=== PATIENT | female | born 1960 | race Caucasian/White ===

== ENCOUNTER 2023-09-25 09:26 | Emergency (ER) | payer OTHER, SELFPAY ==
[2023-09-25 09:31] VITALS: BP 153/81
--- NOTE | 2023-09-25 10:02 | ED.GENMED ---
History of Present Illness
<Nanda Don MD, Resident - Last Filed: 09/25/23 12:47>
General
Chief Complaint: Breathing Problem
Source: patient
Time Seen by Provider: 09/25/23 09:44
History of Present Illness
History of Present Illness:
63-year-old female, tobacco user, presented to the ED with shortness of breath. Patient has a history of COPD, atrial fibrillation on Xeralto, CHF. Patient was on oral prednisone 50 mg and then tapered for the next 5 days which was given by her
family doctor last week as she experienced similar symptoms of shortness of breath. Patient states that after taking prednisone her breathing got better but after the course of 5 days, the symptoms reoccurred. Reports being short of breath at
rest and with exertion. Denies orthopnea, PND. She also complains of upper back pain. Denies edema. For COPD she is using albuterol and Trelegy inhaler. Smoking history of over 50 years. She reports of ongoing cough non productive. Denies
fever, chills.
Past History
<Nanda Don MD, Resident - Last Filed: 09/25/23 12:47>
Past History
ED Past Medical History: Arrthythmia (History of A. fib, long QT syndrome), Asthma, COPD, Hypercholesterolemia, NIDDM (Questionable), [place], Psychiatric (Depression) and Other (History of migraines, insomnia, disconjugate gaze of the eyes the right
greater than the left, PNA.)
ED Past Surgical History: Cardiac (ICD 10/2012) and Other ([place] teeth extraction, and a D&C Procedure)
Social History
Tobacco: Smoker
Alcohol: Former
Drug: None
Personal: (Has a partner)
Living: with family (domestic partner)
Employment: Not employed
Family History
Family History: Other (Noncontributory)
Review of Systems
<Nanda Don MD, Resident - Last Filed: 09/25/23 12:47>
Review of Systems
Respiratory: Reports cough and trouble breathing
Phy Exam
<Nanda Don MD, Resident - Last Filed: 09/25/23 12:47>
General Physical Exam
General Presentation: well appearing and no apparent distress
Cardiovascular Exam
Cardiovascular Exam: regular rate/rhythm, no edema and no murmur
Pulmonary Exam
Pulmonary Exam: decreased breath sounds
Breath Sounds: Wheeze: generalized
Gastrointestinal Exam
Gastrointestinal Exam: normal bowel sounds, non tender, soft and non distended
Scores
<Nanda Don MD, Resident - Last Filed: 09/25/23 12:47>
Heart Failure Risk
Heart Failure Risk Score: Not Applicable
Course
<Nanda Don MD, Resident - Last Filed: 09/25/23 12:47>
Orders/Labs/Results
Orders:
Orders
09/25/23 09:45
CR Chest - 2 Views Urgent
Comment:
Reason For Exam: shortness of breath
09/25/23 10:00
Electrocardiogram (*1) Urgent
Reason for Study: Shortness of Breath
EKG- Treatment ONCE
09/25/23 10:05
COVID-19 Antigen Urgent
Source: Nasal Swab
Respiratory Syncytial Virus Urgent
AUDREY Source: Nasal Swab
Specimen Description:
Date Specimen was Collected: 09/25/23
Time Specimen was Collected: 09:56
09/25/23 10:49
Basic Metabolic Panel Urgent
CBC/With Diff [Complete Blood Count/With Diff] Urgent
NT-proBNP Urgent
09/25/23 11:06
Interrogate Pacemaker- Treatment ONCE
Ipratropium/Albuterol Sulfate [Duoneb] 3 ml INH R NOW STA
07/08/24 11:07
MethylPREDNISolone PF [Solu-Medrol Pf] 125 mg IV NOW STA
09/25/23 11:27
D-Dimer Urgent
Abnormal Lab Results
09/25/23
10:49
MCH 31.9 H pg
(27.0-31.0)
Absolute Lymphs (auto) 3.5 H 10^3/uL
(1.2-3.4)
Carbon Dioxide 34 H mmol/L
(22-30)
09/25/23 10:49
09/25/23 10:49
Vital Signs
Initial and Last Documented VS:
Initial Vital Signs
Temp Pulse Resp BP Pulse Ox
36.8 C 86 25 153/81 95
09/25/23 09:31 09/25/23 09:31 09/25/23 09:31 09/25/23 09:31 09/25/23 09:31
Last Documented Vital Signs
Temp Pulse Resp BP Pulse Ox
36.8 C 86 25 153/81 95
09/25/23 09:31 09/25/23 09:31 09/25/23 09:31 09/25/23 09:31 09/25/23 09:31
<Horacio Blanco MD - Last Filed: 09/25/23 15:39>
Orders/Labs/Results
Orders:
Orders
09/25/23 09:45
CR Chest - 2 Views Urgent
Comment:
Reason For Exam: shortness of breath
09/25/23 10:00
Electrocardiogram (*1) Urgent
Reason for Study: Shortness of Breath
EKG- Treatment ONCE
09/25/23 10:05
COVID-19 Antigen Urgent
Source: Nasal Swab
Respiratory Syncytial Virus Urgent
AUDREY Source: Nasal Swab
Specimen Description:
Date Specimen was Collected: 09/25/23
Time Specimen was Collected: 09:56
09/25/23 10:49
Basic Metabolic Panel Urgent
CBC/With Diff [Complete Blood Count/With Diff] Urgent
NT-proBNP Urgent
09/25/23 11:06
Interrogate Pacemaker- Treatment ONCE
Ipratropium/Albuterol Sulfate [Duoneb] 3 ml INH R NOW STA
09/25/23 11:07
MethylPREDNISolone PF [Solu-Medrol Pf] 125 mg IV NOW STA
09/25/23 11:27
D-Dimer Urgent
Abnormal Lab Results
09/25/23
10:49
MCH 31.9 H pg
(27.0-31.0)
Absolute Lymphs (auto) 3.5 H 10^3/uL
(1.2-3.4)
Carbon Dioxide 34 H mmol/L
(22-30)
09/25/23 10:49
09/25/23 10:49
Vital Signs
Initial and Last Documented VS:
Initial Vital Signs
Temp Pulse Resp BP Pulse Ox
36.8 C 86 25 153/81 95
09/25/23 09:31 09/25/23 09:31 09/25/23 09:31 09/25/23 09:31 09/25/23 09:31
Last Documented Vital Signs
Temp Pulse Resp BP Pulse Ox
36.8 C 86 25 153/81 95
09/25/23 09:31 09/25/23 09:31 09/25/23 09:31 09/25/23 09:31 09/25/23 09:31
<Nanda Don MD, Resident - Last Filed: 09/25/23 12:47>
*Critical Care Note
Total Time (30-74mins, 75-104mins- exclusive of procedures): Not Applicable
<Horacio Blanco MD - Last Filed: 09/25/23 15:39>
*Pulse Oximetry
Patient hypoxic: no
*EKG
Interpreted by ED Provider?: Yes
Heart Rate: 76
Rate: normal
Rhythm: other (Atrial paced rhythm)
Edna: normal axis
Interval: normal interval
QRS Pattern: low voltage
Ischemia: T-wave inversion (Nonspecific T wave abnormality)
Data Reviewed
Source: patient and records
<Nanda Don MD, Resident - Last Filed: 09/25/23 12:47>
Update Note
Update Note:
63-year-old female presented to the ED for shortness of breath. History of COPD. Current smoker for over 50 years
D/D
#1 COPD exacerbation
#2 Community acquired pneumonia
#3 CHF exacerbation
#4 Arrythmia
#5 COVID
-Checking CBC, CMP, proBNP
-EKG to rule out arrhythmia, [place]
-Chest x-ray to rule out pneumonia
-Negative COVID test
-On auscultation, she sounded better than before, slight wheezy over left mid and lower lobe
-Patient is okay to discharge. Vitals are stable
-Sending her home with oral prednisone for 15 days.
-Follow-up outpatient with Dr. Dias
ED Attending Note
<Nanda Don MD, Resident - Last Filed: 09/25/23 12:47>
-
Portions of this chart may have been created with voice recognition software.� Occasional wrong word or��sound alike� substitutions may have occurred due to the inherent limitations of voice recognition software.
<Horacio Blanco MD - Last Filed: 09/25/23 15:39>
ED Attending Note
Patient seen and examined by attending physician: Yes
I performed a history and physical exam of patient and discussed management with resident, I reviewed resident's note and agree with documented findings and plan of care.: Yes
ED Attending Note:
I have seen and evaluated the patient with a [id number] encounter. I have spoken to the resident and involved in the medical history, the physical exam, medical decision making.
Evaluation and management service: agree unless noted differently below.
Results interpretation: agree unless noted differently below.
Focused HPI: 63-year-old female with history as documented notable for COPD, CHF, A-fib on Xarelto and AICD who presents to the emergency room from home for evaluation of shortness of breath. Patient reports that she had a recent exacerbation of
her COPD a few weeks ago. She says that she was on a taper of prednisone last week prescribed by her family doctor. She says that her symptoms improved on steroids and she continued her breathing treatments however over the past few days she has
had increasing shortness of breath once again. Came to the emergency room for assessment. She denies any chest pain. She does report nonproductive cough. No fevers or chills. No swelling in the legs. Denies any palpitations. She says she has
had occasional left scapular pain that is worse with movement she thinks may be from coughing. Denies any other complaints.
Physical exam: Awake and alert no distress. She has AICD in place in the chest wall. She has she has a regular rate and rhythm. She has diffuse bilateral wheezing on lung auscultation. She has normal work of breathing, normal pulse ox on room
air. She has no edema in her lower extremities. She has no JVD.
Medical Decision Makin-year-old female presents for evaluation of shortness of breath similar to prior COPD exacerbations. Finished a steroid taper last week and symptoms have slowly returned. Vitals here are significant for mild tachypnea in
triage. Physical exam as above noted for diffuse wheezing. Will plan to treat with DuoNeb and steroid for suspected acute COPD exacerbation. Will check labs including a CBC and a CMP. Will check a proBNP and a chest x-ray. Will check a D-dimer.
EKG shows paced rhythm. Will interrogate device. Reassess after the above.
Labs reviewed: CBC unremarkable, CMP no clinically significant abnormalities. proBNP was slightly elevated but she has no other signs or symptoms of CHF. Chest x-ray reviewed by me shows no acute disease. D-dimer was negative. Patient symptoms
greatly improved with treatment. Wheezing greatly improved. Respiratory rate normalized. Stable for discharge on steroid taper. She does not require refill of her albuterol she says. I did review her device report�device was interrogated today
and there was 1 notable episode that was read by her device as ventricular tachycardia on 09/21/2023 with an average rate in the 160s; no shock was delivered. Patient was asymptomatic. Reviewed rhythm strip from this event and it appears more
consistent with atrial fibrillation and this would make sense given no symptoms. I did discuss with cardiology who reviewed and agree consistent with A-fib. They will follow-up in the office.
Discharge Plan
Departure
Patient Disposition: Home (Routine Discharge)
Date of Disposition: 09/25/23
Time of Disposition: 12:44
Patient with high blood pressure during this ER visit?: Yes
Discharge Problem:
COPD exacerbation
Instructions: Exacerbation of COPD (DC)
Prescriptions:
New
prednisone 10 mg Tablet
See Rx Instructions .ROUTE .COMPLEX Qty: 45 0RF
Rx Instructions:
Take By Mouth:
50 mg daily x3 days, 40 mg daily x3 days,
30 mg daily x3 days, 20 mg daily x3 days,
10 mg daily x3 days
No Action
clonazepam 1 MG tablet
1 mg PO QID
roflumilast [Daliresp] 500 MCG tablet
500 mcg PO DAILY
escitalopram oxalate 20 MG tablet
20 mg PO DAILY
atorvastatin 10 MG tablet
10 mg PO DAILY
multivitamin with folic acid [Tab-A-Tania] 1 TABLET tablet
1 tab PO DAILY
Xarelto 20 MG tablet
20 mg PO DAILY
acetaminophen [Tylenol] 325 mg Tablet
650 mg PO Q6HPRN PRN (Reason: mild pain)
metoprolol succinate 50 mg Tablet Extended Release 24 Hr
75 mg PO DAILY
folic acid 1 mg Tablet
1 mg PO DAILY
albuterol sulfate 90 mcg/actuation Hfa Aerosol Inhaler
2 puff INHALATION R Q4HPRN PRN (Reason: sob)
aripiprazole 5 mg Tablet
5 mg PO DAILY
Trelezack Ellipta 100-62.5-25 mcg Blister With Device
1 inh INHALATION R DAILY
Referrals:
Vira Quintana DO [Family Provider] -
Kobe Dias MD [Active] - Call in 1-3 days for appt (Hydro Mechanic)
Activity Restrictions/Additional Instructions:
Thank you for visiting the Emergency Department at [facility].
1. Please schedule a follow up appointment as directed. Call first thing tomorrow morning to make an appointment.
2. If indicated, please take your medications as instructed and indicated on discharge paperwork.
3. If any of your symptoms do not improve, or persist, or become more severe within 6-12 hours, please return to the emergency department for further care.
4. Please return to the emergency department if you develop a headache, neck pain/stiffness, fever greater than 100.4F, chest pain, shortness of breath, persistent nausea, vomiting, slurred speech, difficulty walking, numbness/tingling, weakness,
signs of infection or any other symptoms that are worrisome to you.
Please call [phone] if you have any questions.
Interventions
Interventions:
*General Assessment Last Done: 09/25/23 10:51
*Neglect/Abuse Screening Last Done: 09/25/23 10:51
ED- Fall Risk Assessment Last Done: 09/25/23 12:53
*Nursing Disposition Last Done: 09/25/23 12:53
ED- Cardiac Assessment Last Done: 09/25/23 10:57
ED- Pulmonary Assessment Last Done: 09/25/23 10:57
Discharge Date and Time
Discharge Date/Time: 09/25/23 12:54
Print Language: URDU
[2023-09-25 10:41] LABS: COVID-19 Antigen Negative (Negative)
[2023-09-25 10:51] VITALS: BMI 27.3
[2023-09-25 11:01] LABS: % Basophils 0.5 % (0-2); % Immature Granulocytes 0.2 % (0-0.5); % Lymphocytes 42.7 % (20.5-51.1); % Monocytes 5.6 % (1.7-9.3); Absolute Eosinophils 0.1 10^3/uL (0-0.7); Absolute Lymphocytes 3.5 10^3/uL (1.2-3.4); Absolute Monocytes 0.5 10^3/uL (0.1-0.6); Absolute Neutrophils 4.1 10^3/uL (1.4-6.5); Hematocrit 42.1 % (37.0-47.0); Hemoglobin 14.4 g/dL (12.0-16.0); Mean Corp Hgb Conc. 34.2 g/dL (33.0-37.0); Mean Corpuscular Hgb 31.9 pg (27.0-31.0); Mean Corpuscular Volume 93.1 fL (81.0-99.0); Mean Platelet Volume 10.3 fL (7.4-10.4); Nucleated Red Blood Cells % 0 %; Platelet Count 168 10^3/uL (130-400); Red Blood Cell Count 4.52 10^6/uL (4.20-5.40); Red Cell Dist. Width 13.5 % (11.5-14.5); White Blood Cell Count 8.2 10^3/uL (4.8-10.8)
[2023-09-25 11:12] LABS: Blood Urea Nitrogen 12 mg/dl (7-17); Carbon Dioxide 34 mmol/L (22-30); Chloride 102 mmol/L (98-107); Estimated Creatinine Clearance 77 ml/min; Glucose 80 mg/dl (70-99); Sodium 137 mmol/L (135-145); eGFR > 60.00
[2023-09-25 11:16] LABS: NT-proBNP 1240 pg/ml
[2023-09-25] MEDS: DUONEB 3 ML INH (11:25)
[2023-09-25] MEDS: SOLU-MEDROL PF 125 MG IV (11:26)
[2023-09-25 12:06] LABS: D-Dimer 0.43 ug/mlFEU (0.00-0.50)
== END 2023-09-25 12:54 | disposition home or self-care (01) ==
LOC: EMR 09:26
PROVIDERS: Student in an Organized Health Care Education/Training Program; EMERGENCY PHYSICIAN Emergency Medicine; FAMILY PHYSICIAN Family Medicine
DX: J44.1 Chronic obstructive pulmonary disease with (acute) exacerbation (principal); I11.0 Hypertensive heart disease with heart failure; I50.9 Heart failure, unspecified; I48.91 Unspecified atrial fibrillation; F17.210 Nicotine dependence, cigarettes, uncomplicated; Z95.0 Presence of cardiac pacemaker
CPT/HCPCS: 99285; 96374; 93289; 94640; 71046; 80048; 83880; 85025; 85379; 87807; 87811; 93005

== ENCOUNTER 2023-11-02 15:13 | Inpatient (IN) | payer OTHER, SELFPAY ==
[2023-11-02] VITALS (13 sets, daily range): BP systolic 98–124; BP diastolic 55–72; PULSE 75–83; BMI 26.7; BMI 26.5
--- NOTE | 2023-11-02 11:25 | ED.GENMED ---
History of Present Illness
General
Chief Complaint: Breathing Problem
Source: patient
Time Seen by Provider: 11/02/23 10:59
History of Present Illness
History of Present Illness:
63-year-old female presents to the emergency room complaining of shortness of breath. Patient feels like she has increased wheezing and increased shortness of breath over the past 6 weeks or so. Also complains of pain in her upper thoracic region.
This pain is worse with movement. It does not seem worse with deep breaths. Patient has been using her nebulizer added increased frequency. She was seen here in the emergency room in early September for similar symptoms. She was discharged on
steroid taper. Patient felt better but symptoms have worsened. Patient does not use home oxygen. She denies fever. She feels like her cough is more productive.
Past History
Past History
ED Past Medical History: Arrthythmia (History of A. fib, long QT syndrome), Asthma, COPD, Hypercholesterolemia, NIDDM (Questionable), [place], Psychiatric (Depression) and Other (History of migraines, insomnia, disconjugate gaze of the eyes the right
greater than the left, PNA.)
ED Past Surgical History: Cardiac (ICD 10/2012) and Other ([place] teeth extraction, and a D&C Procedure)
Social History
Tobacco: Smoker
Alcohol: Former
Drug: None
Personal: (Has a partner)
Living: with family (domestic partner)
Employment: Not employed
Family History
Family History: Other (Noncontributory)
Phy Exam
Physical Exam
Physical Exam:
General: Awake, Alert, Oriented X3. No acute distress.
Vitals: unremarkable
Head: Atraumatic
Eyes: Pupils equal, EOMI
Throat: Airway intact, no exudates
Neck: Trachea midline
Lungs: Moderate expiratory wheezing bilaterally
Heart: regular rate, no murmurs
Abd: Soft, Nontender, No pulsatile mass
Neuro: Nonfocal
Skin: Warm, dry, no rash
Extremities: pulses equal b/l, no edema
Scores
Heart Failure Risk
Heart Failure Risk Score: Not Applicable
Course
Orders/Labs/Results
Orders:
Orders
11/02/23 11:20
Ipratropium/Albuterol Sulfate [Duoneb] 3 ml INH R NOW STA
11/02/23 11:21
CR Chest - 2 Views Urgent
Comment:
Reason For Exam: shortness of breath
11/02/23 11:22
Prednisone [Deltasone] 60 mg PO NOW STA
11/02/23 12:01
Basic Metabolic Panel Urgent
Complete Blood Count/With Diff Urgent
11/02/23 13:02
Ipratropium/Albuterol Sulfate [Duoneb] 3 ml INH R NOW STA
11/02/23 13:47
Albuterol Sulfate [Ventolin Nebules] 7.5 mg INH R NOW STA
Abnormal Lab Results
11/02/23
12:01
MCH 33.6 H pg
(27.0-31.0)
RDW 14.6 H %
(11.5-14.5)
MPV 10.9 H fL
(7.4-10.4)
Carbon Dioxide 32 H mmol/L
(22-30)
11/02/23 12:01
11/02/23 12:01
Vital Signs
Initial and Last Documented VS:
Initial Vital Signs
Temp Pulse Resp BP Pulse Ox
98.1 F 81 16 124/72 94
11/02/23 10:33 11/02/23 10:33 11/02/23 10:33 11/02/23 10:33 11/02/23 10:33
Last Documented Vital Signs
Temp Pulse Resp BP Pulse Ox
98.1 F 75 13 99/66 88
11/02/23 10:33 11/02/23 12:04 11/02/23 12:04 11/02/23 12:04 11/02/23 13:07
*Radiology
Radiology exam reviewed: radiology read reviewed
*Pulse Oximetry
Patient hypoxic: yes
*Stock Trader Interpretation
Rate: normal
Interpretation: normal
Rhythm: sinus
*Critical Care Note
Total Time (30-74mins, 75-104mins- exclusive of procedures): Not Applicable
Data Reviewed
Review of Other/Old Records Reveals: Discharge Summary
Patient Management
Social determinants of health affecting care: Strong social support
ED Attending Note
-
Portions of this chart may have been created with voice recognition software.� Occasional wrong word or��sound alike� substitutions may have occurred due to the inherent limitations of voice recognition software.
Discharge Plan
Departure
Patient Disposition: Admit
Date of Disposition: 11/02/23
Time of Disposition: 13:48
Admit to: Med/Surg
Presentation/result/management discussed w/ accepting MD/DO: Hospitalist
Condition: Fair
Discharge Problem:
COPD exacerbation, Hypoxia
Prescriptions:
No Action
clonazepam 1 MG tablet
1 mg PO QID
roflumilast [Daliresp] 500 MCG tablet
500 mcg PO DAILY
escitalopram oxalate 20 MG tablet
20 mg PO DAILY
atorvastatin 10 MG tablet
10 mg PO DAILY
multivitamin with folic acid [Tab-A-Tania] 1 TABLET tablet
1 tab PO DAILY
Xarelto 20 MG tablet
20 mg PO DAILY
acetaminophen [Tylenol] 325 mg Tablet
650 mg PO Q6HPRN PRN (Reason: mild pain)
metoprolol succinate 50 mg Tablet Extended Release 24 Hr
75 mg PO DAILY
folic acid 1 mg Tablet
1 mg PO DAILY
albuterol sulfate 90 mcg/actuation Hfa Aerosol Inhaler
2 puff INHALATION R Q4HPRN PRN (Reason: sob)
aripiprazole 5 mg Tablet
5 mg PO DAILY
Trelegy Ellipta 100-62.5-25 mcg Blister With Device
1 inh INHALATION R DAILY
prednisone 10 mg Tablet
See Rx Instructions .ROUTE .COMPLEX Qty: 45 0RF
Rx Instructions:
Take By Mouth:
50 mg daily x3 days, 40 mg daily x3 days,
30 mg daily x3 days, 20 mg daily x3 days,
10 mg daily x3 days
Referrals:
Vira Quintana DO [Family Provider] -
Interventions
Interventions:
*Risk Screen - Suicide Last Done: 11/02/23 12:03
*General Assessment Last Done: 11/02/23 12:03
*Neglect/Abuse Screening Last Done: 11/02/23 12:03
*ED COVID-19 Vaccine History Last Done: 11/02/23 12:03
ED- Cardiac Assessment Last Done: 11/02/23 12:05
ED- Pulmonary Assessment Last Done: 11/02/23 12:05
Discharge Date and Time
Print Language: ICELANDIC
[2023-11-02] MEDS: DELTASONE 60 MG PO (11:50)
[2023-11-02] MEDS: DUONEB 3 ML INH ×3 (11:50→20:23)
[2023-11-02 12:27] LABS: % Basophils 0.7 % (0-2); % Eosinophils 2.4 % (0-6); % Monocytes 7.6 % (1.7-9.3); % Neutrophils 47.3 % (42.2-75.2); Absolute Basophils 0.1 10^3/uL (0-0.2); Absolute Eosinophils 0.2 10^3/uL (0-0.7); Absolute Lymphocytes 2.8 10^3/uL (1.2-3.4); Absolute Monocytes 0.5 10^3/uL (0.1-0.6); Absolute Neutrophils 3.2 10^3/uL (1.4-6.5); Hematocrit 41.8 % (37.0-47.0); Hemoglobin 14.7 g/dL (12.0-16.0); Mean Corp Hgb Conc. 35.2 g/dL (33.0-37.0); Mean Corpuscular Hgb 33.6 pg (27.0-31.0); Mean Corpuscular Volume 95.4 fL (81.0-99.0); Mean Platelet Volume 10.9 fL (7.4-10.4); Nucleated Red Blood Cells % 0 %; Platelet Count 176 10^3/uL (130-400); Red Blood Cell Count 4.38 10^6/uL (4.20-5.40); Red Cell Dist. Width 14.6 % (11.5-14.5); White Blood Cell Count 6.7 10^3/uL (4.8-10.8)
[2023-11-02 12:43] LABS: Blood Urea Nitrogen 10 mg/dl (7-17); Calcium 9.6 mg/dl (8.4-10.2); Carbon Dioxide 32 mmol/L (22-30); Chloride 101 mmol/L (98-107); Estimated Creatinine Clearance 77 ml/min; Glucose 82 mg/dl (70-99); Sodium 136 mmol/L (135-145); eGFR > 60.00
[2023-11-02] MEDS: VENTOLIN NEBULES 7.5 MG INH (14:05)
[2023-11-02] MEDS: VIBRAMYCIN 100 MG PO ×2 (14:06→21:15)
--- NOTE | 2023-11-02 14:14 | W.PN.UPDATE ---
Update Note
Progress Note Update
I saw and examined the patient.
The POKE IN or PA's note was reviewed and I agree with the note.
Comment: 63 y/o F, hx of COPD, GENI, Asthma, Hx of Afib, HLD, Depression presents to ER for SOB manifested with increased wheezing/sob over past several weeks since her prior COPD exacerbation in early September. Associated with worsening cough and
thoracic back pain. Also utilizing nebs more frequently. No fevers/chills or other complaints.
in ER, given PO steroids, PO doxy, nebs and admitted.
Exam
General: Comfortable and Conversant; No Fever or Chills
HEENT: Normocephalic, Anicteric, PERRLA, [place] Conjunctivae, No Ptosis, Oxygen (3 L nasal cannula) and Other (Chronic disconjugate gaze to the right)
Respiratory: Wheezes (Diffuse expiratory throughout both lung cabrera); No Rales or Rhonchi
Cardiac: S1/S2 and Irregular Rhythm (A-fib to paced on monitor 81 bpm); No Murmur, Rub, Gallop or Peripheral Edema
Breast: Deferred by me
GI: Soft, Non Tender, Non Distended, Normal Bowel Sounds and No Hepatosplenomegaly
Rectal: Deferred by Provider
Genito-urinary: Deferred by me
Musculoskeletal: No Clubbing, No Cyanosis and No Edema
Skin: Warm and Dry; No Rash
Neuro: AO x 3, No Motor Deficits, Nonfocal/grossly intact, Cranial Nerves Intact and No Sensory Deficits; No Slurred Speech, Facial Droop, Tremors or Sedated
Psych: Calm
Assessment:
Acute hypoxemic respiratory insufficiency
- no prior O2 needs at home; currently on 3L NC
- wean O2 as able
Acute COPD Exacerbation
Hx of COPD and underlying hx of Asthma
- noted recent ER visit in September for COPD exacerbation - treated with steroid taper.
- prn and standing nebs
- IV Decadron 4mg q8h
- continue doxycycline
- continue Trelegy or equivalent
- continue Daliresp
- consult Pulmonary
Obstructive sleep apnea-on CPAP therapy.
Long QT syndrome with ICD placement 10/2012
History of Afib
History of cardiac arrest (VF in setting of prolonged QT/bradycardia 2012)
- continue Metoprolol, decrease to 50mg
- continue Xarelto
Depression
Bipolar disorder
Insomnia
- continue Lexapro, Clonazepam, Abilify
Hypercholesterolemia
- continue statin
Bipolar disorder
Tobacco use disorder, actively smoking
- encourage cessation
- Nicotine patch ordered
Hx of Alcohol abuse
DVT ppx: Xarelto
Code: Full
--- NOTE | 2023-11-02 14:30 | HPS.HSE ---
Addendum entered and electronically signed by Price Hess MD 11/02/23 15:13:
see my update note for addendum
Original Note:
Family Physician
-
Family Physician: Vira Quintana
Chief Complaint
-
Persistent wheezing, shortness of breath, cough, new lightheadedness with standing
History of Present Illness
63-year-old female complaining of shortness of breath with wheezing over the past 6 weeks and pain in her upper thoracic region worse with movement but not deep breaths. She reports she has been using her nebulizer more frequently but with no
relief. She does not use any home oxygen. She finished a steroid taper approximately October 09. She does report a productive cough yellow in color there is been persistent over the past 6 weeks. She denies fever, chills, sore throat, chest pain,
palpitations, abdominal pain, nausea, vomiting, diarrhea, urinary symptoms, sick contacts. She does also states she followed up with her public health microbiologist approximately 3 weeks ago had metoprolol increased from 50 mg to 75 mg daily for A-fib heart rate
control. In the ER she is noted to have fluctuating blood pressures 107/64 as low as 74/65. She does state occasionally she gets dizzy with standing up and bending over since this adjustment.
The patient was treated in the ER 09/25/2023 for COPD exacerbation placed on steroid taper starting at 50 mg x 3 days to decrease by 10 mg daily. He has past medical history of COPD, active smoker 50 years 1.5 pack a day until 2022 current 1/2
pack/day, sleep apnea/CPAP, A-fib on Xarelto, long QT syndrome, ICD/pacemaker 11/06/2012, pacemaker battery change March 2019 chronic CHF, DM 2, CAD/CT, depression, migraines, insomnia, disconjugate gaze of the eyes right greater than left,
pneumonia, former alcohol use stopped November 2016, anxiety, depression
Medical History
Past Medical History
Past Medical History: Reports Other
Additional Past Medical History:
COPD
active smoker 50 years 1.5 pack a day until 2022 current 1/2 pack/da
sleep apnea/CPA
, A-fib on Xarelto
long QT syndrome
ICD/pacemaker 11/06/2012
pacemaker battery change March 2019
chronic CHF
CAD/CT
depression/anxiety
migraines
insomnia
disconjugate gaze of the eyes right greater than left
pneumonia,
former alcohol use stopped November 2016
Past Surgical History: Reports Other
Additional Past Surgical History:
Defibrillator/pacemaker 10/20/2012
Pacemaker battery change March 2019
A-fib cardioversion September 2012
Hysteroscopy
D&C
Endometrial ablation 07/08/2011
Tonsillectomy
[place] teeth extraction
Vein ablation
Social History
Tobacco: Smoker (1/2 pack/day x 1 year prior 50-year 1.5 pack/day)
Alcohol: None
Drug: None
Personal: Single
Living: Alone
Employment: Retired
Family History
Family History: Other (Mother interstitial cystitis father dementia also history CT Sister living history of depression and narcolepsy)
Allergies / Home Medications
Allergies reflects when Allergies were last updated in [employer].
Home Medications with original date entered in [employer]
Allergy/Medication List:
Allergies
Allergy/AdvReac Type Severity Reaction Status Date / Time
azithromycin [From Zithromax] Allergy Unknown Verified 09/25/23 09:33
erythromycin lactobionate Allergy Unknown Verified 09/25/23 09:33
[From Erythrocin]
hydrocodone [From Vicodin] Allergy Itching Verified 09/25/23 09:33
levofloxacin [From Levaquin] Allergy Torsade Verified 09/25/23 09:33
quetiapine fumarate Allergy 'jumping Verified 09/25/23 09:33
[From Seroquel] legs and
pins and
needles'
numbness
arms and
legs
[id number] Antimigraine Allergy Unknown Verified 09/25/23 09:33
Agents
z-pack Allergy prolonged Uncoded 09/25/23 09:33
QT syndrome
Home Medications
clonazepam 1 mg tablet 1 mg PO QID Mental Health/Anxiety 07/23/16
roflumilast 500 mcg tablet (Daliresp) 500 mcg PO DAILY COPD 05/09/17
escitalopram oxalate 20 mg tablet 20 mg PO DAILY depression/anxiety 04/15/18
atorvastatin 10 mg tablet 10 mg PO DAILY High cholesterol 08/27/19
multivitamin with folic acid 400 mcg tablet (Tab-A-Tania) 1 tab PO DAILY Supplement 08/27/19
rivaroxaban 20 mg tablet (Xarelto) 20 mg PO DAILY Blood clot prevention/tx 09/25/19
albuterol sulfate 90 mcg/actuation aerosol inhaler 2 puff inhalation R Q4HPRN PRN sob 09/25/23
aripiprazole 5 mg tablet 5 mg PO DAILY depression 09/25/23
fluticasone fur. 100 mcg-umeclid 62.5 mcg-vilant 25 mcg inhalat.powder (Trelegy Ellipta) 1 inh inhalation R DAILY COPD/asthma 09/25/23
folic acid 1 mg tablet 1 mg PO DAILY Supplement 09/25/23
metoprolol succinate 50 mg tablet,extended release 24 hr 75 mg PO DAILY Blood Pressure 09/25/23
ibuprofen 200 mg tablet 400 mg PO Q6HPRN PRN mild pain 11/02/23
Review of Systems
-
History Source: Patient
A 12 point ROS was completed and negative except as noted: Yes
Constitutional: Denies Fever, Weight Loss, Fatigue or Chills
EENT: Denies Sore Throat or Runny Nose
Respiratory: Reports Cough (Yellow in color) and Trouble Breathing (With wheezing)
Cardiac: Denies Chest Pain, Diaphoresis or Palpitations
Abdomen/GI: Denies Abdominal Pain, Nausea, Vomiting, Diarrhea, Constipated, Bloody Stools or Black Stools
: Denies Dysuria, Frequency, Flank Pain, Incontinence, Difficulty Voiding or Urgency
Musculoskeletal: Denies Joint Pain or Edema
Skin: Denies Itching or Rash
Neurological: Reports Dizzy (With standing); Denies Headache or Weakness
Endocrine: Reports No Symptoms
Hematologic/Lymphatic: Reports No Symptoms
Psych: Reports Calm
Physical Exam
Vital Signs
Vital Signs
Temp Pulse Resp BP Pulse Ox
98.1 F 75 13 99/66 88
11/02/23 10:33 11/02/23 12:04 11/02/23 12:04 11/02/23 12:04 11/02/23 13:07
Physical Exam
General: Comfortable and Conversant; No Fever or Chills
HEENT: NormoCephalic, Anicteric, PERRLA, [place] Conjunctivae, No Ptosis, Oxygen (3 L nasal cannula) and Other (Chronic disconjugate gaze to the right)
Respiratory: Wheezes (Diffuse expiratory throughout both lung cabrera); No Rales or Rhonchi
Cardiac: S1/S2 and Irregular Rhythm (A-fib to paced on monitor 81 bpm); No Murmur, Rub, Gallop or Peripheral Edema
Breast: Deferred by me
GI: Soft, Non Tender, Non Distended, Normal Bowel Sounds and No Hepatosplenomegaly
Rectal: Deferred by Provider
Genito-urinary: Deferred by me
Musculoskeletal: No Clubbing, No Cyanosis and No Edema
Skin: Warm and Dry; No Rash
Neuro: AO x 3, No Motor Deficits, Nonfocal/grossly intact, Cranial Nerves Intact and No Sensory Deficits; No Slurred Speech, Facial Droop, Tremors or Sedated
Psych: Calm
Laboratory Results
-
11/02/23 12:01
11/02/23 12:01
Data Reviewed
-
Diagnostic Radiology: Report Reviewed by me
Lab Data: Labs Reviewed by me
Impression/Plan
-
Impression/plan:
Admit to telemetry
#Acute hypoxic resp insuff 2/2 to Acute on chronic COPD exacerbation
-COPD exacerbation on 09/25/2023 finished steroid taper 10/10/2023
88% RA, 90%
DuoNebs scheduled and as needed
-IV Decadron 4 every 8 hours
-Doxycycline 100 mg p.o. every 12 hours
-Continue Trelegy Ellipta or equivalent
-Continue Daliresp 500 mcg p.o. daily
-Consult Pulm
-Check sputum culture
-Follow CBC, CMP
-PT/OT/case management consult
-will eventually need PT walking pulse ox for possible home O2 need
CXR no acute cardiopulmonary process
#Active smoker
50-year average 1.5 pack/day until 2022 now 1/2 pack/day
-Smoking cessation advised
-Nicotine patch 14 Mg
-
#Hypotension/HTN�benign
BP 99/66
Change metoprolol to succinate back to 50 mg daily from 75 mg due to hypotension with hold parameter
#A-fib paroxysmal
-Continue Xarelto
Change metoprolol to succinate back to 50 mg daily from 75 mg due to hypotension with hold parameters
Her Toprol was increased to 75 approximate 3 weeks ago by cardiology for rate control
#Defibrillator/pacemaker 10/20/2012
Pacemaker battery change March 2019
# hx long QT syndrome
#Chronic CHF-unclear type
I/O, daily weights
#CAD/CT
-Continue beta-kayla, statin
#GENI
-Continue CPAP
#Depression hx /anxiety Hx
-Continue clonazepam 1 mg p.o. 4 times daily, escitalopram 20 mg daily, Aripiprazole 5 mg daily
#Migraines hx -no current migraine
insomnia
-No current meds
Other PMH:
disconjugate gaze of the eyes right greater than left
pneumonia
former alcohol use stopped November 2016
DVT prophylaxis
Continue [employer] Xarelto
Full code
[2023-11-02 15:02] LABS: COVID-19 Antigen Negative (Negative)
--- NOTE | 2023-11-02 15:34 | CON.PUL ---
Consultation
Consultation Request
Date/Time Consultation Requested: 11/01
Date/Time Consultation Performed: 11/01
Reason for Consultation: COPD
Medical History
-
History of Present Illness:
History obtained from the chart, ED records, inpatient and outpatient records, patient. Patient is a 63-year-old female with a history of COPD recently discharged 09/25/2023 for COPD exacerbation. She states she was not feeling well upon her last
discharge. She is not on home oxygen. Unfortunate she continues to smoke a pack of cigarettes a day. She has had persistent shortness of breath over the past 6 weeks. Upon reviewing outpatient records she was called by our office for follow-up
but she never returned her call. Her last steroid dose was approximately 2 to 3 weeks ago. She admits to a productive cough, no blood. Denies any falls, fevers, chills, sweats, dysphagia, choking, sick contacts. Upon arrival to [facility], afebrile, pulse 81, breathing at 16, blood pressure 124/72, 88% on room air. Per ED records, chest exam with moderate wheezing bilaterally. Chest x-ray unremarkable. Patient mated for COPD exacerbation. We are asked to comment on
pulmonary process
.
PMH:, Asthma, depression. History of long QT syndrome with ICD placement 2012, cardiac arrest. History of bipolar disorder. Fractured hip with rods [facility] at [facility] 2022. Hypertension, hyperlipidemia, history of atrial fibrillation, sleep
apnea, COPD
Past Medical History
Past Medical History: None (See above)
Past Surgical History: None (See above)
Social History
Tobacco: Smoker (Continues to smoke half a pack a day, likely 65+ pack-year history of smoking, ongoing)
Alcohol: Occasional
Drug: None
Personal:
Living: Alone
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
Environmental Exposures: Cat, no mold, no wood-burning
Family History
Family History: Other (Mother from pulmonary disease. Father from heart attack. Son with epilepsy/lupus. 2 sisters healthy. March 2022)
Allergies / Home Medications
Allergies
Allergy/AdvReac Type Severity Reaction Status Date / Time
azithromycin [From Zithromax] Allergy Unknown Verified 09/25/23 09:33
erythromycin lactobionate Allergy Unknown Verified 09/25/23 09:33
[From Erythrocin]
hydrocodone [From Vicodin] Allergy Itching Verified 09/25/23 09:33
levofloxacin [From Levaquin] Allergy Torsade Verified 09/25/23 09:33
quetiapine fumarate Allergy 'jumping Verified 09/25/23 09:33
[From Seroquel] legs and
pins and
needles'
numbness
arms and
legs
[id number] Antimigraine Allergy Unknown Verified 09/25/23 09:33
Agents
z-pack Allergy prolonged Uncoded 09/25/23 09:33
QT syndrome
Home Medications
�Medication �Instructions �Recorded �Confirmed �Last Taken �Type
clonazepam 1 mg tablet 1 mg PO QID Mental Health/Anxiety 07/23/16 11/02/23 11/01/23 History
roflumilast 500 mcg tablet 500 mcg PO DAILY COPD 05/09/17 11/02/23 11/01/23 History
(Daliresp)
escitalopram oxalate 20 mg tablet 20 mg PO DAILY depression/anxiety 04/15/18 11/02/23 11/01/23 History
atorvastatin 10 mg tablet 10 mg PO DAILY High cholesterol 08/27/19 11/02/23 11/01/23 History
multivitamin with folic acid 400 1 tab PO DAILY Supplement 08/27/19 11/02/23 11/01/23 History
mcg tablet (Tab-A-Tania)
rivaroxaban 20 mg tablet (Xarelto) 20 mg PO DAILY Blood clot 09/25/19 11/02/23 11/01/23 History
prevention/tx
albuterol sulfate 90 mcg/actuation 2 puff inhalation R Q4HPRN PRN sob 09/25/23 11/02/23 09/25/23 History
aerosol inhaler
aripiprazole 5 mg tablet 5 mg PO DAILY depression 09/25/23 11/02/23 11/01/23 History
fluticasone fur. 100 mcg-umeclid 1 inh inhalation R DAILY 09/25/23 11/02/23 11/01/23 History
62.5 mcg-vilant 25 mcg COPD/asthma
inhalat.powder (Trelegy Ellipta)
folic acid 1 mg tablet 1 mg PO DAILY Supplement 09/25/23 11/02/23 11/01/23 History
metoprolol succinate 50 mg 75 mg PO DAILY Blood Pressure 09/25/23 11/02/23 11/01/23 History
tablet,extended release 24 hr
ibuprofen 200 mg tablet 400 mg PO Q6HPRN PRN mild pain 11/02/23 11/02/23 11/01/23 History
Review of Systems
Vitals / Labs / Diagnostic Testing
Vital Signs
Temp Pulse Resp BP Pulse Ox
98.1 F 75 19 107/64 90
11/02/23 10:33 11/02/23 14:39 11/02/23 14:39 11/02/23 14:39 11/02/23 14:39
Lab Data
11/02/23 12:01
11/02/23 12:01
Diagnostic Testing:
Physical Exam
-
HEENT: Normocephalic, Anicteric, Other (Narrow posterior oropharynx) and Other (Lazy eye)
Cardiovascular: S1/S2, Regular Rhythm, Murmur (n), Rub (n) and Peripheral Edema (n)
Respiratory: Wheeze (Scattered expiratory), Rales (n), Rhonchi (n) and Non-Labored Respirations
GI: Soft, Non Distended and Non Tender
Neurology: Awake, Alert and No Motor Deficits (Able to sit up without assistance)
Skin: Good Color and Other (Multiple tattoos)
General: Comfortable
Assessment
-
63-year-old female with history of COPD with recurrent exacerbations, ongoing smoking, atrial fibrillation, long QT syndrome with history of V-fib arrest, ICD in place, presents with increased shortness of breath x 6 weeks. She was recently
discharged with COPD exacerbation 09/24, last steroid 10/09. She was contacted by the pulmonary office for follow-up but did not return calls. She is now admitted for COPD exacerbation
Acute hypoxic respiratory insufficiency
88% room air
Acute COPD exacerbation
History of COPD
FEV1 1.08/41%, DLCO 36%
History of recurrent COPD exacerbations
GENI, total index 35, desaturation bipin 80%
Control with CPAP pressure of 9 in the past
Long QT syndrome with ICD placement 2012
Cardiac arrest/VF in the setting of prolonged QT/bradycardia
History of atrial fibrillation
On anticoagulation
Hypertension/hyperlipidemia
Bipolar disorder
Alcohol use history, currently denies
Ongoing tobacco use
Right lower lobe nodule per CT imaging per my review
Plan/recommendations
At this time, patient appears to be nontoxic. Wheezing on exam noted
Patient has had multiple COPD exacerbations, 4 times in 2018 and twice in 2022
Unfortunate she continues to smoke but is cut down from 2 packs to half a pack
Describes about 65+ pack-year history of smoking
Moving forward
Patient currently on Jacquelin Miller as outpatient. Wonder if she may benefit from azithromycin but but this may be difficult given history of long QT syndrome. She does have an ICD in place
No doubt her ongoing smoking contributes to her symptom complex
Continue with steroids, doxycycline
DuoNebs 4 times daily, budesonide twice a day
Hold Trelegy for now
Upon reviewing prior images, CT chest 10/04/2022 with right lower lobe nodule per my review she will require follow-up CT imaging. Unclear
Why she is not getting low-dose lung cancer screening
Reviewed importance of follow-up with pulmonary
Prior PFTs suggest severe COPD with severe gas exchange defect
Mild hypoxia noted. Last echocardiogram 2019 with normal biventricular function, right heart pressures could not be determined
Ongoing tobacco cessation discussion
Nicotine patch
Reviewed with patient at length. Will follow
[2023-11-02] MEDS: DUONEB INH (16:52)
[2023-11-02] MEDS: NICODERM TRANSDERMAL 14 MG TRANSDERM (17:36)
[2023-11-02] MEDS: KLONOPIN 1 MG PO ×2 (17:38→21:15)
[2023-11-02] MEDS: DECADRON 4 MG IV (19:54)
[2023-11-02] MEDS: PULMICORT 0.5 MG INH (20:23)
[2023-11-03] VITALS (8 sets, daily range): BP systolic 94–121; BP diastolic 43–77; PULSE 77–80; O2SAT 93; BMI 26.4
[2023-11-03] MEDS: DECADRON 4 MG IV ×3 (04:30→21:14)
[2023-11-03] MEDS: TYLENOL 650 MG PO (04:39)
[2023-11-03 05:53] LABS: % Basophils 0.2 % (0-2); % Immature Granulocytes 0.2 % (0-0.5); % Lymphocytes 12.7 % (20.5-51.1); % Monocytes 3.6 % (1.7-9.3); % Neutrophils 83.3 % (42.2-75.2); Absolute Lymphocytes 0.6 10^3/uL (1.2-3.4); Absolute Monocytes 0.2 10^3/uL (0.1-0.6); Absolute Neutrophils 3.8 10^3/uL (1.4-6.5); Hematocrit 43.2 % (37.0-47.0); Hemoglobin 15.1 g/dL (12.0-16.0); Mean Corpuscular Hgb 33.2 pg (27.0-31.0); Mean Corpuscular Volume 94.9 fL (81.0-99.0); Nucleated Red Blood Cells % 0 %; Platelet Count 165 10^3/uL (130-400); Red Blood Cell Count 4.55 10^6/uL (4.20-5.40); Red Cell Dist. Width 14.3 % (11.5-14.5); White Blood Cell Count 4.5 10^3/uL (4.8-10.8)
[2023-11-03 06:27] LABS: ALT (SGPT) < 10 U/L (0-35); AST (SGOT) 17 U/L (14-36); Albumin 4.1 g/dl (3.5-5.0); Alkaline Phosphatase 58 U/L (38-126); Blood Urea Nitrogen 15 mg/dl (7-17); Calcium 9.9 mg/dl (8.4-10.2); Carbon Dioxide 27 mmol/L (22-30); Chloride 102 mmol/L (98-107); Estimated Creatinine Clearance 90 ml/min; Glucose 123 mg/dl (70-99); Potassium 4.6 mmol/L (3.5-5.1); Sodium 136 mmol/L (135-145); Total Bilirubin 0.7 mg/dl (0.2-1.3); Total Protein 6.3 g/dl (6.3-8.2); eGFR > 60.00
[2023-11-03] MEDS: DUONEB 3 ML INH ×4 (07:15→18:10)
[2023-11-03] MEDS: PULMICORT 0.5 MG INH ×2 (07:15→18:10)
[2023-11-03] MEDS: KLONOPIN 1 MG PO ×4 (07:42→21:14)
[2023-11-03] MEDS: XARELTO 20 MG PO (07:42)
[2023-11-03] MEDS: LIPITOR 10 MG PO (07:42)
[2023-11-03] MEDS: VIBRAMYCIN 100 MG PO ×2 (07:42→21:14)
[2023-11-03] MEDS: ABILIFY 5 MG PO (07:42)
[2023-11-03] MEDS: DALIRESP 500 MCG PO (07:42)
[2023-11-03] MEDS: LEXAPRO 20 MG PO (07:42)
[2023-11-03] MEDS: FOLVITE 1 MG PO (07:42)
[2023-11-03] MEDS: NICODERM TRANSDERMAL 14 MG TRANSDERM (07:42)
[2023-11-03] MEDS: THERAGRAN 1 TABLET PO (07:43)
[2023-11-03] MEDS: TOPROL XL 50 MG PO (07:43)
--- NOTE | 2023-11-03 09:06 | W.PN.PUL3 ---
Today's Communication / Plan
-
Consider transition to oral steroid in the next 24-48 hours
Continue doxycycline
Continue nebulized therapy
check ambulatory saturation prior to discharge
Recommend plenty follow-up as outpatient
Assessment
-
63-year-old female with history of COPD with recurrent exacerbations, ongoing smoking, atrial fibrillation, long QT syndrome with history of V-fib arrest, ICD in place, presents with increased shortness of breath x 6 weeks. She was recently
discharged with COPD exacerbation 09/24, last steroid 10/09. She was contacted by the pulmonary office for follow-up but did not return calls. She is now admitted for COPD exacerbation
Acute hypoxic respiratory insufficiency
88% room air
Acute COPD exacerbation
History of COPD
FEV1 1.08/41%, DLCO 36%
History of recurrent COPD exacerbations
GENI, total index 35, desaturation bipin 80%
Control with CPAP pressure of 9 in the past
Long QT syndrome with ICD placement 2012
Cardiac arrest/VF in the setting of prolonged QT/bradycardia
History of atrial fibrillation
On anticoagulation
Hypertension/hyperlipidemia
Bipolar disorder
Alcohol use history, currently denies
Ongoing tobacco use
Right lower lobe nodule per CT imaging per my review
Plan/recommendations
At this time, patient appears to be nontoxic. Wheezing on exam noted, improved
Patient has had multiple COPD exacerbations, 4 times in 2018 and twice in 2022
Unfortunate she continues to smoke but is cut down from 2 packs to half a pack
Describes about 65+ pack-year history of smoking
Moving forward
Patient currently on Trelegy, Daliresp as outpatient. Wonder if she may benefit from azithromycin but but this may be difficult given history of long QT syndrome. She does have an ICD in place
No doubt her ongoing smoking contributes to her symptom complex
Continue with steroids, doxycycline
DuoNebs 4 times daily, budesonide twice a day
Hold Trelegy for now. Can resume at time of discharge
Upon reviewing prior images, CT chest 10/04/2022 with right lower lobe nodule per my review she will require follow-up CT imaging. Unclear
Why she is not getting low-dose lung cancer screening
Reviewed importance of follow-up with pulmonary
Prior PFTs suggest severe COPD with severe gas exchange defect
Mild hypoxia noted. Last echocardiogram 2019 with normal biventricular function, right heart pressures could not be determined
Increase activity, ambulate
Ongoing tobacco cessation discussion
Nicotine patch
Reviewed with patient at length.
Possible transition to oral steroids with slow taper over 2-3 weeks recommended.
Possible discharge in the next 24-48 hours
Subjective Data
-
Date of Service:
Date of Service: November 03, 2023
Subjective:
Overall, patient appears to be improved. Less short of breath. Mild cough, nonproductive. Denies chest pain, nausea, abdominal pain. ambulating to the bathroom without difficulty
Objective Data
Data Reviewed
Vital Signs / I&O / Oxygen:
Vital Signs
Temp Pulse Resp BP Pulse Ox
98.1 F 73 16 118/68 94
11/03/23 03:41 11/03/23 07:43 11/03/23 07:19 11/03/23 07:43 11/03/23 07:19
Intake and Output
11/02/23 11/03/23 11/04/23
06:59 06:59 06:59
Intake Total 240 / 240
Balance 240 / 240
SaO2 94
Nasal Cannula flow liters per 2
minute
Physical Exam
General: Comfortable
HEENT: Normocephalic and Anicteric
Cardiovascular: S1-S2, Regular Rhythm, Murmur (n), Rub (n) and Peripheral Edema (n)
Respiratory: Wheeze (n), Crackles (n), Rhonchi (n) and Other ( bronchial)
GI: Soft, Non Distended and Non Tender
Neurology: Awake and Alert
Skin: Good Color and Other ( tattoos)
Labs/Micro/Reports
Lab Data
11/03/23 05:41
11/03/23 05:40
--- NOTE | 2023-11-03 10:59 | W.PN.HOSP.TC ---
Today's Communication/Plan
-
continue steroids
repeat home O2 testing if patient first agrees to home O2 possibility
continue doxy
Assessment / Plan
Assessment / Plan
Assessment:
Acute hypoxemic respiratory insufficiency
- no prior O2 needs at home; currently on RA at rest
- with PT; sats decreased to 88%
- can consider repeat home O2 testing tomorrow although patient verbalizes she will refuse home O2 if recommended
Acute COPD Exacerbation
Hx of COPD and underlying hx of Asthma
- noted recent ER visit in September for COPD exacerbation - treated with steroid taper.
- prn and standing nebs
- continue IV Decadron 4mg q8h
- continue doxycycline, day 2/5; Azithromycin considered but hx of long QTC noted.
- continue Trelegy or equivalent
- continue Daliresp
- Pulmonary following
Obstructive sleep apnea-on CPAP therapy.
Long QT syndrome with ICD placement 10/2012
History of Afib
History of cardiac arrest (VF in setting of prolonged QT/bradycardia 2012)
- continue Metoprolol, decrease to 50mg
- continue Xarelto
Depression
Bipolar disorder
Insomnia
- continue Lexapro, Clonazepam, Abilify
Hypercholesterolemia
- continue statin
Bipolar disorder
Tobacco use disorder, actively smoking
- encourage cessation
- Nicotine patch ordered
Hx of Alcohol abuse
DVT ppx: Xarelto
Code: Full
Anticipated Discharge: 24 - 48 hours
Subjective/Interval History
-
Date of Service: November 03, 2023
reports SOB and wheezing improving
no fever/chills
Objective Data
-
Labs:
Laboratory Results
11/03/23 11/03/23
05:40 05:41
WBC 4.5 L
Hgb 15.1
Hct 43.2
Plt Count 165
Sodium 136
Potassium 4.6
Chloride 102
Carbon Dioxide 27
BUN 15
Creatinine 0.6
Glucose 123 H
Calcium 9.9
Total Bilirubin 0.7
AST 17
ALT < 10
Alkaline Phosphatase 58
Vital Signs:
Vital Signs
Temp Pulse Resp BP Pulse Ox
98.1 F 73 16 118/68 94
11/03/23 03:41 11/03/23 07:43 11/03/23 07:19 11/03/23 07:43 11/03/23 07:19
I&O
11/02/23 11/03/23 11/04/23
06:59 06:59 06:59
Intake Total 240 / 240
Balance 240 / 240
Physical Exam
-
General: No Apparent Distress
HEENT: Normocephalic and Atraumatic
Respiratory: Wheezes (faint); Negative Rhonchi, Crackles or Accessory Resp Muscle Use
Cardiac: Regular Rhythm and S1/S2
GI: Soft
Musculoskeletal: No Edema
Neuro: AO x 3
Hematologic / Lymphatic: No Lymphadenopathy
Psych: Calm
Data Reviewed
-
Total Time Spent with Patient (in minutes): 45
Labs: Labs Reviewed by me
--- NOTE | 2023-11-03 14:56 | CM ---
Met with pt at bedside
Reports she lives alone in an apartment - 1 step to enter, FF set-up
Pt reports she is independent with adl's, shopping, food prep
DME - rolling walker - not in use
SNF - [facility] in past
HH - [facility] in past
Has ride at discharge
PCP - Vira Ring
Pharm - [facility]
CM will follow for d/c needs
Plan - anticipate home no needs
[2023-11-04 03:07] VITALS: BP 112/62
[2023-11-04] MEDS: DECADRON 4 MG IV ×2 (04:10→12:22)
[2023-11-04 06:00] VITALS: BMI 26.3
[2023-11-04 07:00] VITALS: BP 117/65
[2023-11-04] MEDS: THERAGRAN 1 TABLET PO (07:32)
[2023-11-04 07:33] LABS: % Basophils 0.1 % (0-2); % Immature Granulocytes 0.3 % (0-0.5); % Lymphocytes 9.8 % (20.5-51.1); % Monocytes 2.7 % (1.7-9.3); % Neutrophils 87.1 % (42.2-75.2); Absolute Lymphocytes 0.7 10^3/uL (1.2-3.4); Absolute Monocytes 0.2 10^3/uL (0.1-0.6); Absolute Neutrophils 6.2 10^3/uL (1.4-6.5); Hematocrit 43.6 % (37.0-47.0); Hemoglobin 15.7 g/dL (12.0-16.0); Mean Corpuscular Hgb 33.3 pg (27.0-31.0); Mean Corpuscular Volume 92.6 fL (81.0-99.0); Mean Platelet Volume 11.1 fL (7.4-10.4); Nucleated Red Blood Cells % 0 %; Platelet Count 163 10^3/uL (130-400); Red Blood Cell Count 4.71 10^6/uL (4.20-5.40); Red Cell Dist. Width 14.2 % (11.5-14.5); White Blood Cell Count 7.1 10^3/uL (4.8-10.8)
[2023-11-04] MEDS: VIBRAMYCIN 100 MG PO (07:33)
[2023-11-04] MEDS: LIPITOR 10 MG PO (07:33)
[2023-11-04] MEDS: XARELTO 20 MG PO (07:33)
[2023-11-04] MEDS: KLONOPIN 1 MG PO ×2 (07:33→12:22)
[2023-11-04] MEDS: FOLVITE 1 MG PO (07:33)
[2023-11-04] MEDS: DALIRESP 500 MCG PO (07:33)
[2023-11-04] MEDS: LEXAPRO 20 MG PO (07:33)
[2023-11-04] MEDS: ABILIFY 5 MG PO (07:33)
[2023-11-04] MEDS: NICODERM TRANSDERMAL 14 MG TRANSDERM (07:34)
[2023-11-04] MEDS: TOPROL XL 50 MG PO (07:34)
[2023-11-04 07:58] LABS: ALT (SGPT) < 10 U/L (0-35); AST (SGOT) 17 U/L (14-36); Albumin 4.3 g/dl (3.5-5.0); Alkaline Phosphatase 62 U/L (38-126); Blood Urea Nitrogen 21 mg/dl (7-17); Calcium 10.1 mg/dl (8.4-10.2); Carbon Dioxide 28 mmol/L (22-30); Chloride 101 mmol/L (98-107); Estimated Creatinine Clearance 77 ml/min; Glucose 106 mg/dl (70-99); Potassium 4.5 mmol/L (3.5-5.1); Sodium 136 mmol/L (135-145); Total Bilirubin 0.6 mg/dl (0.2-1.3); Total Protein 6.5 g/dl (6.3-8.2); eGFR > 60.00
[2023-11-04] MEDS: PULMICORT 0.5 MG INH (08:21)
[2023-11-04] MEDS: DUONEB 3 ML INH ×2 (08:21→11:20)
[2023-11-04 11:00] VITALS: BP 123/67
--- NOTE | 2023-11-04 11:51 | W.PN.PUL3 ---
Today's Communication / Plan
-
Transition IV steroids to PO taper
We discussed need for outpatient FU and smoking cessation
Will arrange OP FU
Discharge planning per team
Assessment
-
63-year-old female with history of COPD with recurrent exacerbations, ongoing smoking, atrial fibrillation, long QT syndrome with history of V-fib arrest, ICD in place, presents with increased shortness of breath x 6 weeks. She was recently
discharged with COPD exacerbation 09/24, last steroid 10/09. She was contacted by the pulmonary office for follow-up but did not return calls. She is now admitted for COPD exacerbation
Acute hypoxic respiratory insufficiency
88% room air
Acute COPD exacerbation
History of COPD
FEV1 1.08/41%, DLCO 36%
History of recurrent COPD exacerbations
Follows with Kimberlee Ziegler, last seen 12/12/22
GENI, total index 35, desaturation bipin 80%
Control with CPAP pressure of 9 in the past
Long QT syndrome with ICD placement 2012
Cardiac arrest/VF in the setting of prolonged QT/bradycardia
History of atrial fibrillation
On anticoagulation
Hypertension/hyperlipidemia
Bipolar disorder
Alcohol use history, currently denies
Ongoing tobacco use
Right lower lobe nodule per CT imaging per my review
Plan/recommendations
At this time, patient appears to be nontoxic. Wheezing on exam noted, improved
Currently on RA
Patient has had multiple COPD exacerbations, 4 times in 2019 and twice in 2022
Unfortunate she continues to smoke but is cut down from 2 packs to half a pack
Describes about 65+ pack-year history of smoking
Moving forward
Patient currently on Trelegy, Daliresp as outpatient. Wonder if she may benefit from azithromycin but but this may be difficult given history of long QT syndrome. She does have an ICD in place
No doubt her ongoing smoking contributes to her symptom complex
Continue with steroids, doxycycline
DuoNebs 4 times daily, budesonide twice a day
Hold Trelegy for now. Can resume at time of discharge
Upon reviewing prior images, CT chest 10/04/2022 with right lower lobe nodule per my review she will require follow-up CT imaging. Unclear
Why she is not getting low-dose lung cancer screening
Reviewed importance of follow-up with pulmonary
Prior PFTs suggest severe COPD with severe gas exchange defect
Mild hypoxia noted. Last echocardiogram 2019 with normal biventricular function, right heart pressures could not be determined
Increase activity, ambulate
Ongoing tobacco cessation discussion
Nicotine patch
Reviewed with patient at length.
Possible transition to oral steroids with slow taper over 2-3 weeks recommended.
We discussed outpatient FU
Discharge planning per team
Subjective Data
-
Date of Service:
Date of Service: November 04, 2023
Chief Complaint: Pulmonary Follow Up
Subjective:
Doing well, no complaints
Wants to go home
Objective Data
Data Reviewed
Vital Signs / I&O / Oxygen:
Vital Signs
Temp Pulse Resp BP Pulse Ox
97.9 F 78 16 117/65 94
11/04/23 07:00 11/04/23 11:27 11/04/23 11:27 11/04/23 07:34 11/04/23 11:27
Intake and Output
11/03/23 11/04/23 11/05/23
06:59 06:59 06:59
Intake Total 240 / 240 750 / 750
Balance 240 / 240 750 / 750
SaO2 94
Nasal Cannula flow liters per 2
minute
Physical Exam
General: Comfortable, Good Appetite and Other (NAD)
HEENT: Normocephalic, Anicteric and Other (ocular palsy noted)
Cardiovascular: S1-S2, Regular Rhythm, Murmur (n), Rub (n) and Peripheral Edema (n)
Respiratory: Wheeze (slight wheeze on L), Crackles (n), Rhonchi (n), Non-Labored Respirations and Other ( bronchial)
GI: Soft, Non Distended and Non Tender
Neurology: Awake, Alert, Oriented, AO x 3 and No Motor Deficits
Skin: Good Color and Other ( tattoos)
Labs/Micro/Reports
Lab Data
11/04/23 05:54
11/04/23 05:54
Microbiology
11/03/23 10:00 Sputum Respiratory Culture - Final
11/03/23 10:00 Sputum Gram Stain - Final
--- NOTE | 2023-11-04 13:15 | W.PN.HOSP.TC ---
Today's Communication/Plan
-
dc home
Assessment / Plan
Assessment / Plan
Assessment:
Acute hypoxemic respiratory insufficiency
- no prior O2 needs at home; currently on RA at rest
- with PT; sats decreased to 88%; repeat O2 testing with same result today
- patient refusing home O2 setup; risks explained
Acute COPD Exacerbation
Hx of COPD and underlying hx of Asthma
- noted recent ER visit in September for COPD exacerbation - treated with steroid taper.
- prn and standing nebs
- dc on steroid taper for 14 days
- continue doxycycline, day 3/; Azithromycin considered but hx of long QTC noted.
- continue Trelegy or equivalent
- continue Daliresp
- Pulmonary following
Obstructive sleep apnea-on CPAP therapy.
Long QT syndrome with ICD placement 10/2012
History of Afib
History of cardiac arrest (VF in setting of prolonged QT/bradycardia 2012)
- continue Metoprolol, decrease to 50mg
- continue Xarelto
Depression
Bipolar disorder
Insomnia
- continue Lexapro, Clonazepam, Abilify
Hypercholesterolemia
- continue statin
Bipolar disorder
Tobacco use disorder, actively smoking
- encourage cessation
- Nicotine patch ordered
Hx of Alcohol abuse
DVT ppx: Xarelto
Code: Full
More than 30 minutes spent in discharge including
Final examination of the patient
Summarizing hospital stay
Instructions for continuing care to all relevant caregivers
Preparation of discharge records, prescriptions, and referral forms
Total time spent (in minutes): 42
Anticipated Discharge: Today
Subjective/Interval History
-
Date of Service: November 04, 2023
no new complaints presently
Objective Data
-
Labs:
Laboratory Results
11/04/23
05:54
WBC 7.1
Hgb 15.7
Hct 43.6
Plt Count 163
Sodium 136
Potassium 4.5
Chloride 101
Carbon Dioxide 28
BUN 21 H
Creatinine 0.7
Glucose 106 H
Calcium 10.1
Total Bilirubin 0.6
AST 17
ALT < 10
Alkaline Phosphatase 62
Vital Signs:
Vital Signs
Temp Pulse Resp BP Pulse Ox
98.4 F 78 16 123/67 90
11/04/23 11:00 11/04/23 11:27 11/04/23 11:27 11/04/23 11:00 11/04/23 11:49
I&O
11/03/23 11/04/23 11/05/23
06:59 06:59 06:59
Intake Total 240 / 240 750 / 750
Balance 240 / 240 750 / 750
Physical Exam
-
General: No Apparent Distress
HEENT: Normocephalic and Atraumatic
Respiratory: Negative Wheezes
Cardiac: Regular Rhythm
GI: Soft and Nontender
Genito-urinary: No Costovertebral Tender
Neuro: AO x 3
Psych: Calm
Data Reviewed
-
Total Time Spent with Patient (in minutes): 42
Labs: Labs Reviewed by me
--- NOTE | 2023-11-04 13:22 | W.DS.TRANS ---
DC Summary - Rib Sawyer
-
Discharge Instructions:
Discharge Diagnosis/Procedures acute COPD exacerbation
Diet Regular
Activity As tolerated
Instructions:
Stand-Alone Forms:
Changes to Home Medications: Yes
Discharge Medications:
DC Medications w/original date entered in [facility]
clonazepam 1 mg tablet 1 mg PO QID Mental Health/Anxiety 07/23/16
roflumilast 500 mcg tablet (Daliresp) 500 mcg PO DAILY COPD 05/09/17
escitalopram oxalate 20 mg tablet 20 mg PO DAILY depression/anxiety 04/15/18
atorvastatin 10 mg tablet 10 mg PO DAILY High cholesterol 08/27/19
multivitamin with folic acid 400 mcg tablet (Tab-A-Tania) 1 tab PO DAILY Supplement 08/27/19
rivaroxaban 20 mg tablet (Xarelto) 20 mg PO DAILY Blood clot prevention/tx 09/25/19
albuterol sulfate 90 mcg/actuation aerosol inhaler 2 puff inhalation R Q4HPRN PRN sob 09/25/23
aripiprazole 5 mg tablet 5 mg PO DAILY depression 09/25/23
fluticasone fur. 100 mcg-umeclid 62.5 mcg-vilant 25 mcg inhalat.powder (Trelegy Ellipta) 1 inh inhalation R DAILY COPD/asthma 09/25/23
folic acid 1 mg tablet 1 mg PO DAILY Supplement 09/25/23
ibuprofen 200 mg tablet 400 mg PO Q6HPRN PRN mild pain 11/02/23
doxycycline hyclate 100 mg capsule 100 mg PO Q12 #6 caps 11/04/23
ipratropium 0.5 mg-albuterol 3 mg (2.5 mg base)/3 mL nebulization soln 3 ml inhalation R Q4HPRN PRN wheezing sob #90 mL 11/04/23
metoprolol succinate 50 mg tablet,extended release 24 hr 50 mg PO DAILY #30 tabs 11/04/23
prednisone 10 mg tablet 10 mg PO DIRECTED #40 tabs 11/04/23
Home Medication Changes
metoprolol back to 50mg
Pending Results: No
Total time spent discharging patient (in min): 42
--- NOTE | 2023-11-04 16:08 | CM ---
Pt for discharge today
Discharged without seeing CM
Had ride home
Plan - home no needs
== END 2023-11-04 13:48 | disposition home or self-care (01) | DRG 192 ==
LOC: 3 WEST ACU 15:13
PROVIDERS: Clinical Nurse Specialist Family Health; ADMITTING PHYSICIAN Internal Medicine; CONSULT PHYSICIAN Internal Medicine Critical Care Medicine; EMERGENCY PHYSICIAN Emergency Medicine; FAMILY PHYSICIAN Family Medicine
DX: J44.1 Chronic obstructive pulmonary disease with (acute) exacerbation (principal); E11.9 Type 2 diabetes mellitus without complications; E78.00 Pure hypercholesterolemia, unspecified; G43.909 Migraine, unspecified, not intractable, without status migrainosus; G47.00 Insomnia, unspecified; I48.0 Paroxysmal atrial fibrillation; F41.9 Anxiety disorder, unspecified; F31.9 Bipolar disorder, unspecified; R09.02 Hypoxemia; F17.210 Nicotine dependence, cigarettes, uncomplicated; G47.30 Sleep apnea, unspecified; I45.81 Long QT syndrome; I11.0 Hypertensive heart disease with heart failure; G47.33 Obstructive sleep apnea (adult) (pediatric); M54.6 Pain in thoracic spine; R06.89 Other abnormalities of breathing; F10.11 Alcohol abuse, in remission; I50.9 Heart failure, unspecified; I25.10 Atherosclerotic heart disease of native coronary artery without angina pectoris; I25.2 Old myocardial infarction; Z79.01 Long term (current) use of anticoagulants; Z11.52 Encounter for screening for COVID-19; Z95.810 Presence of automatic (implantable) cardiac defibrillator; Z88.1 Allergy status to other antibiotic agents; Z88.5 Allergy status to narcotic agent; Z88.8 Allergy status to other drugs, medicaments and biological substances; Z86.74 Personal history of sudden cardiac arrest; Z87.81 Personal history of (healed) traumatic fracture; Z82.49 Family history of ischemic heart disease and other diseases of the circulatory system; Z81.8 Family history of other mental and behavioral disorders; Z87.01 Personal history of pneumonia (recurrent)
CPT/HCPCS: 71046; 80048; 80053; 85025; 87205; 87811; 94640; 94644; 97162; 97166; 99285; 99406

== ENCOUNTER → 2023-12-12 10:20 | Outpatient (REF) | payer OTHER, SELFPAY ==
[2023-12-12 11:55] LABS: % Basophils 0.5 % (0-2); % Immature Granulocytes 0.4 % (0-0.5); % Lymphocytes 37.1 % (20.5-51.1); % Monocytes 7.7 % (1.7-9.3); % Neutrophils 53.3 % (42.2-75.2); Absolute Eosinophils 0.1 10^3/uL (0-0.7); Absolute Monocytes 0.6 10^3/uL (0.1-0.6); Absolute Neutrophils 4.3 10^3/uL (1.4-6.5); Hematocrit 44.5 % (37.0-47.0); Hemoglobin 14.9 g/dL (12.0-16.0); Mean Corp Hgb Conc. 33.5 g/dL (33.0-37.0); Mean Corpuscular Volume 95.7 fL (81.0-99.0); Mean Platelet Volume 10.6 fL (7.4-10.4); Nucleated Red Blood Cells % 0 %; Platelet Count 181 10^3/uL (130-400); Red Blood Cell Count 4.65 10^6/uL (4.20-5.40); Red Cell Dist. Width 13.2 % (11.5-14.5)
[2023-12-12 12:24] LABS: ALT (SGPT) 15 U/L (0-35); AST (SGOT) 17 U/L (14-36); Albumin 4.1 g/dl (3.5-5.0); Alkaline Phosphatase 69 U/L (38-126); Blood Urea Nitrogen 14 mg/dl (7-17); Calcium 9.5 mg/dl (8.4-10.2); Carbon Dioxide 30 mmol/L (22-30); Chloride 100 mmol/L (98-107); Glucose 96 mg/dl (70-99); HDL Cholesterol 79 mg/dl; LDL Cholesterol, Calculated 56 mg/dl; Potassium 4.3 mmol/L (3.5-5.1); Sodium 141 mmol/L (135-145); Total Bilirubin 0.6 mg/dl (0.2-1.3); Total Cholesterol 154 mg/dl (50-199); Total Protein 6.2 g/dl (6.3-8.2); Triglyceride 98 mg/dl (10-149); Very Low Density Lipoprotein 19 mg/dl (0-30); eGFR > 60.00
[2023-12-12 12:32] LABS: Vitamin D, 25-OH*** 21.8 ng/mL (30-80)
[2023-12-12 12:46] LABS: TSH Reflex To Free T4 1.48 uIU/ml (0.47-4.68)
== END ==
LOC: REG 10:20
PROVIDERS: ATTENDING PHYSICIAN Nurse Practitioner Primary Care
DX: I48.0 Paroxysmal atrial fibrillation (principal); I10 Essential (primary) hypertension; E78.2 Mixed hyperlipidemia; E55.9 Vitamin D deficiency, unspecified
CPT/HCPCS: 36415; 80053; 80061; 82306; 84443; 85025

== ENCOUNTER 2023-12-20 14:28 | Inpatient (IN) | payer OTHER, SELFPAY ==
[2023-12-19] VITALS (8 sets, daily range): BP systolic 99–135; BP diastolic 58–73; BMI 27.1
[2023-12-19 16:56] LABS: % Basophils 0.4 % (0-2); % Eosinophils 0.2 % (0-6); % Immature Granulocytes 0.2 % (0-0.5); % Monocytes 3.6 % (1.7-9.3); % Neutrophils 77.6 % (42.2-75.2); Absolute Lymphocytes 1.5 10^3/uL (1.2-3.4); Absolute Monocytes 0.3 10^3/uL (0.1-0.6); Absolute Neutrophils 6.6 10^3/uL (1.4-6.5); Hematocrit 43.8 % (37.0-47.0); Hemoglobin 15.4 g/dL (12.0-16.0); Mean Corp Hgb Conc. 35.2 g/dL (33.0-37.0); Mean Corpuscular Hgb 32.2 pg (27.0-31.0); Mean Corpuscular Volume 91.4 fL (81.0-99.0); Mean Platelet Volume 10.5 fL (7.4-10.4); Nucleated Red Blood Cells % 0 %; Platelet Count 197 10^3/uL (130-400); Red Blood Cell Count 4.79 10^6/uL (4.20-5.40); Red Cell Dist. Width 13.2 % (11.5-14.5); White Blood Cell Count 8.5 10^3/uL (4.8-10.8)
[2023-12-19 17:08] LABS: INR 1.87; PT 21.4 Sec (11.4-14.6)
[2023-12-19 17:09] LABS: ALT (SGPT) 12 U/L (0-35); AST (SGOT) 16 U/L (14-36); Albumin 4.2 g/dl (3.5-5.0); Alkaline Phosphatase 55 U/L (38-126); Blood Urea Nitrogen 18 mg/dl (7-17); Calcium 9.8 mg/dl (8.4-10.2); Carbon Dioxide 33 mmol/L (22-30); Chloride 101 mmol/L (98-107); Glucose 121 mg/dl (70-99); Potassium 4.3 mmol/L (3.5-5.1); Sodium 142 mmol/L (135-145); Total Bilirubin 0.5 mg/dl (0.2-1.3); Total Protein 6.2 g/dl (6.3-8.2); eGFR > 60.00
[2023-12-19 17:20] LABS: Troponin I < 0.012 ng/ml
--- NOTE | 2023-12-19 17:37 | ED.GENMED ---
History of Present Illness
General
Chief Complaint: Breathing Problem
Source: patient
Exam Limitations: none
Time Seen by Provider: 12/19/23 16:54
Nursing documentation reviewed up to this point in time: agreed with
History of Present Illness
History of Present Illness:
Patient to ED with complaint of worsening SOB. Hx of SOB. +smoker 1/2ppd. States she has been here a few times this past summer with the same symptoms but has not improved. Reports worsening productive cough. Denies fever/chills. Poor
endurance. States feeding her cat is a chore. Spends most of day in bed. She does not have home O2. SHe states this has been recommeded to her but she does not want it. Pulse ox 90% RA at rest.
Past History
Past History
ED Past Medical History: Arrthythmia (History of A. fib, long QT syndrome), Asthma, COPD, Hypercholesterolemia, NIDDM (Questionable), ND, Psychiatric (Depression) and Other (History of migraines, insomnia, disconjugate gaze of the eyes the right
greater than the left, PNA.)
ED Past Surgical History: Cardiac (ICD 10/2012) and Other ([place] teeth extraction, and a D&C Procedure)
Social History
Tobacco: Smoker
Alcohol: Former
Drug: None
Personal: (Has a partner)
Living: with family (domestic partner)
Employment: Not employed
Family History
Family History: Other (Noncontributory)
Review of Systems
Review of Systems
Allergies reviewed?: Yes
All Other Systems: ROS reviewed and negative except as documented in HPI and ROS
Constitutional: Reports fatigue
EENT: Reports no symptoms
Respiratory: Reports cough and trouble breathing
Cardiac: Reports no symptoms
ABD/GI: Reports no symptoms
: Reports no symptoms
Musculoskeletal: Reports no symptoms
Skin: Reports no symptoms
Neurological: Reports weakness
Psychiatric: Reports no symptoms
Phy Exam
General Physical Exam
General Presentation: moderate distress
General age: appears stated age
General Skin: warm and dry
General Habitus: normal
General Mental: alert
Cardiovascular Exam
Cardiovascular Exam: regular rate/rhythm and no edema
Pulmonary Exam
Pulmonary Exam: decreased breath sounds
Oxygen Status: oxygen 3 liters via NC
Cough: non productive cough
Breath Sounds: Wheeze: generalized
Gastrointestinal Exam
Gastrointestinal Exam: normal bowel sounds, non tender and soft
Musculoskeletal Exam
Musculoskeletal Exam: full ROM and neuro vasc intact
Skin Exam
Skin Exam: normal color, warm/dry and no rash
Psychiatric Exam
Psychiatric Exam: normal mood/affect
Scores
Heart Failure Risk
Heart Failure Risk Score: Not Applicable
Course
Orders/Labs/Results
Orders:
Orders
12/19/23 Dinner
Regular
At Your Request: Full Participation
12/19/23 16:11
EKG [Electrocardiogram (*1)] Urgent
Reason for Study: Shortness of Breath
EKG- Treatment ONCE
CR Chest - 2 Views Urgent
Comment:
Reason For Exam: SOB
12/19/23 16:38
Complete Blood Count/With Diff Urgent
Comprehensive Metabolic Panel Urgent
Prothrombin Time Urgent
Troponin I Urgent
12/19/23 17:36
Dexamethasone Sod Phosphate [Decadron] 10 mg IV NOW STA
Ipratropium/Albuterol Sulfate [Duoneb] 3 ml INH R NOW STA
12/19/23 18:40
Admit/Transfer Patient As Directed
Co-Sign Provider:
Level of Care: Observation services
Assign to:: Medical/Surgical
Physician / Group: hospitalist
Diagnosis: COPD exacerbation
PRN Pain Medication Management As Directed
May give lesser potent ordered pain med per pt: Yes
preference::
Protocol:: Medication orders for pain may be administered in a
manner that supports deferring to patient preference
when the pt is:
- Requesting an ordered lesser potent pain medication.
Least to most potent pain medications are defined
as: acetaminophen < NSAID < tramadol < opioids
(morphine, oxycodone, hydromorphone).
- Requesting a lesser dose of the same medication IF
ORDERED.
- Requesting a less intrusive route of administration
if both routes are prescribed by the provider (PO <
IV).
12/19/23 18:41
Code Status As Directed
Resuscitation Status: Full Code
12/19/23 20:32
Budesonide/Formoterol 160/4.5 [Symbicort 160/4.5 Mcg Inhaler] 2 puff INH R BID
Guaifenesin Solution [Robitussin] 200 mg PO Q4HPRN PRN
Guaifenesin [Mucinex] 600 mg PO Q12
Ipratropium/Albuterol Sulfate [Duoneb] 3 ml INH R Q4HPRN PRN
Ipratropium/Albuterol Sulfate [Duoneb] 3 ml INH R QID
12/19/23 20:32
VTE Contraindication Routine
VTE Mechanical Device Contraindication: Medical Contraindication
Pharmocologic Contraindication: Medical Contraindication
Activity As Directed
Activity Level: With Assistance
Intake/ Output As Directed
Frequency: Per unit guidelines
Vital Signs As Directed
Frequency: Per unit guidelines
Copd Education [RESP] Routine
O2 Therapy [RESP] Routine
Nasal Cannula Liter Flow: 2 LPM
Titrate/Wean O2 to maintain O2 sat greater than (%): 91
Special Instructions: adjust, if necessary, to avoid hyperoxia in CO2 retainers.
Use High Flow O2 if necessary
12/19/23 21:01
Case Management Consult ONCE
Case Management Consult: Advanced Directive
12/19/23 22:00
Flush (0.9% Sodium Chloride) [Flush (Nss)] See Dose Instructions IV PER PROTOCOL
12/20/23 05:39
Clonazepam [Klonopin] 1 mg PO QIDPRN PRN
12/20/23 08:00
ARIPiprazole [Abilify] 5 mg PO DAILY
Atorvastatin [Lipitor] 10 mg PO DAILY
Escitalopram Oxalate [Lexapro] 20 mg PO DAILY
FOLic ACID [Folvite] 1 mg PO DAILY
Metoprolol Xl [Toprol Xl] 75 mg PO DAILY
Nicotine [Nicoderm Transdermal] 21 mg TRANSDERM DAILY
Prednisone [Deltasone] 40 mg PO DAILY
Rivaroxaban [Xarelto] 20 mg PO DAILY
Roflumilast [Daliresp] 500 mcg PO DAILY
12/20/23 09:39
Hepatitis C Antibody IN AM
Abnormal Lab Results
12/19/23
16:38
MCH 32.2 H pg
(27.0-31.0)
MPV 10.5 H fL
(7.4-10.4)
Absolute Neuts (auto) 6.6 H 10^3/uL
(1.4-6.5)
Neutrophils % 77.6 H %
(42.2-75.2)
Lymphocytes % 18.0 L %
(20.5-51.1)
PT 21.4 H Sec
(11.4-14.6)
Carbon Dioxide 33 H mmol/L
(22-30)
BUN 18 H mg/dl
(7-17)
Glucose 121 H mg/dl
(70-99)
Total Protein 6.2 L g/dl
(6.3-8.2)
12/19/23 16:38
12/19/23 16:38
Vital Signs
Initial and Last Documented VS:
Initial Vital Signs
Temp Pulse Resp BP Pulse Ox
97.5 F 86 22 120/68 92
12/19/23 16:14 12/19/23 16:14 12/19/23 16:14 12/19/23 16:14 12/19/23 16:14
Last Documented Vital Signs
Temp Pulse Resp BP Pulse Ox
98.1 F 76 18 107/57 92
12/20/23 15:29 12/20/23 15:47 12/20/23 15:47 12/20/23 15:29 12/20/23 15:47
*Radiology
Radiology exam reviewed: radiology read reviewed
*Pulse Oximetry
Patient hypoxic: yes
*Critical Care Note
Total Time (30-74mins, 75-104mins- exclusive of procedures): Not Applicable
Update Note
Update Note:
Patient to ED with complaint of worsening SOB and cough. Hx of COPD, admits to still smoking. Has declined home O2 in the past, states she cant have the tubing around her cat. Pulse ox 92% on 3L NC at rest. Labs, CXR reviewed. No evidence of
pneumonia. Given duoneb and decadron in dept with improvement in lung sounds, loosening of cough. Will admit to hospitalist for exacerbation of COPD
ED Attending Note
-
Portions of this chart may have been created with voice recognition software.� Occasional wrong word or��sound alike� substitutions may have occurred due to the inherent limitations of voice recognition software.
Discharge Plan
Departure
Patient Disposition: Admit
Date of Disposition: 12/19/23
Time of Disposition: 18:17
Presentation/result/management discussed w/ accepting MD/DO: Hospitalist
Patient with high blood pressure during this ER visit?: No
Condition: Fair
Covid-19: Not Applicable
Discharge Problem:
COPD exacerbation
Interventions
Interventions:
*General Assessment Last Done: 12/19/23 16:14
*Neglect/Abuse Screening Last Done: 12/19/23 16:14
ED- Fall Risk Assessment Last Done: 12/19/23 20:23
*Nursing Disposition Last Done: 12/19/23 20:23
ED- Cardiac Assessment Last Done: 12/19/23 17:32
ED- Pulmonary Assessment Last Done: 12/19/23 18:05
Discharge Date and Time
Discharge Date/Time: 12/19/23 20:25
[2023-12-19] MEDS: DUONEB 3 ML INH (17:59)
[2023-12-19] MEDS: DECADRON 10 MG IV (18:00)
--- NOTE | 2023-12-19 18:57 | HPS.HSE ---
Family Physician
-
Family Physician: Vira Quintana
Chief Complaint
-
Progressive cough and shortness of breath
History of Present Illness
This is a 63-year-old female was past medical history of paroxysmal atrial fibrillation on anticoagulation, long QT status post defibrillator placement, anxiety depression and COPD not currently on home O2 who is 1/2 pack/day smoker presents to the
emergency department with progressive dyspnea on exertion cough and shortness of breath.
Patient denies any acute onset of symptoms. It appears to have an indolent and progressive course over the last few weeks. Since discharge she states she has been having continued productive cough which is productive of clear sputum. She denied
having any fevers or chills. She denies having any hemoptysis. She denies chest pain, lower extremity swelling orthopnea or PND. She denies recent antibiotic use. She is on a tapering course of steroids and is essentially dependent on about 10
mg of p.o. prednisone daily at this time. Over the last few days she has been having more dyspnea on exertion. She has been evaluated for home O2 but has not had one yet. She continues to smoke about half a pack per day. She came in because she
was just having more trouble breathing.
In the ED oxygen saturation was on room air and 93% on 1/2 L. She was afebrile blood pressure 108/71 and pulse 80 regular. Telemetry shows paced rhythm. CBC was unremarkable. Chemistries were unremarkable. Troponin was negative. Chest x-ray
shows no acute infiltrates.
Medical History
Past Medical History
Past Medical History: Reports COPD
Additional Past Medical History:
Long QT,
Anxiet depressiony
Past Surgical History: Reports None
Social History
Tobacco: Smoker
Alcohol: Former
Drug: None
Personal: Single
Living: Alone
Employment: Not Employed
Family History
Family History: Not pertinent
Allergies / Home Medications
Allergies reflects when Allergies were last updated in [facility].
Home Medications with original date entered in [employer] [facility]
Allergy/Medication List:
Allergies
Allergy/AdvReac Type Severity Reaction Status Date / Time
azithromycin [From Zithromax] Allergy PROLONGED Verified 12/19/23 16:18
QT SYNDROME
erythromycin lactobionate Allergy Unknown Verified 12/19/23 16:18
[From Erythrocin]
hydrocodone [From Vicodin] Allergy Itching Verified 12/19/23 16:18
levofloxacin [From Levaquin] Allergy Torsade Verified 12/19/23 16:18
quetiapine fumarate Allergy 'jumping Verified 12/19/23 16:18
[From Seroquel] legs and
pins and
needles'
numbness
arms and
legs
[id number] Antimigraine Allergy Unknown Verified 12/19/23 16:18
Agents
Home Medications
clonazepam 1 mg tablet 1 mg PO QID Mental Health/Anxiety 07/23/16
roflumilast 500 mcg tablet (Daliresp) 500 mcg PO DAILY COPD 05/09/17
escitalopram oxalate 20 mg tablet 20 mg PO DAILY depression/anxiety 04/15/18
atorvastatin 10 mg tablet 10 mg PO DAILY High cholesterol 08/27/19
rivaroxaban 20 mg tablet (Xarelto) 20 mg PO DAILY Blood clot prevention/tx 09/25/19
albuterol sulfate 90 mcg/actuation aerosol inhaler 2 puff inhalation R Q4HPRN PRN sob 09/25/23
aripiprazole 5 mg tablet 5 mg PO DAILY depression 09/25/23
fluticasone fur. 100 mcg-umeclid 62.5 mcg-vilant 25 mcg inhalat.powder (Trelegy Ellipta) 1 inh inhalation R DAILY COPD/asthma 09/25/23
folic acid 1 mg tablet 1 mg PO DAILY Supplement 09/25/23
ibuprofen 200 mg tablet 400 mg PO Q6HPRN PRN mild pain 11/02/23
doxycycline hyclate 100 mg capsule 100 mg PO Q12 #6 caps 11/04/23
ipratropium 0.5 mg-albuterol 3 mg (2.5 mg base)/3 mL nebulization soln 3 ml inhalation R Q4HPRN PRN wheezing sob #90 mL 11/04/23
metoprolol succinate 50 mg tablet,extended release 24 hr 75 mg PO DAILY 12/19/23
prednisone 10 mg tablet 10 mg PO DAILY 12/19/23
Review of Systems
-
Constitutional: Reports Fatigue
EENT: Reports No Symptoms
Respiratory: Reports Cough and Trouble Breathing
Cardiac: Reports No Symptoms
Abdomen/GI: Reports No Symptoms
: Reports No Symptoms
Musculoskeletal: Reports No Symptoms
Skin: Reports No Symptoms
Neurological: Reports No Symptoms
Endocrine: Reports No Symptoms
Hematologic/Lymphatic: Reports No Symptoms
Psych: Reports No Symptoms
Physical Exam
Vital Signs
Vital Signs
Temp Pulse Resp BP Pulse Ox
97.5 F 80 22 108/71 95
12/19/23 16:14 12/19/23 18:00 12/19/23 18:04 12/19/23 18:00 12/19/23 18:05
Physical Exam
General: Well Developed, Well Nourished, No Apparent Distress and Comfortable
HEENT: NormoCephalic, Anicteric, Moist mucous membranes and Atraumatic
Respiratory: Wheezes
Cardiac: S1/S2 and Regular Rhythm
Breast: Deferred by me
GI: Soft, Non Tender, Non Distended and Normal Bowel Sounds
Rectal: Deferred by Provider
Genito-urinary: Deferred by me
Musculoskeletal: No Clubbing, No Cyanosis and No Edema
Skin: Warm
Neuro: AO x 3
Hematologic/Lymphatic: No Lymphadenopathy
Psych: Calm
Laboratory Results
-
12/19/23 16:38
12/19/23 16:38
Laboratory Results
PT 21.4 Sec (11.4-14.6) H 12/19/23 16:38
INR 1.87 12/19/23 16:38
Total Bilirubin 0.5 mg/dl (0.2-1.3) 12/19/23 16:38
AST 16 U/L (14-36) 12/19/23 16:38
ALT 12 U/L (0-35) 12/19/23 16:38
Alkaline Phosphatase 55 U/L (38-126) 12/19/23 16:38
Troponin I < 0.012 ng/ml 12/19/23 16:38
Data Reviewed
-
Diagnostic Radiology: Image Personally Visualized and interpreted
Medical Tests (Nuc Med, Echo, EKG etc): Image Personally Visualized and interpreted
Lab Data: Labs Reviewed by me
Old Records: Reviewed
Impression/Plan
-
IMPRESSION:
PLAN:
1. COPD - Patient is tobacco dependent with COPD coming in with worsening symptoms on 10mg of PO prednisone. No signs of acute infection, volume overload or acute viral process. She reports compliance with medications but continues to smoke. No
infiltrates, no change in quality of mucus production. Satting low 90s on 2 L w/o increased wob. Despite nebs in ED patient still wheezing. Reports h/o childhood bronchitis but denies any prior dgx of asthma.
- admit to med/surg
- prednisone 40 mg daily
- DUONEBS RTC and q 4 hours PRN
- oxgen by MS to keep sat > 90%
- discussed smoking cessation which patient agreed to, started nicotine patch
- holding off abx for now,
2. pAFIB - a paced ryhthm on tele.
- continue metoprolol bid
- continue Xarelto
3. Nicotine dependence
-nicotine patch
4. Anxiety/Depression
- continue abilify and escitaloparam
- prn clonazepam
DVT PPX - on Xarelto
Code Status - Full Code
--- NOTE | 2023-12-19 20:30 | PTCARENOTE ---
Pt transferred from ED. Pt AAOX3, able to make needs known, VSS. Pt oreinted to unit, call field within reach. Will continue with current plan.
[2023-12-19] MEDS: DUONEB INH (20:49)
[2023-12-19] MEDS: SYMBICORT 160/4.5 MCG INHALER INH (20:49)
[2023-12-19] MEDS: MUCINEX 600 MG PO (21:46)
[2023-12-20 06:00] VITALS: BMI 26.6
[2023-12-20] MEDS: KLONOPIN 1 MG PO ×3 (06:00→23:21)
--- NOTE | 2023-12-20 07:17 | W.PN.HOSP.TC ---
Today's Communication/Plan
-
cont steroids
bronchodilators
wean O2 as tolerated
nicotine supplementation
Assessment / Plan
Assessment / Plan
Physical Exam
General: Well Developed, Well Nourished, No Apparent Distress and Comfortable
HEENT: NormoCephalic, Anicteric, Moist mucous membranes and Atraumatic
Respiratory: Diffuse Expiratory Wheeze, on nasal cannula oxygen supplementation, non-labored respirations
Cardiac: S1/S2 and Regular Rhythm
GI: Soft, Non Tender, Non Distended and Normal Bowel Sounds
Musculoskeletal: No Clubbing, No Cyanosis and No Edema
Skin: Warm
Neuro: AO x 3
Psych: Calm
1. COPD - Patient is tobacco dependent with COPD coming in with worsening symptoms on 10mg of PO prednisone. No signs of acute infection, volume overload or acute viral process. She reports compliance with medications but continues to smoke. No
infiltrates, no change in quality of mucus production. Satting low 90s on 2 L w/o increased wob. Despite nebs in ED patient still wheezing. Reports h/o childhood bronchitis but denies any prior dgx of asthma.
- prednisone 40 mg daily
- DUONEBS RTC and q 4 hours PRN
- oxgen by NC to keep sat > 90%, wean as tolerated
2. pAFIB - a paced ryhthm on tele.
- continue metoprolol bid
- continue Xarelto
3. Nicotine dependence
-nicotine patch
4. Anxiety/Depression
- continue abilify and escitaloparam
- prn clonazepam
DVT PPX - on Xarelto
Code Status - Full Code
I spent a total of 50 minutes with the patient or on the floor. More than 50% of this time involved counseling and coordination of care.
Anticipated Discharge: 24 - 48 hours
Subjective/Interval History
-
Date of Service: December 20, 2023
No acute distress resting comfortably in bed. Remains oxygen dependent 2L. Symptomatic wheezing.
Objective Data
-
Vital Signs:
Vital Signs
Temp Pulse Resp BP Pulse Ox
97.4 F 77 18 117/58 92
12/19/23 23:50 12/19/23 23:50 12/19/23 23:50 12/19/23 23:50 12/19/23 23:50
[2023-12-20 07:35] VITALS: BP 119/75
[2023-12-20] MEDS: ABILIFY 5 MG PO (07:53)
[2023-12-20] MEDS: TOPROL XL 75 MG PO (07:54)
[2023-12-20] MEDS: LEXAPRO 20 MG PO (07:54)
[2023-12-20] MEDS: DELTASONE 40 MG PO (07:54)
[2023-12-20] MEDS: FOLVITE 1 MG PO (07:54)
[2023-12-20] MEDS: DALIRESP 500 MCG PO (07:54)
[2023-12-20] MEDS: LIPITOR 10 MG PO (07:54)
[2023-12-20] MEDS: NICODERM TRANSDERMAL 21 MG TRANSDERM (07:54)
[2023-12-20] MEDS: MUCINEX 600 MG PO ×2 (07:54→19:56)
[2023-12-20] MEDS: XARELTO 20 MG PO (07:55)
[2023-12-20] MEDS: SYMBICORT 160/4.5 MCG INHALER 2 PUFF INH ×2 (08:00→20:31)
[2023-12-20] MEDS: DUONEB 3 ML INH ×4 (08:00→20:31)
--- NOTE | 2023-12-20 15:02 | CM ---
enterprise project manager reviewed patient's chart and met with patient and patient was admitted under OBS, DAVALOS letter provided to patient signed and placed on chart. Patient lives alone in a one story home, with no steps to enter, patient is independent with
adl's and ambulation, no dme, patient drives, patient is currently requiring oxygen and patient did not require oxygen prior to admission.
PCP: Vira Quintana
Pharmacy: [facility] on [address]
Plan; Home when stable.
[2023-12-20 15:29] VITALS: BP 107/57
[2023-12-20 23:00] VITALS: BP 102/53
[2023-12-21 05:13] VITALS: BMI 26.7
--- NOTE | 2023-12-21 07:29 | W.PN.HOSP.TC ---
Today's Communication/Plan
-
cont steroids bronchodilators
wean O2 as tolerated
Assessment / Plan
Assessment / Plan
Physical Exam
General: Well Developed, Well Nourished, No Apparent Distress and Comfortable
HEENT: NormoCephalic, Anicteric, Moist mucous membranes and Atraumatic
Respiratory: Wheezing improved, on nasal cannula oxygen supplementation, non-labored respirations
Cardiac: S1/S2 and Regular Rhythm
GI: Soft, Non Tender, Non Distended and Normal Bowel Sounds
Musculoskeletal: No Clubbing, No Cyanosis and No Edema
Skin: Warm
Neuro: AO x 3
Psych: Calm
1. COPD - Patient is tobacco dependent with COPD coming in with worsening symptoms on 10mg of PO prednisone. No signs of acute infection, volume overload or acute viral process. She reports compliance with medications but continues to smoke. No
infiltrates, no change in quality of mucus production. Satting low 90s on 2 L w/o increased wob. Despite nebs in ED patient still wheezing. Reports h/o childhood bronchitis but denies any prior dgx of asthma.
- prednisone 40 mg daily
- DUONEBS RTC and q 4 hours PRN
- oxgen by NC to keep sat > 90%, wean as tolerated
2. pAFIB - a paced ryhthm on tele.
- continue metoprolol bid
- continue Xarelto
3. Nicotine dependence
-nicotine patch
4. Anxiety/Depression
- continue abilify and escitaloparam
- prn clonazepam
DVT PPX - on Xarelto
Code Status - Full Code
I spent a total of 40 minutes with the patient or on the floor. More than 50% of this time involved counseling and coordination of care.
Anticipated Discharge: 24 - 48 hours
Subjective/Interval History
-
Date of Service: December 21, 2023
Breathing improved. remains oxygen dependent
Objective Data
-
Labs:
Laboratory Results
12/21/23
06:00
WBC Pending
Hgb Pending
Hct Pending
Plt Count Pending
Sodium Pending
Potassium Pending
Chloride Pending
Carbon Dioxide Pending
BUN Pending
Creatinine Pending
Glucose Pending
Calcium Pending
Vital Signs:
Vital Signs
Temp Pulse Resp BP Pulse Ox
98.3 F 75 18 102/53 96
12/20/23 23:00 12/20/23 23:00 12/20/23 23:00 12/20/23 23:00 12/20/23 23:00
I&O
12/20/23 12/21/23 12/22/23
06:59 06:59 06:59
Intake Total 1120 / 1120
Balance 1120 / 1120
[2023-12-21 07:45] VITALS: BP 111/73
[2023-12-21] MEDS: DUONEB 3 ML INH ×4 (08:12→20:55)
[2023-12-21] MEDS: SYMBICORT 160/4.5 MCG INHALER 2 PUFF INH ×2 (08:12→20:55)
[2023-12-21] MEDS: FOLVITE 1 MG PO (08:23)
[2023-12-21] MEDS: ABILIFY 5 MG PO (08:23)
[2023-12-21] MEDS: DELTASONE 40 MG PO (08:23)
[2023-12-21] MEDS: DALIRESP 500 MCG PO (08:23)
[2023-12-21] MEDS: LEXAPRO 20 MG PO (08:23)
[2023-12-21] MEDS: XARELTO 20 MG PO (08:24)
[2023-12-21] MEDS: MUCINEX 600 MG PO ×2 (08:24→19:54)
[2023-12-21] MEDS: TOPROL XL 75 MG PO (08:24)
[2023-12-21] MEDS: NICODERM TRANSDERMAL 21 MG TRANSDERM (08:24)
[2023-12-21] MEDS: LIPITOR 10 MG PO (08:24)
[2023-12-21 09:03] LABS: Hematocrit 44.5 % (37.0-47.0); Hemoglobin 15.7 g/dL (12.0-16.0); Mean Corp Hgb Conc. 35.3 g/dL (33.0-37.0); Mean Corpuscular Hgb 33.2 pg (27.0-31.0); Mean Corpuscular Volume 94.1 fL (81.0-99.0); Mean Platelet Volume 10.9 fL (7.4-10.4); Platelet Count 162 10^3/uL (130-400); Red Blood Cell Count 4.73 10^6/uL (4.20-5.40); Red Cell Dist. Width 12.8 % (11.5-14.5); White Blood Cell Count 9.5 10^3/uL (4.8-10.8)
[2023-12-21 10:12] LABS: Blood Urea Nitrogen 20 mg/dl (7-17); Calcium 9.4 mg/dl (8.4-10.2); Carbon Dioxide 29 mmol/L (22-30); Chloride 100 mmol/L (98-107); Estimated Creatinine Clearance 67 ml/min; Glucose 142 mg/dl (70-99); Magnesium 1.6 mg/dl (1.6-2.3); Phosphorus 3.6 mg/dl (2.5-4.5); Potassium 3.5 mmol/L (3.5-5.1); Sodium 141 mmol/L (135-145); eGFR > 60.00
[2023-12-21] MEDS: KLONOPIN 1 MG PO ×2 (10:50→17:35)
[2023-12-21 15:46] VITALS: BP 106/61
[2023-12-21 21:19] LABS: Hepatitis C Antibody Negative (Negative)
[2023-12-21 23:11] VITALS: BP 99/58
[2023-12-22] MEDS: KLONOPIN 1 MG PO (03:19)
[2023-12-22 05:40] VITALS: BMI 26.9
[2023-12-22 07:29] LABS: Hematocrit 45.3 % (37.0-47.0); Hemoglobin 15.8 g/dL (12.0-16.0); Mean Corp Hgb Conc. 34.9 g/dL (33.0-37.0); Mean Corpuscular Hgb 33.3 pg (27.0-31.0); Mean Corpuscular Volume 95.4 fL (81.0-99.0); Mean Platelet Volume 10.8 fL (7.4-10.4); Platelet Count 158 10^3/uL (130-400); Red Blood Cell Count 4.75 10^6/uL (4.20-5.40); Red Cell Dist. Width 12.8 % (11.5-14.5); White Blood Cell Count 8.5 10^3/uL (4.8-10.8)
[2023-12-22 07:30] VITALS: BP 125/77
--- NOTE | 2023-12-22 07:32 | W.PN.HOSP.TC ---
Addendum entered and electronically signed by Anuj Ramirez MD 12/22/23 15:22:
COPD exacerbation weaned off oxygen supplementation stable respiratory status on room air, shortness of breath resolved.
Original Note:
Today's Communication/Plan
-
discharge
Assessment / Plan
Assessment / Plan
Physical Exam
General: Well Developed, Well Nourished, No Apparent Distress and Comfortable
HEENT: NormoCephalic, Anicteric, Moist mucous membranes and Atraumatic, Right eye strabismus present since childhood per patient
Respiratory: Clear to Auscultation
Cardiac: S1/S2 and Regular Rhythm
GI: Soft, Non Tender, Non Distended and Normal Bowel Sounds
Musculoskeletal: No Clubbing, No Cyanosis and No Edema
Skin: Warm
Neuro: AO x 3
Psych: Calm
1. COPD - Patient is tobacco dependent with COPD coming in with worsening symptoms on 10mg of PO prednisone. No signs of acute infection, volume overload or acute viral process. She reports compliance with medications but continues to smoke. No
infiltrates, no change in quality of mucus production. Satting low 90s on 2 L w/o increased wob. Despite nebs in ED patient still wheezing. Reports h/o childhood bronchitis but denies any prior dgx of asthma.
- DUONEBS RTC and q 4 hours PRN
- Weaned off oxygen supplementation, stable respiratory status on room air, medically stable, will discharge with prednisone taper 40 mg day 1 post discharge, then 30 mg day 2, then reduce by 10 mg after every third day till complete
2. pAFIB - a paced ryhthm on tele.
- continue metoprolol bid
- continue Xarelto
3. Nicotine dependence
-nicotine patch
4. Anxiety/Depression
- continue abilify and escitaloparam
- prn clonazepam
DVT PPX - on Xarelto
Code Status - Full Code
Medically stable for discharge home with outpatient follow up recommendations.
I spent a total of 40 minutes with the patient or on the floor. More than 50% of this time involved counseling and coordination of care.
Anticipated Discharge: Today
Subjective/Interval History
-
Date of Service: December 22, 2023
Seen and examined at bedside in no acute distress sitting up comfortably in chair. Weaned off oxygen supplementation. Stable respiratory status on room air. No wheezing noted on auscultation. Reports ambulation without issues. Denies shortness
of breath. Overall reports feeling well, eager to go home.
Objective Data
-
Labs:
Laboratory Results
12/22/23
06:
WBC 8.5
Hgb 15.8
Hct 45.3
Plt Count 158
Sodium Pending
Potassium Pending
Chloride Pending
Carbon Dioxide Pending
BUN Pending
Creatinine Pending
Glucose Pending
Calcium Pending
Vital Signs:
Vital Signs
Temp Pulse Resp BP Pulse Ox
97.6 F 77 18 99/58 94
12/21/23 23:11 12/21/23 23:11 12/21/23 23:11 12/21/23 23:11 12/21/23 23:11
I&O
12/21/23 12/22/23 12/23/23
06:59 06:59 06:59
Intake Total 1120 / 1120 120 / 120
Balance 1120 / 1120 120 / 120
[2023-12-22 07:53] LABS: Blood Urea Nitrogen 23 mg/dl (7-17); Calcium 9.5 mg/dl (8.4-10.2); Carbon Dioxide 33 mmol/L (22-30); Chloride 100 mmol/L (98-107); Estimated Creatinine Clearance 67 ml/min; Glucose 76 mg/dl (70-99); Magnesium 1.9 mg/dl (1.6-2.3); Phosphorus 3.8 mg/dl (2.5-4.5); Potassium 4.1 mmol/L (3.5-5.1); Sodium 140 mmol/L (135-145); eGFR > 60.00
--- NOTE | 2023-12-22 08:12 | PN.CDI ---
CDI
- -
CDI:
Physician Documentation Request
Admit Date: 12/20/23 14:28
Dear Doctor James,
Please review the following and provide your response in the progress notes.
Clinical Indicators:
- 12/20 PN indicates COPD exacerbation
- 'Satting low 90s on 2 L w/o increased wob'
- 12/18 ER Physician 'She does not have home O2. SHe states this has been recommeded to her but she does not want it. Pulse ox 90% RA at rest'
- Documented VS 2-3L O2, pulse ox >89%
Please clarify which of the following accurately represents the patient's respiratory status:
Chronic hypoxic respiratory failure
COPD exacerbation
Hypoxia
Other
Additional information for Respiratory Failure:
Recognized criteria for Respiratory Failure (Source: [facility] Hospitalist Jan 2013)
ABGs: (1 or more) Symptoms Please indicate type if known
1. p)2 <60 or RA SPO2 <91% on RA 1. Tachypnea, SOB, dyspnea Hypoxic
2. pCO2 50 and pH <7.35 2. Use of accessory muscles Hypercapnic
3. pO2 decrease of pCO2 increase by 3. Pallor or cyanosis Hypoxic and Hypercapnic
10 mmHg from baseline if known 4. Anxiety or restlessness Unable to determine
5. Unable to speak in full sentences
Supplemental O2 of > 40% (5LPM) Intubation is not required
Use of terms such as suspected, likely, concern for, or probable (associated with a specific diagnosis that is being evaluated, monitored, or treated as if it exists) are acceptable and can be coded in the inpatient setting, when documented at the
time of discharge.
Thank you,
Leon Wiggins RN
CDI Specialist
Please use your independent medical judgment in providing your response.
[2023-12-22] MEDS: DUONEB 3 ML INH ×2 (08:21→11:19)
[2023-12-22] MEDS: SYMBICORT 160/4.5 MCG INHALER 2 PUFF INH (08:21)
[2023-12-22] MEDS: DALIRESP 500 MCG PO (08:46)
[2023-12-22] MEDS: FOLVITE 1 MG PO (08:46)
[2023-12-22] MEDS: DELTASONE 40 MG PO (08:46)
[2023-12-22] MEDS: LEXAPRO 20 MG PO (08:46)
[2023-12-22] MEDS: ABILIFY 5 MG PO (08:46)
[2023-12-22] MEDS: LIPITOR 10 MG PO (08:47)
[2023-12-22] MEDS: MUCINEX 600 MG PO (08:47)
[2023-12-22] MEDS: NICODERM TRANSDERMAL 21 MG TRANSDERM (08:49)
[2023-12-22] MEDS: TOPROL XL 75 MG PO (08:49)
[2023-12-22] MEDS: XARELTO 20 MG PO (08:51)
--- NOTE | 2023-12-22 12:15 | CM ---
Addendum entered by Samanta Stewart 12/22/23 14:15:
Patient switched to inpatient IMM provided to patient.
Original Note:
Home when stable, no needs.
Plan; Home no needs when stable.
--- NOTE | 2023-12-22 14:02 | W.DCSUMMARY ---
Discharge Summary
Discharge Data
Date of Admission: 12/20/23
Date of Discharge: 12/22/23
-
Pending Results: No
Discharge Plan
-
Patient Disposition: Home (Routine Discharge)
Discharge Diagnosis/Procedures: COPD exacerbation
Condition: Good
Diet: Regular
Activity: As tolerated
Driving Restrictions: As prior to admission
Bathing Restrictions: None
Activity Restrictions/Additional Instructions:
Please follow up with primary care provider in 1 week of discharge and pulmonology in 1-2 weeks of discharge.
Prednisone taper has been prescribed for COPD exacerbation:
Day 1 following discharge take 40 mg.
Day 2 reduce to 30 mg daily x3 days, then 20 mg daily x3 days, then 10 mg daily x 3 days, then stop
Nicotine patches have been prescribed to assist in smoking cessation. (these are available over the counter)
Home Clonazepam has been changed to as needed for anxiety.
Doxycycline has been discontinued. Not necessary at this time
Please take medications as prescribed/recommended and follow up with primary care provider and/or other healthcare provider involved in your care for further adjustment to your medication regimen as necessary.
Smoking cessation is highly advised. Continued usage is likely to lead to recurrence/worsening of symptoms and overall increase in your risk of morbidity/mortality.
Referrals:
Vira Quintana DO [Family Provider] - in one week
Kobe Dias MD [Active] - in one to two weeks
Prescriptions:
New
nicotine 21 mg/24 hr Patch 24 Hour
21 mg transdermal DAILY 7 Days Qty: 7 0RF
prednisone 10 mg Tablet
See Rx Instructions .ROUTE .COMPLEX Qty: 22 0RF
Rx Instructions:
Take By Mouth:
40 mg daily x1 day, 30 mg daily x3 days,
20 mg daily x3 days, 10 mg daily x3 days.
Continued
roflumilast [Daliresp] 500 MCG tablet
500 mcg PO DAILY
escitalopram oxalate 20 MG tablet
20 mg PO DAILY
atorvastatin 10 MG tablet
10 mg PO DAILY
Xarelto 20 MG tablet
20 mg PO DAILY
folic acid 1 mg Tablet
1 mg PO DAILY
albuterol sulfate 90 mcg/actuation Hfa Aerosol Inhaler
2 puff INHALATION R Q4HPRN PRN (Reason: sob)
aripiprazole 5 mg Tablet
5 mg PO DAILY
Trelegy Ellipta 100-62.5-25 mcg Blister With Device
1 inh INHALATION R DAILY
ibuprofen 200 mg Tablet
400 mg PO Q6HPRN PRN (Reason: mild pain)
ipratropium-albuterol 0.5 mg-3 mg(2.5 mg base)/3 mL Solution For Nebulization
3 ml inhalation R Q4HPRN PRN (Reason: wheezing sob) Qty: 90 0RF
metoprolol succinate 50 mg tablet extended release 24 hr
75 mg PO DAILY
Changed
clonazepam 1 MG tablet
1 mg PO QIDPRN PRN (Reason: anxiety) Qty: 0 0RF
Patient Comments:
12/19/2023: last filled 12/01/23, 120 tabs for 30 days from [facility][id number]
Held
prednisone 10 mg tablet
10 mg PO DAILY
Hold Instructions: Resume when prednisone taper reduces to 10 mg.
Discontinued
doxycycline hyclate 100 mg Capsule
100 mg PO Q12 Qty: 6 0RF
Discharge Orders:
Discharge Patient (As Directed); Ordered 12/22/23
Ordered By: Anuj Ramirez
Discharge Date and Time
Print Language: TAMAZIGHT
[2023-12-22] MEDS: AFLURIA (36 mos+) 2024-2025 FORMULA 0.5 ML IM (14:10)
== END 2023-12-22 14:23 | disposition home or self-care (01) | DRG 192 ==
LOC: 4 WEST ACU 14:28
PROVIDERS: Emergency Medicine; ADMITTING PHYSICIAN Internal Medicine; ATTENDING PHYSICIAN Internal Medicine; EMERGENCY PHYSICIAN Emergency Medicine; FAMILY PHYSICIAN Family Medicine
PROC: 3E02340 Introduction of Influenza Vaccine into Muscle, Percutaneous Approach (ICD-10-PCS; 2023-12-22)
DX: J44.1 Chronic obstructive pulmonary disease with (acute) exacerbation (principal); F17.210 Nicotine dependence, cigarettes, uncomplicated; E11.9 Type 2 diabetes mellitus without complications; E78.00 Pure hypercholesterolemia, unspecified; I48.0 Paroxysmal atrial fibrillation; G43.909 Migraine, unspecified, not intractable, without status migrainosus; G47.00 Insomnia, unspecified; F41.9 Anxiety disorder, unspecified; F32.A Depression, unspecified; I25.2 Old myocardial infarction; Z87.01 Personal history of pneumonia (recurrent); Z88.1 Allergy status to other antibiotic agents; Z88.5 Allergy status to narcotic agent; Z88.8 Allergy status to other drugs, medicaments and biological substances; Z79.51 Long term (current) use of inhaled steroids; Z79.52 Long term (current) use of systemic steroids; Z23 Encounter for immunization
CPT/HCPCS: 71046; 80048; 80053; 83735; 84100; 84484; 85025; 85027; 85610; 86803; 90686; 93005; 94640; 96374; 99285; G0008

== ENCOUNTER → 2023-12-30 08:42 | Outpatient (REF) | payer OTHER, SELFPAY | LOC: WDC 08:42 | PROVIDERS: ATTENDING PHYSICIAN Nurse Practitioner Primary Care | DX: Z12.31 Encounter for screening mammogram for malignant neoplasm of breast (principal) | CPT/HCPCS: 77063; 77067 ==

== ENCOUNTER 2024-01-26 08:16 | Day surgery (SDC) | payer OTHER, SELFPAY ==
[2024-01-10 13:13] VITALS: BMI 28.1
[2024-01-10 13:48] LABS: % Basophils 0.3 % (0-2); % Eosinophils 1.2 % (0-6); % Immature Granulocytes 0.4 % (0-0.5); % Lymphocytes 35.2 % (20.5-51.1); % Monocytes 4.8 % (1.7-9.3); % Neutrophils 58.1 % (42.2-75.2); Absolute Eosinophils 0.1 10^3/uL (0-0.7); Absolute Lymphocytes 3.7 10^3/uL (1.2-3.4); Absolute Monocytes 0.5 10^3/uL (0.1-0.6); Absolute Neutrophils 6.1 10^3/uL (1.4-6.5); Hematocrit 45.3 % (37.0-47.0); Mean Corp Hgb Conc. 35.3 g/dL (33.0-37.0); Mean Corpuscular Hgb 33.1 pg (27.0-31.0); Mean Corpuscular Volume 93.8 fL (81.0-99.0); Mean Platelet Volume 10.2 fL (7.4-10.4); Nucleated Red Blood Cells % 0 %; Platelet Count 164 10^3/uL (130-400); Red Blood Cell Count 4.83 10^6/uL (4.20-5.40); White Blood Cell Count 10.4 10^3/uL (4.8-10.8)
[2024-01-10 13:53] LABS: ALT (SGPT) 16 U/L (0-35); AST (SGOT) 19 U/L (14-36); Albumin 4.2 g/dl (3.5-5.0); Alkaline Phosphatase 62 U/L (38-126); Blood Urea Nitrogen 15 mg/dl (7-17); Calcium 9.6 mg/dl (8.4-10.2); Carbon Dioxide 29 mmol/L (22-30); Chloride 102 mmol/L (98-107); Estimated Creatinine Clearance 74 ml/min; Glucose 111 mg/dl (70-99); Magnesium 1.7 mg/dl (1.6-2.3); Potassium 3.8 mmol/L (3.5-5.1); Sodium 140 mmol/L (135-145); Total Bilirubin 0.7 mg/dl (0.2-1.3); Total Protein 6.5 g/dl (6.3-8.2); eGFR > 60.00
[2024-01-10 13:59] LABS: INR 1.08; PT 14.1 Sec (11.4-14.6)
[2024-01-26] VITALS (15 sets, daily range): BP systolic 92–152; BP diastolic 55–138; BMI 28.1
--- NOTE | 2024-01-26 10:48 | ITS.CL.ABL ---
Shingle Weaver - Ablation
Ablation
Procedure Report:
Primary Insurance Operations Rep: Shai Robles MD
Procedure Date: 01/26/2024
Patient History:
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
inappropriate device shock in the setting of AF RVR roughly 1 year ago. No further tachycardia therapies.
See H&P for complete details.
Indication:
Symptomatic paroxysmal atrial fibrillation
Arrhythmia Specific History:
Prior Medical Therapies for Rate and Rhythm Control:
X Beta-kayla
[ ] Calcium channel-kayla
[ ] Amiodarone
[ ] Dronederone
[ ] Sotalol
[ ] Flecainide
[ ] Dofetilide
[ ] Options limited by bradycardia
[ ] Options limited by comorbid renal disease
Prior Procedural Therapies for AF/AFL:
[ ] Cardioversion
[ ] Pulmonary Vein Isolation
[ ] Posterior Wall Isolation
[ ] Additional lines (Specify)
[ ] Surgical Sands-MAZE or PVI (Specify)
Procedure Performed:
X AF ablation procedure (23882) -- includes LA/CS pacing, trans-septal, 3D mapping, + ICE
[ ] +IV drug (55861)
[ ] +Other Arrhythmia (58411)
[ ] +Other AF Line/ablation (12450)
Risks and expected recovery has been explained in detail. Alternative options have been explored, and in a shared-decision making fashion we have decided that this was the most appropriate procedure.
Method
NPO status confirmed. Grounding pad applied. Defibrillator pads applied. Continuous surface ECG, pulse oximetry, and blood pressure were monitored. Procedure was performed under general anesthesia, with anesthesia services. Tachytherapies from
device were turned off.
Both groins were clipped, prepped with Chloraprep, and draped in sterile fashion. Time out was called. Local anesthesia administered with bupivacaine. The right and left femoral veins were accessed for catheter placement, using ultrasound guidance,
micro-puncture needle/wire, and modified seldinger technique. 3 sheaths were placed. The following catheters were used:
[ ] Tacticath SE (D/F Curve) ablation catheter
X Viewflex 9Fr ICE catheter
X Inquiry decapolar 6Fr diagnostic catheter
[ ] CRD Hex 6Fr
[ ] Arctic Front Advance Cryoballoon ([ ]28mm[ ]23mm)
[ ] Achieve Advance mapping catheter ([ ]15mm[ ]20mm)
X FlexCath Contour 10 Fr with PulseSelect PFA Catheter
X Advisor HD Grid Mapping Catheter, SE
[ ] Acuson AcuNav 8 Fr ICE catheter
[ ]Other: [ ]
Intracardiac ultrasound (ICE) was carefully advanced into the right atrium to guide sheath placement over a J-wire, catheter placement, guide trans-septal puncture, identify potential complications, identify anatomic structures and ensure proper
contact between ablation catheter and tissue.
Heparin was given prior to trans-septal puncture. Heparin was given to achieve and maintain a target ACT of 300-400 seconds throughout the procedure.
Trans-septal access was performed under ICE guidance. The trans-septal puncture was performed with a SafeSept wire through a Brockenbrough needle assembly through the steerable sheath. The wire was visualized as it entered the LSPV and system
advanced under ICE guidance and fluoroscopy into the LA. The Brockenbrough needle assembly, SafeSept wire and sheath dilator were removed under negative pressure. LA pressure was measured and recorded.
ICE and 3D mapping was performed to identify relevant cardiac structures. A careful 3D map was created to assess for regions of low-voltage and abnormal electrogram signals using HD grid mapping catheter and PulseSelect catheter. Additional mapping
was performed as outlined below.
Prior to ablation, glycopyrrolate was provided. PulseSelect catheter was advanced over J-wire to the ostium of each vein. Pulmonary vein isolation was performed with ostial and antral lesions in a circumferential manner. Contact was visualized via
EAM, ICE, fluoroscopy, and EGM signals. Following completion of ablation lesions, a post-ablation voltage/activation map was performed in atrial pacing. Entrance and exit block were confirmed for each vein.
Catheter and sheath were removed from the left atrium and post-ablation intracardiac echo evaluation was consistent with pre-ablation with no changes and no pericardial effusion and there is no left atrial thrombus or left ventricle thrombus seen.
Electrophysiology study was performed. Hemostasis was obtained with Vascade for each sheath and with manual pressure. Protamine was used for reversal. Tachycardia therapies turn on, device returned to pre-procedure settings.
Estimated Blood Loss
5 mL
Complications
None
Fluoroscopy: 4.0 minutes; 10.94 mGy; DAP 1.40
Baseline Intervals:
Rhythm: APVS
AL: 122 ms
QRS: 106 ms
QT: 409 ms
QTc: 458 ms
Post-Procedure Intervals:
AL: 125 ms
QRS: 102 ms
QT: 398 ms
QTc: 445 ms
AVWB: 320 ms
AERP: 600/260 ms
Recommendations
- Bedrest with straight-leg precautions as ordered
- Admit with anticipate discharge home tomorrow after overnight observation
- Resume home medications as indicated
- Ok to resume anticoagulation tonight if patient and groin sites stable
- PPI daily for 30 days
- Plan for follow-up in office as scheduled
Benjie Rea DO
Clinical Cardiac Financial Reporting Consultant
cc: Shai Robles MD; Vira Quintana DO
[2024-01-26 11:57] LABS: ACT-LR - POC 351 Seconds (116-155)
[2024-01-26 12:12] LABS: ACT-LR - POC 335 Seconds (116-155)
[2024-01-26 12:58] LABS: ACT-LR - POC > 397 Seconds (116-155)
[2024-01-26 12:58] LABS: ACT-LR - POC > 397 Seconds (116-155)
[2024-01-26 13:12] LABS: ACT-LR - POC 157 Seconds (116-155)
--- NOTE | 2024-01-26 16:49 | CM ---
CM following for DC planning needs.
Pt. resides alone in a private, 1 story home w/o any steps to enter.
Functionally, patient is indep. at baseline w/ ADLs, mobility.
Anticipated DC plan is for home without needs.
Will remain avail. for any needs that may arise.
[2024-01-26] MEDS: XARELTO 20 MG PO (17:20)
[2024-01-26] MEDS: SYMBICORT 80/4.5 MCG INHALER 2 PUFF INH (20:18)
--- NOTE | 2024-01-26 23:00 | PTCARENOTE ---
Received pt at change of shift. A paced on tele with HR 70s. Pt sleepy but arousable to speech and AAOx3. R groin site c/d/i with no complications noted. Pt w/ complaints of a headache, Tylenol administered per order, see MAR. Ambulating with
stand-by assist w/o difficulty. Can make needs known. Call field within reach.
[2024-01-27] VITALS (7 sets, daily range): BP systolic 90–122; BP diastolic 51–79; BMI 27.9
[2024-01-27] MEDS: TYLENOL 650 MG PO (00:27)
[2024-01-27] MEDS: DUONEB 3 ML INH ×3 (00:53→17:42)
[2024-01-27 05:35] LABS: Hematocrit 39.5 % (37.0-47.0); Hemoglobin 13.8 g/dL (12.0-16.0); Mean Corp Hgb Conc. 34.9 g/dL (33.0-37.0); Mean Corpuscular Hgb 32.4 pg (27.0-31.0); Mean Corpuscular Volume 92.7 fL (81.0-99.0); Mean Platelet Volume 10.3 fL (7.4-10.4); Platelet Count 146 10^3/uL (130-400); Red Blood Cell Count 4.26 10^6/uL (4.20-5.40); Red Cell Dist. Width 13.3 % (11.5-14.5); White Blood Cell Count 8.7 10^3/uL (4.8-10.8)
[2024-01-27 05:55] LABS: Blood Urea Nitrogen 13 mg/dl (7-17); Calcium 8.9 mg/dl (8.4-10.2); Carbon Dioxide 30 mmol/L (22-30); Chloride 103 mmol/L (98-107); Estimated Creatinine Clearance 84 ml/min; Glucose 117 mg/dl (70-99); Magnesium 1.7 mg/dl (1.6-2.3); Potassium 4.2 mmol/L (3.5-5.1); Sodium 139 mmol/L (135-145); eGFR > 60.00
[2024-01-27] MEDS: SPIRIVA RESPIMAT 2.5 MCG 2 PUFF INH (08:01)
[2024-01-27] MEDS: SYMBICORT 80/4.5 MCG INHALER 2 PUFF INH ×2 (08:01→17:42)
[2024-01-27] MEDS: LIPITOR 10 MG PO (08:02)
[2024-01-27] MEDS: DELTASONE 10 MG PO (08:02)
[2024-01-27] MEDS: LEXAPRO 20 MG PO (08:02)
[2024-01-27] MEDS: TOPROL XL 75 MG PO (08:03)
--- NOTE | 2024-01-27 08:31 | PTCARENOTE ---
Assumed care. Patient sitting up in bed eating breakfast, denies pain. A-paced HR 77.Right groin site dressing dry and soft. Wheezes bilaterally,inhalers given, oxygen was at 3 liters NC Pox 94%, removed oxygen and room air POX 84%, replaced oxygen
at 3 liters NC now 93-94%. Call field in reach
[2024-01-27] MEDS: ABILIFY 5 MG PO (08:59)
[2024-01-27] MEDS: DALIRESP 500 MCG PO (08:59)
--- NOTE | 2024-01-27 09:41 | W.PN.CARDCBS ---
Addendum entered and electronically signed by Benjie Rea DO 01/27/24 09:59:
I saw and examined the patient.
The Lamination Inspector's note was reviewed and I agree with the note.
Comment:
Patient seen and examined. No acute events overnight. Patient reporting mild chest tightness and wheezing (similar to prior episodes associated with lung disease). No reported SOB, no chest pain/pressure. Denies pnd, orthopnea, edema, or weakness.
Telemetry APVS; ECG APVS.
GENERAL: no acute distress
EYE: sclera anicteric
NECK: Supple, no JVD, no carotid bruit appreciated
ENT: normal nose, moist mucosal membranes
CARDIAC: Regular rate and rhythm, +S1/S2, no murmur, rubs, or gallops; L CIED site well healed
CHEST/PULMONARY: Insp/Exp wheezing, no crackles, rales, or rhonchi
ABDOMEN: Soft, without focal tenderness or distention
NEUROLOGICAL: Alert and oriented x3
SKIN: Warm and dry, no rash; R groin soft/nt no swelling, bandage in place
PSYCH: Normal and appropriate interaction.
Patient is s/p PFA PVI for AF; remains APVS (normal rhythm)
Noted wheezing and O2 desaturation. Inhalers ordered and neb treatment now; will follow
Tentative DC home today with improving respiratory status
Continue OAC
Original Note:
Today's Communication / Plan
-
Albuterol neb now
Will attempt d/c to home later today
Impression / Plan
-
PCP: Dr. Vira Quintana
Cardiology: Dr. Robles
Impression:
s/p PVI 01/26/24
paroxysmal Afib
Chronic Xarelto OAC
Asthma
hx VF arrest in setting of prolonged QT and bradycardia 2012
s/p Medtronic ICD
Prolonged QT in setting of chronic Trazodone, Effexor therapy, one time dose Levaquin, and hypomagnesemia (possibly depakote, Zoloft, propofol and amio)
hx of etoh abuse (denies current use)
Tobacco abuse
Family hx of unexplained early in setting of multisubstance abuse (one sister with nocturnal cardiac arrest age 53, one MVA at 32)Hx Hypomagnesemia
History of thrombocytopenia
Plan:
-Patient had PVI 01/26/24 and remains in SR on 01/27/24
-Outpatient dose of Xarelto 20 mg daily continued.
-Outpatient dose of Toprol XL 75 mg daily continued
-Patient with h/o long QT and has an ICD in place. QTc 456 in setting of paced rhythm on 01/27/24.
-Patient with a h/o asthma and has wheezing 01/27/24. Albuterol neb given early 01/27/24. Pulse ox dropped to 84% on RA so oxygen placed. Regular inhaled therapies ordered. Will give another nebulizer now
Progress Note - Publications Inspector
Subjective
Date of Service: January 27, 2024
Wheezing
Objective
Labs:
01/27/24 05:11
01/27/24 05:11
Labs
Hgb 13.8 g/dL (12.0-16.0) 01/27/24 05:11
Hct 39.5 % (37.0-47.0) 01/27/24 05:11
Plt Count 146 10^3/uL (130-400) 01/27/24 05:11
PT 14.1 Sec (11.4-14.6) 01/10/24 13:22
INR 1.08 01/10/24 13:22
Sodium 139 mmol/L (135-145) 01/27/24 05:11
Potassium 4.2 mmol/L (3.5-5.1) 01/27/24 05:11
BUN 13 mg/dl (7-17) 01/27/24 05:11
Creatinine 0.7 mg/dL (0.6-1.0) 01/27/24 05:11
Glucose 117 mg/dl (70-99) H 01/27/24 05:11
Vital Signs and I&O:
Vital Signs
Temp Pulse Resp BP Pulse Ox
97.4 F 76 18 105/58 94
01/27/24 07:44 01/27/24 08:06 01/27/24 08:06 01/27/24 07:46 01/27/24 08:49
Vital Signs
Temp Pulse Resp BP Pulse Ox
97.4 F 76 18 105/58 94
01/27/24 07:44 01/27/24 08:06 01/27/24 08:06 01/27/24 07:46 01/27/24 08:49
Intake & Output
01/25/24 01/26/24 01/27/24 01/28/24
06:59 06:59 06:59 06:59
Intake Total 1700 / 1700
Balance 1700 / 1700
Physical Exam
Physical Exam
GEN: AAOx3
HEENT: EOMI
LUNGS: B/L exp wheeze
CV: SR on tele
ABD: ND
EXT: No edema
NEURO: Gross non-focal
SKIN: No rash
--- NOTE | 2024-01-27 11:01 | PTCARENOTE ---
Room air POX 84%, walked into hallway and a few feet dropped to 79%. Returned to room placed on 3 liters NC, POX 93%. Notified Toshia Pate, CXR ordered
[2024-01-27 11:57] LABS: NT-proBNP 353 pg/ml
--- NOTE | 2024-01-27 12:06 | W.PN.UPDATE ---
Update Note
Progress Note Update
Back in to check on patient. Patient reports that she did not have symptomatic improvement after Albuterol/Ipratropium neb at 0958 this morning. Patient denies feeling SOB. Patient with h/o COPD, but is not chronically on oxygen. No increase in
cough or mucous production. Afebrile. Outpatient inhalers have also been continued. Patient follows with Dr. Dias. Patient was admitted for a COPD exacerbation 12/20/23 until 12/22/23. During that admission the patient was noted to have a pulse ox
in the low 90s on 2 L but was eventually weaned to room air and was not d/c'd to home on supplemental oxygen. Await results of CXR and will recheck pulse ox. Patient can be d/c'd to home once stable on RA.
f/u note 1237: CXR reviewed by me and there is fluid in the fissure with a blunted costophrenic angle. Will try Lasix 40 mg IV x1 now.
[2024-01-27] MEDS: LASIX 40 MG IV (13:22)
[2024-01-27] MEDS: XARELTO 20 MG PO (17:39)
--- NOTE | 2024-01-27 17:49 | PTCARENOTE ---
Weaned to 1 liter NC, POX 02% denies SOB,occasional cough, course breath sounds. Lights dimed, patient sleeping, call field in reach
--- NOTE | 2024-01-28 00:05 | PTCARENOTE ---
Received patient at change of shift. A paced on the monitor, HR in the 70s. R groin dressing CDI, no evidence of hematoma. 94% on 1L O2. No complaints from pt at this time. Call field within reach.
[2024-01-28 01:46] VITALS: BP 100/68
[2024-01-28 05:52] VITALS: BMI 27.4
[2024-01-28 07:27] VITALS: BP 79/56
[2024-01-28] MEDS: LIPITOR 10 MG PO (07:31)
[2024-01-28] MEDS: LEXAPRO 20 MG PO (07:31)
[2024-01-28] MEDS: DELTASONE 10 MG PO (07:31)
[2024-01-28] MEDS: ABILIFY 5 MG PO (07:31)
[2024-01-28] MEDS: DALIRESP 500 MCG PO (07:32)
[2024-01-28] MEDS: TOPROL XL 75 MG PO (07:32)
[2024-01-28] MEDS: SYMBICORT 80/4.5 MCG INHALER 2 PUFF INH (07:39)
[2024-01-28] MEDS: SPIRIVA RESPIMAT 2.5 MCG 2 PUFF INH (07:39)
--- NOTE | 2024-01-28 09:57 | W.PN.CARDCBS ---
Today's Communication / Plan
-
Okay for discharge.
Diuresed well overnight
Ambulatory pulse ox unobtainable because of gel on nails. Resting pulse ox 90 to 95%.
Follow-up arranged.
Impression / Plan
-
PCP: Dr. Vira Quintana
Cardiology: Dr. Robles
Impression:
s/p PVI 01/26/24
paroxysmal Afib
Chronic Xarelto OAC
Asthma
hx VF arrest in setting of prolonged QT and bradycardia 2012
s/p [employer] ICD
Prolonged QT in setting of chronic Trazodone, Effexor therapy, one time dose Levaquin, and hypomagnesemia (possibly depakote, Zoloft, propofol and amio)
hx of etoh abuse (denies current use)
Tobacco abuse
Family hx of unexplained early in setting of multisubstance abuse (one sister with nocturnal cardiac arrest age 53, one MVA at 32)Hx Hypomagnesemia
History of thrombocytopenia
Plan:
-Minimal shortness of breath yesterday and chest x-ray with increased volume. Received IV Lasix x 1 and diuresed more than 3 pounds and feels baseline today. Unfortunately ambulatory pulse ox has been difficult to obtain because of gel/dip on
nails. Resting pulse ox 90 at 95%. She is pink and feeling well. Stable for discharge. She will call if any issues develop.
-Patient had PVI 01/26/24 and remains in SR on 01/27/24
-Outpatient dose of Xarelto 20 mg daily continued.
-Outpatient dose of Toprol XL 75 mg daily continued
-Patient with h/o long QT and has an ICD in place. QTc 456 in setting of paced rhythm on 01/27/24.
-Patient with a h/o asthma and has wheezing 01/27/24. Albuterol neb given early 01/27/24. No wheezing noted currently.
Greater than 30 minutes total discharge time.
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
Subjective
Date of Service: January 28, 2024
She is feeling good today no shortness of breath ambulating without difficult today.
Total Time Spent with Patient (in minutes): 31 minutes
Objective
Labs:
01/27/24 05:11
01/27/24 05:11
Labs
Hgb 13.8 g/dL (12.0-16.0) 01/27/24 05:11
Hct 39.5 % (37.0-47.0) 01/27/24 05:11
Plt Count 146 10^3/uL (130-400) 01/27/24 05:11
PT 14.1 Sec (11.4-14.6) 01/10/24 13:22
INR 1.08 01/10/24 13:22
Sodium 139 mmol/L (135-145) 01/27/24 05:11
Potassium 4.2 mmol/L (3.5-5.1) 01/27/24 05:11
BUN 13 mg/dl (7-17) 01/27/24 05:11
Creatinine 0.7 mg/dL (0.6-1.0) 01/27/24 05:11
Glucose 117 mg/dl (70-99) H 01/27/24 05:11
Vital Signs and I&O:
Vital Signs
Temp Pulse Resp BP Pulse Ox
98.7 F 79 20 101/54 90
01/28/24 07:24 01/28/24 07:32 01/28/24 07:24 01/28/24 07:32 01/28/24 07:44
Vital Signs
Temp Pulse Resp BP Pulse Ox
98.7 F 79 20 101/54 90
01/28/24 07:24 01/28/24 07:32 01/28/24 07:24 01/28/24 07:32 01/28/24 07:44
Intake & Output
01/26/24 01/27/24 01/28/2401/28/24
06:59 06:59 06:59 06:59
Intake Total 1700 / 1700
Output Total 2400 / 2400
Balance 1700 / 1700 -2400 / -2400
Physical Exam
Physical Exam
General: Well developed, well nourished in NAD.
Heart: Non displaced PMI, RRR, no murmurs, No S3, S4, no rubs.
Lungs: Clear to auscultation bilaterally, no wheeze, rhonchi, rubs bilaterally,
Extremities: No clubbing, cyanosis or edema bilaterally.
Neuro: Grossly nonfocal, awake, alert and oriented x3.
[2024-01-28 11:01] VITALS: BP 102/71
--- NOTE | 2024-01-30 07:28 | W.DS.TRANS ---
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
-
Discharge Instructions:
Discharge Diagnosis/Procedures Afib post ablation
Diet Low Cholesterol
Driving Restrictions No driving for 24 hours
Bathing Restrictions OK to Shower
Instructions:
Stand-Alone Forms: DC Instructions- Cath/EP Lab
Changes to Home Medications: No
Discharge Medications:
DC Medications w/original date entered in [employer]
roflumilast 500 mcg tablet (Daliresp) 500 mcg PO DAILY COPD 05/09/17
escitalopram oxalate 20 mg tablet 20 mg PO DAILY depression/anxiety 04/15/18
atorvastatin 10 mg tablet 10 mg PO DAILY High cholesterol 08/27/19
rivaroxaban 20 mg tablet (Xarelto) 20 mg PO DAILY Blood clot prevention/tx 09/25/19
albuterol sulfate 90 mcg/actuation aerosol inhaler 2 puff inhalation R Q4HPRN PRN sob 09/25/23
aripiprazole 5 mg tablet 5 mg PO DAILY depression 09/25/23
fluticasone fur. 100 mcg-umeclid 62.5 mcg-vilant 25 mcg inhalat.powder (Trelegy Ellipta) 1 inh inhalation R DAILY COPD/asthma 09/25/23
folic acid 1 mg tablet 1 mg PO DAILY Supplement 09/25/23
ibuprofen 200 mg tablet 400 mg PO Q6HPRN PRN mild pain 11/02/23
ipratropium 0.5 mg-albuterol 3 mg (2.5 mg base)/3 mL nebulization soln 3 ml inhalation R Q4HPRN PRN wheezing sob #90 mL 11/04/23
metoprolol succinate 50 mg tablet,extended release 24 hr 75 mg PO DAILY 12/19/23
prednisone 10 mg tablet 10 mg PO DAILY 12/19/23
clonazepam 1 mg tablet 1 mg PO QIDPRN PRN anxiety #0 tabs 12/22/23
nicotine 21 mg/24 hr daily transdermal patch 21 mg transdermal DAILY 7 days #7 ea 12/22/23
Home Medication Changes
Pending Results: No
== END 2024-01-28 11:18 | disposition home or self-care (01) ==
LOC: CATH 08:16
PROVIDERS: Nurse Practitioner Adult Health; ATTENDING PHYSICIAN Internal Medicine Cardiovascular Disease; FAMILY PHYSICIAN Family Medicine; OTHER PHYSICIAN Internal Medicine Cardiovascular Disease
DX: I48.0 Paroxysmal atrial fibrillation (principal); J44.89 Other specified chronic obstructive pulmonary disease; Z86.74 Personal history of sudden cardiac arrest; I47.21 Torsades de pointes; F31.9 Bipolar disorder, unspecified; E78.5 Hyperlipidemia, unspecified; I87.2 Venous insufficiency (chronic) (peripheral); Z79.899 Other long term (current) drug therapy; Z79.01 Long term (current) use of anticoagulants; J96.11 Chronic respiratory failure with hypoxia; Z72.0 Tobacco use; F41.9 Anxiety disorder, unspecified; G47.00 Insomnia, unspecified; G47.33 Obstructive sleep apnea (adult) (pediatric); M19.90 Unspecified osteoarthritis, unspecified site; R91.8 Other nonspecific abnormal finding of lung field; Z79.52 Long term (current) use of systemic steroids; Z88.1 Allergy status to other antibiotic agents; Z88.5 Allergy status to narcotic agent; Z88.9 Allergy status to unspecified drugs, medicaments and biological substances; F10.21 Alcohol dependence, in remission; E83.42 Hypomagnesemia; I49.1 Atrial premature depolarization; J90 Pleural effusion, not elsewhere classified; Z95.810 Presence of automatic (implantable) cardiac defibrillator
CPT/HCPCS: C1732; C1759; C1733; C1766; C1894; C1769; 36415; 71046; 75572; 80048; 80053; 83735; 83880; 85025; 85027; 85347; 85610; 86850; 86900; 86901; 93005; 93656; 94640; C1760; Q9967

== ENCOUNTER 2024-05-26 15:04 | Inpatient (IN) | payer OTHER, SELFPAY ==
[2024-05-26] VITALS (7 sets, daily range): BP systolic 101–139; BP diastolic 48–73; BMI 27.6; BMI 25.3
[2024-05-26 12:18] LABS: % Basophils 0.6 % (0-2); % Eosinophils 1.6 % (0-6); % Immature Granulocytes 0.3 % (0-0.5); % Lymphocytes 40.2 % (20.5-51.1); % Monocytes 5.7 % (1.7-9.3); % Neutrophils 51.6 % (42.2-75.2); Absolute Eosinophils 0.1 10^3/uL (0-0.7); Absolute Lymphocytes 2.8 10^3/uL (1.2-3.4); Absolute Monocytes 0.4 10^3/uL (0.1-0.6); Absolute Neutrophils 3.6 10^3/uL (1.4-6.5); Hematocrit 49.8 % (37.0-47.0); Hemoglobin 17.2 g/dL (12.0-16.0); Mean Corp Hgb Conc. 34.5 g/dL (33.0-37.0); Mean Corpuscular Hgb 32.3 pg (27.0-31.0); Mean Corpuscular Volume 93.6 fL (81.0-99.0); Mean Platelet Volume 10.4 fL (7.4-10.4); Nucleated Red Blood Cells % 0 %; Platelet Count 175 10^3/uL (130-400); Red Blood Cell Count 5.32 10^6/uL (4.20-5.40); Red Cell Dist. Width 14.2 % (11.5-14.5)
[2024-05-26 12:29] LABS: ALT (SGPT) 15 U/L (0-35); AST (SGOT) 17 U/L (14-36); Albumin 4.5 g/dl (3.5-5.0); Alkaline Phosphatase 64 U/L (38-126); Blood Urea Nitrogen 12 mg/dl (7-17); Calcium 9.4 mg/dl (8.4-10.2); Carbon Dioxide 31 mmol/L (22-30); Chloride 97 mmol/L (98-107); Estimated Creatinine Clearance 85 ml/min; Glucose 70 mg/dl (70-99); Potassium 4.1 mmol/L (3.5-5.1); Sodium 137 mmol/L (135-145); Total Bilirubin 0.9 mg/dl (0.2-1.3); Total Protein 6.6 g/dl (6.3-8.2); eGFR > 60.00
[2024-05-26 12:34] LABS: COVID-19 Antigen Negative (Negative)
[2024-05-26 12:38] LABS: NT-proBNP 222 pg/ml
[2024-05-26] MEDS: DUONEB 3 ML INH ×2 (13:28→20:47)
[2024-05-26] MEDS: DECADRON 10 MG IV (13:28)
--- NOTE | 2024-05-26 14:18 | ED.GENMED ---
History of Present Illness
General
Chief Complaint: Breathing Problem
Time Seen by Provider: 05/26/24 12:25
History of Present Illness
History of Present Illness:
64-year-old female with history of COPD, A-fib, CHF, long QT and prior VT arrest status post PPM/AICD presents to the emergency department for evaluation of shortness of breath ongoing for the past several weeks. Reports dry cough as well. Has
been using nebulizer treatments as prescribed without improvement. No chest pain or leg swelling. Denies fevers or chills. Cough is generally dry nonproductive
Past History
Past History
ED Past Medical History: Arrthythmia (History of A. fib, long QT syndrome), Asthma, COPD, Hypercholesterolemia, NIDDM (Questionable), NM, Psychiatric (Depression) and Other (History of migraines, insomnia, disconjugate gaze of the eyes the right
greater than the left, PNA.)
ED Past Surgical History: Cardiac (ICD 10/2012) and Other ([place] teeth extraction, and a D&C Procedure)
Social History
Tobacco: Smoker
Alcohol: Former
Drug: None
Personal: (Has a partner)
Living: with family (domestic partner)
Employment: Not employed
Family History
Family History: Other (Noncontributory)
Review of Systems
Review of Systems
Allergies reviewed?: Yes
All Other Systems: ROS reviewed and negative except as documented in HPI and ROS
Phy Exam
Physical Exam
Physical Exam:
GEN: Well appearing, NAD, WDWN
Eyes: PERRLA, EOMs intact, no scleral icterus
HENT: NCAT, oral mucosa moist
Lungs: Tachypneic, no accessory muscle use, harsh expiratory wheezes heard throughout all lung cabrera
Cardiac: RRR, no M/R/G, no peripheral edema. Radial pulses 2+ bilat
Abdomen: S, NT, ND, NABS, no masses or hepatosplenomegaly
Neuro: AO x 3
MSK: No gross deformity or ecchymosis. No edema. No digital clubbing
Skin: No rashes, petechiae. Normal color, no pallor or jaundice.
Psych: Calm, cooperative, proper hygiene
Scores
Heart Failure Risk
Heart Failure Risk Score: Not Applicable
Course
Orders/Labs/Results
Orders:
Orders
05/26/24 11:58
Electrocardiogram (*1) Urgent
Reason for Study: Chest Pain
05/26/24 11:59
EKG- Treatment ONCE
05/26/24 12:08
COVID-19 Antigen Urgent
Source: Nasal Swab
Complete Blood Count/With Diff Urgent
Comprehensive Metabolic Panel Urgent
NT-proBNP Urgent
Influenza A+B Rapid Molecular Urgent
AUDREY Source: Nasal Swab
Specimen Description:
05/26/24 12:38
Dexamethasone Sod Phosphate [Decadron] 10 mg IV NOW STA
Ipratropium/Albuterol Sulfate [Duoneb] 3 ml INH R NOW ONE
05/26/24 12:39
CR Chest - 2 Views Urgent
Comment:
Reason For Exam: SOB
Abnormal Lab Results
05/26/24
12:08
Hgb 17.2 H g/dL
(12.0-16.0)
Hct 49.8 H %
(37.0-47.0)
MCH 32.3 H pg
(27.0-31.0)
Chloride 97 L mmol/L
(98-107)
Carbon Dioxide 31 H mmol/L
(22-30)
05/26/24 12:08
05/26/24 12:08
Vital Signs
Initial and Last Documented VS:
Initial Vital Signs
Temp Pulse Resp BP Pulse Ox
98.9 F 93 16 125/72 85
05/26/24 12:00 05/26/24 12:00 05/26/24 12:00 05/26/24 12:00 05/26/24 12:00
Last Documented Vital Signs
Temp Pulse Resp BP Pulse Ox
98.9 F 81 15 108/63 95
05/26/24 12:00 05/26/24 13:15 05/26/24 13:15 05/26/24 13:00 05/26/24 13:15
MDM/Problems Addressed
MDM/Problems Addressed:
Patient with continued dyspnea and hypoxia despite neb treatment and steroids. Will admit for acute COPD exacerbationb
*Critical Care Note
Total Time (30-74mins, 75-104mins- exclusive of procedures): Not Applicable
ED Attending Note
-
Portions of this chart may have been created with voice recognition software.� Occasional wrong word or��sound alike� substitutions may have occurred due to the inherent limitations of voice recognition software.
Discharge Plan
Departure
Patient Disposition: Admit
Date of Disposition: 05/26/24
Time of Disposition: 14:22
Admit to: Med/Surg
Presentation/result/management discussed w/ accepting MD/DO: Hospitalist
Discharge Problem:
COPD with acute exacerbation
Prescriptions:
No Action
roflumilast [Daliresp] 500 MCG tablet
500 mcg PO DAILY
escitalopram oxalate 20 MG tablet
20 mg PO DAILY
atorvastatin 10 MG tablet
10 mg PO DAILY
Xarelto 20 MG tablet
20 mg PO DAILY
folic acid 1 mg Tablet
1 mg PO DAILY
albuterol sulfate 90 mcg/actuation Hfa Aerosol Inhaler
2 puff INHALATION R Q4HPRN PRN (Reason: sob)
aripiprazole 5 mg Tablet
5 mg PO DAILY
Trelegy Ellipta 100-62.5-25 mcg Blister With Device
1 inh INHALATION R DAILY
ibuprofen 200 mg Tablet
400 mg PO Q6HPRN PRN (Reason: mild pain)
ipratropium-albuterol 0.5 mg-3 mg(2.5 mg base)/3 mL Solution For Nebulization
3 ml inhalation R Q4HPRN PRN (Reason: wheezing sob) Qty: 90 0RF
prednisone 10 mg tablet
10 mg PO DAILY
metoprolol succinate 50 mg tablet extended release 24 hr
75 mg PO DAILY
nicotine 21 mg/24 hr Patch 24 Hour
21 mg transdermal DAILY 7 Days Qty: 7 0RF
clonazepam 1 MG tablet
1 mg PO QIDPRN PRN (Reason: anxiety) Qty: 0 0RF
Patient Comments:
12/19/2023: last filled 12/01/23, 120 tabs for 30 days from [id number]
Referrals:
Vira Quintana DO [Family Provider] -
Interventions
Interventions:
*Risk Screen - Suicide Last Done: 05/26/24 12:00
*General Assessment Last Done: 05/26/24 12:00
*Neglect/Abuse Screening Last Done: 05/26/24 12:00
Discharge Date and Time
Print Language: PAKISTANI
--- NOTE | 2024-05-26 14:53 | HPS.HSE ---
Family Physician
-
Family Physician: Vira Quintana
Chief Complaint
-
shortness of breath
History of Present Illness
64-year-old female past medical history of asthma/COPD paroxysmal atrial fibrillation on Xarelto, V-fib arrest secondary to prolonged QTc/bradycardia in 2013 status post ICD, asthma, alcohol use disorder previously, tobacco use, presenting for
shortness of breath ongoing for the past several weeks. Also with dry sometimes productive cough. Patient has been using nebulizer treatments without improvement. No chest pain. No leg swelling. No fevers or chills. No weight gain. She had
diarrhea for the past 2 days and 1 episode today which is improved. No abdominal pain or vomiting.
She smokes 6 cigarettes a day. Denies alcohol use currently.
Medical History
Past Medical History
Past Medical History: Reports Other (asthma/COPD paroxysmal atrial fibrillation on Xarelto, V-fib arrest secondary to prolonged QTc/bradycardia in 2013 status post ICD, asthma, alcohol use disorder previously, tobacco use)
Past Surgical History: Reports Other (Cardiac (ICD 10/2012) and Other ([place] teeth extraction, and a D&C Procedure))
Social History
Tobacco: Smoker
Alcohol: None
Drug: None
Family History
Family History: Not pertinent
Allergies / Home Medications
Allergies reflects when Allergies were last updated in [employer]
Home Medications with original date entered in [employer]
Allergy/Medication List:
Allergies
Allergy/AdvReac Type Severity Reaction Status Date / Time
azithromycin [From Zithromax] Allergy Severe PROLONGED Verified 05/26/24 12:04
QT SYNDROME
erythromycin lactobionate Allergy Severe Unknown Verified 05/26/24 12:04
[From Erythrocin]
hydrocodone [From Vicodin] Allergy Severe Itching Verified 05/26/24 12:04
quetiapine [From Seroquel] Allergy Severe Unknown Verified 05/26/24 12:04
trazodone Allergy Severe Unknown Verified 05/26/24 12:04
[id number] Antimigraine Allergy Severe Unknown Verified 05/26/24 12:04
Agents
quetiapine fumarate Allergy Intermediate 'jumping Verified 05/26/24 12:04
[From Seroquel] legs and
pins and
needles'
numbness
arms and
legs
levofloxacin [From Levaquin] Allergy Torsade Verified 05/26/24 12:04
Home Medications
roflumilast 500 mcg tablet (Daliresp) 500 mcg PO DAILY COPD 05/09/17
escitalopram oxalate 20 mg tablet 20 mg PO DAILY depression/anxiety 04/15/18
atorvastatin 10 mg tablet 10 mg PO DAILY High cholesterol 08/27/19
rivaroxaban 20 mg tablet (Xarelto) 20 mg PO DAILY Blood clot prevention/tx 09/25/19
albuterol sulfate 90 mcg/actuation aerosol inhaler 2 puff inhalation R Q4HPRN PRN sob 09/25/23
aripiprazole 5 mg tablet 5 mg PO DAILY depression 09/25/23
fluticasone fur. 100 mcg-umeclid 62.5 mcg-vilant 25 mcg inhalat.powder (Trelegy Ellipta) 1 inh inhalation R DAILY COPD/asthma 09/25/23
folic acid 1 mg tablet 1 mg PO DAILY Supplement 09/25/23
ibuprofen 200 mg tablet 400 mg PO Q6HPRN PRN mild pain 11/02/23
ipratropium 0.5 mg-albuterol 3 mg (2.5 mg base)/3 mL nebulization soln 3 ml inhalation R Q4HPRN PRN wheezing sob #90 mL 11/04/23
metoprolol succinate 50 mg tablet,extended release 24 hr 75 mg PO DAILY 12/19/23
prednisone 10 mg tablet 10 mg PO DAILY 12/19/23
clonazepam 1 mg tablet 1 mg PO QIDPRN PRN anxiety #0 tabs 12/22/23
nicotine 21 mg/24 hr daily transdermal patch 21 mg transdermal DAILY 7 days #7 ea 12/22/23
Review of Systems
-
History Source: Patient
A 12 point ROS was completed and negative except as noted: Yes
Constitutional: Reports No Symptoms
EENT: Reports No Symptoms
Respiratory: Reports No Symptoms
Cardiac: Reports No Symptoms
Abdomen/GI: Reports No Symptoms
: Reports No Symptoms
Musculoskeletal: Reports No Symptoms
Skin: Reports No Symptoms
Neurological: Reports No Symptoms
Endocrine: Reports No Symptoms
Hematologic/Lymphatic: Reports No Symptoms
Psych: Reports No Symptoms
Physical Exam
Vital Signs
Vital Signs
Temp Pulse Resp BP Pulse Ox
98.9 F 81 15 108/63 95
05/26/24 12:00 05/26/24 13:15 05/26/24 13:15 05/26/24 13:00 05/26/24 13:15
Physical Exam
General: Well Developed, Well Nourished and No Apparent Distress
HEENT: NormoCephalic, Moist mucous membranes and Atraumatic
Respiratory: Wheezes
Cardiac: S1/S2 and Regular Rhythm; No Murmur or Rub
GI: Soft, Non Tender, Non Distended and Normal Bowel Sounds; No Organomegaly
Rectal: Deferred by Provider
Musculoskeletal: No Clubbing, No Cyanosis and No Edema
Skin: No Rash
Neuro: Nonfocal/grossly intact
Laboratory Results
-
05/26/24 12:08
05/26/24 12:08
Laboratory Results
Total Bilirubin 0.9 mg/dl (0.2-1.3) 05/26/24 12:08
AST 17 U/L (14-36) 05/26/24 12:08
ALT 15 U/L (0-35) 05/26/24 12:08
Alkaline Phosphatase 64 U/L (38-126) 05/26/24 12:08
Data Reviewed
-
Lab Data: Labs Reviewed by me
Old Records: Reviewed
Impression/Plan
-
IMPRESSION:
PLAN:
# Asthma/COPD exacerbation
-Bilateral expiratory wheezing on examination
-Cardiac BNP of 200
-Chest x-ray shows no acute cardiopulmonary process
-DuoNebs every 6 hours
-Dexamethasone 4 mg every 12
-Continue Daliresp
# Diarrhea likely secondary to gastroenteritis
-Has improved
-Regular diet
Paroxysmal atrial fibrillation status post PVI
-Continue Xarelto
-Continue metoprolol
V-fib arrest secondary to prolonged QTc/bradycardia in 2013 status post ICD
Prior alcohol use disorder
Tobacco use
Anxiety/depression
-Continue aripiprazole, Lexapro, clonazepam
Hyperlipidemia
-Continue statin
Full code
DVT prophylaxis�Xarelto
Cardiac diet
[2024-05-26] MEDS: DUONEB INH (17:37)
[2024-05-26] MEDS: DECADRON 4 MG IV (23:18)
[2024-05-27 03:30] VITALS: BP 113/65
[2024-05-27 06:26] LABS: % Lymphocytes 17.9 % (20.5-51.1); % Monocytes 2.6 % (1.7-9.3); % Neutrophils 79.5 % (42.2-75.2); Absolute Lymphocytes 0.7 10^3/uL (1.2-3.4); Absolute Monocytes 0.1 10^3/uL (0.1-0.6); Absolute Neutrophils 3.1 10^3/uL (1.4-6.5); Hematocrit 47.2 % (37.0-47.0); Hemoglobin 16.5 g/dL (12.0-16.0); Mean Corpuscular Hgb 32.1 pg (27.0-31.0); Mean Corpuscular Volume 91.8 fL (81.0-99.0); Mean Platelet Volume 10.7 fL (7.4-10.4); Nucleated Red Blood Cells % 0 %; Platelet Count 164 10^3/uL (130-400); Red Blood Cell Count 5.14 10^6/uL (4.20-5.40); Red Cell Dist. Width 13.4 % (11.5-14.5); White Blood Cell Count 3.9 10^3/uL (4.8-10.8)
[2024-05-27 06:53] LABS: Blood Urea Nitrogen 16 mg/dl (7-17); Calcium 9.6 mg/dl (8.4-10.2); Carbon Dioxide 31 mmol/L (22-30); Chloride 98 mmol/L (98-107); Estimated Creatinine Clearance 96 ml/min; Glucose 152 mg/dl (70-99); Potassium 4.5 mmol/L (3.5-5.1); Sodium 135 mmol/L (135-145); eGFR > 60.00
[2024-05-27 07:00] VITALS: BP 119/67
[2024-05-27] MEDS: SYMBICORT 80/4.5 MCG INHALER 2 PUFF INH ×2 (07:28→20:35)
[2024-05-27] MEDS: DUONEB INH (07:28)
[2024-05-27] MEDS: SPIRIVA RESPIMAT 2.5 MCG 2 PUFF INH (07:28)
[2024-05-27] MEDS: LIPITOR 10 MG PO (07:29)
[2024-05-27] MEDS: FOLVITE 1 MG PO (07:29)
[2024-05-27] MEDS: LEXAPRO 20 MG PO (07:29)
[2024-05-27] MEDS: ABILIFY 5 MG PO (07:29)
[2024-05-27] MEDS: XARELTO 20 MG PO (07:29)
[2024-05-27] MEDS: TOPROL XL 50 MG PO (07:29)
[2024-05-27] MEDS: DALIRESP 500 MCG PO (07:29)
[2024-05-27] MEDS: KLONOPIN 1 MG PO ×2 (08:14→16:06)
--- NOTE | 2024-05-27 09:43 | W.PN.HOSP.TC ---
Today's Communication/Plan
-
see bold
Assessment / Plan
Assessment / Plan
HPI: 64-year-old female past medical history of asthma/COPD paroxysmal atrial fibrillation on Xarelto, V-fib arrest secondary to prolonged QTc/bradycardia in 2013 status post ICD, asthma, alcohol use disorder previously, tobacco use, presenting for
shortness of breath ongoing for the past several weeks. Also with dry sometimes productive cough. Patient has been using nebulizer treatments without improvement. No chest pain. No leg swelling. No fevers or chills. No weight gain. She had
diarrhea for the past 2 days and 1 episode today which is improved. No abdominal pain or vomiting.
She smokes 6 cigarettes a day. Denies alcohol use currently.
# Asthma/COPD exacerbation
#Acute hypoxic respiratory insufficiency
-Bilateral expiratory wheezing on examination
-Cardiac BNP of 200
-Chest x-ray shows no acute cardiopulmonary process
-Continue IV dexamethasone, bronchodilators, add doxycycline for anti-inflammatory effects
-Current requiring 2 L, wean as tolerated. She does not wear oxygen at home
#Cigarette nicotine dependency
Smoking cessation counseling has been provided
Nicotine patch
#Diarrhea ruled out
Patient reports 1 loose stool a week
Paroxysmal atrial fibrillation status post PVI
-Continue Xarelto
-Continue metoprolol
V-fib arrest secondary to prolonged QTc/bradycardia in 2013 status post ICD
Prior alcohol use disorder
Anxiety/depression
-Continue aripiprazole, Lexapro, clonazepam
Hyperlipidemia
-Continue statin
DVT prophylaxis�Xarelto
Full Code
Total time spent to see the patient on the floor, examine the patient, review data and lab results, discuss treatment plan with patient, nursing staff around 45 minutes.
Physical Exam
General: No acute distress
HEENT: Normocephalic, Atraumatic, EOMI, MMM
Right eye exotropia
Respiratory: Clear to Auscultation bilaterally
Cardiac: Normal S1/S2, Regular Rate and Rhythm
GI: Soft, Nontender, Nondistended, Normal Bowel Sounds
Extremities: No Clubbing, Cyanosis, or Edema
Neuro: Nonfocal/Grossly Intact
Psych: Calm, Cooperative
Anticipated Discharge: 24 - 48 hours
Subjective/Interval History
-
Date of Service: May 27, 2024
Patient reports her breathing is worse today. Continues to have a productive cough. No fever, no vomiting.
Objective Data
-
Labs:
Laboratory Results
05/27/24
05:19
WBC 3.9 L
Hgb 16.5 H
Hct 47.2 H
Plt Count 164
Sodium 135
Potassium 4.5
Chloride 98
Carbon Dioxide 31 H
BUN 16
Creatinine 0.6
Glucose 152 H
Calcium 9.6
Vital Signs:
Vital Signs
Temp Pulse Resp BP Pulse Ox
97.5 F 71 16 119/67 920
05/27/24 07:00 05/27/24 07:32 05/27/24 07:32 05/27/24 07:00 05/27/24 07:32
I&O
05/26/24 05/27/24 05/28/24
06:59 06:59 06:59
Intake Total 240 / 240
Balance 240 / 240
[2024-05-27] MEDS: VIBRAMYCIN 100 MG PO ×2 (10:42→21:07)
[2024-05-27] MEDS: DECADRON 4 MG IV ×2 (10:42→21:08)
[2024-05-27 11:00] VITALS: BP 112/65
[2024-05-27] MEDS: NICODERM TRANSDERMAL 14 MG TRANSDERM (11:25)
[2024-05-27] MEDS: VENTOLIN NEBULES 2.5 MG INH ×3 (11:30→20:35)
[2024-05-27 15:00] VITALS: BP 122/68
--- NOTE | 2024-05-27 16:00 | CM ---
Alert awake oriented patient who lives alone in an apartment with 1 steps to enter. She is independent in driving and in all activities of daily living.Offered VN she is insure of need..Advanced directive pkg given .
No adaptive devices Pt has new oxygen on .
Never had VN/SNF
Pharmacy [address], [place]
PCP Dr Ron Quintana
PLAN Home unsure of needs
[2024-05-27 19:00] VITALS: BP 102/55
[2024-05-27 23:00] VITALS: BP 101/57
[2024-05-28 03:00] VITALS: BP 108/60
[2024-05-28] MEDS: SYMBICORT 80/4.5 MCG INHALER 2 PUFF INH ×2 (07:22→19:47)
[2024-05-28] MEDS: VENTOLIN NEBULES 2.5 MG INH ×4 (07:22→19:47)
[2024-05-28] MEDS: SPIRIVA RESPIMAT 2.5 MCG 2 PUFF INH (07:22)
[2024-05-28 07:34] VITALS: BP 126/67
[2024-05-28] MEDS: XARELTO 20 MG PO (07:44)
[2024-05-28] MEDS: ABILIFY 5 MG PO (07:44)
[2024-05-28] MEDS: VIBRAMYCIN 100 MG PO ×2 (07:44→20:45)
[2024-05-28] MEDS: LIPITOR 10 MG PO (07:44)
[2024-05-28] MEDS: DALIRESP 500 MCG PO (07:44)
[2024-05-28] MEDS: LEXAPRO 20 MG PO (07:45)
[2024-05-28] MEDS: FOLVITE 1 MG PO (07:45)
[2024-05-28] MEDS: NICODERM TRANSDERMAL 14 MG TRANSDERM (07:45)
[2024-05-28] MEDS: TOPROL XL 50 MG PO (07:45)
--- NOTE | 2024-05-28 09:04 | W.PN.HOSP.TC ---
Today's Communication/Plan
-
see bold
Assessment / Plan
Assessment / Plan
HPI: 64-year-old female past medical history of asthma/COPD paroxysmal atrial fibrillation on Xarelto, V-fib arrest secondary to prolonged QTc/bradycardia in 2013 status post ICD, asthma, alcohol use disorder previously, tobacco use, presenting for
shortness of breath ongoing for the past several weeks. Also with dry sometimes productive cough. Patient has been using nebulizer treatments without improvement. No chest pain. No leg swelling. No fevers or chills. No weight gain. She had
diarrhea for the past 2 days and 1 episode today which is improved. No abdominal pain or vomiting.
She smokes 6 cigarettes a day. Denies alcohol use currently.
# Asthma/COPD exacerbation
#Acute hypoxic respiratory insufficiency
-Bilateral expiratory wheezing on examination
-Cardiac BNP of 200
-Chest x-ray shows no acute cardiopulmonary process
-Wean IV dexamethasone, continue bronchodilators, added doxycycline for anti-inflammatory effects
-Currently on RA, down from 2 L, wean as tolerated. She does not wear oxygen at home
#Cigarette nicotine dependency
Smoking cessation counseling has been provided
Nicotine patch
#Diarrhea ruled out
Patient reports 1 loose stool a week
Paroxysmal atrial fibrillation status post PVI
-Continue Xarelto
-Continue metoprolol
V-fib arrest secondary to prolonged QTc/bradycardia in 2013 status post ICD
Prior alcohol use disorder
Anxiety/depression
-Continue aripiprazole, Lexapro, clonazepam
Hyperlipidemia
-Continue statin
DVT prophylaxis�Xarelto
Full Code
Total time spent to see the patient on the floor, examine the patient, review data and lab results, discuss treatment plan with patient, nursing staff around 40 minutes.
Physical Exam
General: No acute distress
HEENT: Normocephalic, Atraumatic, EOMI, MMM
Right eye exotropia
Respiratory: Coarse breath sounds with faint expiratory wheezing
Cardiac: Normal S1/S2, Regular Rate and Rhythm
GI: Soft, Nontender, Nondistended, Normal Bowel Sounds
Extremities: No Clubbing, Cyanosis, or Edema
Neuro: Nonfocal/Grossly Intact
Psych: Calm, Cooperative
Anticipated Discharge: 24 - 48 hours
Subjective/Interval History
-
Date of Service: May 28, 2024
Patient reports her breathing is 50% improved. Continues to cough. No fever, no vomiting.
Objective Data
-
Vital Signs:
Vital Signs
Temp Pulse Resp BP Pulse Ox
97.9 F 75 16 126/67 98
05/28/24 07:34 05/28/24 07:45 05/28/24 07:34 05/28/24 07:45 05/28/24 07:34
I&O
05/27/24 05/28/24 05/29/24
06:59 06:59 06:59
Intake Total 240 / 240 1480 / 1480
Balance 240 / 240 1480 / 1480
[2024-05-28] MEDS: DECADRON 4 MG IV (09:19)
--- NOTE | 2024-05-28 10:04 | CM ---
Patient seen at bedside.
discussed VN - patient agreeable
spoke with hospitalist regarding VN
prefer [facility] - notified Jamila liaison at [facility]
PLAN: Home, with VN when medically stable
--- NOTE | 2024-05-28 10:56 | VNURNOTE ---
Rec'ed info for [facility] referral. Chart reviewed. Met with patient at bedside. Explained [facility] services. Assessed homebound status. Patient stated she is planning on going back to 'the [employer]' next week. She drives herself there 2x/week and
stated it is a social club/'work order club.' Patient stated she is independent in using neb machine and home meds. Would not meet homebound criteria. No referral placed. [facility] notified.
[2024-05-28 11:44] VITALS: BP 118/63
[2024-05-28 15:00] VITALS: BP 128/63
[2024-05-28 18:42] VITALS: BP 108/55
[2024-05-28] MEDS: KLONOPIN 1 MG PO (21:45)
[2024-05-28 23:00] VITALS: BP 105/56
[2024-05-29 04:00] VITALS: BP 124/65
[2024-05-29 07:05] VITALS: BP 125/81
[2024-05-29] MEDS: SPIRIVA RESPIMAT 2.5 MCG 2 PUFF INH (07:24)
[2024-05-29] MEDS: SYMBICORT 80/4.5 MCG INHALER 2 PUFF INH (07:24)
[2024-05-29] MEDS: VENTOLIN NEBULES 2.5 MG INH ×2 (07:24→11:30)
[2024-05-29] MEDS: ABILIFY 5 MG PO (08:30)
[2024-05-29] MEDS: LEXAPRO 20 MG PO (08:30)
[2024-05-29] MEDS: XARELTO 20 MG PO (08:30)
[2024-05-29] MEDS: FOLVITE 1 MG PO (08:30)
[2024-05-29] MEDS: TOPROL XL 50 MG PO (08:30)
[2024-05-29] MEDS: LIPITOR 10 MG PO (08:30)
[2024-05-29] MEDS: VIBRAMYCIN 100 MG PO (08:30)
[2024-05-29] MEDS: DALIRESP 500 MCG PO (08:31)
[2024-05-29] MEDS: DECADRON 4 MG IV (08:52)
[2024-05-29] MEDS: NICODERM TRANSDERMAL 14 MG TRANSDERM (08:52)
--- NOTE | 2024-05-29 09:33 | W.PN.HOSP.TC ---
Today's Communication/Plan
-
Discharge today
Assessment / Plan
Assessment / Plan
HPI: 64-year-old female past medical history of asthma/COPD paroxysmal atrial fibrillation on Xarelto, V-fib arrest secondary to prolonged QTc/bradycardia in 2013 status post ICD, asthma, alcohol use disorder previously, tobacco use, presenting for
shortness of breath ongoing for the past several weeks. Also with dry sometimes productive cough. Patient has been using nebulizer treatments without improvement. No chest pain. No leg swelling. No fevers or chills. No weight gain. She had
diarrhea for the past 2 days and 1 episode today which is improved. No abdominal pain or vomiting.
She smokes 6 cigarettes a day. Denies alcohol use currently.
# Asthma/COPD exacerbation
#Acute hypoxic respiratory insufficiency
-Bilateral expiratory wheezing on examination
-Cardiac BNP of 200
-Chest x-ray shows no acute cardiopulmonary process
-Resolved on IV dexamethasone
-Medically stable for discharge on prednisone taper, then she can continue her previous home prednisone dose of 10 mg daily that she takes for her COPD
-Will discharge on doxycycline to complete a 5-day course
-Currently on RA, down from 2 L. She does not wear oxygen at home
-Oxygen evaluation performed, she does not need oxygen upon discharge
-Follow-up with PCP in 1 week
#Cigarette nicotine dependency
Smoking cessation counseling has been provided
Nicotine patch
#Diarrhea ruled out
Patient reports 1 loose stool a week
Paroxysmal atrial fibrillation status post PVI
-Continue Xarelto
-Continue metoprolol
V-fib arrest secondary to prolonged QTc/bradycardia in 2013 status post ICD
Prior alcohol use disorder
Anxiety/depression
-Continue aripiprazole, Lexapro, clonazepam
Hyperlipidemia
-Continue statin
DVT prophylaxis�Xarelto
Full Code
Physical Exam
General: No acute distress
HEENT: Normocephalic, Atraumatic, EOMI, MMM
Right eye exotropia
Respiratory: Coarse breath sounds with faint expiratory wheezing
Cardiac: Normal S1/S2, Regular Rate and Rhythm
GI: Soft, Nontender, Nondistended, Normal Bowel Sounds
Extremities: No Clubbing, Cyanosis, or Edema
Neuro: Nonfocal/Grossly Intact
Psych: Calm, Cooperative
Anticipated Discharge: Today
Subjective/Interval History
-
Date of Service: May 29, 2024
Patient reports her breathing is 75-80% improved from admission. Continues to cough. No fever, no vomiting. She feels well for discharge today.
Objective Data
-
Vital Signs:
Vital Signs
Temp Pulse Resp BP Pulse Ox
97.9 F 81 20 125/81 92
05/29/24 07:05 05/29/24 07:25 05/29/24 07:25 05/29/24 07:05 05/29/24 07:25
I&O
05/28/24 05/29/24 05/30/24
06:59 06:59 06:59
Intake Total 1480 / 1480 900 / 900 480 / 480
Balance 1480 / 1480 900 / 900 480 / 480
[2024-05-29 11:05] VITALS: BP 113/63
--- NOTE | 2024-05-29 13:05 | PTCARENOTE ---
Rn flow faciltator. Patient cleared for dc. Patient taken to [facility] to wait for [facility].
--- NOTE | 2024-05-29 13:47 | CM ---
Md entered order for discharge.
Pt declined VN because she said she is not home bound.
She said she will find a ride home.
IMM reviewed Pt agrees with dc.
PLAN Home no needs
== END 2024-05-29 13:05 | disposition home or self-care (01) | DRG 192 ==
LOC: 3 WEST ACU 15:04
PROVIDERS: ADMITTING PHYSICIAN Hospitalist; ATTENDING PHYSICIAN Family Medicine; EMERGENCY PHYSICIAN Emergency Medicine; FAMILY PHYSICIAN Family Medicine
DX: J44.1 Chronic obstructive pulmonary disease with (acute) exacerbation (principal); I48.0 Paroxysmal atrial fibrillation; F17.210 Nicotine dependence, cigarettes, uncomplicated; F32.A Depression, unspecified; F41.9 Anxiety disorder, unspecified; E78.00 Pure hypercholesterolemia, unspecified; E11.9 Type 2 diabetes mellitus without complications; Z95.810 Presence of automatic (implantable) cardiac defibrillator; Z79.01 Long term (current) use of anticoagulants; Z79.84 Long term (current) use of oral hypoglycemic drugs
CPT/HCPCS: 71046; 80048; 80053; 83880; 85025; 87502; 87811; 93005; 94640; 96374; 99285

== ENCOUNTER 2024-06-02 11:53 | Inpatient (IN) | payer OTHER, SELFPAY ==
[2024-06-02] VITALS (21 sets, daily range): BP systolic 89–123; BP diastolic 53–75; BMI 26.8; BMI 26.1
[2024-06-02 07:22] LABS: % Basophils 0.2 % (0-2); % Eosinophils 0.2 % (0-6); % Immature Granulocytes 0.4 % (0-0.5); % Lymphocytes 9.4 % (20.5-51.1); % Monocytes 10.1 % (1.7-9.3); % Neutrophils 79.7 % (42.2-75.2); Absolute Immature Granulocytes 0.1 10^3/uL (0-0.05); Absolute Lymphocytes 1.1 10^3/uL (1.2-3.4); Absolute Monocytes 1.2 10^3/uL (0.1-0.6); Absolute Neutrophils 9.2 10^3/uL (1.4-6.5); Hematocrit 50.8 % (37.0-47.0); Mean Corp Hgb Conc. 33.5 g/dL (33.0-37.0); Mean Corpuscular Hgb 32.1 pg (27.0-31.0); Mean Corpuscular Volume 95.8 fL (81.0-99.0); Mean Platelet Volume 10.9 fL (7.4-10.4); Nucleated Red Blood Cells % 0 %; Platelet Count 157 10^3/uL (130-400); White Blood Cell Count 11.5 10^3/uL (4.8-10.8)
[2024-06-02 07:44] LABS: ALT (SGPT) 59 U/L (0-35); AST (SGOT) 43 U/L (14-36); Albumin 3.8 g/dl (3.5-5.0); Alkaline Phosphatase 59 U/L (38-126); Blood Urea Nitrogen 26 mg/dl (7-17); Calcium 9.4 mg/dl (8.4-10.2); Carbon Dioxide 35 mmol/L (22-30); Chloride 96 mmol/L (98-107); Estimated Creatinine Clearance 76 ml/min; Glucose 113 mg/dl (70-99); Potassium 4.3 mmol/L (3.5-5.1); Sodium 138 mmol/L (135-145); Total Bilirubin 1.2 mg/dl (0.2-1.3); Total Protein 6.2 g/dl (6.3-8.2); eGFR > 60.00
[2024-06-02 07:46] LABS: NT-proBNP 3530 pg/ml
[2024-06-02] MEDS: DECADRON 10 MG IV (07:53)
[2024-06-02] MEDS: DUONEB 3 ML INH ×6 (07:54→20:08)
--- NOTE | 2024-06-02 07:55 | EDRN ---
the pt asked for a nicotene patch, this RN notified Dr. Guevara
[2024-06-02] MEDS: NICODERM TRANSDERMAL 21 MG TRANSDERM (08:00)
[2024-06-02] MEDS: NICODERM TRANSDERMAL TRANSDERM (08:02)
[2024-06-02 08:10] LABS: Troponin I 0.313 ng/ml
--- NOTE | 2024-06-02 08:38 | ED.GENMED ---
History of Present Illness
General
Chief Complaint: Breathing Problem
Source: patient
Exam Limitations: none
Time Seen by Provider: 06/02/24 07:44
History of Present Illness
History of Present Illness:
64-year-old female presents with shortness of breath. Patient called 9 1 and arrived by EMS. Patient reportedly was 62% on room air. Given DuoNeb by EMS. On my evaluation patient does continue report chest tightness and difficulty breathing.
She has long history of COPD. She did quit smoking recently. Denies leg swelling. No fevers. No hemoptysis.
Past History
Past History
ED Past Medical History: Arrthythmia (History of A. fib, long QT syndrome), Asthma, COPD, Hypercholesterolemia, NIDDM (Questionable), [place], Psychiatric (Depression) and Other (History of migraines, insomnia, disconjugate gaze of the eyes the right
greater than the left, PNA.)
ED Past Surgical History: Cardiac (ICD 10/2012) and Other ([place] teeth extraction, and a D&C Procedure)
Social History
Tobacco: Smoker
Alcohol: Former
Drug: None
Personal: (Has a partner)
Living: with family (domestic partner)
Employment: Not employed
Family History
Family History: Other (Noncontributory)
Phy Exam
Physical Exam
Physical Exam:
CONSTITUTIONAL Patient alert and oriented to person, place and time. Vital signs reviewed.
HEAD atraumatic, normocephalic.
EYES eyelids normal to inspection, disconjugate gaze noted, conjunctiva normal, Sclera normal.
NECK normal range of motion, Trachea midline, no jugular venous distention.
RESPIRATORY CHEST moderate to severe respiratory distress noted, Chest expansion equal, wheezing significant bilaterally
CARDIOVASCULAR regular rate and rhythm, Heart sounds normal.
ABDOMEN No distention.
BACK normal inspection, no obvious deformities
UPPER EXTREMITY range of motion normal, Motor strength normal, no cyanosis, no edema.
LOWER EXTREMITY range of motion normal, Motor strength normal, no cyanosis, no edema.
NEURO Speech normal, No focal motor deficits, [place] coma scale 15, Memory normal, Cranial Nerves intact to screening exam.
SKIN skin warm, dry, and normal in color.
Scores
Heart Failure Risk
Heart Failure Risk Score: Not Applicable
Course
Orders/Labs/Results
Orders:
Orders
06/02/24 07:14
Electrocardiogram (*1) Urgent
Reason for Study: Shortness of Breath
EKG- Treatment ONCE
06/02/24 07:15
Complete Blood Count/With Diff Urgent
Comprehensive Metabolic Panel Urgent
NT-proBNP Urgent
Troponin I Urgent
06/02/24 07:45
Ipratropium/Albuterol Sulfate [Duoneb] 3 ml .ROUTE .STK-MED ONE
06/02/24 07:46
Dexamethasone Sod Phosphate [Decadron] 20 mg .ROUTE .STK-MED ONE
Ipratropium/Albuterol Sulfate [Duoneb] 9 ml .ROUTE .STK-MED ONE
06/02/24 07:47
Ipratropium/Albuterol Sulfate [Duoneb] 3 ml INH R NOW ONE
Ipratropium/Albuterol Sulfate [Duoneb] 3 ml INH R NOW STA
Ipratropium/Albuterol Sulfate [Duoneb] 3 ml INH R NOW STA
06/02/24 07:48
CR Chest Portable - 1 View Urgent
Comment:
Reason For Exam: sob
Reason Study Needs to be Portable: Unable to Transport
06/02/24 07:49
Dexamethasone Sod Phosphate [Decadron] 10 mg IV NOW STA
06/02/24 07:55
Nicotine [Nicoderm Transdermal] 21 mg TRANSDERM DAILY
06/02/24 08:19
Electrocardiogram (*1) Urgent
Reason for Study: Chest Pain
EKG- Treatment ONCE
06/02/24 08:30
EKG [Electrocardiogram (*1)] Urgent
Reason for Study: Shortness of Breath
EKG- Treatment ONCE
06/02/24 09:31
Aspirin 325 mg PO NOW STA
06/02/24 Lunch
Regular
At Your Request: Full Participation
06/02/24 10:53
Troponin I Urgent
06/02/24 11:29
CARDIOLOGY CONSULT Routine
Consulting Provider: Deepak Dorsey
Was physician already notified: Yes
PULMONARY CONSULT Routine
Consulting Provider: Mark Anthony Coyne
Was physician already notified: Yes
06/02/24 11:31
Admit/Transfer Patient As Directed
Co-Sign Provider:
Level of Care: Inpatient admission
Assign to:: IMU- Intermediate Care
Physician / Group: keily samano
Diagnosis: COPD, resp failure
Reason for Hospitalization: COPD, resp failure
Expected length of stay greater than two midnights?: Yes
ELOS- Estimated Length of Stay in days: 2
I certify the patient meets the requirements for IP care: Yes
PRN Pain Medication Management As Directed
May give lesser potent ordered pain med per pt: Yes
preference::
Protocol:: Medication orders for pain may be administered in a
manner that supports deferring to patient preference
when the pt is:
- Requesting an ordered lesser potent pain medication.
Least to most potent pain medications are defined
as: acetaminophen < NSAID < tramadol < opioids
(morphine, oxycodone, hydromorphone).
- Requesting a lesser dose of the same medication IF
ORDERED.
- Requesting a less intrusive route of administration
if both routes are prescribed by the provider (PO <
IV).
06/02/24 11:33
Code Status As Directed
Resuscitation Status: Full Code
06/02/24 12:27
Arterial Blood Gas Urgent
%Oxygen/Room Air: 6 L
06/02/24 12:29
Acetaminophen [Tylenol] 650 mg PO Q6HPRN PRN
Budesonide [Pulmicort] 0.5 mg INH R BID
Doxycycline [Vibramycin] 100 mg PO BID
Guaifenesin Solution [Robitussin] 200 mg PO Q4HPRN PRN
Guaifenesin [Mucinex] 1,200 mg PO Q12
Ipratropium/Albuterol Sulfate [Duoneb] 3 ml INH R Q4HPRN PRN
Ipratropium/Albuterol Sulfate [Duoneb] 3 ml INH R QID
Rivaroxaban [Xarelto] 20 mg PO DAILY
06/02/24 12:29
Respiratory Culture/Gram Stain Routine
AUDREY Source: Sputum
Specimen Description:
Date Specimen was Collected: 06/02/24
Time Specimen was Collected: 12:45
Activity As Directed
Activity Level: Ambulate
Intake/ Output As Directed
Frequency: Per unit guidelines
Vital Signs As Directed
Frequency: Per unit guidelines
Copd Education [RESP] Routine
06/02/24 12:32
COVID-19 Antigen Routine
Source: Nasal Swab
Procalcitonin Urgent
PCT Algorithmm Indication: Respiratory
Influenza A+B Rapid Molecular Routine
AUDREY Source: Nasal Swab
Specimen Description:
06/02/24 16:00
Dexamethasone Sod Phosphate [Decadron] 6 mg IV Q8
06/02/24 17:39
Troponin I Routine
06/03/24 06:00
Echo 2D MMode Color/Doppler IN AM
Reason for Study: elev trop
Basic Metabolic Panel IN AM
Troponin I IN AM
Abnormal Lab Results
06/02/24 06/02/24
07:15 10:53
WBC 11.5 H 10^3/uL
(4.8-10.8)
Hgb 17.0 H g/dL
(12.0-16.0)
Hct 50.8 H %
(37.0-47.0)
MCH 32.1 H pg
(27.0-31.0)
MPV 10.9 H fL
(7.4-10.4)
Abs Immat Gran (auto) 0.1 H 10^3/uL
(0-0.05)
Absolute Neuts (auto) 9.2 H 10^3/uL
(1.4-6.5)
Absolute Lymphs (auto) 1.1 L 10^3/uL
(1.2-3.4)
Absolute Monos (auto) 1.2 H 10^3/uL
(0.1-0.6)
Neutrophils % 79.7 H %
(42.2-75.2)
Lymphocytes % 9.4 L %
(20.5-51.1)
Monocytes % 10.1 H %
(1.7-9.3)
Chloride 96 L mmol/L
(98-107)
Carbon Dioxide 35 H mmol/L
(22-30)
BUN 26 H mg/dl
(7-17)
Glucose 113 H mg/dl
(70-99)
AST 43 H U/L
(14-36)
ALT 59 H U/L
(0-35)
Troponin I 0.313 H* ng/ml 0.339 H* ng/ml
Total Protein 6.2 L g/dl
(6.3-8.2)
06/02/24 07:15
06/02/24 07:15
Vital Signs
Initial and Last Documented VS:
Initial Vital Signs
Pulse Resp Pulse Ox
103 24 90
06/02/24 07:14 06/02/24 07:14 06/02/24 07:14
Last Documented Vital Signs
Temp Pulse Resp BP Pulse Ox
98.8 F 79 26 107/75 95
06/02/24 13:04 06/02/24 14:04 06/02/24 14:04 06/02/24 14:04 06/02/24 14:04
MDM/Problems Addressed
MDM/Problems Addressed:
Acute exacerbation of COPD, elevated troponin
*Radiology
Radiology exam reviewed: preliminary read by ED provider (No acute findings)
*Pulse Oximetry
Patient hypoxic: yes
*EKG
Interpreted by ED Provider?: Yes
Interpretation: abnormal
Rate: normal
Rhythm: PAC's
Ischemia: non-specific ST changes
*Guide [employer] Interpretation
Rate: normal
Interpretation: normal
Rhythm: sinus
*Critical Care Note
Total Time (30-74mins, 75-104mins- exclusive of procedures): 45 minutes
Data Reviewed
Review of Other/Old Records Reveals: Discharge Summary (Discharge summary reviewed from May 29. Here at that time for COPD exacerbation)
Source: patient
Further Testing Considered But Not Given:
Consider CTA but patient already on Xarelto
Patient Management
Discussion with other providers: Hospitalist
Escalation/DeEscalation of care consider admission/obs:
Reassessed and still tachypneic but slightly improved. Still with significant wheezing. Will monitor. If any worse consider BiPAP. Will repeat troponin question whether troponin is spillage due to respiratory distress or primary ACS event.
Difficult to say given her profound wheezing and COPD exacerbation. Already on Xarelto. Add a dose of aspirin for now. Will benefit from pulmonary and cardiac consultation
ED Attending Note
-
Portions of this chart may have been created with voice recognition software.� Occasional wrong word or��sound alike� substitutions may have occurred due to the inherent limitations of voice recognition software.
Discharge Plan
Departure
Patient Disposition: Admit
Date of Disposition: 06/02/24
Time of Disposition: 09:33
Admit to: IMU
Presentation/result/management discussed w/ accepting MD/DO: Hospitalist
Discharge Problem:
Acute severe COPD exacerbation, Elevated troponin
Interventions
Interventions:
*Risk Screen - Suicide Last Done: 06/02/24 07:19
*General Assessment Last Done: 06/02/24 07:19
*Neglect/Abuse Screening Last Done: 06/02/24 07:19
*ED- Fall Risk Assessment Last Done: 06/02/24 07:19
*ED COVID-19 Vaccine History Last Done: 06/02/24 07:19
ED- Cardiac Assessment Last Done: 06/02/24 07:19
ED- Pulmonary Assessment Last Done: 06/02/24 07:19
--- NOTE | 2024-06-02 11:06 | HPS.HSE ---
Family Physician
-
Family Physician: Vira Quintana
Chief Complaint
-
Shortness of breath, wheezing
History of Present Illness
64-year-old female with a past medical history of atrial fibrillation on Xarelto, anxiety/depression, V-fib arrest, cigarette nicotine dependency, asthma, and COPD who was recently discharged from the hospital 4 days ago for COPD exacerbation
presents with acute worsening of shortness of breath, coughing, and wheezing. Patient reports that she was doing fine for the first 2 days after discharge, and taking her prednisone taper as directed. She is currently on 30 mg daily. She reports
last night, having acute onset of worsening shortness of breath, and wheezing. She also reports chest heaviness. No nausea, no vomiting. No fever. No abdominal pain, no dysuria. When she was discharged from the hospital, she admits to smoking 3
cigarettes that day. Now, she states she has quit smoking again.
Medical History
Past Medical History
Past Medical History: Reports Other (asthma/COPD paroxysmal atrial fibrillation on Xarelto, V-fib arrest secondary to prolonged QTc/bradycardia in 2012 status post ICD, asthma, alcohol use disorder previously, tobacco use)
Past Surgical History: Reports Other (Cardiac (ICD 10/2012) and Other ([place] teeth extraction, and a D&C Procedure))
Social History
Tobacco: Smoker
Alcohol: None
Drug: None
Family History
Family History: Not pertinent
Allergies / Home Medications
Allergies reflects when Allergies were last updated in [employer].
Home Medications with original date entered in [employer]
Allergy/Medication List:
Allergies
Allergy/AdvReac Type Severity Reaction Status Date / Time
azithromycin [From Zithromax] Allergy Severe PROLONGED Verified 05/26/24 12:04
QT SYNDROME
erythromycin lactobionate Allergy Severe Unknown Verified 05/26/24 12:04
[From Erythrocin]
hydrocodone [From Vicodin] Allergy Severe Itching Verified 05/26/24 12:04
quetiapine [From Seroquel] Allergy Severe Unknown Verified 05/26/24 12:04
trazodone Allergy Severe Unknown Verified 05/26/24 12:04
[id number] Antimigraine Allergy Severe Unknown Verified 05/26/24 12:04
Agents
quetiapine fumarate Allergy Intermediate 'jumping Verified 05/26/24 12:04
[From Seroquel] legs and
pins and
needles'
numbness
arms and
legs
levofloxacin [From Levaquin] Allergy Torsade Verified 05/26/24 12:04
Home Medications Table - record
�Medication �Instructions �Recorded �Confirmed
roflumilast 500 mcg tablet 500 mcg PO DAILY COPD 05/09/17 06/02/24
(Daliresp)
escitalopram oxalate 20 mg tablet 20 mg PO DAILY depression/anxiety 04/15/18 06/02/24
atorvastatin 10 mg tablet 10 mg PO DAILY High cholesterol 08/27/19 06/02/24
rivaroxaban 20 mg tablet (Xarelto) 20 mg PO DAILY Blood clot 09/25/19 06/02/24
prevention/tx
albuterol sulfate 90 mcg/actuation 2 puff inhalation R Q4HPRN PRN sob 09/25/23 06/02/24
aerosol inhaler
aripiprazole 5 mg tablet 5 mg PO DAILY depression 09/25/23 06/02/24
fluticasone fur. 100 mcg-umeclid 1 inh inhalation R DAILY 09/25/23 06/02/24
62.5 mcg-vilant 25 mcg COPD/asthma
inhalat.powder (Trelegy Ellipta)
folic acid 1 mg tablet 1 mg PO DAILY Supplement 09/25/23 06/02/24
metoprolol succinate 50 mg 50 mg PO DAILY Blood Pressure 12/19/23 06/02/24
tablet,extended release 24 hr
clonazepam 1 mg tablet 1 mg PO QIDPRN PRN anxiety #0 tabs 12/22/23 06/02/24
albuterol sulfate 2.5 mg/3 mL 2.5 mg inhalation R BIDPRN PRN sob 05/26/24 06/02/24
(0.083 %) solution for nebulization
nicotine 21 mg/24 hr daily 21 mg transdermal DAILYPRN PRN 05/26/24 06/02/24
transdermal patch smoking cessation
prednisone 10 mg tablet 30 mg PO .TAPER 06/02/24 06/02/24
Review of Systems
-
A 12 point ROS was completed and negative except as noted: Yes
Physical Exam
Vital Signs
Vital Signs
Temp Pulse Resp BP Pulse Ox
98.6 F 78 29 101/60 94
06/02/24 07:19 06/02/24 10:44 06/02/24 10:44 06/02/24 10:44 06/02/24 10:44
Physical Exam
General: Respiratory Distress (Mild respiratory distress noted)
HEENT: NormoCephalic, Anicteric, Moist mucous membranes and Atraumatic
Respiratory: Wheezes, Rhonchi and Other (Poor air movement)
Cardiac: S1/S2 and Regular Rhythm
GI: Soft, Non Tender, Non Distended and Normal Bowel Sounds
Musculoskeletal: No Clubbing, No Cyanosis and No Edema
Skin: Warm and Dry
Neuro: Awake, Alert and Oriented
Psych: Calm
Laboratory Results
-
06/02/24 07:15
06/02/24 07:15
Laboratory Results
Total Bilirubin 1.2 mg/dl (0.2-1.3) 06/02/24 07:15
AST 43 U/L (14-36) H 06/02/24 07:15
ALT 59 U/L (0-35) H 06/02/24 07:15
Alkaline Phosphatase 59 U/L (38-126) 06/02/24 07:15
Troponin I 0.313 ng/ml H* 06/02/24 07:15
Impression/Plan
-
64-year-old female with a past medical history of atrial fibrillation on Xarelto, anxiety/depression, V-fib arrest, cigarette nicotine dependency, asthma, and COPD who was recently discharged from the hospital 4 days ago for COPD exacerbation
presents with acute worsening of shortness of breath, coughing, and wheezing. Patient reports that she was doing fine for the first 2 days after discharge, and taking her prednisone taper as directed. She is currently on 30 mg daily. She reports
last night, having acute onset of worsening shortness of breath, and wheezing. She also reports chest heaviness. No nausea, no vomiting. No fever. No abdominal pain, no dysuria. When she was discharged from the hospital, she admits to smoking 3
cigarettes that day. Now, she states she has quit smoking again.
#Acute hypoxic respiratory insufficiency
#Acute on chronic obstructive pulmonary disease exacerbation
Currently requiring 4 L of oxygen, wean as tolerated. She does not wear oxygen at home
IV steroids, bronchodilators, consult pulmonology
Check sputum Gram stain and culture
#Acute influenza A bronchitis
Start Tamiflu
Continue IV Rocephin and doxycycline for bacterial superinfection coverage as procalcitonin is elevated 0.36
#Elevated rated troponin
Patient complains of chest pressure, which could be from her COPD
Trend troponins, trend EKG, consult cardiology, check echocardiogram
#Acute mild heart failure with a preserved ejection fraction
Consult cardiology, patient requesting regular diet instead of low-sodium diet
Trend creatinine, trend daily weights
#Cigarette nicotine dependency
Smoking cessation counseling has been provided
Nicotine patch
#Paroxysmal atrial fibrillation status post PVI
Continue Xarelto
Continue metoprolol
#QT prolongation
Avoid Zofran and other QTc prolonging agents
V-fib arrest secondary to prolonged QTc/bradycardia in 2012 status post ICD
Prior alcohol use disorder
Anxiety/depression
-Continue aripiprazole, Lexapro, clonazepam
Hyperlipidemia
-Continue statin
DVT prophylaxis�Xarelto
Full Code
Total time spent to see the patient on the floor, examine the patient, review data and lab results, discuss treatment plan with patient, nursing staff around 78 minutes.
--- NOTE | 2024-06-02 11:17 | CM ---
Patient seen in ED at bedside. Patient with recent admission to discharged 05/29/24. Patient was referred to [facility] but declined VN supports prior to discharge. Patient lives alone in a one story apartment with one step to enter. Patient states that
she is driving and has no DME at home. Patient PCP is Dr. Quintana and she uses the [facility] on [address]. Patient is currently on O2 but does not have home O2. CM will continue to follow for discharge planning needs.
Plan; home with VN; watch for home O2 needs.
[2024-06-02 11:24] LABS: Troponin I 0.339 ng/ml
--- NOTE | 2024-06-02 11:27 | EDRN ---
the pts Trop is trending up, this RN notified the provider Dr. Omer
--- NOTE | 2024-06-02 12:31 | EDRN ---
this RN processed the3 pts admission orders and notified pharmacy
[2024-06-02 12:43] LABS: B.E. 6.7 mmol/L; HCO3 33.9 mmol/L (21-28); PCO2 56 mmHg (32-35); PO2 75 mmHg (83-108); pH 7.39 (7.35-7.45)
[2024-06-02 12:58] LABS: COVID-19 Antigen Negative (Negative)
[2024-06-02] MEDS: VIBRAMYCIN 100 MG PO ×2 (13:07→20:09)
[2024-06-02] MEDS: MUCINEX 1200 MG PO ×2 (13:07→20:09)
[2024-06-02] MEDS: MAXIPIME 1000 MG IV (13:07)
[2024-06-02] MEDS: ASPIRIN 325 MG PO (13:08)
[2024-06-02] MEDS: XARELTO 20 MG PO (13:10)
[2024-06-02 13:18] LABS: Procalcitonin 0.36 ng/ml (0.0-0.25)
[2024-06-02] MEDS: STERILE WATER FOR INJECTION 10 ML IV ×2 (13:18→20:09)
[2024-06-02] MEDS: PULMICORT INH (13:22)
--- NOTE | 2024-06-02 13:49 | CON.CAR ---
Consultation
Consultation Request
Date/Time Consultation Requested: June 02, 2024
Date/Time Consultation Performed: June 02, 2024
Requesting Provider: Hospitalist
Performing Provider: Ildefonso Dorsey
Reason for Consultation: Chest pain/angina
Medical History
-
Chief Complaint: Shortness of breath and chest tightness
History of Present Illness:
PCP: Dr. Vira Quintana
Cardiology: Dr. Robles
Patient was brought to [facility] emergency department on June 02, 2024 from emergency services as he called 911. She was noted to be markedly short of breath. It is reported that her room air pulse ox was 62%. She was given DuoNebs by
emergency services. On presentation to the emergency department she reported not only difficulty breathing but some chest tightness. Of note she has a long history of severe COPD and long-term smoking history having quit smoking just recently.
Of note, she was recently hospitalized at [facility] May 26 through May 29, 2024 with acute hypoxic respiratory insufficiency due to exacerbation of chronic obstructive pulmonary disease.
Medical history also includes ventricular fibrillation arrest in the setting of prolonged QT interval and marked bradycardia for which she underwent ICD implantation in 2012 paroxysmal atrial fibrillation for which she is anticoagulated on
rivaroxaban for atrial fibrillation related thromboembolic risk reduction, dyslipidemia
She tells me that she started feeling short of breath again very soon after her discharge to home May 29 and has been progressive since that time.
Presenting laboratory findings reviewed by me.
proBNP is elevated at 3530. Initial troponin is 0.313 with subsequent troponin 0.339, BUN and creatinine are 26 and 0.7
Elevated procalcitonin at 0.36
EKG finds sinus rhythm with premature atrial contractions, prolonged QT. Reviewed all the EKGs from this hospital stay all 3 findings sinus rhythm and PACs
Chest x-ray without evidence of pneumonia or pulmonary edema.
PMH:
Severe COPD
Tobacco dependence
paroxysmal Afib, s/p PVI 01/26/24, has remained in sinus rhythm, Chronic Xarelto OAC
hx VF arrest in setting of prolonged QT and bradycardia 2012 s/p Medtronic ICD
Prolonged QT in setting of chronic Trazodone, Effexor therapy, one time dose Levaquin, and hypomagnesemia (possibly depakote, Zoloft, propofol and amio)
hx of etoh abuse (denies current use)
Family hx of unexplained early in setting of multisubstance abuse (one sister with nocturnal cardiac arrest age 53, one MVA at 32)Hx Hypomagnesemia
History of thrombocytopenia
Social History
Tobacco: Former Smoker
Alcohol: Former
Drug: None
Personal:
Living: With Family
Employment: Not Employed
Family History
Family History: Reviewed & Not Pertinent
Allergies / Home Medications
Allergy/AdvReac Type Severity Reaction Status Date / Time
azithromycin [From Zithromax] Allergy Severe PROLONGED Verified 05/26/24 12:04
QT SYNDROME
erythromycin lactobionate Allergy Severe Unknown Verified 05/26/24 12:04
[From Erythrocin]
hydrocodone [From Vicodin] Allergy Severe Itching Verified 05/26/24 12:04
quetiapine [From Seroquel] Allergy Severe Unknown Verified 05/26/24 12:04
trazodone Allergy Severe Unknown Verified 05/26/24 12:04
[id number] Antimigraine Allergy Severe Unknown Verified 05/26/24 12:04
Agents
quetiapine fumarate Allergy Intermediate 'jumping Verified 05/26/24 12:04
[From Seroquel] legs and
pins and
needles'
numbness
arms and
legs
levofloxacin [From Levaquin] Allergy Torsade Verified 05/26/24 12:04
�Medication �Instructions �Recorded �Confirmed �Type
roflumilast 500 mcg tablet 500 mcg PO DAILY COPD 05/09/17 06/02/24 History
(Daliresp)
escitalopram oxalate 20 mg tablet 20 mg PO DAILY depression/anxiety 04/15/18 06/02/24 History
atorvastatin 10 mg tablet 10 mg PO DAILY High cholesterol 08/27/19 06/02/24 History
rivaroxaban 20 mg tablet (Xarelto) 20 mg PO DAILY Blood clot 09/25/19 06/02/24 History
prevention/tx
albuterol sulfate 90 mcg/actuation 2 puff inhalation R Q4HPRN PRN sob 09/25/23 06/02/24 History
aerosol inhaler
aripiprazole 5 mg tablet 5 mg PO DAILY depression 09/25/23 06/02/24 History
fluticasone fur. 100 mcg-umeclid 1 inh inhalation R DAILY 09/25/23 06/02/24 History
62.5 mcg-vilant 25 mcg COPD/asthma
inhalat.powder (Trelegy Ellipta)
folic acid 1 mg tablet 1 mg PO DAILY Supplement 09/25/23 06/02/24 History
metoprolol succinate 50 mg 50 mg PO DAILY Blood Pressure 12/19/23 06/02/24 History
tablet,extended release 24 hr
clonazepam 1 mg tablet 1 mg PO QIDPRN PRN anxiety #0 tabs 12/22/23 06/02/24 Rx
albuterol sulfate 2.5 mg/3 mL 2.5 mg inhalation R BIDPRN PRN sob 05/26/24 06/02/24 History
(0.083 %) solution for nebulization
nicotine 21 mg/24 hr daily 21 mg transdermal DAILYPRN PRN 05/26/24 06/02/24 History
transdermal patch smoking cessation
prednisone 10 mg tablet 30 mg PO .TAPER 06/02/24 06/02/24 History
Review of Systems
-
History Source: Patient
All other systems: Negative unless noted
Constitutional: No Symptoms
EENT: No Symptoms
Respiratory: Trouble Breathing
Cardiac: No Symptoms
Abdomen/GI: No Symptoms
: No Symptoms
Musculoskeletal: No Symptoms
Skin: No Symptoms
Neurological: No Symptoms
Endocrine: No Symptoms
Hematologic/Lymphatic: No Symptoms
Physical Exam
Vital Signs
Temp Pulse Resp BP Pulse Ox
98.8 F 80 16 105/73 94
06/02/24 13:04 06/02/24 13:04 06/02/24 13:04 06/02/24 13:04 06/02/24 13:04
Lab Results
06/02/24 07:15
06/02/24 07:15
Troponin I 0.339 ng/ml H* 06/02/24 10:53
[id number] Pept 3530 pg/ml 06/02/24 07:15
Physical Exam
General: Well Developed, Well Nourished and Respiratory Distress (mild)
Respiratory: Non Labored Respirations (With reduced breath sounds at both apices and expiratory wheezes bilaterally, there are no rales)
Cardiac: S1/S2 (Normal S1 and S2, no S3 no S4. There is a grade 1/6 apical holosystolic murmur no rubs. PMI normally placed)
Breast: Deferred by me
GI: Soft, Non Tender, Non Distended and Normal Bowel Sounds
Rectal: Deferred by Provider
Musculoskeletal: No Clubbing, No Cyanosis and No Edema
Skin: Warm and Dry
Neuro: Awake, Alert, Oriented, AO x 3 and No Motor Deficits
Psych: Calm
Impression / Plan
-
Assessment:
Progressive dyspnea since her discharge from the hospital 4 days ago likely primarily related to exacerbation of her underlying lung disease/COPD and there may be a component of volume overload as well.
Severe COPD
Tobacco dependence
paroxysmal Afib, s/p PVI 01/26/24, has remained in sinus rhythm, Chronic Xarelto OAC
hx VF arrest in setting of prolonged QT and bradycardia 2013 s/p Medtronic ICD
Prolonged QT in setting of chronic Trazodone, Effexor therapy, one time dose Levaquin, and hypomagnesemia (possibly depakote, Zoloft, propofol and amio)
hx of etoh abuse (denies current use)
Family hx of unexplained early in setting of multisubstance abuse (one sister with nocturnal cardiac arrest age 53, one MVA at 32)Hx Hypomagnesemia
History of thrombocytopenia
Recommendations:
Primarily her decompensation is likely related to her underlying lung disease with exacerbation of COPD but there may be a component of volume overload and heart failure with preserved ejection fraction.
Recent steroid needs may have resulted in fluid retention.
I do not think there is marked volume overload.
Will give Lasix 20 mg IV x 1 dose
Remains in sinus rhythm with evidence of DDD pacing. She has not had documented recurrence of atrial fibrillation since her ablation.
Maintain Xarelto 20 mg daily for atrial fibrillation related thromboembolic risk reduction
History of VF arrest, has dual-chamber ICD in place. Normal DDD pacing observed on telemetry. No need for ICD interrogation at present.
Will continue to follow along with you.
Discussed with hospitalist.
Discussed with patient and offer questions answered.
Total time spent today was 75 minutes in preparing to see the patient, seeing the patient and coordination of care. This included review of recent laboratory evaluations, cardiact testing, imaging studies, primary care rtecords, specialty
consultations, hospital records, as well as personally interviewing and examining the patient, which included discussion of their tests, review/ordering medications, and communicating with other healthcare professionals and also treatment planning
as well as counseling.
Data Reviewed
-
EKG: Tracing Personally Visualized and interpreted
Radiology: Image Personally Visualized and interpreted
Medical Tests (Nuc Med, Echo etc): Report Reviewed by me
Labs: Labs Reviewed by me and Discussed with Physician
Old Records: Reviewed
--- NOTE | 2024-06-02 14:55 | CON.PUL ---
Consultation
Consultation Request
Date/Time Consultation Requested: 06/02/2024 - 112
Date/Time Consultation Performed: 06/02/2024 - 1430
Requesting Provider: Dr. Omer
Performing Provider: Dr. Coyne
Reason for Consultation: COPD flare
Medical History
-
Chief Complaint: Worsening SOB
History of Present Illness:
64-year-old female with a past medical history of severe COPD on Daliresp, history of VT, history of cardiac arrest, history of GENI no longer on CPAP after 168 pound weight loss, hyperlipidemia, migraine headaches and history of long QT interval who
presents with worsening shortness of breath. When EMS arrived her saturations were in the 62% on room air, and she was given a DuoNeb and placed onto 6 L/min and saturations león to 99%. She says she quit smoking 4 days ago. She was recently
hospitalized here from 05/26 - 05/29/2024 due to an acute COPD exacerbation and was discharged home with a prednisone taper. She is currently on 30 mg prednisone. She says that the night prior to arrival she had sudden worsening shortness of breath
with wheezing as well as chest heaviness. In the ER she was afebrile to 98.6 �F, pulse rate 103, respiratory rate 24, BP 120/73 and saturating 96% on 6 L/min. Labs showed WBC 11.5, Hb 17, troponin 0.313, proBNP 3530, and COVID-19 antigen negative.
She was found to be influenza A positive. CXR showed no evidence of pneumonia or CHF. In the ER she was given Decadron 10 mg, and DuoNebs and admitted to the IMU for further care with Pulmonary service consulted for additional
management/recommendations.
When I saw the patient, she was resting in bed in no acute distress, heart rate 78, BP 108/70, and saturating 91% on 6 L/min. She still has a mild cough. She currently feels much better than she did when she first arrived. She is not sure how she
got the flu. She currently denies chest pain, JOSÉ, nausea, fevers or chills.
Of note patient follows with us in the office with last visit on 11/29/2023 with JESICA Melgar. She has a history of COPD, tobacco abuse, and continues to smoke and is down to 7 cigarettes a day. She is on Trelegy 100 mcg. Also uses Daliresp
and nebulized albuterol 2�3 times a day. Her last PFT was in November 2022 showing a severe persistent obstructive lung defect with a significant bronchodilator response, with a severe gas exchange capacity defect which was moderate when
accounting for alveolar volume involved in gas exchange (DLco: 36%; DLco/VA: 45%).
PMHx: A-fib on Xarelto, anxiety/depression, history of V-fib arrest secondary to prolonged QTc/bradycardia (2012) s/p ICD, history of VT, depression, hyperlipidemia, migraines, COPD/asthma, history of alcohol abuse, history of GENI no longer on CPAP
PSHx: ICD, D&C, right leg vein ablation, fractured hip s/p rods, R�IVETTE
Past Medical History
Past Medical History: Other (Above as per HPI)
Past Surgical History: Other (Above as per HPI)
Social History
Tobacco: Smoker (Smokes 0.5 PPD)
Alcohol: None
Drug: None
Family History
Family History: CAD (Father: History of DC) and Other (Son: History of epilepsy + lupus)
Allergies / Home Medications
Allergies
Allergy/AdvReac Type Severity Reaction Status Date / Time
azithromycin [From Zithromax] Allergy Severe PROLONGED Verified 05/26/24 12:04
QT SYNDROME
erythromycin lactobionate Allergy Severe Unknown Verified 05/26/24 12:04
[From Erythrocin]
hydrocodone [From Vicodin] Allergy Severe Itching Verified 05/26/24 12:04
quetiapine [From Seroquel] Allergy Severe Unknown Verified 05/26/24 12:04
trazodone Allergy Severe Unknown Verified 05/26/24 12:04
[id number] Antimigraine Allergy Severe Unknown Verified 05/26/24 12:04
Agents
quetiapine fumarate Allergy Intermediate 'jumping Verified 05/26/24 12:04
[From Seroquel] legs and
pins and
needles'
numbness
arms and
legs
levofloxacin [From Levaquin] Allergy Torsade Verified 05/26/24 12:04
Home Medications
�Medication �Instructions �Recorded �Confirmed �Last Taken �Type
roflumilast 500 mcg tablet 500 mcg PO DAILY COPD 05/09/17 06/02/24 05/26/24 History
(Daliresp)
escitalopram oxalate 20 mg tablet 20 mg PO DAILY depression/anxiety 04/15/18 06/02/24 05/26/24 History
atorvastatin 10 mg tablet 10 mg PO DAILY High cholesterol 08/27/19 06/02/24 05/26/24 History
rivaroxaban 20 mg tablet (Xarelto) 20 mg PO DAILY Blood clot 09/25/19 06/02/24 05/26/24 History
prevention/tx
albuterol sulfate 90 mcg/actuation 2 puff inhalation R Q4HPRN PRN sob 09/25/23 06/02/24 05/26/24 History
aerosol inhaler
aripiprazole 5 mg tablet 5 mg PO DAILY depression 09/25/23 06/02/24 05/26/24 History
fluticasone fur. 100 mcg-umeclid 1 inh inhalation R DAILY 09/25/23 06/02/24 05/26/24 History
62.5 mcg-vilant 25 mcg COPD/asthma
inhalat.powder (Trelegy Ellipta)
folic acid 1 mg tablet 1 mg PO DAILY Supplement 09/25/23 06/02/24 05/26/24 History
metoprolol succinate 50 mg 50 mg PO DAILY Blood Pressure 12/19/23 06/02/24 05/26/24 History
tablet,extended release 24 hr
clonazepam 1 mg tablet 1 mg PO QIDPRN PRN anxiety #0 tabs 12/22/23 06/02/24 05/26/24 Rx
albuterol sulfate 2.5 mg/3 mL 2.5 mg inhalation R BIDPRN PRN sob 05/26/24 06/02/24 05/26/24 History
(0.083 %) solution for nebulization
nicotine 21 mg/24 hr daily 21 mg transdermal DAILYPRN PRN 05/26/24 06/02/24 05/26/24 History
transdermal patch smoking cessation
prednisone 10 mg tablet 30 mg PO .TAPER 06/02/24 06/02/24 Unknown History
Review of Systems
-
History Source: Patient
All other systems: Negative unless noted
Vitals / Labs / Diagnostic Testing
Vital Signs
Temp Pulse Resp BP Pulse Ox
98.8 F 77 19 107/57 95
06/02/24 13:04 06/02/24 17:00 06/02/24 17:00 06/02/24 17:00 06/02/24 17:00
Lab Data
06/02/24 07:15
06/02/24 07:15
Laboratory Results
06/02/24
12:27
pH 7.39
pCO2 56 H
pO2 75 L
HCO3 33.9 H
O2 Delivery Level
Microbiology
06/02/24 12:32 Nasal Swab Influenza Types A & B (MARKUS) - Final
Influenza A Positive, NAAT
Diagnostic Testing:
Physical Exam
-
HEENT: Normocephalic, Anicteric and Moist Mucous Membranes
Cardiovascular: S1/S2 and Peripheral Edema (negative)
Respiratory: Wheeze ([place] upon expiration bilaterally), Rales (Bibasilar), Rhonchi (negative) and Accessory Resp Muscle Use (negative)
GI: Soft, Non Distended, Non Tender and Normal Bowel Sounds
Neurology: AO x 3 and Tremors (negative)
Skin: Warm and Dry
General: Respiratory Distress (negative), Comfortable, Fever (negative) and Chills (negative)
Assessment
-
Assessment: 64-year-old female with a past medical history of severe COPD on Daliresp, history of VT, history of cardiac arrest, history of GENI no longer on CPAP after 168 pound weight loss, hyperlipidemia, migraine headaches and history of long QT
interval who presents with worsening shortness of breath. When EMS arrived her saturations were in the 62% on room air, and she was given a DuoNeb and placed onto 6 L/min and saturations león to 99%. She says she quit smoking 4 days ago. She was
recently hospitalized here from 05/26 - 05/29/2024 due to an acute COPD exacerbation and was discharged home with a prednisone taper. She is currently on 30 mg prednisone. She says that the night prior to arrival she had sudden worsening shortness of
breath with wheezing as well as chest heaviness. In the ER she was afebrile to 98.6 �F, pulse rate 103, respiratory rate 24, BP 120/73 and saturating 96% on 6 L/min. Labs showed WBC 11.5, Hb 17, troponin 0.313, proBNP 3530, and COVID-19 antigen
negative. She was found to be influenza A positive. CXR showed no evidence of pneumonia or CHF. In the ER she was given Decadron 10 mg, and DuoNebs and admitted to the IMU for further care with Pulmonary service consulted for additional
management/recommendations.
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
no longer on CPAP
Impression:
#Acute hypoxic respiratory failure due to influenza A pneumonia in the setting of COPD
#Acute COPD exacerbation
#Elevated troponin
#Tobacco use disorder (recently quit few days ago)
#Paroxysmal A-fib with history of ablation currently on Xarelto
#History of V-fib arrest likely due to prolonged QTc/bradycardia (2012) s/p dual-chamber ICD (DDD paced)
#History of anxiety/depression
#Hyperlipidemia
#History of alcohol use disorder
Plan:
- Continue with supportive care as well as Tamiflu, with plan to give total of 5-10-day course depending on clinical course
- Given possible bacterial superinfection as procalcitonin is elevated at 0.36 in the setting of normal creatinine and leukocytosis, empirically continue with ceftriaxone/doxycycline and plan for 5 to 7 days assuming that she continues to
clinically improve and remains afebrile for 48 hours prior to stopping antibiotics
- Her CXR from 06/02/2024 does not have any obvious consolidation, although she does have some small patchiness in her lateral right lower lobe and small foci of retrocardiac opacification, although difficult to fully assess area this given that her
ICD lead is obscuring this region --> consider repeat CXR in 4-6 weeks
- Trend WBC and monitor fever curve
- If patient remains afebrile and leukocytosis continues to improve over the next 24-48 hours then consider narrowing antibiotics further or giving a short course of 3-5 days total
- Continue systemic steroids and wean as she clinically improves � currently on Decadron 6 mg IV q8hr
- Continue with budesonide BID + DuoNebs QID; eventually resume Trelegy upon discharge
- prn nebulized bronchodilators - not currently bronchospastic
- Mucolytics with Mucinex
- Antitussants - will add on tessalon perles; can add codeine cough syrup if cough persists
- Aspiration precautions
- Maintain SpO2 88-95% with supplemental O2 and wean down O2 flow rate as tolerated
- Cardiology on board and recommendations appreciated
- No gross evidence of volume overload; will hold off on any aggressive diuresis at this time
- Monitor HR
- Trend troponin until it peaks
- Incentive spirometer encouraged q1hr while awake
- Replete electrolytes with K>4, Mg>2
- Trend H/H and transfuse if needed to keep Hb>7g/dL; keep plt>20k, unless there is concern for bleeding then keep plt>50k
- Maintain euglycemia with goal BG >100 and <180
- DVT ppx: Xarelto
Pulmonary service will continue to follow along. Ultimately she should continue following up with us in the office as last visit was on 11/29/2023 with JESICA Melgar.
Data:
CXR 06/02/2024:
No evidence of pneumonia or congestive heart failure. No pneumothorax. No radiographically demonstrable pleural effusion. The cardiomediastinal margins are unremarkable. Left-sided dual-lead ICD unchanged.
Total time spent today was 58 minutes for this encounter. Time includes reviewing laboratory test/imaging results, reviewing pertinent medical records, obtaining and reviewing medical history, performing an appropriate exam, ordering medications,
tests and procedures. Time also includes documentation of this encounter, coordinating patient care and communicating with other healthcare professionals. Total time does not include separately billed tests performed on this date of service.
--- NOTE | 2024-06-02 16:18 | EDRN ---
this RN titrated the pts 02 from 4L to 6L NC due to the pts Sp02 dipping to 90%, the pts Sp02 came back up to 94% on 6L NC
[2024-06-02] MEDS: LASIX 20 MG IV (16:30)
[2024-06-02] MEDS: DECADRON 6 MG IV (16:31)
[2024-06-02 18:03] LABS: Troponin I 0.176 ng/ml
--- NOTE | 2024-06-02 18:05 | EDRN ---
Trop trending down, provider notified
[2024-06-02] MEDS: TAMIFLU 75 MG PO (20:09)
[2024-06-02] MEDS: PULMICORT 0.5 MG INH (20:09)
[2024-06-02] MEDS: KLONOPIN 1 MG PO (20:09)
[2024-06-02] MEDS: ROCEPHIN 1000 MG IV (20:09)
--- NOTE | 2024-06-02 21:19 | PTCARENOTE ---
Received pt from ED @ 19:45. Pt aaox3, able to make needs known. A paced with PACs on monitor. SaO2 94% on 5LNC. VSS. See worklist for assessment. Call field and belongings within reach. Care ongoing.
[2024-06-03] VITALS (13 sets, daily range): BP systolic 91–128; BP diastolic 49–82; BMI 26.1
[2024-06-03] MEDS: DECADRON 6 MG IV (01:01)
[2024-06-03 05:30] LABS: Blood Urea Nitrogen 38 mg/dl (7-17); Calcium 9.3 mg/dl (8.4-10.2); Carbon Dioxide 34 mmol/L (22-30); Chloride 97 mmol/L (98-107); Estimated Creatinine Clearance 76 ml/min; Glucose 133 mg/dl (70-99); Potassium 4.4 mmol/L (3.5-5.1); Sodium 139 mmol/L (135-145); eGFR > 60.00
[2024-06-03 05:41] LABS: Troponin I 0.093 ng/ml
--- NOTE | 2024-06-03 06:55 | W.PN.HOSP.TC ---
Today's Communication/Plan
-
c/w Nasal O2, aim for low SaO2 at 90-94%
Add PPI for GI prophylaxis
c/w IV steroid
c/w IV Abx and Tamiflu
c/w Nebs
Assessment / Plan
Assessment / Plan
Physical Exam
General: Respiratory Distress (Mild respiratory distress noted)
HEENT: Normocephalic, Anicteric, Moist mucous membranes and Atraumatic
Respiratory: rales/ crackles left lower lung, otherwise limited air both sides.
Cardiac: S1/S2 and Regular Rhythm
GI: Soft, Non Tender, Non Distended and Normal Bowel Sounds
Musculoskeletal: , No Cyanosis and No Edema
Skin: Warm and Dry
Neuro: Awake, Alert and Oriented
Psych: Calm
A/P
# Acute hypoxic respiratory failure due to influenza A pneumonia in the setting of severe COPD with continued tobacco use. Quit 4 days ago before admission.
She has Sob with respiratory distress, using accessory muscles, hypoxia needing 6 liters of O2
Lung exam, limited air with rale son left lower side
c/w Nasal O2, aim for low SaO2 at 90-94%
c/w IV Steroid
# Acute COPD exacerbation due ton influenza virus
treat with empiric IV ABx
c/w Tamiflu
c/w steroid
c/w bronchodilators
# Hypotension
Would avoid Lasix for now
Seems euvolemic on exam
#Elevated troponin due to nonischemic myocardial injury
No chest pain
c/w to treat the pulmonary disease
#Tobacco use disorder
She understands the consequences of continued smoking with severe COPD
#Paroxysmal A-fib with history of ablation currently on Xarelto
Heart rate around 70-80
#History of V-fib arrest likely due to prolonged QTc/bradycardia (2012) s/p dual-chamber ICD (DDD paced)
#History of anxiety/depression
Mood is pleasant
#Hyperlipidemia
#History of alcohol use disorder
No DT noted
Lucid and pleasant
# GI prophylaxis
Add PPI
Total time spent to see the patient, examine the patient, review data and lab results, discuss treatment plan with patient, nursing staff around 55 minutes
Anticipated Discharge: > 48 hours
Subjective/Interval History
-
Date of Service: June 03, 2024
Still SOB
Hypoxia over night, needed O2
Objective Data
-
Labs:
Laboratory Results
06/03/24
04:22
Sodium 139
Potassium 4.4
Chloride 97 L
Carbon Dioxide 34 H
BUN 38 H
Creatinine 0.7
Glucose 133 H
Calcium 9.3
Vital Signs:
Vital Signs
Temp Pulse Resp BP Pulse Ox
98.1 F 78 23 91/55 95
06/03/24 03:29 06/03/24 06:00 06/03/24 06:00 06/03/24 06:00 06/03/24 06:00
[2024-06-03] MEDS: DUONEB 3 ML INH ×4 (07:22→19:33)
[2024-06-03] MEDS: PULMICORT 0.5 MG INH ×2 (07:22→19:33)
[2024-06-03] MEDS: VIBRAMYCIN 100 MG PO ×2 (08:29→20:03)
[2024-06-03] MEDS: XARELTO 20 MG PO (08:29)
[2024-06-03] MEDS: TESSALON PERLES 200 MG PO ×3 (08:29→20:04)
[2024-06-03] MEDS: MUCINEX 1200 MG PO ×2 (08:29→20:03)
[2024-06-03] MEDS: TAMIFLU 75 MG PO ×2 (08:29→20:04)
[2024-06-03] MEDS: NICODERM TRANSDERMAL 21 MG TRANSDERM (08:30)
--- NOTE | 2024-06-03 08:59 | W.PN.PUL3 ---
Today's Communication / Plan
-
Continue nebs
steroids, no change
Antibiotics, antiviral therapy
Wean oxygen as able
Remains on Xarelto therapy
Assessment
-
Assessment: 64-year-old female with a past medical history of severe COPD on Daliresp, history of VT, history of cardiac arrest, history of GENI no longer on CPAP after 168 pound weight loss, hyperlipidemia, migraine headaches and history of long QT
interval who presents with worsening shortness of breath. When EMS arrived her saturations were in the 62% on room air, and she was given a DuoNeb and placed onto 6 L/min and saturations león to 99%. She says she quit smoking 4 days ago. She was
recently hospitalized here from 05/26 - 05/29/2024 due to an acute COPD exacerbation and was discharged home with a prednisone taper. She is currently on 30 mg prednisone. She says that the night prior to arrival she had sudden worsening shortness of
breath with wheezing as well as chest heaviness. In the ER she was afebrile to 98.6 �F, pulse rate 103, respiratory rate 24, BP 120/73 and saturating 96% on 6 L/min. Labs showed WBC 11.5, Hb 17, troponin 0.313, proBNP 3530, and COVID-19 antigen
negative. She was found to be influenza A positive. CXR showed no evidence of pneumonia or CHF. In the ER she was given Decadron 10 mg, and DuoNebs and admitted to the IMU for further care with Pulmonary service consulted for additional
management/recommendations.
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
no longer on CPAP
Impression:
#Acute hypoxic respiratory failure due to influenza A pneumonia in the setting of COPD
#Acute COPD exacerbation
#Elevated troponin
#Tobacco use disorder (recently quit few days ago)
#Paroxysmal A-fib with history of ablation currently on Xarelto
#History of V-fib arrest likely due to prolonged QTc/bradycardia (2012) s/p dual-chamber ICD (DDD paced)
#History of anxiety/depression
#Hyperlipidemia
#History of alcohol use disorder
Plan/recommendations:
At this time, patient continues to feel 'lousy' but appears to be comfortable, conversant, no use of accessory muscles
Presently 94% on 5 L
Wheezing on exam noted
Moving forward
Continue with supportive care as well as Tamiflu, with plan to give total of 5-10-day course depending on clinical course
- Given possible bacterial superinfection as procalcitonin is elevated at 0.36 in the setting of normal creatinine and leukocytosis, empirically continue with ceftriaxone/doxycycline and plan for 5 to 7 days assuming that she continues to
clinically improve and remains afebrile for 48 hours prior to stopping antibiotics
- Her CXR from 06/02/2024 does not have any obvious consolidation, although she does have some small patchiness in her lateral right lower lobe and small foci of retrocardiac opacification, although difficult to fully assess area this given that her
ICD lead is obscuring this region --> consider repeat CXR in 4-6 weeks
Continue systemic steroids and wean as she clinically improves � currently on Decadron 6 mg IV q8hr
Continue with budesonide BID + DuoNebs QID; eventually resume Trelegy upon discharge
Cardiology on board and recommendations appreciated
- No gross evidence of volume overload; will hold off on any aggressive diuresis at this time
- Monitor HR
- Trend troponin until it peaks
Less likely PE given chronic Xarelto therapy, but follow
DVT ppx: Xarelto
Pulmonary service will continue to follow along. Ultimately she should continue following up with us in the office as last visit was on 11/29/2023 with JESICA Melgar.
Data:
CXR 06/02/2024:
No evidence of pneumonia or congestive heart failure. No pneumothorax. No radiographically demonstrable pleural effusion. The cardiomediastinal margins are unremarkable. Left-sided dual-lead ICD unchanged.
Total time spent today was 58 minutes for this encounter. Time includes reviewing laboratory test/imaging results, reviewing pertinent medical records, obtaining and reviewing medical history, performing an appropriate exam, ordering medications,
tests and procedures. Time also includes documentation of this encounter, coordinating patient care and communicating with other healthcare professionals. Total time does not include separately billed tests performed on this date of service.
Subjective Data
-
Date of Service:
Date of Service: June 03, 2024
Subjective:
Patient feels 'lousy'. She admits to shortness of breath, cough but denies hemoptysis, nausea, abdominal pain. She appears to be comfortable, no use of accessory muscles
Objective Data
Data Reviewed
Vital Signs / I&O / Oxygen:
Vital Signs
Temp Pulse Resp BP Pulse Ox
98.1 F 77 20 91/55 92
06/03/24 03:29 06/03/24 07:25 06/03/24 07:25 06/03/24 06:00 06/03/24 07:25
Intake and Output
06/02/24 06/03/24 06/04/24
06:59 06:59 06:59
Intake Total 480 / 480
Balance 480 / 480
SaO2 92
Nasal Cannula flow liters per 5
minute
Physical Exam
General: Comfortable
HEENT: Normocephalic and Anicteric
Cardiovascular: S1-S2, Regular Rhythm, Murmur (n) and Rub (n)
Respiratory: Wheeze (Scattered diffuse), Crackles (n), Rhonchi (n), Non-Labored Respirations and Stridor (n)
GI: Soft, Non Distended and Non Tender
Neurology: Awake, Alert and No Motor Deficits (Moving all extremities)
Skin: Cyanosis (n), Jaundice (n) and Rash (n)
Labs/Micro/Reports
Lab Data
06/02/24 07:15
06/03/24 04:22
Laboratory Results
06/02/24
12:27
pH 7.39
pCO2 56 H
pO2 75 L
HCO3 33.9 H
O2 Delivery Level
Microbiology
06/02/24 12:32 Nasal Swab Influenza Types A & B (MARKUS) - Final
Influenza A Positive, NAAT
--- NOTE | 2024-06-03 09:05 | PTCARENOTE ---
Patient received from safety deposit boxes custodian. Patient resting comfortably in bed. AAO, VSS. No events noted overnight. No complaints of pain at this time. Currently on 5L N/C, sats are ok when still but desats on movement. Will attempt to wean as
possible. Continuing Tamiflu and ABX. ECHO scheduled for this AM. Call field in reach.
[2024-06-03] MEDS: LEXAPRO 20 MG PO (10:50)
[2024-06-03] MEDS: ABILIFY 5 MG PO (10:50)
[2024-06-03] MEDS: PROTONIX 40 MG PO (10:50)
[2024-06-03] MEDS: DECADRON 4 MG IV ×2 (10:50→17:30)
[2024-06-03] MEDS: KLONOPIN 1 MG PO ×2 (10:59→20:04)
--- NOTE | 2024-06-03 11:11 | W.PN.CARDCBS ---
Addendum entered and electronically signed by Marco Antonio Sheriff MD 06/03/24 12:30:
Upon further consideration of rivaroxaban and aspirin, will hold off on aspirin
Original Note:
Today's Communication / Plan
-
No evidence of overt heart failure at present
Consider outpatient ischemic evaluation for elevated troponin cardiac catheterization 2013 was without obstructive CAD
No furosemide
Would stay off metoprolol at this time given severe COPD, despite prolonged QT
Will check echocardiogram
Add aspirin, continue atorvastatin
Impression / Plan
-
Assessment:
Influenza A
Progressive dyspnea since her discharge from the hospital 4 days ago likely primarily related to exacerbation of her underlying lung disease/COPD and there may be a component of volume overload as well.
Severe COPD
Tobacco dependence
paroxysmal Afib, s/p PVI 01/26/24, has remained in sinus rhythm, Chronic Xarelto OAC
hx VF arrest in setting of prolonged QT and bradycardia 2012 s/p Medtronic ICD
Prolonged QT in setting of chronic Trazodone, Effexor therapy, one time dose Levaquin, and hypomagnesemia (possibly depakote, Zoloft, propofol and amio)
hx of etoh abuse (denies current use)
Family hx of unexplained early in setting of multisubstance abuse (one sister with nocturnal cardiac arrest age 53, one MVA at 32)Hx Hypomagnesemia
History of thrombocytopenia
Recommendations:
At present do not think that onset of HFpEF is a major issue at this point despite her troponin level.
Her troponin is likely a non-OH myocardial injury from acute exacerbation of COPD. Add aspirin, check echocardiogram, continue atorvastatin and check lipid panel. Transaminases were only modestly elevated.
She did not have obstructive CAD at the time of catheterization in 2013. We can consider an outpatient ischemic evaluation, but in the setting of acute COPD may be best to hold off until pulmonary status has improved.
Agree with holding beta-kayla in setting of severe COPD. Would not add diltiazem at this time.
Await echocardiogram.
Progress Note - Custodian
Subjective
Date of Service: June 03, 2024:
64-year-old woman admitted May 26 through with exacerbation of COPD, returned June 02 with shortness of breath and chest tightness., proBNP is 3530, troponin is 0.313, with elevated procalcitonin, influenza A
PMH: Severe COPD, tobacco dependence, paroxysmal A-fib status post PVI January 2024, VF arrest with prolonged QT status post dual-chamber ICD 2012, Depression on trazodone, other QT prolonging meds, EtOH abuse
Current meds nicotine patch, Pulmicort, Mucinex, doxycycline, DuoNebs, Xarelto 20 mg a day, Tamiflu, ceftriaxone, Tessalon, Decadron, Lexapro, Abilify, pantoprazole
91/55, pulse 77, respiratory 20, afebrile, sats 92%, weight is 73.4 kg, stable, still with dyspnea, wheezing, regular rate and rhythm, no obvious murmurs, JVD okay, abdomen benign not much edema
Influenza A positive, was negative during prior hospital stay
White count 11.5, hemoglobin 17, platelets 157, BUN and creatinine are 38 and 0.7, potassium 4.4, bicarb 34, Trop now 0.093
ECG sinus rhythm, long QT, PACs, atrial pacing
Objective
Labs:
06/02/24 07:15
06/03/24 04:22
Labs
Hgb 17.0 g/dL (12.0-16.0) H 06/02/24 07:15
Hct 50.8 % (37.0-47.0) H 06/02/24 07:15
Plt Count 157 10^3/uL (130-400) 06/02/24 07:15
Sodium 139 mmol/L (135-145) 06/03/24 04:22
Potassium 4.4 mmol/L (3.5-5.1) 06/03/24 04:22
BUN 38 mg/dl (7-17) H 06/03/24 04:22
Creatinine 0.7 mg/dL (0.6-1.0) 06/03/24 04:22
Glucose 133 mg/dl (70-99) H 06/03/24 04:22
Troponins
06/02/24 06/02/24 06/02/24
07:15 10:53 17:28
Troponin I 0.313 H* 0.339 H* 0.176 H* D
06/03/24
04:22
Troponin I 0.093 H*
Vital Signs and I&O:
Vital Signs
Temp Pulse Resp BP Pulse Ox
36.6 C 77 20 91/55 92
06/03/24 07:13 06/03/24 07:25 06/03/24 07:25 06/03/24 06:00 06/03/24 07:25
Vital Signs
Temp Pulse Resp BP Pulse Ox
36.6 C 77 20 91/55 92
06/03/24 07:13 06/03/24 07:25 06/03/24 07:25 06/03/24 06:00 06/03/24 07:25
Intake & Output
06/01/24 06/02/24 06/03/24 06/04/24
07:59 07:59 07:59 07:59
Intake Total 480 / 480
Balance 480 / 480
Physical Exam
Physical Exam
See above
[2024-06-03] MEDS: LIPITOR 10 MG PO (17:30)
[2024-06-03] MEDS: STERILE WATER FOR INJECTION 10 ML IV (20:04)
[2024-06-03] MEDS: ROCEPHIN 1000 MG IV (20:04)
[2024-06-04] VITALS (12 sets, daily range): BP systolic 104–129; BP diastolic 52–86; BMI 26.3
[2024-06-04] MEDS: DECADRON 4 MG IV ×3 (02:54→17:25)
--- NOTE | 2024-06-04 04:08 | PTCARENOTE ---
Pt received from dayshift RN. No obvious changes in assessment from previous night. Pt aaox3. Lungs coarse, diminished, with inspiratory and expiratory wheezing throughout. O2 weaned to 3LNC, SaO2 94%. Remains on IV decadron and IV ABX. Call field
within reach, able to make needs known. Care ongoing.
[2024-06-04 05:37] LABS: Hematocrit 47.9 % (37.0-47.0); Mean Corp Hgb Conc. 33.4 g/dL (33.0-37.0); Mean Corpuscular Hgb 32.1 pg (27.0-31.0); Mean Platelet Volume 11.1 fL (7.4-10.4); Platelet Count 138 10^3/uL (130-400); Red Blood Cell Count 4.99 10^6/uL (4.20-5.40); Red Cell Dist. Width 13.6 % (11.5-14.5); White Blood Cell Count 6.1 10^3/uL (4.8-10.8)
[2024-06-04 05:59] LABS: Blood Urea Nitrogen 37 mg/dl (7-17); Calcium 9.4 mg/dl (8.4-10.2); Chloride 98 mmol/L (98-107); Estimated Creatinine Clearance 76 ml/min; Glucose 112 mg/dl (70-99); Potassium 4.5 mmol/L (3.5-5.1); Sodium 141 mmol/L (135-145); eGFR > 60.00
[2024-06-04 06:09] LABS: Carbon Dioxide 33 mmol/L (22-30)
--- NOTE | 2024-06-04 06:49 | W.PN.HOSP.TC ---
Today's Communication/Plan
-
Hope to dc in next 1-2 days
Good clinical improvement
Wean down nasal O2 if possible
Assessment / Plan
Assessment / Plan
Physical Exam
General: Respiratory Distress (Mild respiratory distress noted)
HEENT: Normocephalic, Anicteric, Moist mucous membranes and Atraumatic
Respiratory: more air both sides, no wheezes heard
Cardiac: S1/S2 and Regular Rhythm
GI: Soft, Non Tender, Non Distended and Normal Bowel Sounds
Musculoskeletal: , No Cyanosis and No Edema
Skin: Warm and Dry
Neuro: Awake, Alert and Oriented
Psych: Calm
A/P
# Acute hypoxic respiratory failure due to influenza A pneumonia in the setting of severe COPD with continued tobacco use. Quit 4 days ago before admission.
She had Sob with respiratory distress, using accessory muscles, hypoxia needing 6 liters of O2
She is feeling better, more air heard and no wheezes this morning
c/w Nasal O2, aim for low SaO2 at 90-94%
c/w IV Steroid
# Acute COPD exacerbation due ton influenza virus
treat with empiric IV ABx
c/w Tamiflu day # 3
c/w steroid
c/w bronchodilators
# Hypotension
BP AM 104/54
Would avoid Lasix for now
Seems euvolemic on exam
#Elevated troponin due to nonischemic myocardial injury
Echocardiogram on June 03 showed LVEF 55 to 60%, normal RV size and function. No wall motion abnormalities on left ventricle. Pacer wires in the right atrium and right ventricle. Mild tricuspid regurgitation.
No chest pain
c/w to treat the pulmonary disease
#Tobacco use disorder
She understands the consequences of continued smoking with severe COPD
#Paroxysmal A-fib with history of ablation currently on Xarelto
Heart rate around 70-80
#History of V-fib arrest likely due to prolonged QTc/bradycardia (2012) s/p dual-chamber ICD (DDD paced)
#History of anxiety/depression
Mood is pleasant
Back on her psych medications, she feels better
#Hyperlipidemia
#History of alcohol use disorder
No DT noted
Lucid and pleasant
# GI prophylaxis
Added PPI
Total time spent to see the patient, examine the patient, review data and lab results, discuss treatment plan with patient, nursing staff around 55 minutes
Anticipated Discharge: 24 - 48 hours
Subjective/Interval History
-
Date of Service: June 04, 2024
No chest pain
feels breathing is better
Objective Data
-
Labs:
Laboratory Results
06/04/24
04:55
WBC 6.1
Hgb 16.0
Hct 47.9 H
Plt Count 138
Sodium 141
Potassium 4.5
Chloride 98
Carbon Dioxide 33 H
BUN 37 H
Creatinine 0.7
Glucose 112 H
Calcium 9.4
Vital Signs:
Vital Signs
Temp Pulse Resp BP Pulse Ox
98.2 F 80 19 113/69 93
06/04/24 04:43 06/04/24 04:04 06/04/24 04:04 06/04/24 04:04 06/04/24 04:04
I&O
06/02/24 06/03/24 06/04/24
06:59 06:59 06:59
Intake Total 1080 / 1080
Balance 1080 / 1080
[2024-06-04] MEDS: PULMICORT 0.5 MG INH ×2 (07:40→19:22)
[2024-06-04] MEDS: DUONEB 3 ML INH ×4 (07:40→19:22)
[2024-06-04] MEDS: ABILIFY 5 MG PO (08:03)
[2024-06-04] MEDS: TESSALON PERLES 200 MG PO ×3 (08:03→20:56)
[2024-06-04] MEDS: XARELTO 20 MG PO (08:03)
[2024-06-04] MEDS: TAMIFLU 75 MG PO ×2 (08:03→20:55)
[2024-06-04] MEDS: LEXAPRO 20 MG PO (08:03)
[2024-06-04] MEDS: NICODERM TRANSDERMAL 21 MG TRANSDERM (08:03)
[2024-06-04] MEDS: MUCINEX 1200 MG PO ×2 (08:03→20:54)
[2024-06-04] MEDS: VIBRAMYCIN 100 MG PO ×2 (08:03→20:55)
[2024-06-04] MEDS: PROTONIX 40 MG PO (08:03)
--- NOTE | 2024-06-04 08:26 | W.PN.PUL3 ---
Today's Communication / Plan
-
Subjectively improved but still with significant wheezing
Continue Decadron
Continue Tamiflu, antibiotics
Oxygen requirement improving
Increase activity
Assessment
-
Assessment: 64-year-old female with a past medical history of severe COPD on Daliresp, history of VT, history of cardiac arrest, history of GENI no longer on CPAP after 168 pound weight loss, hyperlipidemia, migraine headaches and history of long QT
interval who presents with worsening shortness of breath. When EMS arrived her saturations were in the 62% on room air, and she was given a DuoNeb and placed onto 6 L/min and saturations león to 99%. She says she quit smoking 4 days ago. She was
recently hospitalized here from 05/26 - 05/29/2024 due to an acute COPD exacerbation and was discharged home with a prednisone taper. She is currently on 30 mg prednisone. She says that the night prior to arrival she had sudden worsening shortness of
breath with wheezing as well as chest heaviness. In the ER she was afebrile to 98.6 �F, pulse rate 103, respiratory rate 24, BP 120/73 and saturating 96% on 6 L/min. Labs showed WBC 11.5, Hb 17, troponin 0.313, proBNP 3530, and COVID-19 antigen
negative. She was found to be influenza A positive. CXR showed no evidence of pneumonia or CHF. In the ER she was given Decadron 10 mg, and DuoNebs and admitted to the IMU for further care with Pulmonary service consulted for additional
management/recommendations.
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
no longer on CPAP
Impression:
#Acute hypoxic respiratory failure due to influenza A pneumonia in the setting of COPD
#Acute COPD exacerbation
#Elevated troponin
#Tobacco use disorder (recently quit few days ago)
#Paroxysmal A-fib with history of ablation currently on Xarelto
#History of V-fib arrest likely due to prolonged QTc/bradycardia (2012) s/p dual-chamber ICD (DDD paced)
#History of anxiety/depression
#Hyperlipidemia
#History of alcohol use disorder
Plan/recommendations:
At this time, patient appears to be improved today subjectively
Chest exam with persistent wheezing
Presently 94% on 2 L, desaturates to 87% with sitting up and conversation, remains asymptomatic
Echocardiogram 06/03/2024 with normal biventricular function, no obvious elevated right-sided pressures, not reported
Moving forward
Continue with supportive care
Tamiflu, antibiotics (currently on doxycycline/ceftriaxone)
Increase activity, ambulate
Incentive spirometry, airway clearance
Will require eventual chest x-ray in 4 to 6 weeks to confirm resolution
Continue systemic steroids and wean as she clinically improves � currently on Decadron 4mg q8h
Continue with budesonide BID + DuoNebs QID; eventually resume Trelegy upon discharge
Cardiology following
- No gross evidence of volume overload; will hold off on any aggressive diuresis at this time
- Monitor HR
- Trend troponin until it peaks
Echocardiogram normal
Less likely PE given chronic Xarelto therapy, but follow
DVT ppx: Xarelto
Disposition efforts
Data:
CXR 06/02/2024:
No evidence of pneumonia or congestive heart failure. No pneumothorax. No radiographically demonstrable pleural effusion. The cardiomediastinal margins are unremarkable. Left-sided dual-lead ICD unchanged.
Total time spent today was 58 minutes for this encounter. Time includes reviewing laboratory test/imaging results, reviewing pertinent medical records, obtaining and reviewing medical history, performing an appropriate exam, ordering medications,
tests and procedures. Time also includes documentation of this encounter, coordinating patient care and communicating with other healthcare professionals. Total time does not include separately billed tests performed on this date of service.
Subjective Data
-
Date of Service:
Date of Service: June 04, 2024
Subjective:
Patient subjectively improved today. She has been weaned down to 2 L, she desaturates to 87% with sitting up in conversation but is asymptomatic. Mild cough, no hemoptysis, chest pain, nausea, abdominal pain
Objective Data
Data Reviewed
Vital Signs / I&O / Oxygen:
Vital Signs
Temp Pulse Resp BP Pulse Ox
98.2 F 83 19 104/54 94
06/04/24 04:43 06/04/24 07:43 06/04/24 07:43 06/04/24 06:00 06/04/24 07:43
Intake and Output
06/03/24 06/04/24 06/05/24
06:59 06:59 06:59
Intake Total 1080 / 1080
Balance 1080 / 1080
SaO2 94
Nasal Cannula flow liters per 3
minute
Physical Exam
General: Comfortable
HEENT: Normocephalic and Anicteric
Cardiovascular: S1-S2, Regular Rhythm, Murmur (n) and Rub (n)
Respiratory: Wheeze (Scattered diffuse), Crackles (n), Rhonchi (few with cough), Non-Labored Respirations and Stridor (n)
GI: Soft, Non Distended and Non Tender
Neurology: Awake, Alert and No Motor Deficits (Moving all extremities)
Skin: Cyanosis (n), Jaundice (n) and Rash (n)
Labs/Micro/Reports
Lab Data
06/04/24 04:55
06/04/24 04:55
Microbiology
06/02/24 12:32 Nasal Swab Influenza Types A & B (MARKUS) - Final
Influenza A Positive, NAAT
--- NOTE | 2024-06-04 08:53 | W.PN.CARDCBS ---
Today's Communication / Plan
-
No changes in current regimen
Would not restart metoprolol
We will arrange for cardiac follow-up
Sign off, please call if questions
Impression / Plan
-
Assessment:
Influenza A
Progressive dyspnea since her discharge from the hospital 4 days ago likely primarily related to exacerbation of her underlying lung disease/COPD and there may be a component of volume overload as well.
Severe COPD
Tobacco dependence
paroxysmal Afib, s/p PVI 01/26/24, has remained in sinus rhythm, Chronic Xarelto OAC
hx VF arrest in setting of prolonged QT and bradycardia 2013 s/p Medtronic ICD
Prolonged QT in setting of chronic Trazodone, Effexor therapy, one time dose Levaquin, and hypomagnesemia (possibly depakote, Zoloft, propofol and amio)
hx of etoh abuse (denies current use)
Family hx of unexplained early in setting of multisubstance abuse (one sister with nocturnal cardiac arrest age 53, one MVA at 32)Hx Hypomagnesemia
History of thrombocytopenia
Echo: EF 55-60% normal RV, normal atria, mild TR, pacing wire, trace mitral regurgitation, trace aortic regurgitation, pulmonary artery systolic pressure 50-55 mmHg
Recommendations:
From a cardiac standpoint, her echo is reassuring.
Findings on exam more consistent with acute exacerbation of COPD than CHF.
Currently not on furosemide. Would continue to hold.
She remains on Tamiflu doxycycline, ceftriaxone, and dexamethasone for exacerbation of COPD.
Continue rivaroxaban for paroxysmal atrial fibrillation. She had had a very brief episode of AF last night. Currently not on aspirin despite modestly elevated troponin which is likely nonmyocardial infarction myocardial injury from exacerbation of
COPD.
Given exacerbation of COPD would not restart metoprolol despite history of PAF and long QT. ICD in place. If A-fib recurs, likely ventricular response will stay below rate cut off of device.
We will arrange for cardiac follow-up.
Will sign off, please call if questions.
Progress Note - Human Resource Adviser
Subjective
Date of Service: June 04, 2024:
She is still short of breath getting washed
Meds: Nicotine patch, Pulmicort, Mucinex, doxycycline, DuoNebs, rivaroxaban 20 mg a day, Tamiflu, ceftriaxone, Tessalon Perles, dexamethasone, escitalopram, Abilify, atorvastatin 10 mg a day. No metoprolol
104/54, pulse 83, respirate 19, afebrile, sats 94%, rhonchi, regular rate and rhythm without murmurs JVD okay, abdomen benign, extremities without clubbing cyanosis or edema distal pulses intact
Hemoglobin 16 white count 6.1, platelets 138, BUN and creatinine 37 and 0.7, CO2 33 potassium 4.5, proBNP had been 3530, was 222 in May 2024, troponin 0.339
Objective
Labs:
06/04/24 04:55
06/04/24 04:55
Labs
Hgb 16.0 g/dL (12.0-16.0) 06/04/24 04:55
Hct 47.9 % (37.0-47.0) H 06/04/24 04:55
Plt Count 138 10^3/uL (130-400) 06/04/24 04:55
Sodium 141 mmol/L (135-145) 06/04/24 04:55
Potassium 4.5 mmol/L (3.5-5.1) 06/04/24 04:55
BUN 37 mg/dl (7-17) H 06/04/24 04:55
Creatinine 0.7 mg/dL (0.6-1.0) 06/04/24 04:55
Glucose 112 mg/dl (70-99) H 06/04/24 04:55
Troponins
06/02/24 06/02/24 06/02/24
07:15 10:53 17:28
Troponin I 0.313 H* 0.339 H* 0.176 H* D
06/03/24
04:22
Troponin I 0.093 H*
Vital Signs and I&O:
Vital Signs
Temp Pulse Resp BP Pulse Ox
36.6 C 83 19 104/54 94
06/04/24 07:53 06/04/24 07:43 06/04/24 07:43 06/04/24 06:00 06/04/24 07:43
Vital Signs
Temp Pulse Resp BP Pulse Ox
36.6 C 83 19 104/54 94
06/04/24 07:53 06/04/24 07:43 06/04/24 07:43 06/04/24 06:00 06/04/24 07:43
Intake & Output
06/02/24 06/03/24 06/04/24 06/05/24
07:59 07:59 07:59 07:59
Intake Total 480 / 480 600 / 600
Balance 480 / 480 600 / 600
Physical Exam
Physical Exam
See above
--- NOTE | 2024-06-04 11:29 | CM ---
Patient with Dx Acute hypoxic respiratory failure due to influenza A pneumonia in the setting of severe COPD. O2 3L. Receiving IV Steroids, Tamiflu. Per nursing; ambulatory in room, assist of 1, weak gait/transfers.
CM Consult: Advanced Directive
Met with patient and offered advanced directive- patient declined.
Patient says she has not been walking much in room yet due to SOB.
Patient may benefit from PT Eval due to weakness/SOB when OOB ---> message to Dr Orellana.
Plan watch for any home O2 needs and follow patient's mobility.
Plan home.
[2024-06-04] MEDS: KLONOPIN 1 MG PO (12:46)
--- NOTE | 2024-06-04 13:54 | PTCARENOTE ---
Assumed care of patient at beginning of this shift from previous RN. Lungs diminished t/o with exp wheezing and productive cough of thick valentin sputum. +ROSA noted when walking from bed to bathroom; patient stated she did feel SOB. POx 93% on 2L n/c.
Wearing nicotine patch as ordered; patient stated she will not return to smoking. Telemetry shows apaced rhythm with PACs. See worklist for full assessment and vital signs.
[2024-06-04] MEDS: LIPITOR 10 MG PO (17:25)
[2024-06-04] MEDS: STERILE WATER FOR INJECTION 10 ML IV (20:55)
[2024-06-04] MEDS: ROCEPHIN 1000 MG IV (20:55)
--- NOTE | 2024-06-04 23:09 | PTCARENOTE ---
Assumed care for patient overnight, received report from trinidad RN. Pt AAOx3, pleasant. Pt on 3L NC SpO2 94%. Lungs diminished with inspiratory and expiratory wheeze b/l. Pt dyspneic on exertion and states she does 'feel SOB when walking'. Pt also
states she has had a cough for a few weeks now. Pt walked to the bathroom with standby assistance. SpO2 93%. A-paced rhythm with PACs. VSS. Assessment as charted. Bed alarm on overnight for precaution. Call field is within reach.
[2024-06-05] VITALS (12 sets, daily range): BP systolic 102–153; BP diastolic 53–77; BMI 26.7
[2024-06-05] MEDS: DECADRON 4 MG IV ×3 (02:50→17:53)
--- NOTE | 2024-06-05 04:23 | DOWNTIME ---
There was a [employer] Technical Support Specialist Downtime on 06/05/2024 from 0100 to 06/06/2023 at 0420 . Downtime documentation of patient's care, including medication administrations, has been reconciled in the electronic record per guidelines. Refer to the
patient's paper chart under the miscellaneous tab to see printed paper medication records and downtime forms.
--- NOTE | 2024-06-05 06:17 | W.PN.HOSP.TC ---
Today's Communication/Plan
-
Feels SOB, + wheezes this morning
c/w current IV Steroid, Nebs
Low dose Lasix
Assessment / Plan
Assessment / Plan
Physical Exam
General: Respiratory Distress (Mild respiratory distress noted)
HEENT: Normocephalic, Anicteric, Moist mucous membranes and Atraumatic
Respiratory: Limited with wheezes heard
Cardiac: S1/S2 and Regular Rhythm
GI: Soft, Non Tender, Non Distended and Normal Bowel Sounds
Musculoskeletal: , No Cyanosis and No Edema
Skin: Warm and Dry
Neuro: Awake, Alert and Oriented
Psych: Calm
A/P
# Acute hypoxic respiratory failure due to influenza A pneumonia in the setting of severe COPD with continued tobacco use. Quit 4 days ago before admission.
She had Sob with respiratory distress, using accessory muscles, hypoxia needing 6 liters of O2
She is feeling sob, wheezes this morning
c/w Nasal O2, aim for low SaO2 at 90-94%
c/w IV Steroid
# Acute COPD exacerbation due ton influenza virus
treat with empiric IV ABx
c/w Tamiflu day # 3
c/w steroid
c/w bronchodilators
#Elevated troponin due to nonischemic myocardial injury
Echocardiogram on June 03 showed LVEF 55 to 60%, normal RV size and function. No wall motion abnormalities on left ventricle. Pacer wires in the right atrium and right ventricle. Mild tricuspid regurgitation.
No chest pain
c/w to treat the pulmonary disease
# Acute HF with preserved EF
Low dose Lasix
#Tobacco use disorder
She understands the consequences of continued smoking with severe COPD
#Paroxysmal A-fib with history of ablation currently on Xarelto
Heart rate around 70-80
#History of V-fib arrest likely due to prolonged QTc/bradycardia (2012) s/p dual-chamber ICD (DDD paced)
#History of anxiety/depression
Mood is pleasant
Back on her psych medications, she feels better
#Hyperlipidemia
#History of alcohol use disorder
No DT noted
Lucid and pleasant
# GI prophylaxis
Added PPI
Total time spent to see the patient, examine the patient, review data and lab results, discuss treatment plan with patient, nursing staff around 55 minutes
Anticipated Discharge: > 48 hours
Subjective/Interval History
-
Date of Service: June 05, 2024
Complains of SOB
Objective Data
-
Vital Signs:
Vital Signs
Temp Pulse Resp BP Pulse Ox
97.6 F 81 20 108/62 92
06/05/24 03:20 06/05/24 02:00 06/05/24 02:00 06/05/24 02:00 06/05/24 02:00
I&O
06/03/24 06/04/24 06/05/24
06:59 06:59 06:59
Intake Total 1080 / 1080 480 / 480
Balance 1080 / 1080 480 / 480
[2024-06-05] MEDS: PULMICORT 0.5 MG INH ×2 (07:19→20:42)
[2024-06-05] MEDS: DUONEB 3 ML INH ×4 (07:19→20:42)
[2024-06-05] MEDS: ABILIFY 5 MG PO (07:55)
[2024-06-05] MEDS: VIBRAMYCIN 100 MG PO ×2 (07:55→21:01)
[2024-06-05] MEDS: TAMIFLU 75 MG PO ×2 (07:55→21:00)
[2024-06-05] MEDS: NICODERM TRANSDERMAL 21 MG TRANSDERM (07:56)
[2024-06-05] MEDS: TESSALON PERLES 200 MG PO ×3 (07:56→21:01)
[2024-06-05] MEDS: XARELTO 20 MG PO (07:56)
[2024-06-05] MEDS: MUCINEX 1200 MG PO ×2 (07:56→21:00)
[2024-06-05] MEDS: LEXAPRO 20 MG PO (07:56)
[2024-06-05] MEDS: PROTONIX 40 MG PO (07:56)
[2024-06-05] MEDS: KLONOPIN 1 MG PO (08:03)
--- NOTE | 2024-06-05 08:30 | W.PN.PUL3 ---
Today's Communication / Plan
-
Less desaturation noted
No change in steroids
Continue antiviral therapy, antibiotic therapy
Lasix x 1 noted
PT/OT, ambulate
Assessment
-
Assessment: 64-year-old female with a past medical history of severe COPD on Daliresp, history of VT, history of cardiac arrest, history of GENI no longer on CPAP after 168 pound weight loss, hyperlipidemia, migraine headaches and history of long QT
interval who presents with worsening shortness of breath. When EMS arrived her saturations were in the 62% on room air, and she was given a DuoNeb and placed onto 6 L/min and saturations león to 99%. She says she quit smoking 4 days ago. She was
recently hospitalized here from 05/26 - 05/29/2024 due to an acute COPD exacerbation and was discharged home with a prednisone taper. She is currently on 30 mg prednisone. She says that the night prior to arrival she had sudden worsening shortness of
breath with wheezing as well as chest heaviness. In the ER she was afebrile to 98.6 �F, pulse rate 103, respiratory rate 24, BP 120/73 and saturating 96% on 6 L/min. Labs showed WBC 11.5, Hb 17, troponin 0.313, proBNP 3530, and COVID-19 antigen
negative. She was found to be influenza A positive. CXR showed no evidence of pneumonia or CHF. In the ER she was given Decadron 10 mg, and DuoNebs and admitted to the IMU for further care with Pulmonary service consulted for additional
management/recommendations.
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
no longer on CPAP
Impression:
#Acute hypoxic respiratory failure due to influenza A pneumonia in the setting of COPD
#Acute COPD exacerbation
#Elevated troponin
#Tobacco use disorder (recently quit few days ago)
#Paroxysmal A-fib with history of ablation currently on Xarelto
#History of V-fib arrest likely due to prolonged QTc/bradycardia (2012) s/p dual-chamber ICD (DDD paced)
#History of anxiety/depression
#Hyperlipidemia
#History of alcohol use disorder
Plan/recommendations:
At this time, patient appears to be unchanged, slow improvement noted
although chest exam with mildly less wheeze, she still has significant wheezing
Baseline unclear
Presently 94% on 2 L, does not desaturate today with a 91% with sitting up and talking which is encouraging
Echocardiogram 06/03/2024 with normal biventricular function, no obvious elevated right-sided pressures, not reported
Moving forward
Continue with supportive care
Tamiflu, antibiotics (currently on doxycycline/ceftriaxone)
Increase activity, ambulate
Incentive spirometry, airway clearance
PT evaluation
Will require eventual chest x-ray in 4 to 6 weeks to confirm resolution
Continue systemic steroids and wean as she clinically improves � currently on Decadron 4mg q8h, no change
Continue with budesonide BID + DuoNebs QID; eventually resume Trelegy upon discharge
Cardiology following
- No gross evidence of volume overload; however given persistent wheeze, not unreasonable to give low-dose Lasix per primary service
- Monitor HR
- Trend troponin until it peaks
Echocardiogram normal
Less likely PE given chronic Xarelto therapy, but follow
DVT ppx: Xarelto
Disposition efforts
Data:
CXR 06/02/2024:
No evidence of pneumonia or congestive heart failure. No pneumothorax. No radiographically demonstrable pleural effusion. The cardiomediastinal margins are unremarkable. Left-sided dual-lead ICD unchanged.
Total time spent today was 58 minutes for this encounter. Time includes reviewing laboratory test/imaging results, reviewing pertinent medical records, obtaining and reviewing medical history, performing an appropriate exam, ordering medications,
tests and procedures. Time also includes documentation of this encounter, coordinating patient care and communicating with other healthcare professionals. Total time does not include separately billed tests performed on this date of service.
Subjective Data
-
Date of Service:
Date of Service: June 05, 2024
Subjective:
Patient seen and examined earlier today. She feels about the same. Still with shortness breath. Denies chest pain, nausea. Has mild probably adductive cough, no blood. Currently on 3 L
Objective Data
Data Reviewed
Vital Signs / I&O / Oxygen:
Vital Signs
Temp Pulse Resp BP Pulse Ox
98.5 F 78 18 153/67 93
06/05/24 06:37 06/05/24 07:21 06/05/24 07:21 06/05/24 06:00 06/05/24 07:21
Intake and Output
06/04/24 06/05/24 06/06/24
06:59 06:59 06:59
Intake Total 1080 / 1080 720 / 720
Balance 1080 / 1080 720 / 720
SaO2 93
Nasal Cannula flow liters per 3
minute
Physical Exam
General: Comfortable
HEENT: Normocephalic and Anicteric
Cardiovascular: S1-S2, Regular Rhythm, Murmur (n) and Rub (n)
Respiratory: Wheeze (Scattered diffuse), Crackles (n), Rhonchi (few with cough), Non-Labored Respirations and Stridor (n)
GI: Soft, Non Distended and Non Tender
Neurology: Awake, Alert and No Motor Deficits (Moving all extremities)
Skin: Cyanosis (n), Jaundice (n) and Rash (n)
Labs/Micro/Reports
Lab Data
06/04/24 04:55
06/04/24 04:55
Microbiology
06/02/24 12:32 Nasal Swab Influenza Types A & B (MARKUS) - Final
Influenza A Positive, NAAT
--- NOTE | 2024-06-05 16:20 | PTCARENOTE ---
Assumed care of patient at beginning of this shift from previous RN with O2 3l n/c in use; current POx 94%. Patient ambulated to BR x1 assist with +ROSA; does c/o SOB with ambulation. Insp/exp wheezing noted. She refused IV lasix that was ordered by
Dr Orellana, stating she was told by cardiology that her echo was normal and that she wanted to speak with Dr Orellana prior to taking. Dr Orellana made aware via TT.
[2024-06-05] MEDS: LIPITOR 10 MG PO (17:53)
[2024-06-05] MEDS: ROCEPHIN 1000 MG IV (21:00)
[2024-06-05] MEDS: STERILE WATER FOR INJECTION 10 ML IV (21:00)
[2024-06-06] VITALS (9 sets, daily range): BP systolic 112–146; BP diastolic 58–82; PULSE 74; O2SAT 92; BMI 26.5
--- NOTE | 2024-06-06 03:02 | PTCARENOTE ---
Assumed care for patient overnight, received report from daysnmft RN. Pt AAOx3. Attempted to wean pt to 2L NC but when pt ambulated to the bathroom x1 assist SpO2 dropped to 89% during ambulation. Bumped O2 back to 3L. Pt able to recover but stated
she did feel SOB. Lungs coarse with inspiratory and expiratory wheeze. A-paced on the monitor. VSS. Assessment and vitals charted. Call field within reach.
[2024-06-06] MEDS: DECADRON 4 MG IV ×3 (03:21→17:01)
[2024-06-06] MEDS: TYLENOL 650 MG PO (03:21)
[2024-06-06] MEDS: KLONOPIN 1 MG PO ×2 (03:30→16:02)
--- NOTE | 2024-06-06 06:18 | W.PN.HOSP.TC ---
Today's Communication/Plan
-
Transfer to Med/Surg
She refused Lasix yesterday, d/w pt today that at one point we might need to use Lasix to help with volume control, she verbalized understanding.
c/w same doses of steroid.
Last day for Rocephin is today 06/06
AM time on 06/07 will be last day for Tamiflu
Assessment / Plan
Assessment / Plan
Physical Exam
General: Respiratory Distress (Mild respiratory distress noted)
HEENT: Normocephalic, Anicteric, Moist mucous membranes and Atraumatic
Respiratory: Limited, not much improved
Cardiac: S1/S2 and Regular Rhythm
GI: Soft, Non Tender, Non Distended and Normal Bowel Sounds
Musculoskeletal: , No Cyanosis and No Edema
Skin: Warm and Dry
Neuro: Awake, Alert and Oriented
Psych: Calm
A/P
# Acute hypoxic respiratory failure due to influenza A pneumonia in the setting of severe COPD with continued tobacco use. Quit 4 days ago before admission.
She had Sob with respiratory distress, using accessory muscles, hypoxia needing 6 liters of O2
She is feeling less sob, lung xam unchanged from yesterday, slightly less wheezes.
c/w Nasal O2, aim for low SaO2 at 90-94%
c/w IV Steroid
# Acute COPD exacerbation due ton influenza virus
treat with empiric IV ABx days #5
c/w Tamiflu day # 4
c/w steroid
c/w bronchodilators
#Elevated troponin due to nonischemic myocardial injury
Echocardiogram on June 03 showed LVEF 55 to 60%, normal RV size and function. No wall motion abnormalities on left ventricle. Pacer wires in the right atrium and right ventricle. Mild tricuspid regurgitation.
No chest pain
c/w to treat the pulmonary disease
# Acute HF with preserved EF
Low dose Lasix
#Tobacco use disorder
She understands the consequences of continued smoking with severe COPD
#Paroxysmal A-fib with history of ablation currently on Xarelto
Heart rate around 70-80
#History of V-fib arrest likely due to prolonged QTc/bradycardia (2012) s/p dual-chamber ICD (DDD paced)
#History of anxiety/depression
Mood is pleasant
Back on her psych medications, she feels better
#Hyperlipidemia
#History of alcohol use disorder
No DT noted
Lucid and pleasant
# GI prophylaxis
Added PPI
Total time spent to see the patient, examine the patient, review data and lab results, discuss treatment plan with patient, nursing staff around 55 minutes
Anticipated Discharge: > 48 hours
Subjective/Interval History
-
Date of Service: June 06, 2024
not sob while in bed
Objective Data
-
Vital Signs:
Vital Signs
Temp Pulse Resp BP Pulse Ox
98.0 F 92 19 112/69 95
06/06/24 04:47 06/06/24 06:00 06/06/24 06:00 06/06/24 06:00 06/06/24 03:01
I&O
06/04/24 06/05/24 06/06/24
06:59 06:59 06:59
Intake Total 1080 / 1080 720 / 720 180 / 180
Balance 1080 / 1080 720 / 720 180 / 180
[2024-06-06] MEDS: DUONEB 3 ML INH ×4 (07:33→19:17)
[2024-06-06] MEDS: PULMICORT 0.5 MG INH ×2 (07:33→19:17)
[2024-06-06] MEDS: ABILIFY 5 MG PO (08:06)
[2024-06-06] MEDS: TESSALON PERLES 200 MG PO ×3 (08:06→22:05)
[2024-06-06] MEDS: XARELTO 20 MG PO (08:07)
[2024-06-06] MEDS: TAMIFLU 75 MG PO ×2 (08:07→20:36)
[2024-06-06] MEDS: LEXAPRO 20 MG PO (08:07)
[2024-06-06] MEDS: MUCINEX 1200 MG PO ×2 (08:07→20:36)
[2024-06-06] MEDS: NICODERM TRANSDERMAL 21 MG TRANSDERM (08:08)
[2024-06-06] MEDS: PROTONIX 40 MG PO (08:08)
[2024-06-06] MEDS: VIBRAMYCIN 100 MG PO ×2 (08:08→20:36)
--- NOTE | 2024-06-06 09:06 | W.PN.PUL3 ---
Today's Communication / Plan
-
continue with steroids, no change
Agree with last day of Rocephin 06/06
Last day of Tamiflu 06/07
Ambulate, assess home oxygen needs
Reiterated importance of tobacco cessation
Assessment
-
Assessment: 64-year-old female with a past medical history of severe COPD on Daliresp, history of VT, history of cardiac arrest, history of GENI no longer on CPAP after 168 pound weight loss, hyperlipidemia, migraine headaches and history of long QT
interval who presents with worsening shortness of breath. When EMS arrived her saturations were in the 62% on room air, and she was given a DuoNeb and placed onto 6 L/min and saturations león to 99%. She says she quit smoking 4 days ago. She was
recently hospitalized here from 05/26 - 05/29/2024 due to an acute COPD exacerbation and was discharged home with a prednisone taper. She is currently on 30 mg prednisone. She says that the night prior to arrival she had sudden worsening shortness of
breath with wheezing as well as chest heaviness. In the ER she was afebrile to 98.6 �F, pulse rate 103, respiratory rate 24, BP 120/73 and saturating 96% on 6 L/min. Labs showed WBC 11.5, Hb 17, troponin 0.313, proBNP 3530, and COVID-19 antigen
negative. She was found to be influenza A positive. CXR showed no evidence of pneumonia or CHF. In the ER she was given Decadron 10 mg, and DuoNebs and admitted to the IMU for further care with Pulmonary service consulted for additional
management/recommendations.
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
no longer on CPAP
Impression:
#Acute hypoxic respiratory failure due to influenza A pneumonia in the setting of COPD
#Acute COPD exacerbation
#Elevated troponin
#Tobacco use disorder (recently quit few days ago)
#Paroxysmal A-fib with history of ablation currently on Xarelto
#History of V-fib arrest likely due to prolonged QTc/bradycardia (2012) s/p dual-chamber ICD (DDD paced)
#History of anxiety/depression
#Hyperlipidemia
#History of alcohol use disorder
Plan/recommendations:
At this time, patient with significant improvement objectively and subjectively, chest exam with less wheeze
Presently 94% on 3 L, does not desaturate today with a 94% with sitting up and talking which is encouraging
Echocardiogram 06/03/2024 with normal biventricular function, no obvious elevated right-sided pressures, not reported
Moving forward
Continue with supportive care
Tamiflu, antibiotics (currently on doxycycline/ceftriaxone)
Increase activity, ambulate
Incentive spirometry, airway clearance
PT evaluation
Patient refused Lasix yesterday
I feel she may have turned the corner, chest exam significant improved
Will require eventual chest x-ray in 4 to 6 weeks to confirm resolution
Continue systemic steroids and wean as she clinically improves � currently on Decadron 4mg q8h, no change
Continue with budesonide BID + DuoNebs QID; eventually resume Trelegy upon discharge
Cardiology following
- No gross evidence of volume overload; however given persistent wheeze, not unreasonable to give low-dose Lasix per primary service
- Monitor HR
- Trend troponin until it peaks
Echocardiogram normal
Less likely PE given chronic Xarelto therapy, but follow
DVT ppx: Xarelto
Disposition efforts
Data:
CXR 06/02/2024:
No evidence of pneumonia or congestive heart failure. No pneumothorax. No radiographically demonstrable pleural effusion. The cardiomediastinal margins are unremarkable. Left-sided dual-lead ICD unchanged.
Total time spent today was 58 minutes for this encounter. Time includes reviewing laboratory test/imaging results, reviewing pertinent medical records, obtaining and reviewing medical history, performing an appropriate exam, ordering medications,
tests and procedures. Time also includes documentation of this encounter, coordinating patient care and communicating with other healthcare professionals. Total time does not include separately billed tests performed on this date of service.
Subjective Data
-
Date of Service:
Date of Service: June 06, 2024
Subjective:
Patient feels subjectively improved, less short of breath, denies chest pain, nausea, wheeze. Mild cough noted
Objective Data
Data Reviewed
Vital Signs / I&O / Oxygen:
Vital Signs
Temp Pulse Resp BP Pulse Ox
98.3 F 80 16 112/69 95
06/06/24 07:01 06/06/24 07:35 06/06/24 07:35 06/06/24 06:00 06/06/24 07:35
Intake and Output
06/05/24 06/06/24 06/07/24
06:59 06:59 06:59
Intake Total 720 / 720 180 / 180
Balance 720 / 720 180 / 180
SaO2 95
Nasal Cannula flow liters per 4
minute
Physical Exam
General: Comfortable
HEENT: Normocephalic and Anicteric
Cardiovascular: S1-S2, Regular Rhythm, Murmur (n) and Rub (n)
Respiratory: Wheeze ( significant improvement in wheezing, better air movement), Crackles (n), Rhonchi (few with cough), Non-Labored Respirations and Stridor (n)
GI: Soft, Non Distended and Non Tender
Neurology: Awake, Alert and No Motor Deficits (Moving all extremities)
Skin: Cyanosis (n), Jaundice (n) and Rash (n)
Labs/Micro/Reports
Lab Data
06/04/24 04:55
06/04/24 04:55
--- NOTE | 2024-06-06 09:44 | PTCARENOTE ---
Pt AAOx3 on 3 l O2 . Pt states she doesnot feel any better with her breathing. Pt encouraged to quit smoking a her lungs are already damaged. Nicotine patch in place.INs exp wheezing pt has aicd /pacer.Pt also has a lazy R eye. Awaiting a private
room
--- NOTE | 2024-06-06 11:34 | PTCARENOTE ---
[address] called to give report nurse ANITAB
--- NOTE | 2024-06-06 12:36 | PTCARENOTE ---
report to [address] [place] nurse
--- NOTE | 2024-06-06 15:37 | CM ---
Patient with Dx Acute hypoxic respiratory failure, influenza A pneumonia, severe COPD. O2 3L. Receiving IV Decadron, Tamiflu, PO & IV Abx. PT Eval 06/06; No skilled PT needed.
Plan watch for any home O2 needs.
Plan home.
[2024-06-06] MEDS: LIPITOR 10 MG PO (17:02)
[2024-06-06] MEDS: STERILE WATER FOR INJECTION 10 ML IV (20:36)
[2024-06-06] MEDS: ROCEPHIN 1000 MG IV (20:36)
[2024-06-07] MEDS: DECADRON 4 MG IV (01:46)
[2024-06-07] MEDS: KLONOPIN 1 MG PO ×2 (01:46→15:11)
[2024-06-07 06:00] VITALS: BMI 26.4
[2024-06-07 07:05] VITALS: BP 133/76
[2024-06-07] MEDS: PULMICORT 0.5 MG INH ×2 (07:07→19:24)
[2024-06-07] MEDS: DUONEB 3 ML INH ×4 (07:07→19:23)
[2024-06-07] MEDS: TAMIFLU 75 MG PO (07:27)
[2024-06-07] MEDS: PROTONIX 40 MG PO (07:27)
[2024-06-07] MEDS: MUCINEX 1200 MG PO ×2 (07:27→21:08)
[2024-06-07] MEDS: LEXAPRO 20 MG PO (07:27)
[2024-06-07] MEDS: NICODERM TRANSDERMAL 21 MG TRANSDERM (07:27)
[2024-06-07] MEDS: ABILIFY 5 MG PO (07:27)
[2024-06-07] MEDS: TESSALON PERLES 200 MG PO ×3 (07:27→21:08)
[2024-06-07] MEDS: XARELTO 20 MG PO (07:27)
[2024-06-07] MEDS: VIBRAMYCIN 100 MG PO (07:27)
--- NOTE | 2024-06-07 08:44 | W.PN.PUL3 ---
Today's Communication / Plan
-
Ambulate
Assess for home oxygen, may need oxygen in the short-term
Transition to oral prednisone, recommend slow taper as below
Continue budesonide, DuoNebs
Will resume Trelegy, Daliresp at time of discharge
Assessment
-
Assessment: 64-year-old female with a past medical history of severe COPD on Daliresp, history of VT, history of cardiac arrest, history of GENI no longer on CPAP after 168 pound weight loss, hyperlipidemia, migraine headaches and history of long QT
interval who presents with worsening shortness of breath. When EMS arrived her saturations were in the 62% on room air, and she was given a DuoNeb and placed onto 6 L/min and saturations león to 99%. She says she quit smoking 4 days ago. She was
recently hospitalized here from 05/26 - 05/29/2024 due to an acute COPD exacerbation and was discharged home with a prednisone taper. She is currently on 30 mg prednisone. She says that the night prior to arrival she had sudden worsening shortness of
breath with wheezing as well as chest heaviness. In the ER she was afebrile to 98.6 �F, pulse rate 103, respiratory rate 24, BP 120/73 and saturating 96% on 6 L/min. Labs showed WBC 11.5, Hb 17, troponin 0.313, proBNP 3530, and COVID-19 antigen
negative. She was found to be influenza A positive. CXR showed no evidence of pneumonia or CHF. In the ER she was given Decadron 10 mg, and DuoNebs and admitted to the IMU for further care with Pulmonary service consulted for additional
management/recommendations.
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
no longer on CPAP
Impression:
#Acute hypoxic respiratory failure due to influenza A pneumonia in the setting of COPD
#Acute COPD exacerbation
#Elevated troponin
#Tobacco use disorder (recently quit few days ago)
#Paroxysmal A-fib with history of ablation currently on Xarelto
#History of V-fib arrest likely due to prolonged QTc/bradycardia (2012) s/p dual-chamber ICD (DDD paced)
#History of anxiety/depression
#Hyperlipidemia
#History of alcohol use disorder
Plan/recommendations:
At this time, patient with significant improvement objectively and subjectively, chest exam with less wheeze
87% on room air without symptoms
Currently on 2 L, 93% per discussion with respiratory care
Chest exam has improved significantly
Echocardiogram 06/03/2024 with normal biventricular function, no obvious elevated right-sided pressures, not reported
Moving forward
Continue with supportive care
Tamiflu, antibiotics (currently on doxycycline/ceftriaxone)
Increase activity, ambulate
Incentive spirometry, airway clearance
PT evaluation
Patient refused Lasix on 06/05
I feel she may have turned the corner, chest exam significant improved
Will require eventual chest x-ray in 4 to 6 weeks to confirm resolution
Continue systemic steroids and wean as she clinically improves �will transition to oral prednisone with slow taper, 40 mg
Continue with budesonide BID + DuoNebs QID; eventually resume Trelegy upon discharge
Resume Daliresp at time of discharge
Cardiology following
- No gross evidence of volume overload; however given persistent wheeze, not unreasonable to give low-dose Lasix per primary service
- Monitor HR
- Trend troponin until it peaks
Echocardiogram normal
Less likely PE given chronic Xarelto therapy, but follow
DVT ppx: Xarelto
Disposition efforts
Data:
CXR 06/02/2024:
No evidence of pneumonia or congestive heart failure. No pneumothorax. No radiographically demonstrable pleural effusion. The cardiomediastinal margins are unremarkable. Left-sided dual-lead ICD unchanged.
Total time spent today was 58 minutes for this encounter. Time includes reviewing laboratory test/imaging results, reviewing pertinent medical records, obtaining and reviewing medical history, performing an appropriate exam, ordering medications,
tests and procedures. Time also includes documentation of this encounter, coordinating patient care and communicating with other healthcare professionals. Total time does not include separately billed tests performed on this date of service.
Subjective Data
-
Date of Service:
Date of Service: June 07, 2024
Subjective:
Patient is subjectively improved. She is less short of breath. She was taken off oxygen, denied any shortness but was noted to be 87%. Denies chest pain, nausea
Objective Data
Data Reviewed
Vital Signs / I&O / Oxygen:
Vital Signs
Temp Pulse Resp BP Pulse Ox
98.6 F 71 18 133/76 93
06/07/24 07:05 06/07/24 07:09 06/07/24 07:09 06/07/24 07:05 06/07/24 07:51
Intake and Output
06/06/24 06/07/24 06/08/24
06:59 06:59 06:59
Intake Total 180 / 180 1080 / 1080
Balance 180 / 180 1080 / 1080
SaO2 93
Nasal Cannula flow liters per 2
minute
Physical Exam
General: Comfortable
HEENT: Normocephalic and Anicteric
Cardiovascular: S1-S2, Regular Rhythm, Murmur (n) and Rub (n)
Respiratory: Wheeze (Mild wheezing), Crackles (n), Rhonchi (few with cough), Non-Labored Respirations and Stridor (n)
GI: Soft, Non Distended and Non Tender
Neurology: Awake, Alert and No Motor Deficits (Moving all extremities)
Skin: Cyanosis (n), Jaundice (n) and Rash (n)
Labs/Micro/Reports
Lab Data
06/04/24 04:55
06/04/24 04:55
--- NOTE | 2024-06-07 10:41 | W.PN.HOSP.TC ---
Today's Communication/Plan
-
Not much improvement
Expect staying in hospital over the weekend
Assessment / Plan
Assessment / Plan
Physical Exam
General: Respiratory Distress (Mild respiratory distress noted)
HEENT: Normocephalic, Anicteric, Moist mucous membranes and Atraumatic
Respiratory: Limited, not much improved
Cardiac: S1/S2 and Regular Rhythm
GI: Soft, Non Tender, Non Distended and Normal Bowel Sounds
Musculoskeletal: , No Cyanosis and No Edema
Skin: Warm and Dry
Neuro: Awake, Alert and Oriented
Psych: Calm
A/P
# Acute hypoxic respiratory failure due to influenza A pneumonia in the setting of severe COPD with continued tobacco use. Quit 4 days ago before admission.
She had Sob with respiratory distress, using accessory muscles, hypoxia needing 6 liters of O2
She is feeling less sob, lung xam unchanged from yesterday, slightly less wheezes.
c/w Nasal O2, aim for low SaO2 at 90-94%
c/w IV Steroid
# Acute COPD exacerbation due ton influenza virus
Finished IV ABx for 5 days. Blood culture and sputum culture no growth
Finished Tamiflu ( had10 doses)
c/w steroid
c/w bronchodilators
#Elevated troponin due to nonischemic myocardial injury
Echocardiogram on June 03 showed LVEF 55 to 60%, normal RV size and function. No wall motion abnormalities on left ventricle. Pacer wires in the right atrium and right ventricle. Mild tricuspid regurgitation.
No chest pain
c/w to treat the pulmonary disease
# Acute HF with preserved EF
Low dose Lasix
#Tobacco use disorder
She understands the consequences of continued smoking with severe COPD
#Paroxysmal A-fib with history of ablation currently on Xarelto
Heart rate around 70-80
#History of V-fib arrest likely due to prolonged QTc/bradycardia (2012) s/p dual-chamber ICD (DDD paced)
#History of anxiety/depression
Mood is pleasant
Back on her psych medications, she feels better
#Hyperlipidemia
#History of alcohol use disorder
No DT noted
Lucid and pleasant
# GI prophylaxis
Added PPI
Total time spent to see the patient, examine the patient, review data and lab results, discuss treatment plan with patient, nursing staff around 57 minutes
Anticipated Discharge: > 48 hours
Subjective/Interval History
-
Date of Service: June 07, 2024
Objective Data
-
Vital Signs:
Vital Signs
Temp Pulse Resp BP Pulse Ox
98.6 F 71 18 133/76 94
06/07/24 07:05 06/07/24 07:09 06/07/24 07:09 06/07/24 07:05 06/07/24 08:59
I&O
06/06/24 06/07/24 06/08/24
06:59 06:59 06:59
Intake Total 180 / 180 1080 / 1080
Balance 180 / 180 1080 / 1080
[2024-06-07 15:05] VITALS: BP 147/77
[2024-06-07] MEDS: LIPITOR 10 MG PO (17:06)
[2024-06-07 22:54] VITALS: BP 94/58
[2024-06-07 23:50] VITALS: BP 118/71
[2024-06-08] MEDS: KLONOPIN 1 MG PO ×3 (01:47→20:17)
[2024-06-08 07:11] VITALS: BP 139/71
[2024-06-08 07:15] VITALS: BMI 26.2
[2024-06-08] MEDS: DUONEB 3 ML INH ×3 (07:32→15:22)
[2024-06-08] MEDS: PULMICORT 0.5 MG INH (07:32)
[2024-06-08] MEDS: PROTONIX 40 MG PO (08:28)
[2024-06-08] MEDS: ABILIFY 5 MG PO (08:28)
[2024-06-08] MEDS: MUCINEX 1200 MG PO ×2 (08:28→20:18)
[2024-06-08] MEDS: LEXAPRO 20 MG PO (08:29)
[2024-06-08] MEDS: NICODERM TRANSDERMAL 21 MG TRANSDERM (08:29)
[2024-06-08] MEDS: XARELTO 20 MG PO (08:29)
[2024-06-08] MEDS: ROBITUSSIN 200 MG PO (08:31)
[2024-06-08] MEDS: LASIX 20 MG IV (08:31)
[2024-06-08] MEDS: SOLU-MEDROL PF 40 MG IV ×2 (08:31→12:35)
--- NOTE | 2024-06-08 09:29 | W.PN.HOSP.TC ---
Today's Communication/Plan
-
No clinical improvement, change back to IV methylprednisolone
One-time dose of Lasix
Assessment / Plan
Assessment / Plan
Physical Exam
General: Respiratory Distress (Mild respiratory distress noted)
HEENT: Normocephalic, Anicteric, Moist mucous membranes and Atraumatic
Respiratory: still Limited, not much improved
Cardiac: S1/S2 and Regular Rhythm
GI: Soft, Non Tender, Non Distended and Normal Bowel Sounds
Musculoskeletal: , No Cyanosis and No Edema
Skin: Warm and Dry
Neuro: Awake, Alert and Oriented
Psych: Calm
A/P
# Acute hypoxic respiratory failure due to influenza A pneumonia in the setting of severe COPD with continued tobacco use. Quit 4 days ago before admission.
She had Sob with no improvement
# Acute COPD exacerbation due ton influenza virus
No improvement.
Finished IV ABx for 5 days. Blood culture and sputum culture no growth
Finished Tamiflu ( had10 doses)
Change back to IV steroid, will do Solu-Medrol 40 mg TID.
c/w bronchodilators
#Elevated troponin due to nonischemic myocardial injury
Echocardiogram on June 03 showed LVEF 55 to 60%, normal RV size and function. No wall motion abnormalities on left ventricle. Pacer wires in the right atrium and right ventricle. Mild tricuspid regurgitation.
No chest pain
c/w to treat the pulmonary disease
# Acute HF with preserved EF
Low dose Lasix
#Tobacco use disorder
She understands the consequences of continued smoking with severe COPD
#Paroxysmal A-fib with history of ablation currently on Xarelto
Heart rate around 70-80
#History of V-fib arrest likely due to prolonged QTc/bradycardia (2012) s/p dual-chamber ICD (DDD paced)
#History of anxiety/depression
Mood is pleasant
Back on her psych medications, she feels better
#Hyperlipidemia
#History of alcohol use disorder
No DT noted
Lucid and pleasant
# GI prophylaxis
Added PPI
Total time spent to see the patient, examine the patient, review data and lab results, discuss treatment plan with patient, pulmonary doctor, nursing staff around 59 minutes
Anticipated Discharge: 24 - 48 hours
Subjective/Interval History
-
Date of Service: June 08, 2024
Not feeling better
Objective Data
-
Vital Signs:
Vital Signs
Temp Pulse Resp BP Pulse Ox
98.0 F 85 18 139/71 92
06/08/24 07:11 06/08/24 07:34 06/08/24 07:34 06/08/24 07:11 06/08/24 07:34
I&O
06/07/24 06/08/24 06/09/24
06:59 06:59 06:59
Intake Total 1080 / 1080 1320 / 1320
Balance 1080 / 1080 1320 / 1320
--- NOTE | 2024-06-08 09:51 | PTCARENOTE ---
Pt co anxiety and requested klonopin, it was given as prescribed. pt felt very sob compared to yesterday. RR 18-20 non labored Lungs very decreased throughout, MD aware, changed PO prednisone to IV and 20 mg iV lasix given, weight 162 and CHF
packet given. pt now resting and not complaining of SOB anymore but also does not feel better.
--- NOTE | 2024-06-08 14:22 | W.PN.PUL3 ---
Today's Communication / Plan
-
- Agree with IV steroids, trial of 40 daily
-Anticipate slow improvement considering severe underlying obstructive airway disease
Assessment
-
Assessment: 64-year-old female with a past medical history of severe COPD on Daliresp, history of VT, history of cardiac arrest, history of GENI no longer on CPAP after 168 pound weight loss, hyperlipidemia, migraine headaches and history of long QT
interval who presents with worsening shortness of breath. When EMS arrived her saturations were in the 62% on room air, and she was given a DuoNeb and placed onto 6 L/min and saturations león to 99%. She says she quit smoking 4 days ago. She was
recently hospitalized here from 05/26 - 05/29/2024 due to an acute COPD exacerbation and was discharged home with a prednisone taper. She is currently on 30 mg prednisone. She says that the night prior to arrival she had sudden worsening shortness of
breath with wheezing as well as chest heaviness. In the ER she was afebrile to 98.6 �F, pulse rate 103, respiratory rate 24, BP 120/73 and saturating 96% on 6 L/min. Labs showed WBC 11.5, Hb 17, troponin 0.313, proBNP 3530, and COVID-19 antigen
negative. She was found to be influenza A positive. CXR showed no evidence of pneumonia or CHF. In the ER she was given Decadron 10 mg, and DuoNebs and admitted to the IMU for further care with Pulmonary service consulted for additional
management/recommendations.
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
no longer on CPAP
Assessment and plan:
#Acute hypoxic respiratory failure due to influenza A pneumonia in the setting of COPD
-Continue Tamiflu, O2 as needed
-RV normal on ECHO, not suggestive of Pulmonary HTN
-Evaluate for Home O2 need prior to discharge
#Acute COPD exacerbation, baseline severe COPD, FEV1 was 43% in 2012, lizzy worse now
-Continue Duoneb qid and Pulmicort q12h, Resume trelegy at d/c.
-IV steroids resumed due to increase wheezing, favor low dose considering concern for increased mortality with Influenza
-Needs PFTs and 6 min walk test as out patient
-Quit smoking only recently.
Other medical issues:
#Paroxysmal A-fib with history of ablation currently on Xarelto
#History of V-fib arrest likely due to prolonged QTc/bradycardia (2012) s/p dual-chamber ICD (DDD paced), ECHO unremarkable now
#History of anxiety/depression
#Hyperlipidemia
#History of alcohol use disorder
Data:
ECHO 05/2024:
Normal left ventricular size, wall thickness and systolic function. No regional wall motion abnormalities are seen. LV ejection fraction is 55-60%.
Normal RV size and function. Pacer wire seen in the right atrium and in the right ventricle. Normal LA and RA sizes. Mild tricuspid regurgitation
CT Chest 12/2023:
Centrilobular emphysema, mild
CXR 06/02/2024:
No evidence of pneumonia or congestive heart failure. No pneumothorax. No radiographically demonstrable pleural effusion. The cardiomediastinal margins are unremarkable. Left-sided dual-lead ICD unchanged.
Spirometry 2011:
Severe obstructive lung disease with positive BD response. FEV1 43%, FVC 60% with FEV1/FVC 56
Total time spent today was 37 minutes for this encounter. Time includes reviewing laboratory test/imaging results, reviewing pertinent medical records, obtaining and reviewing medical history, performing an appropriate exam, ordering medications,
tests and procedures. Time also includes documentation of this encounter, coordinating patient care and communicating with other healthcare professionals. Total time does not include separately billed tests performed on this date of service.
Subjective Data
-
Date of Service:
Date of Service: June 08, 2024
Subjective:
Patient sitting in bed, no acute distress.
Review of Systems
Genitourinary: Other (All 14 systems reviewed and negative except as stated above in the history of present illness.)
Objective Data
Data Reviewed
Vital Signs / I&O / Oxygen:
Vital Signs
Temp Pulse Resp BP Pulse Ox
98.0 F 83 16 139/71 91
06/08/24 07:11 06/08/24 11:23 06/08/24 11:23 06/08/24 07:11 06/08/24 11:23
Intake and Output
06/07/24 06/08/24 06/09/24
06:59 06:59 06:59
Intake Total 1080 / 1080 1320 / 1320
Balance 1080 / 1080 1320 / 1320
SaO2 91
Nasal Cannula flow liters per 2
minute
Physical Exam
General: Comfortable
HEENT: Normocephalic
Cardiovascular: S1-S2 and Regular Rhythm
Respiratory: Wheeze and Other (Work of breathing is acceptable )
GI: Soft and Non Distended
Neurology: Awake and Alert
Skin: Warm
Labs/Micro/Reports
Lab Data
06/04/24 04:55
06/04/24 04:55
[2024-06-08 15:18] VITALS: BP 126/64
[2024-06-08] MEDS: LIPITOR 10 MG PO (17:22)
[2024-06-08] MEDS: DUONEB INH (19:33)
[2024-06-08] MEDS: PULMICORT INH (19:33)
[2024-06-08 23:17] VITALS: BP 123/67
[2024-06-09 06:00] VITALS: BMI 26.3
[2024-06-09 07:00] VITALS: BP 114/73
[2024-06-09] MEDS: DUONEB 3 ML INH ×3 (07:44→14:48)
[2024-06-09] MEDS: PULMICORT 0.5 MG INH (07:44)
[2024-06-09] MEDS: NICODERM TRANSDERMAL 21 MG TRANSDERM (08:31)
[2024-06-09] MEDS: LEXAPRO 20 MG PO (08:31)
[2024-06-09] MEDS: PROTONIX 40 MG PO (08:31)
[2024-06-09] MEDS: MUCINEX 1200 MG PO ×2 (08:31→20:13)
[2024-06-09] MEDS: XARELTO 20 MG PO (08:31)
[2024-06-09] MEDS: ABILIFY 5 MG PO (08:31)
[2024-06-09] MEDS: SOLU-MEDROL PF 40 MG IV (08:32)
[2024-06-09 09:00] LABS: ALT (SGPT) 24 U/L (0-35); AST (SGOT) 19 U/L (14-36); Albumin 3.5 g/dl (3.5-5.0); Alkaline Phosphatase 59 U/L (38-126); Blood Urea Nitrogen 32 mg/dl (7-17); Calcium 9.4 mg/dl (8.4-10.2); Carbon Dioxide 36 mmol/L (22-30); Chloride 98 mmol/L (98-107); Estimated Creatinine Clearance 76 ml/min; Glucose 134 mg/dl (70-99); Potassium 3.7 mmol/L (3.5-5.1); Sodium 138 mmol/L (135-145); Total Bilirubin 0.9 mg/dl (0.2-1.3); Total Protein 5.8 g/dl (6.3-8.2); eGFR > 60.00
[2024-06-09 09:20] LABS: Hematocrit 47.1 % (37.0-47.0); Hemoglobin 16.1 g/dL (12.0-16.0); Mean Corp Hgb Conc. 34.2 g/dL (33.0-37.0); Mean Corpuscular Hgb 31.9 pg (27.0-31.0); Mean Corpuscular Volume 93.5 fL (81.0-99.0); Mean Platelet Volume 10.4 fL (7.4-10.4); Platelet Count 167 10^3/uL (130-400); Red Blood Cell Count 5.04 10^6/uL (4.20-5.40); Red Cell Dist. Width 13.2 % (11.5-14.5); White Blood Cell Count 9.1 10^3/uL (4.8-10.8)
[2024-06-09] MEDS: KLONOPIN 1 MG PO (11:02)
--- NOTE | 2024-06-09 11:24 | W.PN.HOSP.TC ---
Today's Communication/Plan
-
c/w IV steroid
Assessment / Plan
Assessment / Plan
Physical Exam
General: Respiratory Distress (Mild respiratory distress noted)
HEENT: Normocephalic, Anicteric, Moist mucous membranes and Atraumatic
Respiratory: still Limited, not much improved
Cardiac: S1/S2 and Regular Rhythm
GI: Soft, Non Tender, Non Distended and Normal Bowel Sounds
Musculoskeletal: , No Cyanosis and No Edema
Skin: Warm and Dry
Neuro: Awake, Alert and Oriented
Psych: Calm
A/P
# Acute hypoxic respiratory failure due to influenza A pneumonia in the setting of severe COPD with continued tobacco use. Quit 4 days ago before admission.
She had Sob with no improvement
# Acute COPD exacerbation due ton influenza virus
Mild improvement today but overall severe disease. .
Finished IV ABx for 5 days. Blood culture and sputum culture no growth
Finished Tamiflu ( had10 doses)
Changed back to IV steroid, Solu-Medrol 40 mg TID then once a day .
c/w bronchodilators
# leukocytosis, resolved
No fevers
#Elevated troponin due to nonischemic myocardial injury
Echocardiogram on June 03 showed LVEF 55 to 60%, normal RV size and function. No wall motion abnormalities on left ventricle. Pacer wires in the right atrium and right ventricle. Mild tricuspid regurgitation.
No chest pain
c/w to treat the pulmonary disease
# Acute HF with preserved EF
s/p Low dose Lasix
Per cardiology: Given exacerbation of COPD would not restart metoprolol despite history of PAF and long QT. ICD in place. If A-fib recurs, likely ventricular response will stay below rate cut off of device.
#Tobacco use disorder
She understands the consequences of continued smoking with severe COPD
#Paroxysmal A-fib with history of ablation currently on Xarelto
Heart rate around 70-80
#History of V-fib arrest likely due to prolonged QTc/bradycardia (2012) s/p dual-chamber ICD (DDD paced)
#History of anxiety/depression
Mood is pleasant
Back on her psych medications, she feels better
#Hyperlipidemia
#History of alcohol use disorder
No DT noted
Lucid and pleasant
# GI prophylaxis
Added PPI
Total time spent to see the patient, examine the patient, review data and lab results, discuss treatment plan with patient, pulmonary doctor, nursing staff around 59 minutes
Anticipated Discharge: 24 - 48 hours
Subjective/Interval History
-
Date of Service: June 09, 2024
Feels a little better but still sob upon exertion
Objective Data
-
Labs:
Laboratory Results
06/09/24 06/09/24
06:33 08:28
WBC 9.1
Hgb 16.1 H
Hct 47.1 H
Plt Count 167 D
Sodium Cancelled 138
Potassium Cancelled 3.7
Chloride Cancelled 98
Carbon Dioxide Cancelled 36 H
BUN Cancelled 32 H
Creatinine Cancelled 0.7
Glucose Cancelled 134 H
Calcium Cancelled 9.4
Total Bilirubin Cancelled 0.9
AST Cancelled 19
ALT Cancelled 24
Alkaline Phosphatase Cancelled 59
Vital Signs:
Vital Signs
Temp Pulse Resp BP Pulse Ox
99.0 F 84 16 114/73 97
06/09/24 07:00 06/09/24 11:22 06/09/24 11:22 06/09/24 07:00 06/09/24 11:22
I&O
06/08/24 06/09/24 06/10/24
06:59 06:59 06:59
Intake Total 1320 / 1320
Balance 1320 / 1320
--- NOTE | 2024-06-09 11:37 | CM ---
CM following re: d/c planning.
Pt on IV steroids.
Weaning o2.
Therapy recs: no needs.
CM continuing to follow.
CM following home o2/RN needs.
--- NOTE | 2024-06-09 13:57 | W.PN.PUL3 ---
Today's Communication / Plan
-
-Transition to prednisone 30 daily starting tomorrow
-Discharge planning
-Patient needs outpatient follow-up with pulmonary clinic
Assessment
-
Assessment: 64-year-old female with a past medical history of severe COPD on Daliresp, history of VT, history of cardiac arrest, history of GENI no longer on CPAP after 168 pound weight loss, hyperlipidemia, migraine headaches and history of long QT
interval who presents with worsening shortness of breath. When EMS arrived her saturations were in the 62% on room air, and she was given a DuoNeb and placed onto 6 L/min and saturations león to 99%. She says she quit smoking 4 days ago. She was
recently hospitalized here from 05/26 - 05/29/2024 due to an acute COPD exacerbation and was discharged home with a prednisone taper. She is currently on 30 mg prednisone. She says that the night prior to arrival she had sudden worsening shortness of
breath with wheezing as well as chest heaviness. In the ER she was afebrile to 98.6 �F, pulse rate 103, respiratory rate 24, BP 120/73 and saturating 96% on 6 L/min. Labs showed WBC 11.5, Hb 17, troponin 0.313, proBNP 3530, and COVID-19 antigen
negative. She was found to be influenza A positive. CXR showed no evidence of pneumonia or CHF. In the ER she was given Decadron 10 mg, and DuoNebs and admitted to the IMU for further care with Pulmonary service consulted for additional
management/recommendations.
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
no longer on CPAP
Assessment and plan:
#Acute hypoxic respiratory failure due to influenza A pneumonia in the setting of COPD
-Completed 10 doses of Tamiflu, O2 as needed
-RV normal on ECHO, not suggestive of Pulmonary HTN
-Evaluate for Home O2 need prior to discharge
#Acute COPD exacerbation, baseline severe COPD, FEV1 was 43% in 2012, likely worse now
-Continue Duoneb qid and Pulmicort q12h, Resume trelegy at d/c.
-Responding well to current dose of IV Solu-Medrol, transition to prednisone 30 in the morning
-Needs PFTs and 6 min walk test as out patient
-Completed 5 days of antibiotics
-Quit smoking only recently.
Other medical issues:
#Paroxysmal A-fib with history of ablation currently on Xarelto
#History of V-fib arrest likely due to prolonged QTc/bradycardia (2012) s/p dual-chamber ICD (DDD paced), ECHO unremarkable now
#History of anxiety/depression
#Hyperlipidemia
#History of alcohol use disorder
Data:
ECHO 05/2024:
Normal left ventricular size, wall thickness and systolic function. No regional wall motion abnormalities are seen. LV ejection fraction is 55-60%.
Normal RV size and function. Pacer wire seen in the right atrium and in the right ventricle. Normal LA and RA sizes. Mild tricuspid regurgitation
CT Chest 12/2023:
Centrilobular emphysema, mild
CXR 06/02/2024:
No evidence of pneumonia or congestive heart failure. No pneumothorax. No radiographically demonstrable pleural effusion. The cardiomediastinal margins are unremarkable. Left-sided dual-lead ICD unchanged.
Spirometry 2011:
Severe obstructive lung disease with positive BD response. FEV1 43%, FVC 60% with FEV1/FVC 56
Total time spent today was 37 minutes for this encounter. Time includes reviewing laboratory test/imaging results, reviewing pertinent medical records, obtaining and reviewing medical history, performing an appropriate exam, ordering medications,
tests and procedures. Time also includes documentation of this encounter, coordinating patient care and communicating with other healthcare professionals. Total time does not include separately billed tests performed on this date of service.
Subjective Data
-
Date of Service:
Date of Service: June 09, 2024
Subjective:
Patient appears more comfortable, lying in bed in no acute distress, reports improving cough.
Review of Systems
Genitourinary: Other (All 14 systems reviewed and negative except as stated above in the history of present illness.)
Objective Data
Data Reviewed
Vital Signs / I&O / Oxygen:
Vital Signs
Temp Pulse Resp BP Pulse Ox
99.0 F 84 16 114/73 97
06/09/24 07:00 06/09/24 11:22 06/09/24 11:22 06/09/24 07:00 06/09/24 11:22
Intake and Output
06/08/24 06/09/24 06/10/24
06:59 06:59 06:59
Intake Total 1320 / 1320
Balance 1320 / 1320
SaO2 97
Nasal Cannula flow liters per 2
minute
Physical Exam
General: Comfortable
HEENT: Normocephalic
Cardiovascular: S1-S2 and Regular Rhythm
Respiratory: Wheeze (Minimal faint end expiratory wheezing)
GI: Soft and Non Distended
Neurology: Awake and Alert
Skin: Warm
Labs/Micro/Reports
Lab Data
06/09/24 06:33
06/09/24 08:28
[2024-06-09 15:00] VITALS: BP 122/62
[2024-06-09] MEDS: LIPITOR 10 MG PO (17:30)
[2024-06-09] MEDS: DUONEB INH (19:51)
[2024-06-09] MEDS: PULMICORT INH (19:51)
[2024-06-09 23:32] VITALS: BP 133/59
[2024-06-10] MEDS: TYLENOL 650 MG PO ×2 (02:55→14:05)
[2024-06-10] MEDS: KLONOPIN 1 MG PO ×2 (02:56→14:06)
[2024-06-10 06:00] VITALS: BMI 26.0
[2024-06-10 06:26] LABS: Hematocrit 46.6 % (37.0-47.0); Hemoglobin 15.8 g/dL (12.0-16.0); Mean Corp Hgb Conc. 33.9 g/dL (33.0-37.0); Mean Corpuscular Hgb 32.2 pg (27.0-31.0); Mean Corpuscular Volume 94.9 fL (81.0-99.0); Mean Platelet Volume 10.9 fL (7.4-10.4); Platelet Count 160 10^3/uL (130-400); Red Blood Cell Count 4.91 10^6/uL (4.20-5.40); Red Cell Dist. Width 13.2 % (11.5-14.5); White Blood Cell Count 9.4 10^3/uL (4.8-10.8)
[2024-06-10 07:05] VITALS: BP 119/73
[2024-06-10 07:13] LABS: Blood Urea Nitrogen 35 mg/dl (7-17); Calcium 9.1 mg/dl (8.4-10.2); Carbon Dioxide 38 mmol/L (22-30); Chloride 99 mmol/L (98-107); Estimated Creatinine Clearance 89 ml/min; Glucose 81 mg/dl (70-99); Potassium 4.5 mmol/L (3.5-5.1); Sodium 137 mmol/L (135-145); eGFR > 60.00
[2024-06-10] MEDS: PULMICORT 0.5 MG INH ×2 (08:10→19:19)
[2024-06-10] MEDS: DUONEB 3 ML INH ×4 (08:10→19:19)
[2024-06-10] MEDS: NICODERM TRANSDERMAL 21 MG TRANSDERM (08:42)
[2024-06-10] MEDS: XARELTO 20 MG PO (08:42)
[2024-06-10] MEDS: ABILIFY 5 MG PO (08:42)
[2024-06-10] MEDS: PROTONIX 40 MG PO (08:42)
[2024-06-10] MEDS: LEXAPRO 20 MG PO (08:42)
[2024-06-10] MEDS: MUCINEX 1200 MG PO ×2 (08:42→19:39)
[2024-06-10] MEDS: DELTASONE 30 MG PO (08:42)
--- NOTE | 2024-06-10 12:58 | W.PN.HOSP.TC ---
Today's Communication/Plan
-
prednisone taper
6MWT and PFTs outpt
no BB
F/u Cards, PCP, Pulmonary Outpatient
Assessment / Plan
Assessment / Plan
Physical Exam
General: Respiratory Distress (Mild respiratory distress noted)
HEENT: Normocephalic, Anicteric, Moist mucous membranes and Atraumatic
Respiratory: still Limited, not much improved
Cardiac: S1/S2 and Regular Rhythm
GI: Soft, Non Tender, Non Distended and Normal Bowel Sounds
Musculoskeletal: , No Cyanosis and No Edema
Skin: Warm and Dry
Neuro: Awake, Alert and Oriented
Psych: Calm
A/P
# Acute hypoxic respiratory failure due to influenza A pneumonia in the setting of severe COPD with continued tobacco use. Quit 4 days ago before admission.
She had Sob with no improvement
# Acute COPD exacerbation due ton influenza virus
Mild improvement today but overall severe disease. .
Finished IV ABx for 5 days. Blood culture and sputum culture no growth
Finished Tamiflu ( had10 doses)
Changed back to IV steroid, Solu-Medrol 40 mg TID then once a day - switched to prednisone taper - 30mg x 3 days, then 20mg x 3 days, then 10mg until seen by pcp/pulmonary
c/w bronchodilators - Trelegy on dc
# leukocytosis, resolved
No fevers
#Elevated troponin due to nonischemic myocardial injury
Echocardiogram on June 03 showed LVEF 55 to 60%, normal RV size and function. No wall motion abnormalities on left ventricle. Pacer wires in the right atrium and right ventricle. Mild tricuspid regurgitation.
No chest pain
c/w to treat the pulmonary disease
# Acute HF with preserved EF
s/p Low dose Lasix
Per cardiology: Given exacerbation of COPD would not restart metoprolol despite history of PAF and long QT. ICD in place. If A-fib recurs, likely ventricular response will stay below rate cut off of device.
F/u cards outpt
#Tobacco use disorder
She understands the consequences of continued smoking with severe COPD
#Paroxysmal A-fib with history of ablation currently on Xarelto
Heart rate around 70-80
#History of V-fib arrest likely due to prolonged QTc/bradycardia (2012) s/p dual-chamber ICD (DDD paced)
#History of anxiety/depression
Mood is pleasant
Back on her psych medications, she feels better
#Hyperlipidemia
#History of alcohol use disorder
No DT noted
Lucid and pleasant
# GI prophylaxis
Added PPI
More than 30 minutes spent in discharge including
Final examination of the patient
Summarizing hospital stay
Instructions for continuing care to all relevant caregivers
Preparation of discharge records, prescriptions, and referral forms
Total time spent (37 in minutes):
Anticipated Discharge: Today
Subjective/Interval History
-
Date of Service: June 10, 2024
no acute events
Objective Data
-
Labs:
Laboratory Results
06/10/24
06:04
WBC 9.4
Hgb 15.8
Hct 46.6
Plt Count 160
Sodium 137
Potassium 4.5
Chloride 99
Carbon Dioxide 38 H
BUN 35 H
Creatinine 0.6
Glucose 81
Calcium 9.1
Vital Signs:
Vital Signs
Temp Pulse Resp BP Pulse Ox
98.2 F 82 16 119/73 97
06/10/24 07:05 06/10/24 11:08 06/10/24 11:08 06/10/24 07:05 06/10/24 11:08
I&O
06/09/24 06/10/24 06/11/24
06:59 06:59 06:59
Intake Total 1260 / 1260
Balance 1260 / 1260
Review of Systems
-
History Source: Patient
All other systems: Not reviewed unless documented
Physical Exam
-
General: No Apparent Distress
HEENT: Normocephalic and Atraumatic
Respiratory: Negative Wheezes
Cardiac: Regular Rhythm
GI: Soft and Nontender
Genito-urinary: No Costovertebral Tender
Neuro: AO x 3
Psych: Calm
Data Reviewed
-
Total Time Spent with Patient (in minutes): 42
Diagnostic Radiology: Report Reviewed by me
Labs: Labs Reviewed by me
--- NOTE | 2024-06-10 13:17 | W.PN.PUL3 ---
Today's Communication / Plan
-
Continue nebulizer therapy-Pulmicort/DuoNebs will continue in the outpatient setting until symptoms improve at home.
Subsequently transition to her usual inhalers
Continue mucolytics
Continue secretion clearance intervention
Prednisone taper
Home oxygen assessment-usually not on oxygen at home. Hopefully discharge in the next 24 to 48 hours
Assessment
-
Assessment: 64-year-old female with a past medical history of severe COPD on Daliresp, history of VT, history of cardiac arrest, history of GENI no longer on CPAP after 168 pound weight loss, hyperlipidemia, migraine headaches and history of long QT
interval who presents with worsening shortness of breath. When EMS arrived her saturations were in the 62% on room air, and she was given a DuoNeb and placed onto 6 L/min and saturations león to 99%. She says she quit smoking 4 days ago. She was
recently hospitalized here from 05/26 - 05/29/2024 due to an acute COPD exacerbation and was discharged home with a prednisone taper. She is currently on 30 mg prednisone. She says that the night prior to arrival she had sudden worsening shortness of
breath with wheezing as well as chest heaviness. In the ER she was afebrile to 98.6 �F, pulse rate 103, respiratory rate 24, BP 120/73 and saturating 96% on 6 L/min. Labs showed WBC 11.5, Hb 17, troponin 0.313, proBNP 3530, and COVID-19 antigen
negative. She was found to be influenza A positive. CXR showed no evidence of pneumonia or CHF. In the ER she was given Decadron 10 mg, and DuoNebs and admitted to the IMU for further care with Pulmonary service consulted for additional
management/recommendations.
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
no longer on CPAP
Assessment and plan:
Continues to report difficulty expectorating, as well as exertional shortness of breath with walking to the bathroom. Overall improved but still persistent.
#Acute hypoxic respiratory failure due to influenza A pneumonia in the setting of COPD
-Completed 10 doses of Tamiflu, O2 as needed
-RV normal on ECHO, not suggestive of Pulmonary HTN
-Evaluate for Home O2 need prior to discharge-currently on [address] order. Usually not on oxygen.
#Acute COPD exacerbation, baseline severe COPD, FEV1 was 43% in 2011, likely worse now
-Continue Duoneb qid and Pulmicort q12h, Resume trelegy at d/c.
-Transition to prednisone 06/10/2024. Slow taper reduce by 10 mg every 4 days to off.
-Needs PFTs and 6 min walk test as out patient
-Completed 5 days of antibiotics
-Quit smoking only recently.
-
Continues to report difficulty expectorating and mild shortness of breath.
Continue Acapella device
Incentive spirometry
If remains in the hospital we will consider percussion/vest therapy.
Hopefully discharge planning in the next 24 to 48 hours.
Other medical issues:
#Paroxysmal A-fib with history of ablation currently on Xarelto
#History of V-fib arrest likely due to prolonged QTc/bradycardia (2012) s/p dual-chamber ICD (DDD paced), ECHO unremarkable now
#History of anxiety/depression
#Hyperlipidemia
#History of alcohol use disorder
# History of COPD-chronic tobacco abuse-follows up in our office with Kimberlee MOONEY -last time seen November 2023. Multiple other office visits were canceled per ECW.
Data:
ECHO 05/2024:
Normal left ventricular size, wall thickness and systolic function. No regional wall motion abnormalities are seen. LV ejection fraction is 55-60%.
Normal RV size and function. Pacer wire seen in the right atrium and in the right ventricle. Normal LA and RA sizes. Mild tricuspid regurgitation
CT Chest 12/2023:
Centrilobular emphysema, mild
CXR 06/02/2024:
No evidence of pneumonia or congestive heart failure. No pneumothorax. No radiographically demonstrable pleural effusion. The cardiomediastinal margins are unremarkable. Left-sided dual-lead ICD unchanged.
Spirometry 2011:
Severe obstructive lung disease with positive BD response. FEV1 43%, FVC 60% with FEV1/FVC 56
Subjective Data
-
Date of Service:
Date of Service: June 10, 2024
Chief Complaint: Pulmonary Follow Up
Objective Data
Data Reviewed
Vital Signs / I&O / Oxygen:
Vital Signs
Temp Pulse Resp BP Pulse Ox
98.2 F 82 16 119/73 97
06/10/24 07:05 06/10/24 11:08 06/10/24 11:08 06/10/24 07:05 06/10/24 11:08
Intake and Output
06/09/24 06/10/24 06/11/24
06:59 06:59 06:59
Intake Total 1260 / 1260
Balance 1260 / 1260
SaO2 97
Nasal Cannula flow liters per 2
minute
Physical Exam
General: Comfortable
HEENT: Normocephalic
Cardiovascular: S1-S2 and Regular Rhythm
Respiratory: Wheeze (Minimal faint end expiratory wheezing)
GI: Soft and Non Distended
Neurology: Awake and Alert
Skin: Warm
Labs/Micro/Reports
Lab Data
06/10/24 06:04
06/10/24 06:04
--- NOTE | 2024-06-10 13:21 | W.DS.TRANS ---
DC Summary - Clinical Advisor
-
Discharge Instructions:
Discharge Diagnosis/Procedures Acute hypoxic respiratory failure due to
influenza A pneumonia in the setting of COPD
Acute COPD exacerbation
Acute HF with preserved EF
Diet Low Cholesterol,Low Fiber
Activity As tolerated
Blood Work cbc and bmp in 3-5 days with pcp
Specialty Instructions Weigh Daily
Instructions:
Stand-Alone Forms:
Changes to Home Medications: Yes
Discharge Medications:
DC Medications w/original date entered in [facility]
roflumilast 500 mcg tablet (Daliresp) 500 mcg PO DAILY COPD 05/09/17
escitalopram oxalate 20 mg tablet 20 mg PO DAILY depression/anxiety 04/15/18
atorvastatin 10 mg tablet 10 mg PO DAILY High cholesterol 08/27/19
rivaroxaban 20 mg tablet (Xarelto) 20 mg PO DAILY Blood clot prevention/tx 09/25/19
albuterol sulfate 90 mcg/actuation aerosol inhaler 2 puff inhalation R Q4HPRN PRN sob 09/25/23
aripiprazole 5 mg tablet 5 mg PO DAILY depression 09/25/23
fluticasone fur. 100 mcg-umeclid 62.5 mcg-vilant 25 mcg inhalat.powder (Trelegy Ellipta) 1 inh inhalation R DAILY COPD/asthma 09/25/23
folic acid 1 mg tablet 1 mg PO DAILY Supplement 09/25/23
clonazepam 1 mg tablet 1 mg PO QIDPRN PRN anxiety #0 tabs 12/22/23
albuterol sulfate 2.5 mg/3 mL (0.083 %) solution for nebulization 2.5 mg inhalation R BIDPRN PRN sob 05/26/24
nicotine 21 mg/24 hr daily transdermal patch 21 mg transdermal DAILYPRN PRN smoking cessation 05/26/24
guaifenesin 100 mg/5 mL oral liquid 200 mg (10 mL) PO Q4HPRN PRN cough #1,000 mL 06/10/24
prednisone 10 mg tablet 30 mg (3 x 10 mg) PO .TAPER Anti-Inflammatory #20 tabs 06/10/24
Home Medication Changes
guaifenesin 100 mg/5 mL oral liquid 200 mg (10 mL) PO Q4HPRN PRN cough #1,000 mL 06/10/24
prednisone 10 mg tablet 30 mg (3 x 10 mg) PO .TAPER Anti-Inflammatory #20 tabs 06/10/24
Pending Results: No
--- NOTE | 2024-06-10 14:13 | CM ---
Spoke with attending who stated that patient will hopefully be medically cleared for discharge by mid week. Will continue to watch o2 needs.
Plan: Case management will continue to follow and assist with discharge planning. Home with o2 if still needed at discharge.
[2024-06-10 15:05] VITALS: BP 133/71
[2024-06-10] MEDS: LIPITOR 10 MG PO (17:29)
[2024-06-10 23:52] VITALS: BP 121/58
[2024-06-11] MEDS: KLONOPIN 1 MG PO ×2 (03:45→17:25)
[2024-06-11 04:40] VITALS: BMI 26.2
[2024-06-11] MEDS: PULMICORT 0.5 MG INH (07:13)
[2024-06-11] MEDS: DUONEB 3 ML INH ×2 (07:13→11:09)
[2024-06-11 07:20] VITALS: BP 128/67
[2024-06-11] MEDS: NICODERM TRANSDERMAL 21 MG TRANSDERM (09:09)
[2024-06-11] MEDS: ABILIFY 5 MG PO (09:09)
[2024-06-11] MEDS: PROTONIX 40 MG PO (09:09)
[2024-06-11] MEDS: MUCINEX 1200 MG PO (09:09)
[2024-06-11] MEDS: DELTASONE 30 MG PO (09:09)
[2024-06-11] MEDS: LEXAPRO 20 MG PO (09:10)
[2024-06-11] MEDS: XARELTO 20 MG PO (09:10)
--- NOTE | 2024-06-11 09:57 | CM ---
Addendum entered by FARZAD Tuttle 06/11/24 18:35:
Spoke with patient who stated that she spoke with Reyes from [facility] who advised her that they will be there soon to drop o2 off. Will update RN.
Addendum entered by FARZAD Tuttle 06/11/24 18:05:
Patient offered to stay another night until this is worked out, however, she stated that she absolutely wants to return home. Nargis from [facility] stated that she could use her portable o2 from them and [facility] can deliver the concentrator in the
evening.
Addendum entered by FARZAD Tuttle 06/11/24 18:00:
Nargis from [facility] dropped off portable o2. She provided patient with a number to call upon leaving the hospital so that they could meet her at her house.
Received a call from Nargis who stated that after reviewing patient's benefits, they do not accept her insurance and therefore, another company would have to be consulted, like [facility].
Faxed all information over to Reyes at [facility] [phone] and he stated that he will review benefits and call back with an eta for tonight when he will drop of the o2. Reyes's
Original Note:
Placed a call to Nargis at [facility] to alert that patient will most likely be discharged soon and need o2. Provided information to Nargis. She will drop the portable off today and will arrange a time to drop of the concentrator when it is closer to
time/day of discharge.
Plan: Case management will continue to follow and assist [facility] discharge planning. Patient will most likely need o2 at home.
--- NOTE | 2024-06-11 11:32 | W.PN.HOSP.TC ---
Addendum entered and electronically signed by Isrrael Caceres MD 06/11/24 15:30:
[id number]
Original Note:
Today's Communication/Plan
-
prednisone taper
6MWT and PFTs outpt
no BB
Duonebs/Pulmicort along with home inhalers on DC
F/u Cards, PCP, Pulmonary Outpatient
Assessment / Plan
Assessment / Plan
Physical Exam
General: Respiratory Distress (Mild respiratory distress noted)
HEENT: Normocephalic, Anicteric, Moist mucous membranes and Atraumatic
Respiratory: still Limited, not much improved
Cardiac: S1/S2 and Regular Rhythm
GI: Soft, Non Tender, Non Distended and Normal Bowel Sounds
Musculoskeletal: , No Cyanosis and No Edema
Skin: Warm and Dry
Neuro: Awake, Alert and Oriented
Psych: Calm
A/P
# Acute hypoxic respiratory failure due to influenza A pneumonia in the setting of severe COPD with continued tobacco use. Quit 4 days ago before admission.
She had Sob with no improvement
# Acute COPD exacerbation due ton influenza virus
Mild improvement today but overall severe disease. .
Finished IV ABx for 5 days. Blood culture and sputum culture no growth
Finished Tamiflu ( had10 doses)
Changed back to IV steroid, Solu-Medrol 40 mg TID then once a day - switched to prednisone taper - 30mg x 4 days, then 20mg x 4 days, then 10mg until seen by pcp/pulmonary
c/w bronchodilators - Trelegy on dc
Continue nebulizer therapy-Pulmicort/DuoNebs will continue in the outpatient setting until symptoms improve at home
Home o2 on DC
# leukocytosis, resolved
No fevers
#Elevated troponin due to nonischemic myocardial injury
Echocardiogram on June 03 showed LVEF 55 to 60%, normal RV size and function. No wall motion abnormalities on left ventricle. Pacer wires in the right atrium and right ventricle. Mild tricuspid regurgitation.
No chest pain
c/w to treat the pulmonary disease
# Acute HF with preserved EF
s/p Low dose Lasix
Per cardiology: Given exacerbation of COPD would not restart metoprolol despite history of PAF and long QT. ICD in place. If A-fib recurs, likely ventricular response will stay below rate cut off of device.
F/u cards outpt
#Tobacco use disorder
She understands the consequences of continued smoking with severe COPD
#Paroxysmal A-fib with history of ablation currently on Xarelto
Heart rate around 70-80
#History of V-fib arrest likely due to prolonged QTc/bradycardia (2012) s/p dual-chamber ICD (DDD paced)
#History of anxiety/depression
Mood is pleasant
Back on her psych medications, she feels better
#Hyperlipidemia
#History of alcohol use disorder
No DT noted
Lucid and pleasant
# GI prophylaxis
Added PPI
More than 30 minutes spent in discharge including
Final examination of the patient
Summarizing hospital stay
Instructions for continuing care to all relevant caregivers
Preparation of discharge records, prescriptions, and referral forms
Total time spent (37 in minutes):
Anticipated Discharge: Today
Subjective/Interval History
-
Date of Service: June 11, 2024
feeling better, desires to go home
Objective Data
-
Vital Signs:
Vital Signs
Temp Pulse Resp BP Pulse Ox
98.8 F 86 18 128/67 96
06/11/24 07:20 06/11/24 07:53 06/11/24 07:53 06/11/24 07:20 06/11/24 07:53
I&O
06/10/24 06/11/24 06/12/24
06:59 06:59 06:59
Intake Total 1260 / 1260 1680 / 1680
Balance 1260 / 1260 1680 / 1680
Review of Systems
-
History Source: Patient
All other systems: Not reviewed unless documented
Data Reviewed
-
Total Time Spent with Patient (in minutes): 42
Diagnostic Radiology: Report Reviewed by me
Labs: Labs Reviewed by me
--- NOTE | 2024-06-11 11:42 | W.DS.TRANS ---
DC Summary - [employer] Executive [employer]
-
Discharge Instructions:
Discharge Diagnosis/Procedures Acute hypoxic respiratory failure due to
influenza A pneumonia in the setting of COPD
Acute COPD exacerbation
Acute HF with preserved EF
Diet Low Cholesterol,Low Fiber
Activity As tolerated
Blood Work cbc and bmp in 3-5 days with pcp
Specialty Instructions Weigh Daily
Instructions:
Stand-Alone Forms:
Changes to Home Medications: Yes
Discharge Medications:
DC Medications w/original date entered in [facility]
roflumilast 500 mcg tablet (Daliresp) 500 mcg PO DAILY COPD 05/09/17
escitalopram oxalate 20 mg tablet 20 mg PO DAILY depression/anxiety 04/15/18
atorvastatin 10 mg tablet 10 mg PO DAILY High cholesterol 08/27/19
rivaroxaban 20 mg tablet (Xarelto) 20 mg PO DAILY Blood clot prevention/tx 09/25/19
albuterol sulfate 90 mcg/actuation aerosol inhaler 2 puff inhalation R Q4HPRN PRN sob 09/25/23
aripiprazole 5 mg tablet 5 mg PO DAILY depression 09/25/23
fluticasone fur. 100 mcg-umeclid 62.5 mcg-vilant 25 mcg inhalat.powder (Trelegy Ellipta) 1 inh inhalation R DAILY COPD/asthma 09/25/23
folic acid 1 mg tablet 1 mg PO DAILY Supplement 09/25/23
clonazepam 1 mg tablet 1 mg PO QIDPRN PRN anxiety #0 tabs 12/22/23
nicotine 21 mg/24 hr daily transdermal patch 21 mg transdermal DAILYPRN PRN smoking cessation 05/26/24
guaifenesin 100 mg/5 mL oral liquid 200 mg (10 mL) PO Q4HPRN PRN cough #1,000 mL 06/10/24
budesonide 0.5 mg/2 mL suspension for nebulization 0.5 mg (2 mL) inhalation R BID #60 mL 06/11/24
ipratropium 0.5 mg-albuterol 3 mg (2.5 mg base)/3 mL nebulization soln 3 ml inhalation R QID #180 mL 06/11/24
prednisone 10 mg tablet 30 mg (3 x 10 mg) PO DAILY #30 tabs 06/11/24
Home Medication Changes
guaifenesin 100 mg/5 mL oral liquid 200 mg (10 mL) PO Q4HPRN PRN cough #1,000 mL 06/10/24
budesonide 0.5 mg/2 mL suspension for nebulization 0.5 mg (2 mL) inhalation R BID #60 mL 06/11/24
ipratropium 0.5 mg-albuterol 3 mg (2.5 mg base)/3 mL nebulization soln 3 ml inhalation R QID #180 mL 06/11/24
prednisone 10 mg tablet 30 mg (3 x 10 mg) PO DAILY #30 tabs 06/11/24
Pending Results: No
--- NOTE | 2024-06-11 13:37 | W.PN.PUL3 ---
Today's Communication / Plan
-
Prednisone taper
Resume inhalers
Supplemental oxygen
Outpatient pulmonary follow-up in about 2 to 3 weeks
Assessment
-
Assessment: 64-year-old female with a past medical history of severe COPD on Daliresp, history of VT, history of cardiac arrest, history of GENI no longer on CPAP after 168 pound weight loss, hyperlipidemia, migraine headaches and history of long QT
interval who presents with worsening shortness of breath. When EMS arrived her saturations were in the 62% on room air, and she was given a DuoNeb and placed onto 6 L/min and saturations león to 99%. She says she quit smoking 4 days ago. She was
recently hospitalized here from 05/26 - 05/29/2024 due to an acute COPD exacerbation and was discharged home with a prednisone taper. She is currently on 30 mg prednisone. She says that the night prior to arrival she had sudden worsening shortness of
breath with wheezing as well as chest heaviness. In the ER she was afebrile to 98.6 �F, pulse rate 103, respiratory rate 24, BP 120/73 and saturating 96% on 6 L/min. Labs showed WBC 11.5, Hb 17, troponin 0.313, proBNP 3530, and COVID-19 antigen
negative. She was found to be influenza A positive. CXR showed no evidence of pneumonia or CHF. In the ER she was given Decadron 10 mg, and DuoNebs and admitted to the IMU for further care with Pulmonary service consulted for additional
management/recommendations.
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
no longer on CPAP
Assessment and plan:
Continues to report difficulty expectorating, as well as exertional shortness of breath with walking to the bathroom. Overall improved but still persistent.
#Acute hypoxic respiratory failure due to influenza A pneumonia in the setting of COPD
-Completed 10 doses of Tamiflu, O2 as needed
-RV normal on ECHO, not suggestive of Pulmonary HTN
-Continue supplemental oxygen 2 L.
#Acute COPD exacerbation, baseline severe COPD, FEV1 was 43% in 2011, likely worse now
-Continue Duoneb qid and Pulmicort q12h, Resume trelegy at d/c.
-Transition to prednisone 06/10/2024. Slowly reduce by 10 mg every 4 days to baseline.
-Needs PFTs and 6 min walk test as out patient
-Completed 5 days of antibiotics
-Quit smoking only recently.
-
Continues to report difficulty expectorating and mild shortness of breath.
Continue Acapella device
Incentive spirometry
If remains in the hospital we will consider percussion/vest therapy.
I agree with discharge planning today. Outpatient pulmonary follow-up in the next 2 to 3 weeks.
Sign off
Other medical issues:
#Paroxysmal A-fib with history of ablation currently on Xarelto
#History of V-fib arrest likely due to prolonged QTc/bradycardia (2012) s/p dual-chamber ICD (DDD paced), ECHO unremarkable now
#History of anxiety/depression
#Hyperlipidemia
#History of alcohol use disorder
# History of COPD-chronic tobacco abuse-follows up in our office with Kimberlee MOONEY -last time seen November 2023. Multiple other office visits were canceled per ECW.
Data:
ECHO 05/2024:
Normal left ventricular size, wall thickness and systolic function. No regional wall motion abnormalities are seen. LV ejection fraction is 55-60%.
Normal RV size and function. Pacer wire seen in the right atrium and in the right ventricle. Normal LA and RA sizes. Mild tricuspid regurgitation
CT Chest 12/2023:
Centrilobular emphysema, mild
CXR 06/02/2024:
No evidence of pneumonia or congestive heart failure. No pneumothorax. No radiographically demonstrable pleural effusion. The cardiomediastinal margins are unremarkable. Left-sided dual-lead ICD unchanged.
Spirometry 2011:
Severe obstructive lung disease with positive BD response. FEV1 43%, FVC 60% with FEV1/FVC 56
Subjective Data
-
Date of Service:
Date of Service: June 11, 2024
Chief Complaint: Pulmonary Follow Up
Subjective:
Patient feels better, eager to go home.
Review of Systems
Cardiopulmonary: Dyspnea (Improved), Cough (Improved) and Wheezing (Improved)
Objective Data
Data Reviewed
Vital Signs / I&O / Oxygen:
Vital Signs
Temp Pulse Resp BP Pulse Ox
98.8 F 86 18 128/67 96
06/11/24 07:20 06/11/24 07:53 06/11/24 07:53 06/11/24 07:20 06/11/24 07:53
Intake and Output
06/10/24 06/11/24 06/12/24
06:59 06:59 06:59
Intake Total 1260 / 1260 1680 / 1680
Balance 1260 / 1260 1680 / 1680
SaO2 96
Nasal Cannula flow liters per 2
minute
Physical Exam
General: Comfortable
HEENT: Normocephalic
Cardiovascular: S1-S2 and Regular Rhythm
Respiratory: Wheeze (Minimal faint end expiratory wheezing)
GI: Soft and Non Distended
Neurology: Awake and Alert
Skin: Warm
Labs/Micro/Reports
Lab Data
06/10/24 06:04
06/10/24 06:04
[2024-06-11 15:14] VITALS: BP 134/78
[2024-06-11] MEDS: LIPITOR 10 MG PO (17:26)
== END 2024-06-11 18:45 | disposition home or self-care (01) | DRG 193 ==
LOC: 3 WEST ACU 11:53
PROVIDERS: Internal Medicine; Nurse Practitioner Family; ADMITTING PHYSICIAN Family Medicine; ATTENDING PHYSICIAN Internal Medicine; CONSULT PHYSICIAN Internal Medicine Cardiovascular Disease; CONSULT PHYSICIAN Internal Medicine Critical Care Medicine; EMERGENCY PHYSICIAN Emergency Medicine; FAMILY PHYSICIAN Family Medicine
DX: J10.1 Influenza due to other identified influenza virus with other respiratory manifestations (principal); I50.31 Acute diastolic (congestive) heart failure; J96.01 Acute respiratory failure with hypoxia; J44.0 Chronic obstructive pulmonary disease with (acute) lower respiratory infection; J45.901 Unspecified asthma with (acute) exacerbation; I5A Non-ischemic myocardial injury (non-traumatic); J44.1 Chronic obstructive pulmonary disease with (acute) exacerbation; F17.210 Nicotine dependence, cigarettes, uncomplicated; Z71.6 Tobacco abuse counseling; I48.0 Paroxysmal atrial fibrillation; Z79.01 Long term (current) use of anticoagulants; F32.A Depression, unspecified; F41.9 Anxiety disorder, unspecified; E78.00 Pure hypercholesterolemia, unspecified; I95.9 Hypotension, unspecified; Z79.899 Other long term (current) drug therapy; Z86.74 Personal history of sudden cardiac arrest; Z11.52 Encounter for screening for COVID-19
CPT/HCPCS: 36600; 71045; 80048; 80053; 82805; 83880; 84145; 84484; 85025; 85027; 87502; 87811; 93005; 93306; 94640; 96374; 97162; 99291; J7627

== ENCOUNTER 2024-08-14 16:03 | Inpatient (IN) | payer OTHER, SELFPAY ==
[2024-08-14] VITALS (9 sets, daily range): BP systolic 99–131; BP diastolic 50–76; BMI 27.9; BMI 26.8
--- NOTE | 2024-08-14 11:40 | ED.GENMED ---
History of Present Illness
General
Chief Complaint: Breathing Problem
Source: patient
Exam Limitations: none
Time Seen by Provider: 08/14/24 11:27
History of Present Illness
History of Present Illness:
64yoF with a history of COPD on 2L NC, CHF, atrial fibrillation, hyperlipidemia presenting for evaluation of shortness of breath. She reports that her COPD has been flaring for the past several months and that her symptoms started to worsen a few
weeks ago. She reports fatigue and states her house is in disarray because she does not have the energy to clean. She has been using her rescue inhaler every 3 hours. She was seen at her pulmonology office this morning and was sent to the ED for
evaluation. She currently takes prednisone 10mg every other day.
Past History
Past History
ED Past Medical History: Arrthythmia (History of A. fib, long QT syndrome), Asthma, COPD, Hypercholesterolemia, NIDDM (Questionable), MO, Psychiatric (Depression) and Other (History of migraines, insomnia, disconjugate gaze of the eyes the right
greater than the left, PNA.)
ED Past Surgical History: Cardiac (ICD 10/2012) and Other ([place] teeth extraction, and a D&C Procedure)
Social History
Tobacco: Smoker
Alcohol: Former
Drug: None
Personal: (Has a partner)
Living: with family (domestic partner)
Employment: Not employed
Family History
Family History: Other (Noncontributory)
Phy Exam
General Physical Exam
General Presentation: well appearing and no apparent distress
General Skin: warm and dry
General Habitus: normal
General Mental: alert
ENT Exam
ENT Exam: normocephalic
Cardiovascular Exam
Cardiovascular Exam: regular rate/rhythm
Pulmonary Exam
Pulmonary Exam: generalized wheezing and other (+Generalized wheezing with mild increased WOB)
Oxygen Status: oxygen 2 liters via NC
Neurological Exam
Neurological Exam: alert
[place] Coma Scale
Eye Opening: Spontaneous
Verbal Response: Oriented
Motor Response: Obeys Commands
GCS Total Score: 15
Skin Exam
Skin Exam: normal color and warm/dry
Psychiatric Exam
Psychiatric Exam: normal mood/affect
Scores
Heart Failure Risk
Heart Failure Risk Score: Not Applicable
Course
Orders/Labs/Results
Orders:
Orders
08/14/24 11:02
Electrocardiogram (*1) Urgent
Reason for Study: Shortness of Breath
EKG- Treatment ONCE
08/14/24 11:38
Albuterol Sulfate [Ventolin Nebules] 10 mg INH R NOW STA
Ipratropium Nebs [Atrovent Nebules] 1 mg INH R NOW STA
08/14/24 11:39
CR Chest - 2 Views Urgent
Comment:
Reason For Exam: SOB
08/14/24 11:44
COVID-19 Antigen Urgent
Source: Nasal Swab
Complete Blood Count/With Diff Urgent
Comprehensive Metabolic Panel Urgent
Troponin I Urgent
Venous Blood Gas Urgent
%Oxygen/Room Air: 2L NC
Influenza A+B Rapid Molecular Urgent
AUDREY Source: Nasal Swab
Specimen Description:
08/14/24 14:20
Dexamethasone Sod Phos Pf [Decadron] 10 mg IV ONCE ONE
08/14/24 14:28
Dexamethasone Pf [Decadron] 10 mg .ROUTE .STK-MED ONE
Abnormal Lab Results
08/14/24
11:44
MCH 32.0 H pg
(27.0-31.0)
MPV 10.5 H fL
(7.4-10.4)
VBG pCO2 61 H mmHg
(35-48)
VBG pO2 67 H mmHg
(30-50)
VBG HCO3 35.3 H mmol/L
(22-27)
Carbon Dioxide 33 H mmol/L
(22-30)
08/14/24 11:44
08/14/24 11:44
Vital Signs
Initial and Last Documented VS:
Initial Vital Signs
Temp Pulse Resp BP Pulse Ox
98.6 F 83 16 99/63 96
08/14/24 10:58 08/14/24 10:58 08/14/24 10:58 08/14/24 10:58 08/14/24 10:58
Last Documented Vital Signs
Temp Pulse Resp BP Pulse Ox
98.6 F 75 21 131/60 92
08/14/24 10:58 08/14/24 16:00 08/14/24 16:00 08/14/24 16:00 08/14/24 16:00
MDM/Problems Addressed
Differential Diagnosis Includes:
64yoF here with wheezing, cough, chest tightness. Ongoing x several weeks. Hx of COPD on 2L NC and chronic prednisone. Using rescue inhaler every 3 hours. Sent in by pulmonology office. There is diffuse wheezing present on lung exam. Oxygen
saturation 94% on her home oxygen. Differential diagnosis includes but is not limited to: COPD exacerbation, bronchitis, pneumonia
Initial ED plan: Check cardiac labs, VBG, COVID/flu swab, EKG, and CXR. Hour long neb and reassess.
*EKG
Interpreted by ED Provider?: Yes
EKG Intrepretation Date: 08/14/24
Heart Rate: 75
Rate: normal
Rhythm: other (atrial paced)
Floral: normal axis
Interval: normal interval
QRS Pattern: normal QRS
Ischemia: T-wave inversion (V2)
*Critical Care Note
Total Time (30-74mins, 75-104mins- exclusive of procedures): Not Applicable
Update Note
Update Note:
pCO2 is 61 on VBG. Bicarb elevated and pH is normal consistent with chronic compensated hypercarbia. Viral testing negative. Chest x-ray is clear without infiltrates. Patient without any symptomatic treatment after her hour-long neb. IV
Decadron ordered and patient admitted for further management.
ED Attending Note
-
Portions of this chart may have been created with voice recognition software.� Occasional wrong word or��sound alike� substitutions may have occurred due to the inherent limitations of voice recognition software.
Discharge Plan
Departure
Patient Disposition: Admit
Date of Disposition: 08/14/24
Time of Disposition: 15:56
Presentation/result/management discussed w/ accepting MD/DO: Hospitalist
Discharge Problem:
COPD with acute exacerbation
Interventions
Interventions:
*Risk Screen - Suicide Last Done: 08/14/24 10:58
*General Assessment Last Done: 08/14/24 10:58
*Neglect/Abuse Screening Last Done: 08/14/24 10:58
[2024-08-14] MEDS: ATROVENT NEBULES 1 MG INH (11:55)
[2024-08-14] MEDS: VENTOLIN NEBULES 10 MG INH (11:55)
[2024-08-14 12:02] LABS: Venous Blood Gas B.E. 7.7 mmol/L (-4 to +4); Venous Blood Gas HCO3 35.3 mmol/L (22-27); Venous Blood Gas O2 Sat % 95.3 %; Venous Blood Gas pCO2 61 mmHg (35-48); Venous Blood Gas pH 7.37 (7.32-7.43); Venous Blood Gas pO2 67 mmHg (30-50)
[2024-08-14 12:03] LABS: % Basophils 0.7 % (0-2); % Eosinophils 1.2 % (0-6); % Immature Granulocytes 0.3 % (0-0.5); % Lymphocytes 28.5 % (20.5-51.1); % Monocytes 7.3 % (1.7-9.3); Absolute Basophils 0.1 10^3/uL (0-0.2); Absolute Eosinophils 0.1 10^3/uL (0-0.7); Absolute Lymphocytes 2.1 10^3/uL (1.2-3.4); Absolute Monocytes 0.5 10^3/uL (0.1-0.6); Absolute Neutrophils 4.5 10^3/uL (1.4-6.5); Hematocrit 40.9 % (37.0-47.0); Hemoglobin 14.1 g/dL (12.0-16.0); Mean Corp Hgb Conc. 34.5 g/dL (33.0-37.0); Mean Platelet Volume 10.5 fL (7.4-10.4); Nucleated Red Blood Cells % 0 %; Platelet Count 181 10^3/uL (130-400); Red Cell Dist. Width 13.4 % (11.5-14.5); White Blood Cell Count 7.2 10^3/uL (4.8-10.8)
[2024-08-14 12:20] LABS: ALT (SGPT) 10 U/L (0-35); AST (SGOT) 16 U/L (14-36); Albumin 4.2 g/dl (3.5-5.0); Alkaline Phosphatase 63 U/L (38-126); Blood Urea Nitrogen 7 mg/dl (7-17); Calcium 9.7 mg/dl (8.4-10.2); Carbon Dioxide 33 mmol/L (22-30); Chloride 101 mmol/L (98-107); Estimated Creatinine Clearance 100 ml/min; Glucose 90 mg/dl (70-99); Potassium 4.3 mmol/L (3.5-5.1); Sodium 138 mmol/L (135-145); Total Bilirubin 1.2 mg/dl (0.2-1.3); Total Protein 6.6 g/dl (6.3-8.2); eGFR > 60.00
[2024-08-14 12:27] LABS: COVID-19 Antigen Negative (Negative); Troponin I < 0.012 ng/ml
--- NOTE | 2024-08-14 16:03 | DOWNTIME ---
There was a [employer] Client [employer]eg [employer]aiser Downtime on 08/14/2024 from 1230 to 08/14/2024 at 1550. Downtime documentation of patient's care, including medication administrations, has been reconciled in the electronic record per guidelines. Refer to the
patient's paper chart under the miscellaneous tab to see printed paper medication records and downtime forms.
[2024-08-14] MEDS: DECADRON 10 MG IV (16:07)
--- NOTE | 2024-08-14 16:22 | HPS.HSE ---
Family Physician
-
Family Physician: Vira Quintana
Chief Complaint
-
shortness of breath
History of Present Illness
Ms. Tiara Garza is a 64 yo woman with hx COPD on 2L, CHF, atrial fibrillation, torsades/VT arrest 2013 s/p [facility], who presents to the ER with wheezing and chest tightness x several weeks.
Patient states she has had increased sputum production and shortness of breath without significant relief from home inhalers.� She saw her PCP and was prescribed a steroid taper.� Shortness of breath continued, she followed up with Pulmonary and was
told to continue prednisone 10mg every other day.� She has not had improvement in symptoms and therefore Mica Machine Operator directed her to come to the ER today.� She has had progressive worsening.
No fevers.� Some slight groin pain, no dysuria.� No nausea/vomiting.� No LE swelling.� No chest pain.� She denies pleuritic chest pain.
Medical History
Past Medical History
Past Medical History: Reports Other (asthma/COPD paroxysmal atrial fibrillation on Xarelto, V-fib arrest secondary to prolonged QTc/bradycardia in 2013 status post ICD, asthma, alcohol use disorder previously, tobacco use)
Past Surgical History: Reports Other (Cardiac (ICD 10/2012) and Other ([place] teeth extraction, and a D&C Procedure))
Social History
Tobacco: Smoker
Alcohol: None
Drug: None
Family History
Family History: Not pertinent
Allergies / Home Medications
Allergies reflects when Allergies were last updated in [email or web address].
Home Medications with original date entered in [email or web address]
Allergy/Medication List:
Allergies
Allergy/AdvReac Type Severity Reaction Status Date / Time
azithromycin (From Zithromax) Allergy Severe PROLONGED Verified 08/14/24 10:58
QT SYNDROME
erythromycin lactobionate Allergy Severe Unknown Verified 08/14/24 10:58
(From Erythrocin)
hydrocodone (From Vicodin) Allergy Severe Itching Verified 08/14/24 10:58
quetiapine (From Seroquel) Allergy Severe Unknown Verified 08/14/24 10:58
trazodone Allergy Severe Unknown Verified 08/14/24 10:58
[id number] Antimigraine Allergy Severe Unknown Verified 08/14/24 10:58
Agents
quetiapine fumarate (From Allergy Intermediate 'jumping Verified 08/14/24 10:58
Seroquel) legs and
pins and
needles'
numbness
arms and
legs
levofloxacin (From Levaquin) Allergy Torsade Verified 08/14/24 10:58
Home Medications
roflumilast 500 mcg tablet (Daliresp) 500 mcg PO DAILY COPD 05/09/17
escitalopram oxalate 20 mg tablet 20 mg PO DAILY depression/anxiety 04/15/18
atorvastatin 10 mg tablet 10 mg PO DAILY High cholesterol 08/27/19
rivaroxaban 20 mg tablet (Xarelto) 20 mg PO DAILY Blood clot prevention/tx 09/25/19
albuterol sulfate 90 mcg/actuation aerosol inhaler 2 puff inhalation R Q4HPRN PRN sob 09/25/23
aripiprazole 5 mg tablet 5 mg PO DAILY depression 09/25/23
fluticasone fur. 100 mcg-umeclid 62.5 mcg-vilant 25 mcg inhalat.powder (Trelegy Ellipta) 1 inh inhalation R DAILY COPD/asthma 09/25/23
folic acid 1 mg tablet 1 mg PO DAILY Supplement 09/25/23
clonazepam 1 mg tablet 1 mg PO QIDPRN PRN anxiety #0 tabs 12/22/23
nicotine 21 mg/24 hr daily transdermal patch 21 mg transdermal DAILYPRN PRN smoking cessation 05/26/24
budesonide 0.5 mg/2 mL suspension for nebulization 0.5 mg (2 mL) inhalation R BID #60 mL 06/11/24
ipratropium 0.5 mg-albuterol 3 mg (2.5 mg base)/3 mL nebulization soln 3 ml inhalation R QID #180 mL 06/11/24
metoprolol succinate 50 mg tablet,extended release 24 hr (Toprol XL) 50 mg PO DAILY 08/14/24
prednisone 10 mg tablet 10 mg PO Q48H 08/14/24
Review of Systems
-
History Source: Patient
A 12 point ROS was completed and negative except as noted: Yes
Physical Exam
Vital Signs
Vital Signs
Temp Pulse Resp BP Pulse Ox
98.6 F 75 21 131/60 92
08/14/24 10:58 08/14/24 16:00 08/14/24 16:00 08/14/24 16:00 08/14/24 16:00
Physical Exam
General: No Apparent Distress and Conversant
HEENT: PERRLA
Respiratory: Wheezes (end expiratory wheezing)
Cardiac: S1/S2 and Regular Rhythm
GI: Soft, Non Tender and Non Distended
Musculoskeletal: Clubbing, No Clubbing and No Edema
Skin: Warm and Dry; No Rash
Neuro: AO x 3
Psych: Calm
Laboratory Results
-
08/14/24 11:44
08/14/24 11:44
Laboratory Results
Total Bilirubin 1.2 mg/dl (0.2-1.3) 08/14/24 11:44
AST 16 U/L (14-36) 08/14/24 11:44
ALT 10 U/L (0-35) 08/14/24 11:44
Alkaline Phosphatase 63 U/L (38-126) 08/14/24 11:44
Data Reviewed
-
Diagnostic Radiology: Report Reviewed by me
Lab Data: Labs Reviewed by me
Impression/Plan
-
Ms. Tiara Garza is a 64 yo woman with hx COPD on 2L, CHF, atrial fibrillation, torsades/VT arrest 2013 s/p [facility], who presents to the ER with wheezing and chest tightness x several weeks.
CXR
IMPRESSION:
No acute cardiopulmonary process.
Acute COPD
-flu and covid negative
-patient reports quitting tobacco use 5 days ago; gradual progression of symptoms
-s/p 1 hour neb and 10mg IV Decadron x 1 in ER
-admit to med/surg; failure to improve with outpatient therapy
-O2 support as needed
-standing duonebs q 4 hours and PRN
-IV Decadron 4mg q 8 hours
-Doxycycline 100mg PO BID
-will follow up procal tomorrow AM
-Mucinex BID; acapella
-continue home inhalers
-Pulmonary consult given chronicity of symptoms
Hx Tobacco Use
-continue SUPERVISOR LIME Nicotine patch
Atrial Fibrillation
-SUPERVISOR LIME Metoprolol
-SUPERVISOR LIME Xarelto
Anxiety
-SUPERVISOR LIME Clonazpam
-SUPERVISOR LIME Aripiprazole, Lexapro
HLD � SUPERVISOR LIME statin
DVT PPx � home Xarelto
FULL CODE
[2024-08-14] MEDS: VIBRAMYCIN 100 MG PO (17:49)
[2024-08-14] MEDS: MUCINEX 600 MG PO (19:07)
[2024-08-14] MEDS: DUONEB 3 ML INH (19:26)
[2024-08-14] MEDS: SYMBICORT 80/4.5 MCG INHALER 2 PUFF INH (19:27)
[2024-08-14] MEDS: PULMICORT 0.5 MG INH (19:27)
[2024-08-15] MEDS: DECADRON 4 MG IV ×3 (05:02→21:47)
[2024-08-15 05:53] VITALS: BMI 26.6
[2024-08-15 07:07] LABS: Hematocrit 43.3 % (37.0-47.0); Hemoglobin 14.8 g/dL (12.0-16.0); Mean Corp Hgb Conc. 34.2 g/dL (33.0-37.0); Mean Corpuscular Hgb 32.2 pg (27.0-31.0); Mean Corpuscular Volume 94.1 fL (81.0-99.0); Mean Platelet Volume 10.8 fL (7.4-10.4); Platelet Count 207 10^3/uL (130-400); Red Cell Dist. Width 13.2 % (11.5-14.5); White Blood Cell Count 4.7 10^3/uL (4.8-10.8)
[2024-08-15 07:12] VITALS: BP 104/54
[2024-08-15] MEDS: PULMICORT 0.5 MG INH ×2 (07:20→19:18)
[2024-08-15] MEDS: DUONEB 3 ML INH ×4 (07:20→19:18)
[2024-08-15 07:22] LABS: Blood Urea Nitrogen 15 mg/dl (7-17); Carbon Dioxide 35 mmol/L (22-30); Chloride 99 mmol/L (98-107); Estimated Creatinine Clearance 89 ml/min; Glucose 124 mg/dl (70-99); Magnesium 1.8 mg/dl (1.6-2.3); Potassium 4.7 mmol/L (3.5-5.1); Sodium 140 mmol/L (135-145); eGFR > 60.00
[2024-08-15] MEDS: SYMBICORT 80/4.5 MCG INHALER 2 PUFF INH (07:25)
[2024-08-15 07:29] LABS: Procalcitonin < 0.05 ng/ml (0.0-0.25)
--- NOTE | 2024-08-15 08:25 | VNURNOTE ---
Chart reviewed. Patient is current with [facility] nursing, PT, OT, RADIO REPAIR TEACHER. Will continue to follow hospital course and DC plans.
--- NOTE | 2024-08-15 09:23 | W.PN.HOSP.TC ---
Today's Communication/Plan
-
IV steroid
Nebulizer
f/w pulmonary recommendations
Assessment / Plan
Assessment / Plan
Physical Exam
General: not toxic appearing, reports sob
HEENT: Normocephalic, Anicteric, Moist mucous membranes and Atraumatic
Respiratory: Limited with wheezes heard
Cardiac: S1/S2 and Regular Rhythm
GI: Soft, Non Tender, Non Distended and Normal Bowel Sounds
Musculoskeletal: , No Cyanosis and No Edema
Skin: Warm and Dry
Neuro: Awake, Alert and Oriented
Psych: Calm
A/P
# Acute hypoxic respiratory failure due to severe COPD with continued tobacco use. Quit 5 days ago before admission.
She had Sob with respiratory distress, using accessory muscles, hypoxia needing 6 liters of O2
She is feeling sob, wheezes this morning
c/w Nasal O2, aim for low SaO2 at 90-94%
c/w IV Steroid
Appreciate pulmonary help
# Continued tobacco use
Patient reports inability to quit smoking. She was on Wellbutrin in the past. Discussed with the patient to try multiple intervention at same time including restarting Wellbutrin, nicotine patch. Will keep discussion
#Chronic HF with preserved EF
CXR: No acute cardiopulmonary process
#Paroxysmal A-fib with history of ablation currently on Xarelto
c/w Xarelto & Toprol.
#History of V-fib arrest likely due to prolonged QTc/bradycardia (2012) s/p dual-chamber ICD (DDD paced)
#History of anxiety/depression
Mood is pleasant
#Hyperlipidemia
#History of alcohol use disorder
No DT noted
Lucid and pleasant
# GI prophylaxis
Added PPI
Total time spent to see the patient, examine the patient, review data and lab results, discuss treatment plan with patient, nursing staff around 55 minutes
Anticipated Discharge: > 48 hours
Subjective/Interval History
-
Date of Service: August 15, 2024
feels sob
No cough
Objective Data
-
Labs:
Laboratory Results
08/15/24
06:04
WBC 4.7 L
Hgb 14.8
Hct 43.3
Plt Count 207
Sodium 140
Potassium 4.7
Chloride 99
Carbon Dioxide 35 H
BUN 15
Creatinine 0.6
Glucose 124 H
Calcium 10.0
Vital Signs:
Vital Signs
Temp Pulse Resp BP Pulse Ox
98.1 F 75 18 104/54 96
08/15/24 07:12 08/15/24 07:23 08/15/24 07:23 08/15/24 07:12 08/15/24 07:23
I&O
08/14/24 08/15/24 08/16/24
06:59 06:59 06:59
Intake Total 240 / 240
Balance 240 / 240
--- NOTE | 2024-08-15 09:33 | CON.PUL ---
Addendum entered and electronically signed by Katerine Lau MD 08/20/24 06:10:
Diagnosis should include Chronic respiratory failure
Original Note:
Consultation
Consultation Request
Date/Time Consultation Requested: 08/15
Date/Time Consultation Performed: 08/15
Reason for Consultation: COPD
Medical History
-
History of Present Illness:
History obtained from the patient and also from hospital records, outpatient records. Patient is a 64-year-old female with known COPD on 2 L of oxygen, with recent increase of chest congestion, cough, wheeze, shortness of breath. Patient was
started on steroids as an outpatient. Given the lack of improvement with steroid therapy, patient was instructed to come to the ED where upon arrival, afebrile, pulse 83, breathing at 16, blood pressure 99/63, 96%. Patient was found to have
diffuse wheezing. She was given steroids, nebulized therapy, admitted for COPD exacerbation. Blood work suggested chronic CO2 retention. Chest x-ray was unremarkable, influenza testing negative. We are asked to help from a pulmonary standpoint
Presently she is feeling some improvement. Unfortunate she continues to smoke. She states she quit 5 days ago
.
PMH: History of COPD, obstructive sleep apnea not using CPAP after 80 pound weight loss, lupus with hypercoagulable state, history of ventricular tachycardia, prolonged QT, status post ICD, hypertension, hyperlipidemia, hip replacement, history of
fractured right shoulder and humerus 2020, history of D&C 2015
Past Medical History
Past Medical History: None (See above)
Past Surgical History: None (See above)
Social History
Tobacco: Smoker (30+ pack years to smoking, continues to smoke half a pack a day)
Alcohol: Former (History of alcohol abuse in the past)
Drug: None
Personal: ( 2022)
Living: Alone
Employment: Retired
Family History
Family History: Other (Father from heart attack. 2 sisters healthy. Father from pulmonary disease. Son with epilepsy, lupus)
Allergies / Home Medications
Allergies
Allergy/AdvReac Type Severity Reaction Status Date / Time
azithromycin (From Zithromax) Allergy PROLONGED Verified 08/14/24 18:23
QT SYNDROME
erythromycin lactobionate Allergy Unknown Verified 08/14/24 18:23
(From Erythrocin)
hydrocodone (From Vicodin) Allergy Itching Verified 08/14/24 18:23
levofloxacin (From Levaquin) Allergy Torsade Verified 08/14/24 10:58
quetiapine (From Seroquel) Allergy Unknown Verified 08/14/24 18:23
quetiapine fumarate (From Allergy 'jumping Verified 08/14/24 18:23
Seroquel) legs and
pins and
needles'
numbness
arms and
legs
trazodone Allergy Unknown Verified 08/14/24 18:23
[id number] Antimigraine Allergy Unknown Verified 08/14/24 18:23
Agents
Home Medications
�Medication �Instructions �Recorded �Confirmed �Last Taken �Type
roflumilast 500 mcg tablet 500 mcg PO DAILY COPD 05/09/17 08/14/24 08/13/24 History
(Daliresp)
escitalopram oxalate 20 mg tablet 20 mg PO DAILY depression/anxiety 04/15/18 08/14/24 08/13/24 History
atorvastatin 10 mg tablet 10 mg PO DAILY High cholesterol 08/27/19 08/14/24 08/13/24 History
rivaroxaban 20 mg tablet (Xarelto) 20 mg PO DAILY Blood clot 09/25/19 08/14/24 08/13/24 History
prevention/tx
albuterol sulfate 90 mcg/actuation 2 puff inhalation R Q4HPRN PRN sob 09/25/23 08/14/24 08/14/24 History
aerosol inhaler
aripiprazole 5 mg tablet 5 mg PO DAILY depression 09/25/23 08/14/24 08/13/24 History
fluticasone fur. 100 mcg-umeclid 1 inh inhalation R DAILY 09/25/23 08/14/24 08/14/24 History
62.5 mcg-vilant 25 mcg COPD/asthma
inhalat.powder (Trelegy Ellipta)
folic acid 1 mg tablet 1 mg PO DAILY Supplement 09/25/23 08/14/24 08/13/24 History
clonazepam 1 mg tablet 1 mg PO QIDPRN PRN anxiety #0 tabs 12/22/23 08/14/24 08/14/24 Rx
nicotine 21 mg/24 hr daily 21 mg transdermal DAILYPRN PRN 05/26/24 08/14/24 08/13/24 History
transdermal patch smoking cessation
budesonide 0.5 mg/2 mL suspension 0.5 mg (2 mL) inhalation R BID #60 06/11/24 08/14/24 Unknown Rx
for nebulization mL
metoprolol succinate 50 mg 50 mg PO DAILY Blood Pressure 08/14/24 08/14/24 08/13/24 History
tablet,extended release 24 hr
(Toprol XL)
prednisone 10 mg tablet 10 mg PO Q48H Anti-Inflammatory 08/14/24 08/14/24 08/13/24 History
ipratropium 0.5 mg-albuterol 3 mg 3 ml inhalation R QID 08/15/24 08/14/24 Unknown History
(2.5 mg base)/3 mL nebulization Lung/Breathing Issues
soln
Review of Systems
-
All other systems: Negative unless noted
Vitals / Labs / Diagnostic Testing
Vital Signs
Temp Pulse Resp BP Pulse Ox
98.1 F 75 18 104/54 96
08/15/24 07:12 08/15/24 07:23 08/15/24 07:23 08/15/24 07:12 08/15/24 07:23
Lab Data
08/15/24 06:04
08/15/24 06:04
Microbiology
08/14/24 11:44 Nasal Swab Influenza Types A & B (MARKUS) - Final
Negative for Influenza A & B, NAAT
Negative results must be combined with clinical observations
and patient history.
Nucleic Acid Amplification test (NAAT)performed on the
[employer] platform.
Diagnostic Testing:
Physical Exam
-
HEENT: Normocephalic, Anicteric and Other (Large neck)
Cardiovascular: S1/S2, Regular Rhythm, Murmur (n), Rub (n), Peripheral Edema (n) and Calf Tenderness (n)
Respiratory: Wheeze (Scattered expiratory), Rales (n), Rhonchi (n) and Non-Labored Respirations
GI: Soft, Non Distended and Non Tender
Neurology: Awake, Alert, Oriented and No Motor Deficits (Able to sit up without assistance)
Skin: Good Color
General: Comfortable
Assessment
-
64-year-old female with history of COPD, recurrent flareups, severe obstructive lung disease with FEV1 30%, DLCO 36%, ongoing tobacco use presents with acute COPD exacerbation
Acute COPD exacerbation
Failed outpatient therapy with steroids
History of recurrent COPD exacerbation
Multiple courses of steroids, antibiotics
Severe obstructive lung disease, FEV1 1.08/41%, DLCO 36%
Chronic hypoxia, on home oxygen
Conditions present prior to admission
History of paroxysmal atrial fibrillation
Hypertension/hyperlipidemia
Ventricular tachycardia/prolonged QT
ICD/pacemaker
History of cardiac arrest
Hypertension/hyperlipidemia
Dilated ascending aorta 4.4 cm
Mild patchy bronchiectasis, bronchiolitis per CT imaging
History of sleep apnea, discontinued CPAP after 80 pound weight loss
Total index 35, desaturation bipin 80% in 2013
30+ pack-year history of smoking ongoing
History of alcohol abuse
Plan/recommendations
At this time, it is concerning the patient continues to smoke given multiple recurrent COPD exacerbations. Reviewed outpatient records. Severe obstructive lung disease, FEV1 baseline 41%, DLCO 36%
Patient is also missed many appointments in 2023, does not follow-up consistently
Moving forward
Is encouraging that she quit smoking 5 days prior to admission
For now will continue with steroids, nebulized therapy
Reviewed CT images from 2023. No significant bullous disease
Continue IV Decadron, DuoNebs, budesonide, doxycycline, Daliresp. Will hold Symbicort and Spiriva
Patient on Xarelto as outpatient. History of atrial fibrillation noted
Outpatient records also suggest hypercoagulable state from lupus, details unclear
GERD prophylaxis: Pantoprazole
DVT prophylaxis: On Xarelto
Will follow
[2024-08-15] MEDS: NICODERM TRANSDERMAL 21 MG TRANSDERM (10:17)
[2024-08-15] MEDS: KLONOPIN 1 MG PO ×2 (10:20→21:52)
[2024-08-15] MEDS: ABILIFY 5 MG PO (10:27)
[2024-08-15] MEDS: VIBRAMYCIN 100 MG PO ×2 (10:27→20:25)
[2024-08-15] MEDS: DALIRESP 500 MCG PO (10:27)
[2024-08-15] MEDS: LIPITOR 10 MG PO (10:27)
[2024-08-15] MEDS: XARELTO 20 MG PO (10:27)
[2024-08-15] MEDS: LEXAPRO 20 MG PO (10:27)
[2024-08-15] MEDS: MUCINEX 600 MG PO ×2 (10:27→20:25)
[2024-08-15] MEDS: FOLVITE 1 MG PO (10:27)
[2024-08-15] MEDS: TOPROL XL 50 MG PO (10:27)
[2024-08-15] MEDS: TYLENOL 650 MG PO ×2 (13:31→20:35)
--- NOTE | 2024-08-15 13:52 | VNURNOTE ---
Chart reviewed. Resumption referral placed in [facility]. will continue to monitor hospital course.
[2024-08-15 15:06] VITALS: PULSE 77; O2SAT 94
[2024-08-15 15:28] VITALS: BP 122/63
--- NOTE | 2024-08-15 16:40 | CM ---
Alert awake oriented patient who lives alone in a 1 story home with 1 steps to enter. She is independent in activates of daily living.She does drive .She use oxygen at home [employer].Pt requested resumption [facility] Liaison Dorcas notified of referral.
Has [facility] in past . No SNF hx
Pharmacy [facility]
PCP Dr Quintana
PLAN Home with [facility]
[2024-08-15 23:43] VITALS: BP 123/60
[2024-08-16] MEDS: DECADRON 4 MG IV ×3 (05:13→21:09)
[2024-08-16 06:00] VITALS: BMI 26.7
[2024-08-16] MEDS: PULMICORT 0.5 MG INH ×2 (06:59→19:39)
[2024-08-16] MEDS: DUONEB 3 ML INH ×4 (06:59→19:39)
[2024-08-16 07:25] VITALS: BP 116/57
[2024-08-16] MEDS: DALIRESP 500 MCG PO (08:35)
[2024-08-16] MEDS: PROTONIX 40 MG PO (08:35)
[2024-08-16] MEDS: MUCINEX 600 MG PO ×2 (08:35→21:09)
[2024-08-16] MEDS: ABILIFY 5 MG PO (08:35)
[2024-08-16] MEDS: FOLVITE PO ×2 (08:35→08:51)
[2024-08-16] MEDS: TOPROL XL 50 MG PO (08:36)
[2024-08-16] MEDS: LEXAPRO 20 MG PO (08:36)
[2024-08-16] MEDS: VIBRAMYCIN 100 MG PO ×2 (08:36→21:09)
[2024-08-16] MEDS: LIPITOR 10 MG PO (08:36)
[2024-08-16] MEDS: XARELTO 20 MG PO (08:36)
[2024-08-16] MEDS: NICODERM TRANSDERMAL 21 MG TRANSDERM (08:36)
[2024-08-16] MEDS: FLUSH (NSS) 1 FLUSH IV (08:41)
[2024-08-16] MEDS: TYLENOL 650 MG PO (08:55)
--- NOTE | 2024-08-16 09:09 | W.PN.HOSP.TC ---
Today's Communication/Plan
-
c/w IV steroid
Nebulizer
will d/w psych about Wellbutrin addition
Assessment / Plan
Assessment / Plan
Physical Exam
General: not toxic appearing, reports sob
HEENT: Normocephalic, Anicteric, Moist mucous membranes and Atraumatic
Respiratory: Limited with less wheezes heard
Cardiac: S1/S2 and Regular Rhythm
GI: Soft, Non Tender, Non Distended and Normal Bowel Sounds
Musculoskeletal: , No Cyanosis and No Edema
Skin: Warm and Dry
Neuro: Awake, Alert and Oriented
Psych: Calm
A/P
# Acute hypoxic respiratory failure due to severe COPD with continued tobacco use. Quit 5 days ago before admission.
She had Sob with respiratory distress, using accessory muscles, hypoxia needing 6 liters of O2
She is feeling better today, less sob,
c/w Nasal O2, aim for low SaO2 at 90-94%
c/w IV Steroid, Doxy, Pulmicort, DuoNeb and, Daliresp
Protonix for GI prophylaxis while on steroid
Appreciate pulmonary help
# Continued tobacco use
Patient reports inability to quit smoking. She was on Wellbutrin in the past. Discussed with the patient to try multiple intervention at same time including restarting Wellbutrin, nicotine patch. She wants to start back on Wellbutrin.
#Chronic HF with preserved EF
CXR: No acute cardiopulmonary process
#Paroxysmal A-fib with history of ablation currently on Xarelto
c/w Xarelto & Toprol.
#History of V-fib arrest likely due to prolonged QTc/bradycardia (2012) s/p dual-chamber ICD (DDD paced)
#History of anxiety/depression
Mood is pleasant
#Hyperlipidemia
#History of alcohol use disorder
No DT noted
Lucid and pleasant
# GI prophylaxis
Added PPI
Total time spent to see the patient, examine the patient, review data and lab results, discuss treatment plan with patient, nursing staff around 55 minutes
Anticipated Discharge: > 48 hours
Subjective/Interval History
-
Date of Service: August 16, 2024
feels slightly better, less sob
Objective Data
-
Vital Signs:
Vital Signs
Temp Pulse Resp BP Pulse Ox
97.9 F 78 18 116/57 94
08/16/24 07:25 08/16/24 07:25 08/16/24 07:25 08/16/24 07:25 08/16/24 07:25
I&O
08/15/24 08/16/24 08/17/24
06:59 06:59 06:59
Intake Total 240 / 240 900 / 900
Balance 240 / 240 900 / 900
--- NOTE | 2024-08-16 10:20 | CM ---
Pt currently on IV Decadron steroids.
Pt has home oxygen .Oxygen 2 liters Pox 94%.
Antibiotics are po.
Pt has Nebulizer treatment
Pt has supportive sister Joanne.
Requested resumption of [facility] .
PLAN Home with [facility] .
--- NOTE | 2024-08-16 10:46 | W.PN.PUL3 ---
Today's Communication / Plan
-
No change in steroids
Continue with nebulized therapy, DuoNebs/budesonide
GI prophylactics and DVT prophylaxis continues. Patient on Xarelto
Once discharged in the next 24 to 48 hours, she will require slow taper given recurrent flareups
Assessment
-
64-year-old female with history of COPD, recurrent flareups, severe obstructive lung disease with FEV1 30%, DLCO 36%, ongoing tobacco use presents with acute COPD exacerbation
Acute COPD exacerbation
Failed outpatient therapy with steroids
History of recurrent COPD exacerbation
Multiple courses of steroids, antibiotics
Severe obstructive lung disease, FEV1 1.08/41%, DLCO 36%
Chronic hypoxia, on home oxygen
Conditions present prior to admission
History of paroxysmal atrial fibrillation
Hypertension/hyperlipidemia
Ventricular tachycardia/prolonged QT
ICD/pacemaker
History of cardiac arrest
Hypertension/hyperlipidemia
Dilated ascending aorta 4.4 cm
Mild patchy bronchiectasis, bronchiolitis per CT imaging
History of sleep apnea, discontinued CPAP after 80 pound weight loss
Total index 35, desaturation bipin 80% in 2013
30+ pack-year history of smoking ongoing
History of alcohol abuse
Plan/recommendations
At this time, it is concerning the patient continues to smoke given multiple recurrent COPD exacerbations.
Reviewed outpatient records. Severe obstructive lung disease, FEV1 baseline 41%, DLCO 36%
Patient is also missed many appointments in 2023, does not follow-up consistently
Subjectively improved
Moving forward
Is encouraging that she quit smoking 5 days prior to admission
For now will continue with steroids, nebulized therapy. No change
Reviewed CT images from 2023. No significant bullous disease
Continue IV Decadron, DuoNebs, budesonide, doxycycline, Daliresp. Will hold Symbicort and Spiriva
Patient on Xarelto as outpatient. History of atrial fibrillation noted
Outpatient records also suggest hypercoagulable state from lupus, details unclear
Okay with trying low-dose Wellbutrin to help with tobacco cessation
Patient also on Abilify, Lexapro
She denies any cravings at this time
This will be an ongoing discussion
GERD prophylaxis: Pantoprazole
DVT prophylaxis: On Xarelto
Patient will require slow taper at time of discharge, possible disposition in the next 24 to 48 hours
She will also require close follow-up within 1 to 2 weeks given frequent exacerbations
Reviewed with patient at length. Will follow
Subjective Data
-
Date of Service:
Date of Service: August 16, 2024
Subjective:
Patient is feeling improved. Less cough, less short of breath, less chest congestion. Ambulating to the bathroom with less issues. Denies tobacco cravings
Objective Data
Data Reviewed
Vital Signs / I&O / Oxygen:
Vital Signs
Temp Pulse Resp BP Pulse Ox
97.9 F 78 18 116/57 94
08/16/24 07:25 08/16/24 07:25 08/16/24 07:25 08/16/24 07:25 08/16/24 07:25
Intake and Output
08/15/24 08/16/24 08/17/24
06:59 06:59 06:59
Intake Total 240 / 240 900 / 900
Balance 240 / 240 900 / 900
SaO2 94
Nasal Cannula flow liters per 2
minute
Physical Exam
General: Comfortable
HEENT: Normocephalic, Anicteric and Other (Large neck)
Cardiovascular: S1-S2, Regular Rhythm, Murmur (n) and Rub (n)
Respiratory: Wheeze (Mild), Crackles (n), Rhonchi (n), Non-Labored Respirations and Other (Decreased)
GI: Soft, Non Distended and Non Tender
Neurology: Awake, Alert and No Motor Deficits (Able to sit up without assistance)
Skin: Good Color, Cyanosis (n), Jaundice (n) and Rash (n)
Labs/Micro/Reports
Lab Data
08/15/24 06:04
08/15/24 06:04
Microbiology
08/14/24 11:44 Nasal Swab Influenza Types A & B (MARKUS) - Final
Negative for Influenza A & B, NAAT
Negative results must be combined with clinical observations
and patient history.
Nucleic Acid Amplification test (NAAT)performed on the
[employer] platform.
--- NOTE | 2024-08-16 13:49 | PN.CDI ---
CDI
- -
CDI:
Physician Documentation Request
Admit Date: 08/14/24 16:03
Dear Doctor Sid,
Please review the following and provide your response in the progress notes.
Clinical Indicators:
Pt. admitted with acute COPD exacerbation.
08/15 Progress Note: 'Patient is a 64-year-old female with known COPD on 2 L of oxygen,...Chronic hypoxia, on home oxygen.'
Clarify which of the following accurately represents the patient's respiratory status:
Chronic respiratory failure
Chronic Hypoxia only
Other
Use of terms such as suspected, likely, concern for, or probable (associated with a specific diagnosis that is being evaluated, monitored, or treated as if it exists) are acceptable and can be coded in the inpatient setting, when documented at the
time of discharge.
Thank you,
Neva Stone RN, BSN
CDI Specialist
[place] [facility]
Please use your independent medical judgment in providing your response.
[2024-08-16] MEDS: FLUSH (NSS) 2 FLUSH IV (14:00)
[2024-08-16] MEDS: KLONOPIN 1 MG PO (14:04)
[2024-08-16 15:15] VITALS: BP 126/69
[2024-08-16 23:32] VITALS: BP 122/63
[2024-08-17 06:00] VITALS: BMI 26.7
[2024-08-17] MEDS: DECADRON 4 MG IV ×3 (06:24→20:36)
[2024-08-17] MEDS: PULMICORT 0.5 MG INH ×2 (07:21→18:10)
[2024-08-17] MEDS: DUONEB 3 ML INH ×4 (07:21→18:08)
[2024-08-17 07:25] VITALS: BP 119/66
--- NOTE | 2024-08-17 08:54 | W.PN.HOSP.TC ---
Addendum entered and electronically signed by Gwendolyn Orellana MD 08/17/24 09:24:
Addendum
Acute on chronic hypoxic respiratory failure, uses home oxygen
Original Note:
Today's Communication/Plan
-
Home O2 evaluation
likely dc today or tomorrow depneding on her pulmonary status, will need to start ambulation. Will do IV steroid today, change to prednisone Monday
Assessment / Plan
Assessment / Plan
Physical Exam
General: not toxic appearing, reports sob
HEENT: Normocephalic, Anicteric, Moist mucous membranes and Atraumatic
Respiratory: Limited with less wheezes heard
Cardiac: S1/S2 and Regular Rhythm
GI: Soft, Non Tender, Non Distended and Normal Bowel Sounds
Musculoskeletal: , No Cyanosis and No Edema
Skin: Warm and Dry
Neuro: Awake, Alert and Oriented
Psych: Calm
A/P
# Acute hypoxic respiratory failure due to severe COPD with continued tobacco use. Quit 5 days ago before admission.
She had Sob with respiratory distress, using accessory muscles, hypoxia needing 6 liters of O2
She is feeling better today, less sob,
c/w Nasal O2, aim for low SaO2 at 90-94%
c/w IV Steroid, Doxy, Pulmicort, DuoNeb and, Daliresp
Protonix for GI prophylaxis while on steroid
Appreciate pulmonary help
# Continued tobacco use
Patient reports inability to quit smoking. She was on Wellbutrin in the past. Discussed with the patient to try multiple intervention at same time including restarting Wellbutrin, nicotine patch. She wants to start back on Wellbutrin.
I d/w psychiatrist riveting machine operator tape control, recommendation to avoid combination of 2 antidepression medications, in this case Lexapro and Wellbutrin, to avoid relapse of bipolar, recommend to either stop Lexapro or can start Wellbutrin combination but will need
close follow-up. I discussed with patient, she stopped seeing her psychiatrist due to insurance issue. She is planning to acquire a new psychiatrist. I recommended to discuss this issue with psychiatrist. Currently her primary care doctor is
refilling her psych medications.
#Chronic HF with preserved EF
CXR: No acute cardiopulmonary process
#Paroxysmal A-fib with history of ablation currently on Xarelto
c/w Xarelto & Toprol.
#History of V-fib arrest likely due to prolonged QTc/bradycardia (2012) s/p dual-chamber ICD (DDD paced)
#History of anxiety/depression
Mood is pleasant
#Hyperlipidemia
#History of alcohol use disorder
No DT noted
Lucid and pleasant
# GI prophylaxis
Added PPI
Total time spent to see the patient, examine the patient, review data and lab results, discuss treatment plan with patient, nursing staff around 55 minutes
Anticipated Discharge: Within 24 hours
Subjective/Interval History
-
Date of Service: August 17, 2024
She feels better, wants to go home
Objective Data
-
Vital Signs:
Vital Signs
Temp Pulse Resp BP Pulse Ox
97.7 F 76 18 119/66 96
08/17/24 07:25 08/17/24 07:25 08/17/24 07:25 08/17/24 07:25 08/17/24 07:25
I&O
08/16/24 08/17/24 08/18/24
06:59 06:59 06:59
Intake Total 900 / 900 840 / 840
Balance 900 / 900 840 / 840
[2024-08-17] MEDS: NICODERM TRANSDERMAL 21 MG TRANSDERM (09:05)
[2024-08-17] MEDS: MUCINEX 600 MG PO ×2 (09:06→20:36)
[2024-08-17] MEDS: DALIRESP 500 MCG PO (09:06)
[2024-08-17] MEDS: ABILIFY 5 MG PO (09:06)
[2024-08-17] MEDS: LEXAPRO 20 MG PO (09:06)
[2024-08-17] MEDS: LIPITOR 10 MG PO (09:07)
[2024-08-17] MEDS: XARELTO 20 MG PO (09:07)
[2024-08-17] MEDS: TOPROL XL 50 MG PO (09:07)
[2024-08-17] MEDS: VIBRAMYCIN 100 MG PO ×2 (09:07→20:36)
[2024-08-17] MEDS: PROTONIX 40 MG PO (09:08)
[2024-08-17] MEDS: FOLVITE PO (09:09)
[2024-08-17] MEDS: TYLENOL 650 MG PO ×2 (09:13→18:38)
[2024-08-17 09:34] VITALS: BP 133/67; PULSE 69; O2SAT 100
--- NOTE | 2024-08-17 12:15 | RESPNOTE ---
Respiratory: patient states she already has home oxygen and a mid-size type of portable oxygen tanks. Perhaps size 'C' or 'D' tanks. Discussed in length with patient regarding different types of portable style oxygen devices. Currently, this should
be between patient and her [facility].
[2024-08-17] MEDS: FLUSH (NSS) 2 FLUSH IV (13:40)
[2024-08-17] MEDS: KLONOPIN 1 MG PO (14:03)
--- NOTE | 2024-08-17 15:16 | CM ---
Received notification from attending that patient needs portable o2. Met with patient who stated that she has an at home concentrator and 6 tanks. She would like a portable unit so that she can be more mobile and she also doesn't have o2 to return
home with. Placed a call to [facility] [employer] [phone] and spoke with Yasmine who stated that they can provide a portable unit and just need a script faxed to them at [phone]. She was unsure of whether new resp eval will be needed as she has
already qualified for o2 however will fax just in case.
Plan: Case management will continue to follow and assist with discharge planning. Home with o2 (portable) when medically stable for discharge.
[2024-08-17 15:36] VITALS: BP 122/65
--- NOTE | 2024-08-17 16:17 | W.PN.PUL3 ---
Today's Communication / Plan
-
Patient is stable for discharge home today with close outpatient pulmonary office follow-up given history of recurrent COPD exacerbations in the setting of active tobacco smoking use
Transition to slow prednisone taper as follows: start at 50mg, reducing by 10 mg every fifth day and then when completed resume her home dose of 10 mg every other day
Tobacco cessation is crucial -would recommend nicotine replacement therapy with nicotine patches + gum or lozenges in addition to Wellbutrin therapy; could also try hypnosis versus acupuncture; 7-327-CYEB-NOW is another resource available
While hospitalized, continue with nebulized therapy, DuoNebs/budesonide
Upon discharge, resume Trelegy + prn albuterol (nebulized or MDI)
GI prophylactics and DVT prophylaxis continues. Patient on Xarelto
No additional recommendations at this time. Pulmonary service will now sign off. Please re-consult if there are any additional questions/concerns, or if patient's respiratory status deteriorates. Outpatient pulmonary office follow-up will be
arranged within next [address] Lau in November 2024. The patient was advised to call our office if she has any questions or concerns.
Assessment
-
64-year-old female with history of COPD, recurrent flareups, severe obstructive lung disease with FEV1 30%, DLCO 36%, ongoing tobacco use presents with acute COPD exacerbation
Acute COPD exacerbation
Failed outpatient therapy with steroids
History of recurrent COPD exacerbation
Multiple courses of steroids, antibiotics
Severe obstructive lung disease, FEV1 1.08/41%, DLCO 36%
Chronic hypoxia, on home oxygen
Conditions present prior to admission
History of paroxysmal atrial fibrillation
Hypertension/hyperlipidemia
Ventricular tachycardia/prolonged QT
ICD/pacemaker
History of cardiac arrest
Hypertension/hyperlipidemia
Dilated ascending aorta 4.4 cm
Mild patchy bronchiectasis, bronchiolitis per CT imaging
History of sleep apnea, discontinued CPAP after 80 pound weight loss
Total index 35, desaturation bipin 80% in 2013
30+ pack-year history of smoking ongoing
History of alcohol abuse
Plan/recommendations
At this time, it is concerning the patient continues to smoke given multiple recurrent COPD exacerbations.
Reviewed outpatient records. Severe obstructive lung disease, FEV1 baseline 41%, DLCO 36%
Patient is also missed many appointments in 2023, does not follow-up consistently
Subjectively improved
Moving forward
Is encouraging that she quit smoking 5 days prior to admission
Continue with steroids and would transition to prednisone starting at 50mg, reducing by 10 mg every fifth day and then when completed resume her home dose of 10 mg every other day.
While patient is hospitalized, continue with DuoNebs 4 times daily + budesonide twice daily
Upon discharge, resume Trelegy 100 mcg + prn albuterol MDI, as well as Daliresp
Budesonide + DuoNebs are on her medication list but she says she does not use these meds, and she may use nebulized albuterol if anything
Reviewed CT images from 2023. No significant bullous disease
Patient says she has oxygen at home however would still check an ambulatory pulse oximetry prior to discharge to reassess O2 home needs
Patient on Xarelto as outpatient. History of atrial fibrillation noted
Outpatient records also suggest hypercoagulable state from lupus, details unclear
Okay with trying low-dose Wellbutrin to help with tobacco cessation
Patient also on Abilify, Lexapro
She denies any cravings at this time
This will be an ongoing discussion
GERD prophylaxis: Pantoprazole
DVT prophylaxis: On Xarelto
Patient will require slow prednisone taper as stated above. Believe that patient is ready for discharge today (08/17). Outpatient pulmonary office follow-up will be arranged within the next 2 weeks and eventual follow-up with Dr. Lau in
November 2024
Reviewed with patient at length. No additional recommendations at this time. Pulmonary service will now sign off. Thank you for allowing us to be involved in the care of this patient. Please reconsult if there are any additional
questions/concerns, or if patient's respiratory status deteriorates.
Total time spent today was 37 minutes for this encounter. Time includes reviewing laboratory test/imaging results, reviewing pertinent medical records, obtaining and reviewing medical history, performing an appropriate exam, ordering medications,
tests and procedures. Time also includes documentation of this encounter, coordinating patient care and communicating with other healthcare professionals. Total time does not include separately billed tests performed on this date of service.
Subjective Data
-
Date of Service:
Date of Service: August 17, 2024
Chief Complaint: Pulmonary Follow Up
Subjective:
Patient seen and evaluated this morning (late note entry). Patient currently on 2 L/min nasal cannula. She feels better overall with improved SOB + cough and is eager to go home. Currently denies chest pain, JOSÉ, nausea, fevers or chills.
Review of Systems
General: Other (Negative unless mentioned above)
Objective Data
Data Reviewed
Vital Signs / I&O / Oxygen:
Vital Signs
Temp Pulse Resp BP Pulse Ox
97.7 F 76 18 119/66 96
08/17/24 07:25 08/17/24 07:25 08/17/24 07:25 08/17/24 07:25 08/17/24 07:25
Intake and Output
08/16/24 08/17/24 08/18/24
06:59 06:59 06:59
Intake Total 900 / 900 840 / 840
Balance 900 / 900 840 / 840
SaO2 96
Nasal Cannula flow liters per 2
minute
Physical Exam
General: Respiratory Distress (n), Comfortable, Chills (n) and Sweats (n)
HEENT: Normocephalic, Anicteric and Other (Large neck)
Cardiovascular: S1-S2, Murmur (n), Rub (n) and Peripheral Edema (n)
Respiratory: Wheeze (Mild and diffusely heard upon expiration), Crackles (n), Rhonchi (n), Non-Labored Respirations and Other (Greatly diminished breath sounds bilaterally)
GI: Soft, Non Distended, Non Tender and Normal Bowel Sounds
Neurology: AO x 3 and Tremors (n)
Skin: Warm, Dry, Cyanosis (n), Jaundice (n) and Rash (n)
Labs/Micro/Reports
Lab Data
08/15/24 06:04
08/15/24 06:04
Microbiology
08/14/24 11:44 Nasal Swab Influenza Types A & B (MARKUS) - Final
Negative for Influenza A & B, NAAT
Negative results must be combined with clinical observations
and patient history.
Nucleic Acid Amplification test (NAAT)performed on the
[employer] platform.
[2024-08-17 23:05] VITALS: BP 111/54
[2024-08-18 06:00] VITALS: BMI 26.5
[2024-08-18] MEDS: DECADRON 4 MG IV (06:21)
[2024-08-18] MEDS: DUONEB 3 ML INH ×2 (07:13→11:00)
[2024-08-18] MEDS: PULMICORT 0.5 MG INH (07:13)
[2024-08-18 07:30] VITALS: BP 109/54
[2024-08-18] MEDS: TYLENOL 650 MG PO (09:41)
[2024-08-18] MEDS: TOPROL XL 50 MG PO (09:42)
[2024-08-18] MEDS: MUCINEX 600 MG PO (09:42)
[2024-08-18] MEDS: VIBRAMYCIN 100 MG PO (09:42)
[2024-08-18] MEDS: LEXAPRO 20 MG PO (09:42)
[2024-08-18] MEDS: ABILIFY 5 MG PO (09:42)
[2024-08-18] MEDS: PROTONIX 40 MG PO (09:42)
[2024-08-18] MEDS: LIPITOR 10 MG PO (09:43)
[2024-08-18] MEDS: XARELTO 20 MG PO (09:43)
[2024-08-18] MEDS: DALIRESP 500 MCG PO (09:43)
[2024-08-18] MEDS: NICODERM TRANSDERMAL 21 MG TRANSDERM (09:43)
[2024-08-18] MEDS: FOLVITE PO (09:48)
[2024-08-18] MEDS: KLONOPIN 1 MG PO (09:53)
[2024-08-18 10:06] VITALS: BMI 26.5
--- NOTE | 2024-08-18 10:18 | W.PN.HOSP.TC ---
Today's Communication/Plan
-
dc on O2
Assessment / Plan
Assessment / Plan
Physical Exam
General: comfortable, not in distress
HEENT: Normocephalic, Anicteric, Moist mucous membranes and Atraumatic
Respiratory: better air entry and no wheezes heard.
Cardiac: S1/S2 and Regular Rhythm
GI: Soft, Non Tender, Non Distended and Normal Bowel Sounds
Musculoskeletal: , No Cyanosis and No Edema
Skin: Warm and Dry
Neuro: Awake, Alert and Oriented, non focal, gait is normal
Psych: Calm, good insight,, pleasant.
A/P
# Acute hypoxic respiratory failure due to severe COPD with continued tobacco use. Quit 5 days ago before admission.
She had Sob with respiratory distress, using accessory muscles, hypoxia needing 6 liters of O2
She is feeling better , not sob
c/w Nasal O2, aim for low SaO2 at 90-94%
s/p IV Steroid, Doxy, Pulmicort, DuoNeb and, Daliresp , dc on taper prednsione
Protonix for GI prophylaxis while on steroid
Appreciate pulmonary help
# Continued tobacco use
Patient reports inability to quit smoking. She was on Wellbutrin in the past. Discussed with the patient to try multiple intervention at same time including restarting Wellbutrin, nicotine patch. She wants to start back on Wellbutrin.
I d/w psychiatrist general operations manager, recommendation to avoid combination of 2 antidepression medications, in this case Lexapro and Wellbutrin, to avoid relapse of bipolar, recommend to either stop Lexapro or can start Wellbutrin combination but will need
close follow-up. I discussed with patient, she stopped seeing her psychiatrist due to insurance issue. She is planning to acquire a new psychiatrist. I recommended to discuss this issue with psychiatrist. Currently her primary care doctor is
refilling her psych medications.
#Chronic HF with preserved EF
CXR: No acute cardiopulmonary process
#Paroxysmal A-fib with history of ablation currently on Xarelto
c/w Xarelto & Toprol.
#History of V-fib arrest likely due to prolonged QTc/bradycardia (2012) s/p dual-chamber ICD (DDD paced)
#History of anxiety/depression
Mood is pleasant
#Hyperlipidemia
#History of alcohol use disorder
No DT noted
Lucid and pleasant
# GI prophylaxis
Added PPI
Total discharge time spent to see the patient, examine the patient, review data and lab results, discuss discharge plan with patient, director of casework services, nursing staff around 67 minutes
Anticipated Discharge: Today
Subjective/Interval History
-
Date of Service: August 18, 2024
She feels better, not sob
she wants to go home, she denies chest pain
Objective Data
-
Vital Signs:
Vital Signs
Temp Pulse Resp BP Pulse Ox
97.9 F 76 18 109/54 94
08/18/24 07:30 08/18/24 09:42 08/18/24 07:30 08/18/24 09:42 08/18/24 09:29
I&O
08/17/24 08/18/24 08/19/24
06:59 06:59 06:59
Intake Total 840 / 840 1680 / 1680
Balance 840 / 840 1680 / 1680
[2024-08-18] MEDS: DELTASONE 20 MG PO (11:02)
--- NOTE | 2024-08-18 11:31 | CM ---
Placed a call to [employer] as no return call has been received to confirm receipt of fax from yesterday. Spoke with a counter sales representative named, Natalya who stated that a rep will be in this morning/early afternoon to provide a portable tank and then
someone will be out to her house tomorrow morning to deliver the portable. Natalya stated to advise patient that the portable will be a pulse administration, not continuous. This was conveyed to patient who confirmed that this would be ok.
IMM reviewed.
Signed, on chart.
Plan: Case management will continue to follow and assist with discharge planning. Home with o2. Patient will order [employer] to transfer her to her car which is parked off campus, locally at one of the MDs offices.
[2024-08-18 12:00] VITALS: BP 104/54
--- NOTE | 2024-08-18 13:30 | W.DCSUMMARY ---
Discharge Summary
Discharge Data
Date of Admission: 08/14/24
Date of Discharge: 08/18/24
-
Pending Results: No
Hospital Course
64 years old female presented with progressive dyspnea on exertion cough and shortness of breath. She was diagnosed with acute on chronic hypoxic respiratory failure despite. She continued to smoke cigarettes despite counseled to quit tobacco use.
Labs unremarkable. Chest x-ray showed no acute infiltrates. Diffuse wheezing noted on auscultation, COPD exacerbation. She was evaluated by pulmonary doctor, given IV steroid and nebulizer treatments with oral doxycycline. Patient eventually
started to feel better and back to her baseline. Nicotine supplementation was provided and smoking cessation was strongly encouraged/counseled. Medically stable, patient was discharged home with steroid taper, home oxygen and outpatient follow up
recommendations. She was evaluated by protective services case worker for home O2 needs.
Discharge Plan
-
Patient Disposition: Home (Routine Discharge)
Discharge Diagnosis/Procedures: Acute on chronic hypoxic respiratory failure/acute exacerbation of COPD
You are seen by pulmonary doctor. Taper oral prednisone at home. Avoid tobacco use
Diet: As tolerated
Referrals:
Katerine Lau MD [Active, Pulmonary Medicine]
Referral Note: [facility] visit in 2 weeks post dc
Sid in Nov 2024
Vira Quintana DO [Family Provider, Family Practice] - in one to two weeks
Prescriptions:
New
pantoprazole 40 mg Tablet,Delayed Release (Dr/Ec)
40 mg PO DAILY Qty: 30 0RF
guaifenesin 600 mg Tablet Extended Release 12hr
600 mg PO Q12 Qty: 20 0RF
prednisone 10 mg tablet
50 mg PO DAILY Qty: 50 0RF
Rx Instructions:
50 mgX2 days,40mg X4 days,30mg X4 days,20 mg X4 days, 10 mg X4 days then resume 10mg Q48 hours
Continued
roflumilast [Daliresp] 500 MCG tablet
500 mcg PO DAILY
escitalopram oxalate 20 MG tablet
20 mg PO DAILY
atorvastatin 10 MG tablet
10 mg PO DAILY
Xarelto 20 MG tablet
20 mg PO DAILY
folic acid 1 mg Tablet
1 mg PO DAILY
albuterol sulfate 90 mcg/actuation Hfa Aerosol Inhaler
2 puff INHALATION R Q4HPRN PRN (Reason: sob)
aripiprazole 5 mg Tablet
5 mg PO DAILY
Trelegy Ellipta 100-62.5-25 mcg Blister With Device
1 inh INHALATION R DAILY
clonazepam 1 MG tablet
1 mg PO QIDPRN PRN (Reason: anxiety) Qty: 0 0RF
nicotine 21 mg/24 hr patch 24 hour
21 mg transdermal DAILYPRN PRN (Reason: smoking cessation)
budesonide 0.5 mg/2 mL Suspension For Nebulization
0.5 mg inhalation R BID Qty: 60 0RF
metoprolol succinate [Toprol XL] 50 mg Tablet Extended Release 24 Hr
50 mg PO DAILY
ipratropium-albuterol 0.5 mg-3 mg(2.5 mg base)/3 mL solution for nebulization
3 ml inhalation R QID
Discontinued
prednisone 10 mg tablet
10 mg PO Q48H
Discharge Orders:
Discharge Patient (As Directed); Ordered 08/18/24
Ordered By: Gwendolyn Orellana
Discharge Date and Time
Discharge Date/Time: 08/18/24 14:30
Print Language: MALIAN
== END 2024-08-18 14:30 | disposition home or self-care (01) | DRG 190 ==
LOC: 4 EAST ACU 16:03
PROVIDERS: Physician Assistant; ADMITTING PHYSICIAN Student in an Organized Health Care Education/Training Program; ATTENDING PHYSICIAN Internal Medicine; CONSULT PHYSICIAN Internal Medicine Critical Care Medicine; EMERGENCY PHYSICIAN Emergency Medicine; FAMILY PHYSICIAN Family Medicine
DX: J44.1 Chronic obstructive pulmonary disease with (acute) exacerbation (principal); J96.21 Acute and chronic respiratory failure with hypoxia; D68.59 Other primary thrombophilia; I50.32 Chronic diastolic (congestive) heart failure; E78.00 Pure hypercholesterolemia, unspecified; I48.0 Paroxysmal atrial fibrillation; I11.0 Hypertensive heart disease with heart failure; E11.9 Type 2 diabetes mellitus without complications; G47.00 Insomnia, unspecified; F10.10 Alcohol abuse, uncomplicated; F41.9 Anxiety disorder, unspecified; F32.A Depression, unspecified; I77.819 Aortic ectasia, unspecified site; F17.210 Nicotine dependence, cigarettes, uncomplicated; I25.2 Old myocardial infarction; Z60.2 Problems related to living alone; Z99.81 Dependence on supplemental oxygen; Z95.810 Presence of automatic (implantable) cardiac defibrillator; Z79.01 Long term (current) use of anticoagulants; Z88.1 Allergy status to other antibiotic agents; Z88.5 Allergy status to narcotic agent; Z88.8 Allergy status to other drugs, medicaments and biological substances; Z79.51 Long term (current) use of inhaled steroids; Z79.52 Long term (current) use of systemic steroids; Z11.52 Encounter for screening for COVID-19; Z82.49 Family history of ischemic heart disease and other diseases of the circulatory system; Z86.74 Personal history of sudden cardiac arrest; Z86.79 Personal history of other diseases of the circulatory system
CPT/HCPCS: 71046; 80048; 80053; 82805; 83735; 84145; 84484; 85025; 85027; 87502; 87811; 93005; 94640; 96374; 97162; 97530; 99285

== ENCOUNTER 2025-02-16 08:04 | Inpatient (IN) | payer OTHER, SELFPAY ==
[2025-02-16] VITALS (19 sets, daily range): BP systolic 89–124; BP diastolic 49–107; BMI 26.5; BMI 26.4
[2025-02-16 02:08] LABS: Hematocrit 43.9 % (37.0-47.0); Hemoglobin 14.3 g/dL (12.0-16.0); Mean Corp Hgb Conc. 32.6 g/dL (33.0-37.0); Mean Corpuscular Volume 95.9 fL (81.0-99.0); Nucleated Red Blood Cells % 0 %; Platelet Count 130 10^3/uL (130-400); Red Cell Dist. Width 12.3 % (11.5-14.5)
[2025-02-16 02:31] LABS: ALT (SGPT) < 10 U/L (0-35); AST (SGOT) 15 U/L (14-36); Albumin 3.9 g/dl (3.5-5.0); Alkaline Phosphatase 48 U/L (38-126); Blood Urea Nitrogen 15 mg/dl (7-17); Calcium 9.1 mg/dl (8.4-10.2); Chloride 98 mmol/L (98-107); Estimated Creatinine Clearance 89 ml/min; Glucose 95 mg/dl (70-99); Potassium 4.0 mmol/L (3.5-5.1); Sodium 141 mmol/L (135-145); Total Protein 6.2 g/dl (6.3-8.2); eGFR > 60.00
[2025-02-16 03:30] LABS: Carbon Dioxide 39 mmol/L (22-30)
[2025-02-16] MEDS: VENTOLIN NEBULES 10 MG INH (05:07)
[2025-02-16] MEDS: DECADRON 10 MG IV (05:09)
[2025-02-16 05:12] LABS: Troponin I < 0.012 ng/ml
--- NOTE | 2025-02-16 07:02 | ED.GENMED ---
History of Present Illness
General
Chief Complaint: Breathing Problem
Source: patient and ambulance crew
Exam Limitations: none
Time Seen by Provider: 02/16/25 04:51
Nursing documentation reviewed up to this point in time: agreed with
History of Present Illness
History of Present Illness:
Note:
CHIEF COMPLAINT(S)
Difficulty breathing and shortness of breath.
HISTORY OF PRESENT ILLNESS
The patient is a 64-year-old female with a known history of respiratory issues, presenting with increased difficulty breathing and shortness of breath since August. She reports waking up gasping for air this morning, prompting her visit to the
emergency department. She is currently on 3 liters of home oxygen but continues to experience discomfort with breathing. The patient mentions being under the care of a scow captain and reports using Albuterol inhaler treatments, which provide
minimal relief. Additionally, she has been on steroid therapy previously and remains on them currently. The patient verbalized acknowledgment of the need to quit smoking to improve her lung health.
PHYSICAL EXAM
General: Alert, no acute distress.
Respiratory: Wheezing noted upon auscultation.
Other systems unchanged from default physical exam.
PLAN
1. Administer a prolonged breathing treatment in the emergency department.
2. Administer a dose of steroids intravenously.
3. Encourage immediate cessation of smoking to prevent further damage to lungs.
4. Advise follow-up with pulmonology as scheduled.
DIFFERENTIAL DIAGNOSIS
The Differential Diagnosis includes, in no particular order and is not limited to:
1. Chronic obstructive pulmonary disease exacerbation
2. Asthma exacerbation
3. Pulmonary embolism
4. Pneumonia
5. Heart failure
6. Interstitial lung disease
7. Pneumothorax
8. Respiratory infection
9. Bronchitis
10. Acute respiratory distress syndrome
CARE-UPDATE
02/16/25 - 06:03
Patient received breathing treatment and steroids, resulting in some improvement, though still experiencing respiratory distress. We will continue to observe the patients progress. Recent test results show no signs of pneumonia. Note that the
patient has a pacemaker in place.
Disposition:
SUMMARY OF ENCOUNTER
The patient, a 64-year-old female with a history of respiratory issues, presented with acute difficulty in breathing and shortness of breath. Upon arrival, a prolonged albuterol treatment was administered along with intravenous steroids. Although
the treatment was given in the emergency department, the patient reported no significant improvement in her symptoms. A chest x-ray was obtained, and my independent interpretation of the chest x-ray is that it shows no signs of pneumonia.
DISPOSITION
Admit. The patient will be admitted to the hospital service under the care of Dr. Samaniego.
ASSESSMENT
The patients ongoing breathing difficulties and lack of improvement following standard emergency treatment necessitate further inpatient management to rule out and treat other potential causes.
EMERGENCY TREATMENTS ADMINISTERED
Prolonged albuterol treatment and a dose of intravenous steroids were administered during the visit.
MANAGEMENT OF THE PATIENTS CARE WAS DISCUSSED WITH
The patients care was discussed with Dr. Samaniego, who will be admitting the patient for further evaluation and management.
INDEPENDENT REVIEW OF LABS AND INTERPRETATION OF TESTS
My independent interpretation of the chest x-ray indicates no signs of pneumonia.
MEDICAL DECISION MAKING
-Complexity of Data Reviewed: Chronic conditions affecting care include her history of respiratory issues and current exacerbation. Differential Diagnosis includes chronic obstructive pulmonary disease exacerbation, asthma exacerbation, pulmonary
embolism, pneumonia, heart failure, interstitial lung disease, pneumothorax, respiratory infection, bronchitis, and acute respiratory distress syndrome.
-Data:
Category 1
My independent interpretation of chest x-ray showed no signs of pneumonia.
-Risk:
Prescription medication was administered and prescribed.
DIAGNOSIS
1. Chronic obstructive pulmonary disease exacerbation (J44.1)
2. Acute dyspnea (R06.82)
Past History
Past History
ED Past Medical History: Arrthythmia (History of A. fib, long QT syndrome), Asthma, COPD, Hypercholesterolemia, NIDDM (Questionable), [place], Psychiatric (Depression) and Other (History of migraines, insomnia, disconjugate gaze of the eyes the right
greater than the left, PNA.)
ED Past Surgical History: Cardiac (ICD 10/2012) and Other ([place] teeth extraction, and a D&C Procedure)
Social History
Tobacco: Smoker
Alcohol: Former
Drug: None
Personal: (Has a partner)
Living: with family (domestic partner)
Employment: Not employed
Family History
Family History: Other (Noncontributory)
Phy Exam
Physical Exam
Physical Exam:
.
Scores
Heart Failure Risk
Heart Failure Risk Score: Not Applicable
Course
Orders/Labs/Results
Orders:
Orders
02/16/25 01:48
Electrocardiogram (*1) Urgent
Reason for Study: Shortness of Breath
02/16/25 01:49
EKG- Treatment ONCE
02/16/25 01:51
BNP [NT-proBNP] Urgent
Complete Blood Count/With Diff Urgent
Comprehensive Metabolic Panel Urgent
Troponin I Urgent
Comment: ADD ON
02/16/25 03:07
Chest [CR Chest - 2 Views ] Urgent
Comment:
Reason For Exam: unable take deep breath, copd
02/16/25 04:20
Add On- LAB Urgent
Tests Added?: troponin
02/16/25 04:51
Albuterol Sulfate [Ventolin Nebules] 10 mg INH R NOW STA
Dexamethasone Sod Phosphate [Decadron] 10 mg IV NOW STA
Abnormal Lab Results
02/16/25
01:51
MCH 31.2 H pg
(27.0-31.0)
MCHC 32.6 L g/dL
(33.0-37.0)
MPV 11.1 H fL
(7.4-10.4)
Carbon Dioxide 39 H mmol/L
(22-30)
Total Protein 6.2 L g/dl
(6.3-8.2)
02/16/25 01:51
02/16/25 01:51
Vital Signs
Initial and Last Documented VS:
Initial Vital Signs
Temp
98.5 F
02/16/25 01:40
Last Documented Vital Signs
Temp Pulse Resp BP Pulse Ox
98.5 F 75 23 103/49 96
02/16/25 01:40 02/16/25 06:00 02/16/25 06:00 02/16/25 06:00 02/16/25 07:04
*Pulse Oximetry
SaO2: 96
Nasal Cannula flow liters per minute: 3 (Chronic oxygen consumption)
Patient hypoxic: no
*Critical Care Note
Total Time (30-74mins, 75-104mins- exclusive of procedures): Not Applicable
ED Attending Note
-
Portions of this chart may have been created with voice recognition software.� Occasional wrong word or��sound alike� substitutions may have occurred due to the inherent limitations of voice recognition software.
Discharge Plan
Departure
Patient Disposition: Admit
Date of Disposition: 02/16/25
Time of Disposition: 07:03
Admit to: Telemetry
Presentation/result/management discussed w/ accepting MD/DO: Hospitalist
Discharge Problem:
COPD with acute exacerbation, Anxiety
Prescriptions:
No Action
escitalopram oxalate 20 MG tablet
20 mg PO DAILY
atorvastatin 10 MG tablet
10 mg PO DAILY
Xarelto 20 MG tablet
20 mg PO DAILY
folic acid 1 mg Tablet
1 mg PO DAILY
albuterol sulfate 90 mcg/actuation Hfa Aerosol Inhaler
2 puff INHALATION R Q4HPRN PRN (Reason: sob)
aripiprazole 5 mg Tablet
5 mg PO DAILY
Trelegy Ellipta 100-62.5-25 mcg Blister With Device
1 inh INHALATION R DAILY
clonazepam 1 MG tablet
1 mg PO QIDPRN PRN (Reason: anxiety) Qty: 0 0RF
budesonide 0.5 mg/2 mL Suspension For Nebulization
0.5 mg inhalation R BID Qty: 60 0RF
metoprolol succinate [Toprol XL] 50 mg Tablet Extended Release 24 Hr
50 mg PO DAILY
ipratropium-albuterol 0.5 mg-3 mg(2.5 mg base)/3 mL solution for nebulization
3 ml inhalation R QID
pantoprazole 40 mg Tablet,Delayed Release (Dr/Ec)
40 mg PO DAILY Qty: 30 0RF
Referrals:
Vira Quintana DO [Family Provider, Family Practice]
Interventions
Interventions:
*Risk Screen - Suicide Last Done: 02/16/25 01:40
*General Assessment Last Done: 02/16/25 01:40
*Neglect/Abuse Screening Last Done: 02/16/25 01:40
*ED- Fall Risk Assessment Last Done: 02/16/25 01:50
*ED COVID-19 Vaccine History Last Done: 02/16/25 01:50
*ED Influenza Vaccine History Last Done: 02/16/25 01:50
ED- Cardiac Assessment Last Done: 02/16/25 01:59
ED- Pulmonary Assessment Last Done: 02/16/25 01:59
Discharge Date and Time
Print Language: PRYDEINIG
--- NOTE | 2025-02-16 07:16 | HPS.HSE ---
Family Physician
-
Family Physician: Vira Quintana
Chief Complaint
-
shortness of breath
History of Present Illness
Ms. Tiara Garza is a 64 yo woman with hx COPD (severe disease with FEV1 41%, 30+ pack year smoking history, chronic hypoxic respiratory failure on 3L, paroxysmal afib on Xarelto, prolonged QTc with Torsades/VT arrest 2013 s/p defibrillator,
presents to the ER with shortness of breath.
Patient states she also feels short of breath, this morning she woke up gasping for air. Currently breathing okay at rest status post albuterol and Decadron in the ER. No fevers. + increased productive cough.
No chest pain. No abdominal pain. No nausea/vomiting/diarrhea. No LE swelling. No sick contacts.
Medical History
Past Medical History
Past Medical History: Reports Other (asthma/COPD paroxysmal atrial fibrillation on Xarelto, V-fib arrest secondary to prolonged QTc/bradycardia in 2013 status post ICD, asthma, alcohol use disorder previously, tobacco use)
Past Surgical History: Reports Other (Cardiac (ICD 10/2012) and Other ([place] teeth extraction, and a D&C Procedure))
Social History
Tobacco: Smoker
Alcohol: None
Drug: None
Family History
Family History: Not pertinent
Allergies / Home Medications
Allergies reflects when Allergies were last updated in [employer].
Home Medications with original date entered in [employer]
Allergy/Medication List:
Allergies
Allergy/AdvReac Type Severity Reaction Status Date / Time
azithromycin (From Zithromax) Allergy PROLONGED Verified 02/16/25 01:48
QT SYNDROME
erythromycin lactobionate Allergy Unknown Verified 02/16/25 01:48
(From Erythrocin)
hydrocodone (From Vicodin) Allergy Itching Verified 02/16/25 01:48
levofloxacin (From Levaquin) Allergy Torsade Verified 02/16/25 01:48
quetiapine (From Seroquel) Allergy Unknown Verified 02/16/25 01:48
quetiapine fumarate (From Allergy 'jumping Verified 02/16/25 01:48
Seroquel) legs and
pins and
needles'
numbness
arms and
legs
trazodone Allergy Unknown Verified 02/16/25 01:48
[id number] Antimigraine Allergy Unknown Verified 02/16/25 01:48
Agents
Home Medications
escitalopram oxalate 20 mg tablet 20 mg PO DAILY depression/anxiety 04/15/18
atorvastatin 10 mg tablet 10 mg PO DAILY High cholesterol 08/27/19
rivaroxaban 20 mg tablet (Xarelto) 20 mg PO DAILY Blood clot prevention/tx 09/25/19
albuterol sulfate 90 mcg/actuation aerosol inhaler 2 puff inhalation R Q4HPRN PRN sob 09/25/23
aripiprazole 5 mg tablet 5 mg PO DAILY depression 09/25/23
fluticasone fur. 100 mcg-umeclid 62.5 mcg-vilant 25 mcg inhalat.powder (Trelegy Ellipta) 1 inh inhalation R DAILY COPD/asthma 09/25/23
folic acid 1 mg tablet 1 mg PO DAILY Supplement 09/25/23
clonazepam 1 mg tablet 1 mg PO QIDPRN PRN anxiety #0 tabs 12/22/23
budesonide 0.5 mg/2 mL suspension for nebulization 0.5 mg (2 mL) inhalation R BID #60 mL 06/11/24
metoprolol succinate 50 mg tablet,extended release 24 hr (Toprol XL) 50 mg PO DAILY Blood Pressure 08/14/24
ipratropium 0.5 mg-albuterol 3 mg (2.5 mg base)/3 mL nebulization soln 3 ml inhalation R QID Lung/Breathing Issues 08/15/24
pantoprazole 40 mg tablet,delayed release 40 mg PO DAILY #30 tabs 08/18/24
Review of Systems
-
History Source: Patient
A 12 point ROS was completed and negative except as noted: Yes
Physical Exam
Vital Signs
Vital Signs
Temp Pulse Resp BP Pulse Ox
98.5 F 77 19 113/64 96
02/16/25 01:40 02/16/25 07:00 02/16/25 07:00 02/16/25 07:00 02/16/25 07:04
Physical Exam
General: No Apparent Distress and Conversant
HEENT: Other (chronic right eye deviation )
Respiratory: Wheezes
Cardiac: S1/S2 and Regular Rhythm
GI: Soft and Non Tender
Musculoskeletal: No Edema
Neuro: AO x 3
Psych: Calm
Laboratory Results
-
02/16/25 01:51
02/16/25 01:51
Laboratory Results
Total Bilirubin 0.5 mg/dl (0.2-1.3) 02/16/25 01:51
AST 15 U/L (14-36) 02/16/25 01:51
ALT < 10 U/L (0-35) 02/16/25 01:51
Alkaline Phosphatase 48 U/L (38-126) 02/16/25 01:51
Troponin I Cancelled 02/16/25 04:06
Data Reviewed
-
Diagnostic Radiology: Report Reviewed by me
Lab Data: Labs Reviewed by me
Impression/Plan
-
Ms. Tiara Garza is a 64 yo woman with hx COPD (severe disease with FEV1 41%), 30+ pack year smoking history and current smoker, chronic hypoxic respiratory failure on 3L, paroxysmal afib on Xarelto, prolonged QTc with Torsades/VT arrest 2012 s/p
defibrillator, presents to the ER with shortness of breath, admitted for acute COPD exacerbation.
Triage VS: T 98.2, P 83, RR 19, BP 104/54, SpO2 94%
LABS: WBC 7.2, Hg 14.3, PLT 130, Na 141, K+ 4.0, Cl 98, BUN 15, Cr 0.6, Glucose 95, Trop < 0.012, BNP 193
CXR
IMPRESSION:
1. Normal heart size without radiographic evidence for acute pulmonary edema.
2. Mild to moderate bilateral lung hyperinflation with emphysema in the upper lobes.
3. Left-sided AICD in place.
Acute COPD Exacerbation
Hx Severe COPD with FEV1 41%
Chronic Hypoxic Respiratory Failure
-patient is currently on 3L O2, home dose
-admit to med/surg
-standing nebs and PRN
-IV Decadron 4mg q8h (first dose this evening as received 10mg in ER)
-follow up Flu/Covid
-follow up procalcitonin
-follow up sputum culture
-smoking cessation education provided
Current smoker
-nicotine patch
-cessation education
Paroxysmal Atrial Fibrillation
-CONCRETE SCULPTOR Metoprolol, Xarelto
Hx Prolonged Qtc/Torsades s/p Defibrillator placement 2012
-QTc 487 on today's EKG
-OK to continue CONCRETE SCULPTOR Lexapro
Anxiety
-CONCRETE SCULPTOR Lexapro, Clonazepam PRN
GERD
-CONCRETE SCULPTOR PPI
DVT PPx Xarelto
FULL CODE
[2025-02-16 08:28] LABS: COVID-19 Antigen Negative (Negative)
[2025-02-16 08:48] LABS: Procalcitonin < 0.05 ng/ml (0.0-0.25)
[2025-02-16] MEDS: DUONEB 3 ML INH ×3 (10:58→19:14)
[2025-02-16] MEDS: NICODERM TRANSDERMAL 14 MG TRANSDERM (10:58)
[2025-02-16] MEDS: ABILIFY 5 MG PO (10:58)
[2025-02-16] MEDS: LEXAPRO 20 MG PO (10:59)
[2025-02-16] MEDS: XARELTO 20 MG PO (10:59)
[2025-02-16] MEDS: TOPROL XL 50 MG PO (10:59)
[2025-02-16] MEDS: LIPITOR 10 MG PO (10:59)
[2025-02-16] MEDS: FOLVITE 1 MG PO (10:59)
[2025-02-16] MEDS: PROTONIX 40 MG PO (10:59)
[2025-02-16] MEDS: SYMBICORT 80/4.5 MCG INHALER 2 PUFF INH ×2 (11:06→19:14)
--- NOTE | 2025-02-16 12:21 | EDCM ---
Reviewed chart and met with pt bedside in ED. This is her 4th admission this year for COPD.
Lives alone in 1 story home, 1 [address].
Independent in ADLs, personal care and ambulation at baseline, No assistive devices, still drives.
Has home O2 from [employer], concentrator, 1 tank and portable concentrator. Wears 3L NC.
Confirms prescription coverage.
Hx [facility] and SNF after hip fracture but unsure of which one.
PCP: Vira Quintana
Pharmacy: [facility]
Anticipate discharge home, CM will continue to follow for all discharge planning needs.
[2025-02-16] MEDS: DECADRON 4 MG IV (16:35)
--- NOTE | 2025-02-16 17:36 | PTCARENOTE ---
Pt transferred to 4W. Pt able to ambulate from stretcher to bed. No c/o pain. AAOx3 Able to make needs known, safety measures in place, call field within reach.
[2025-02-17] MEDS: DECADRON 4 MG IV ×3 (00:17→15:14)
[2025-02-17 05:54] VITALS: BMI 26.4
[2025-02-17 07:05] VITALS: BP 101/48
[2025-02-17] MEDS: DUONEB 3 ML INH ×4 (07:30→19:36)
[2025-02-17] MEDS: SPIRIVA RESPIMAT 2.5 MCG 2 PUFF INH (07:30)
[2025-02-17] MEDS: SYMBICORT 80/4.5 MCG INHALER 2 PUFF INH (07:30)
[2025-02-17 08:05] VITALS: BP 101/48
[2025-02-17] MEDS: PROTONIX 40 MG PO (08:09)
[2025-02-17] MEDS: LEXAPRO 20 MG PO (08:09)
[2025-02-17] MEDS: ABILIFY 5 MG PO (08:09)
[2025-02-17] MEDS: XARELTO 20 MG PO (08:10)
[2025-02-17] MEDS: TOPROL XL 50 MG PO (08:10)
[2025-02-17] MEDS: FOLVITE 1 MG PO (08:10)
[2025-02-17] MEDS: LIPITOR 10 MG PO (08:10)
[2025-02-17] MEDS: NICODERM TRANSDERMAL 14 MG TRANSDERM (08:11)
--- NOTE | 2025-02-17 08:41 | W.PN.HOSP.TC ---
Today's Communication/Plan
-
IV steroids. Bronchodilators. Pulmonary eval
Assessment / Plan
Assessment / Plan
Physical exam:
General: Acutely ill
HEENT: Normocephalic, Atraumatic and Moist Mucous Membranes
Respiratory: Bilateral wheezes; Negative Rales or Rhonchi
Cardiac: Regular Rhythm and S1/S2
GI: Soft, Nontender and Nondistended
Musculoskeletal: No Clubbing, No Cyanosis and No Edema
Neuro: Awake, Alert and Oriented, no neurological deficit
Psych: Calm
A/P:
Acute COPD Exacerbation
Hx Severe COPD
Chronic Hypoxic Respiratory Failure
- Continue IV dexamethasone 4 mg every 8 hours
- Continue bronchodilators
-Continue Symbicort and Spiriva
-Normal troponin, BNP, procalcitonin. Negative COVID-19 and influenza. Sputum culture contaminated.
- Patient very frustrated that she saw her outpatient rn ent last week still end up on the hospital (saw Dr. Dias) and she wants to see a rn ent while in the hospital-will consult pulmonary.
- PT OT eval
Current smoker
-nicotine patch
-cessation education
Paroxysmal Atrial Fibrillation
-COPY EDITOR Metoprolol, Xarelto
Hx Prolonged Qtc/Torsades s/p Defibrillator placement 2012
-QTc acceptable upon admission
Anxiety
-COPY EDITOR Lexapro, Clonazepam PRN
GERD
-COPY EDITOR PPI
DVT PPx Xarelto
FULL CODE
Total time spent on today's encounter was 52 minutes which included time spent in counseling the patient/family regarding diagnosis and treatment plan as listed above, goals of care, and symptom management. Case was discussed with nursing staff,
specialists, and care coordinators/case management. All labs and imaging personally reviewed by me. Remainder the time spent in detailed review of previous records, lab data, imaging, and other medical provider documentation.
Anticipated Discharge: > 48 hours
Subjective/Interval History
-
Date of Service: February 17, 2025
Patient still short of breath. Less cough overall. No chest pain. Afebrile. On supplemental oxygen
Objective Data
-
Vital Signs:
Vital Signs
Temp Pulse Resp BP Pulse Ox
97.9 F 76 18 101/48 95
02/17/25 07:05 02/17/25 08:10 02/17/25 07:36 02/17/25 08:10 02/17/25 07:36
[2025-02-17 15:05] VITALS: BP 120/65
--- NOTE | 2025-02-17 15:35 | CON.PUL ---
Consultation
Consultation Request
Date/Time Consultation Requested: 02/17/2025
Date/Time Consultation Performed: 02/17/2025
Requesting Provider: Dr. Mukherjee
Performing Provider: Dr. Eduardo Spears
Reason for Consultation: Acute exacerbation of COPD
Medical History
-
History of Present Illness:
64-year-old woman with history of COPD-severe with FEV1 41%, history of 30+ pack year history of smoking, chronic hypoxemic respiratory failure on 3 L supplemental oxygen, atrial fibrillation on anticoagulation, history of prolonged QT with torsades
and VT arrest in 2012, presented to the emergency room complaining of shortness of breath.
Shortness of breath was progressive and to the point that she was gasping for air this morning.
Found to be bronchospastic in the emergency room given Decadron and nebulizers with some improvement.
She denies any fever but does report some increased phlegm production.
Denies nausea, vomiting, swallowing problems, GERD.
Denies sick contacts
No recent travels
Denies PND, orthopnea or leg edema.
Past Medical History
Past Medical History: None (See above)
Past Surgical History: None (See above)
Social History
Tobacco: Smoker (30+ pack years to smoking, continues to smoke half a pack a day)
Alcohol: Former (History of alcohol abuse in the past)
Drug: None
Personal: ( 2022)
Living: Alone
Employment: Retired
Family History
Family History: Other (Father from heart attack. 2 sisters healthy. Father from pulmonary disease. Son with epilepsy, lupus)
Allergies / Home Medications
Allergies
Allergy/AdvReac Type Severity Reaction Status Date / Time
azithromycin (From Zithromax) Allergy PROLONGED Verified 02/16/25 01:48
QT SYNDROME
erythromycin lactobionate Allergy Unknown Verified 02/16/25 01:48
(From Erythrocin)
hydrocodone (From Vicodin) Allergy Itching Verified 02/16/25 01:48
levofloxacin (From Levaquin) Allergy Torsade Verified 02/16/25 01:48
quetiapine (From Seroquel) Allergy Unknown Verified 02/16/25 01:48
quetiapine fumarate (From Allergy 'jumping Verified 02/16/25 01:48
Seroquel) legs and
pins and
needles'
numbness
arms and
legs
trazodone Allergy Unknown Verified 02/16/25 01:48
[id number] Antimigraine Allergy Unknown Verified 02/16/25 01:48
Agents
Home Medications
�Medication �Instructions �Recorded �Confirmed �Last Taken �Type
escitalopram oxalate 20 mg tablet 20 mg PO DAILY depression/anxiety 04/15/18 02/16/25 08/13/24 History
atorvastatin 10 mg tablet 10 mg PO DAILY High cholesterol 08/27/19 02/16/25 08/13/24 History
rivaroxaban 20 mg tablet (Xarelto) 20 mg PO DAILY Blood clot 09/25/19 02/16/25 08/13/24 History
prevention/tx
albuterol sulfate 90 mcg/actuation 2 puff inhalation R Q4HPRN PRN sob 09/25/23 02/16/25 08/14/24 History
aerosol inhaler
aripiprazole 5 mg tablet 5 mg PO DAILY depression 09/25/23 02/16/25 08/13/24 History
fluticasone fur. 100 mcg-umeclid 1 inh inhalation R DAILY 09/25/23 02/16/25 08/14/24 History
62.5 mcg-vilant 25 mcg COPD/asthma
inhalat.powder (Trelegy Ellipta)
folic acid 1 mg tablet 1 mg PO DAILY Supplement 09/25/23 02/16/25 08/13/24 History
clonazepam 1 mg tablet 1 mg PO QIDPRN PRN anxiety #0 tabs 12/22/23 02/16/25 08/14/24 Rx
metoprolol succinate 50 mg 50 mg PO DAILY Blood Pressure 08/14/24 02/16/25 08/13/24 History
tablet,extended release 24 hr
(Toprol XL)
ipratropium 0.5 mg-albuterol 3 mg 3 ml inhalation R QID 08/15/24 02/16/25 Unknown History
(2.5 mg base)/3 mL nebulization Lung/Breathing Issues
soln
pantoprazole 40 mg tablet,delayed 40 mg PO DAILY #30 tabs 08/18/24 02/16/25 Unknown Rx
release
budesonide 0.5 mg/2 mL suspension 0.5 mg inhalation R BID 02/17/25 02/16/25 Unknown History
for nebulization Lung/Breathing Issues
Review of Systems
-
History Source: Patient
All other systems: Negative unless noted
Vitals / Labs / Diagnostic Testing
Vital Signs
Temp Pulse Resp BP Pulse Ox
97.9 F 79 16 101/48 96
02/17/25 07:05 02/17/25 15:18 02/17/25 15:18 02/17/25 08:10 02/17/25 15:18
Lab Data
02/16/25 01:51
02/16/25 01:51
Microbiology
02/16/25 15:23 Sputum Respiratory Culture - Final
02/16/25 15:23 Sputum Gram Stain - Final
02/16/25 08:03 Nasal Swab Influenza Types A & B (MARKUS) - Final
Negative for Influenza A & B, NAAT
Negative results must be combined with clinical observations
and patient history.
Nucleic Acid Amplification test (NAAT)performed on the
[employer] platform.
Diagnostic Testing:
Assessment
-
64-year-old female with history of COPD, recurrent flareups, severe obstructive lung disease with FEV1 30%, DLCO 36%, ongoing tobacco use presents with acute COPD exacerbation
Acute COPD exacerbation
History of recurrent COPD exacerbation
Multiple courses of steroids, antibiotics
Severe obstructive lung disease, FEV1 1.08/41%, DLCO 36%
Chronic hypoxia, on home oxygen
Conditions present prior to admission
AECOPD [facility] admission07/2024
History of paroxysmal atrial fibrillation
Hypertension/hyperlipidemia
Ventricular tachycardia/prolonged QT
ICD/pacemaker
History of cardiac arrest
Hypertension/hyperlipidemia
Dilated ascending aorta 4.4 cm
Mild patchy bronchiectasis, bronchiolitis per CT imaging
History of sleep apnea, discontinued CPAP after 80 pound weight loss
Total index 35, desaturation bipin 80% in 2013
30+ pack-year history of smoking ongoing
History of severe COPD-chronic hypoxemic respiratory failure-ongoing smoking.
Follows up with Dr. Lau. on Trelegy.
History of alcohol abuse
Plan/recommendations
At this time, it is concerning the patient continues to smoke given multiple recurrent COPD exacerbations.
Reviewed outpatient records. Severe obstructive lung disease, FEV1 baseline 41%, DLCO 36%
Patient is also missed many appointments in 2023, does not follow-up consistently last time seen was January 2025. She has an upcoming appointment in March.
-
Continue therapy for acute exacerbation: Chest x-ray showed no acute infiltrates. Hyperinflation.
Continue IV corticosteroids as you are. 4 mg of dexamethasone IV every 8.
While patient is hospitalized, continue with DuoNebs 4 times daily + budesonide twice daily
No indication for antibiotics at this point. Negative procalcitonin. No leukocytosis. Afebrile.
Hold inhalers while on acute exacerbation.
Upon discharge, resume Trelegy 100 mcg + prn albuterol MDI.
Previously on Daliresp-can be reconsidered in the outpatient setting.
Can consider Ohtuvayre in the outpatient setting.
Cannot use low-dose macrolide due to history of QT prolongation.
-
Reviewed CT images from 2023. No significant bullous disease
No significant bronchiectasis.
No significant peripheral eosinophilia-but she is on low-dose steroids. She does have a cat at home for the last 9 months.
-
Continue oxygen supplementation to maintain pulse ox above 90%.
Patient has oxygen at home.
Patient on Xarelto as outpatient. History of atrial fibrillation noted
Outpatient records also suggest hypercoagulable state from lupus, details unclear
Smoking cessation strongly encouraged. Smoking 7 cigarettes/day. Trying to cut down. She understands ongoing lung function decline and ongoing exacerbations.
GERD prophylaxis: Pantoprazole
DVT prophylaxis: On Xarelto
Outpatient pulmonary office follow Dr. Lau.
Last time seen in the office 01/20/2025- On Trelegy, low dose prednisone, pulmonary rehab was set up, a Low dose radiation CT was ordered,
Patient has an appointment with Dr. Lau in March 2025.
-
[2025-02-17 16:25] VITALS: BP 117/65; PULSE 75; O2SAT 91
[2025-02-17 16:30] VITALS: BP 117/65; PULSE 75; O2SAT 91
[2025-02-17 22:19] VITALS: BP 127/60
[2025-02-18] MEDS: DECADRON 4 MG IV ×3 (00:36→19:48)
[2025-02-18 06:00] VITALS: BMI 26.5
[2025-02-18 07:05] VITALS: BP 112/66
[2025-02-18] MEDS: DUONEB 3 ML INH ×4 (07:23→19:21)
[2025-02-18 07:36] LABS: Hematocrit 39.7 % (37.0-47.0); Hemoglobin 13.3 g/dL (12.0-16.0)
[2025-02-18] MEDS: LEXAPRO 20 MG PO (07:37)
[2025-02-18] MEDS: XARELTO 20 MG PO (07:37)
[2025-02-18] MEDS: FOLVITE 1 MG PO (07:37)
[2025-02-18] MEDS: PROTONIX 40 MG PO (07:38)
[2025-02-18] MEDS: LIPITOR 10 MG PO (07:38)
[2025-02-18] MEDS: TOPROL XL 50 MG PO (07:38)
[2025-02-18] MEDS: ABILIFY 5 MG PO (07:38)
[2025-02-18] MEDS: NICODERM TRANSDERMAL 14 MG TRANSDERM (07:39)
[2025-02-18 08:13] LABS: Blood Urea Nitrogen 24 mg/dl (7-17); Calcium 9.5 mg/dl (8.4-10.2); Chloride 96 mmol/L (98-107); Estimated Creatinine Clearance 89 ml/min; Glucose 111 mg/dl (70-99); Potassium 4.3 mmol/L (3.5-5.1); Sodium 137 mmol/L (135-145); eGFR > 60.00
--- NOTE | 2025-02-18 13:34 | VNURNOTE ---
Wire Lather met with patient to discuss [facility] nurse[facility]therapy, visits, schedule and homebound status. Patient is agreeable and understands that visits at home will be 2-3 x per week to assess and teach medical management.
Patient is aware that [facility] will contact them for start of care in 1-2 days after discharge from .
[facility] referral completed in [facility].
--- NOTE | 2025-02-18 13:35 | W.PN.HOSP.TC ---
Today's Communication/Plan
-
Assessment / Plan
Assessment / Plan
Physical exam:
General: No acute distress, comfortable, conversant
HEENT: Normocephalic, Atraumatic and Moist Mucous Membranes
Respiratory: Bilateral wheezes; Negative Rales or Rhonchi
Cardiac: Regular Rhythm and S1/S2
GI: Soft, Nontender and Nondistended
Musculoskeletal: No Clubbing, No Cyanosis and No Edema
Neuro: Awake, Alert and Oriented, no neurological deficit
Psych: Calm and cooperative
A/P:
Acute COPD Exacerbation
Hx Severe COPD
Chronic Hypoxic Respiratory Failure
- Decrease frequency of IV dexamethasone 4 mg to every 12 hours
- Continue scheduled nebulizers
- Normal troponin, BNP, procalcitonin. Negative COVID-19 and influenza. Sputum culture contaminated.
- Pulmonology following
- PT OT recommending home health
Current smoker
-nicotine patch
-cessation education
Paroxysmal Atrial Fibrillation
-CARPENTRY INSTRUCTOR Metoprolol, Xarelto
Hx Prolonged Qtc/Torsades s/p Defibrillator placement 2012
-QTc acceptable upon admission
Anxiety
-CARPENTRY INSTRUCTOR Lexapro, Clonazepam PRN
GERD
-CARPENTRY INSTRUCTOR PPI
DVT PPx Xarelto
FULL CODE
Anticipated Discharge: 24 - 48 hours
Subjective/Interval History
-
Date of Service: February 18, 2025
Patient was seen and examined at bedside this morning. Reports breathing more comfortably. Still has some wheezing on exam.
Objective Data
-
Labs:
Laboratory Results
02/18/25
07:08
Hgb 13.3
Hct 39.7
Sodium 137
Potassium 4.3
Chloride 96 L
Carbon Dioxide Pending
BUN 24 H
Creatinine 0.6
Glucose 111 H
Calcium 9.5
Vital Signs:
Vital Signs
Temp Pulse Resp BP Pulse Ox
98.4 F 72 18 112/66 92
02/18/25 07:05 02/18/25 11:12 02/18/25 11:12 02/18/25 07:05 02/18/25 11:12
I&O
02/17/25 02/18/25 02/19/25
06:59 06:59 06:59
Intake Total 1200 / 1200
Balance 1200 / 1200
Review of Systems
-
History Source: Patient
All other systems: Reviewed and negative
Physical Exam
-
General: No Apparent Distress
[2025-02-18 14:16] LABS: Carbon Dioxide 37 mmol/L (22-30)
[2025-02-18 15:53] VITALS: BP 108/63
--- NOTE | 2025-02-18 16:00 | W.PN.PUL3 ---
Today's Communication / Plan
-
Continue IV corticosteroids
Continue nebulizers while in the hospital
Hopefully can transition to prednisone tomorrow
Continue oxygen supplementation with things pulse ox above 90%
Smoking cessation strongly encouraged.
Will follow-up
Assessment
-
64-year-old female with history of COPD, recurrent flareups, severe obstructive lung disease with FEV1 30%, DLCO 36%, ongoing tobacco use presents with acute COPD exacerbation
Acute COPD exacerbation
History of recurrent COPD exacerbation
Multiple courses of steroids, antibiotics
Severe obstructive lung disease, FEV1 1.08/41%, DLCO 36%
Chronic hypoxia, on home oxygen
Conditions present prior to admission
AECOPD [facility] admission07/2024
History of paroxysmal atrial fibrillation
Hypertension/hyperlipidemia
Ventricular tachycardia/prolonged QT
ICD/pacemaker
History of cardiac arrest
Hypertension/hyperlipidemia
Dilated ascending aorta 4.4 cm
Mild patchy bronchiectasis, bronchiolitis per CT imaging
History of sleep apnea, discontinued CPAP after 80 pound weight loss
Total index 35, desaturation bipin 80% in 2013
30+ pack-year history of smoking ongoing
History of severe COPD-chronic hypoxemic respiratory failure-ongoing smoking.
Follows up with Dr. Lau. on [facility].
History of alcohol abuse
Plan/recommendations
At this time, it is concerning the patient continues to smoke given multiple recurrent COPD exacerbations.
Reviewed outpatient records. Severe obstructive lung disease, FEV1 baseline 41%, DLCO 36%
Patient is also missed many appointments in 2023, does not follow-up consistently last time seen was January 2025. She has an upcoming appointment in March.
-
Continue therapy for acute exacerbation: Chest x-ray showed no acute infiltrates. Hyperinflation.
Continue IV corticosteroids as you are currently on 4 mg IV every 12 hours. Hopefully to prednisone tomorrow.
While patient is hospitalized, continue with DuoNebs 4 times daily + budesonide twice daily
No indication for antibiotics at this point. Negative procalcitonin. No leukocytosis. Afebrile.
Hold inhalers while on acute exacerbation.
Upon discharge, resume Trelegy 100 mcg + prn albuterol MDI.
Previously on Daliresp-can be reconsidered in the outpatient setting.
Can consider Ohtuvayre in the outpatient setting.
Cannot use low-dose macrolide due to history of QT prolongation.
She has been referred to pulmonary rehabilitation in the outpatient setting.
-
Reviewed CT images from 2023. No significant bullous disease
No significant bronchiectasis.
No significant peripheral eosinophilia-but she is on low-dose steroids. She does have a cat at home for the last 9 months.
-
Continue oxygen supplementation to maintain pulse ox above 90%.
Patient has oxygen at home.
Patient on Xarelto as outpatient. History of atrial fibrillation noted
Outpatient records also suggest hypercoagulable state from lupus, details unclear
Smoking cessation strongly encouraged. Smoking 7 cigarettes/day. Trying to cut down. She understands ongoing lung function decline and ongoing exacerbations.
GERD prophylaxis: Pantoprazole
DVT prophylaxis: On Xarelto
Outpatient pulmonary office follow Dr. Lau.
Last time seen in the office 01/20/2025- On Trelegy, low dose prednisone, pulmonary rehab was set up, a Low dose radiation CT was ordered,
Patient has an appointment with Dr. Lau in March 2025.
-
Subjective Data
-
Date of Service:
Date of Service: February 18, 2025
Chief Complaint: Pulmonary Follow Up (Acute COPD exacerbation)
Review of Systems
Cardiopulmonary: Dyspnea, Dyspnea on Exertion, Cough and Wheezing
Objective Data
Data Reviewed
Vital Signs / I&O / Oxygen:
Vital Signs
Temp Pulse Resp BP Pulse Ox
98.3 F 76 20 108/63 97
02/18/25 15:53 02/18/25 15:53 02/18/25 15:53 02/18/25 15:53 02/18/25 15:53
Intake and Output
02/17/25 02/18/25 02/19/25
06:59 06:59 06:59
Intake Total 1200 / 1200
Balance 1200 / 1200
SaO2 97
Nasal Cannula flow liters per 3
minute
Physical Exam
General: Comfortable
HEENT: Normocephalic
Cardiovascular: S1-S2
Respiratory: Wheeze and Non-Labored Respirations
GI: Non Distended
Neurology: Awake and Alert
Skin: Warm
Labs/Micro/Reports
Lab Data
02/18/25 07:08
02/18/25 07:08
Microbiology
02/16/25 15:23 Sputum Respiratory Culture - Final
02/16/25 15:23 Sputum Gram Stain - Final
02/16/25 08:03 Nasal Swab Influenza Types A & B (MARKUS) - Final
Negative for Influenza A & B, NAAT
Negative results must be combined with clinical observations
and patient history.
Nucleic Acid Amplification test (NAAT)performed on the
[employer] platform.
[2025-02-18 23:00] VITALS: BP 125/63
[2025-02-19 07:05] VITALS: BP 111/68
[2025-02-19] MEDS: DUONEB 3 ML INH ×2 (07:19→11:20)
[2025-02-19] MEDS: TOPROL XL 50 MG PO (09:18)
[2025-02-19] MEDS: PROTONIX 40 MG PO (09:18)
[2025-02-19] MEDS: LIPITOR 10 MG PO (09:18)
[2025-02-19] MEDS: DECADRON 4 MG IV (09:18)
[2025-02-19] MEDS: XARELTO 20 MG PO (09:18)
[2025-02-19] MEDS: NICODERM TRANSDERMAL 14 MG TRANSDERM (09:19)
[2025-02-19] MEDS: FOLVITE 1 MG PO (09:20)
[2025-02-19] MEDS: LEXAPRO 20 MG PO (09:20)
[2025-02-19] MEDS: ABILIFY 5 MG PO (09:21)
--- NOTE | 2025-02-19 11:42 | W.PN.PUL3 ---
Today's Communication / Plan
-
Transition to prednisone 40 mg and decrease by 10 mg every 72 hours to off
Continue with nebulizers while in the hospital can transition to the inhalers upon discharge
Continue oxygen supplementation-baseline
Hopefully discharge planning soon
Will try to see in the hospital within the next 2 weeks
Assessment
-
64-year-old female with history of COPD, recurrent flareups, severe obstructive lung disease with FEV1 30%, DLCO 36%, ongoing tobacco use presents with acute COPD exacerbation
Acute COPD exacerbation
History of recurrent COPD exacerbation
Multiple courses of steroids, antibiotics
Severe obstructive lung disease, FEV1 1.08/41%, DLCO 36%
Chronic hypoxia, on home oxygen
Conditions present prior to admission
AECOPD [facility] admission/2024
History of paroxysmal atrial fibrillation
Hypertension/hyperlipidemia
Ventricular tachycardia/prolonged QT
ICD/pacemaker
History of cardiac arrest
Hypertension/hyperlipidemia
Dilated ascending aorta 4.4 cm
Mild patchy bronchiectasis, bronchiolitis per CT imaging
History of sleep apnea, discontinued CPAP after 80 pound weight loss
Total index 35, desaturation bipin 80% in 2013
30+ pack-year history of smoking ongoing
History of severe COPD-chronic hypoxemic respiratory failure-ongoing smoking.
Follows up with Dr. Lau. on Trelegy.
History of alcohol abuse
Plan/recommendations
At this time, it is concerning the patient continues to smoke given multiple recurrent COPD exacerbations.
History of severe airflow obstruction and severe gas exchange abnormality consistent with COPD/emphysema.
--
Continue therapy for acute exacerbation: Chest x-ray showed no acute infiltrates. Hyperinflation.
Transition to prednisone 40 mg today and will decrease by 10 mg every 72 hours to off.
While patient is hospitalized, continue with DuoNebs 4 times daily + budesonide twice daily
No indication for antibiotics at this point. Negative procalcitonin. No leukocytosis. Afebrile.
Hold inhalers while on acute exacerbation.
Upon discharge, resume Trelegy 100 mcg + prn albuterol MDI.
-
Previously on Daliresp-can be reconsidered in the outpatient setting.
Can consider Ohtuvayre in the outpatient setting.
Cannot use low-dose macrolide due to history of QT prolongation.
She has been referred to pulmonary rehabilitation in the outpatient setting.
-
Reviewed CT images from 2023. No significant bullous disease
No significant bronchiectasis.
No significant peripheral eosinophilia-but she is on low-dose steroids. She does have a cat at home for the last 9 months.
-
Continue oxygen supplementation to maintain pulse ox above 90%.
Patient has oxygen at home.
Patient on Xarelto as outpatient. History of atrial fibrillation noted
Outpatient records also suggest hypercoagulable state from lupus, details unclear
Smoking cessation strongly encouraged. Smoking 7 cigarettes/day. Trying to cut down. She understands ongoing lung function decline and ongoing exacerbations.
GERD prophylaxis: Pantoprazole
DVT prophylaxis: On Xarelto
Outpatient pulmonary office follow Dr. Lau.
Last time seen in the office 01/20/2025- On Trelegy, low dose prednisone, pulmonary rehab was set up, a Low dose radiation CT was ordered,
Will try to set up postdischarge appointment prior to March in my office.
Patient has an appointment with Dr. Lau in March 2025.
-
Subjective Data
-
Date of Service:
Date of Service: February 19, 2025
Chief Complaint: Pulmonary Follow Up (Acute COPD exacerbation)
Subjective:
Feels better
Has been able to ambulate to the restroom without significant symptoms
Wheezing has improved
Denies phlegm production or hemoptysis
Denies exertional chest pain
Objective Data
Data Reviewed
Vital Signs / I&O / Oxygen:
Vital Signs
Temp Pulse Resp BP Pulse Ox
98 F 73 16 111/68 95
02/19/25 07:05 02/19/25 11:22 02/19/25 11:22 02/19/25 09:18 02/19/25 11:22
Intake and Output
02/18/25 02/19/25 02/20/25
06:59 06:59 06:59
Intake Total 1200 / 1200 1740 / 1740
Balance 1200 / 1200 1740 / 1740
SaO2 95
Nasal Cannula flow liters per 3
minute
Physical Exam
General: Comfortable
HEENT: Normocephalic
Cardiovascular: S1-S2
Respiratory: Wheeze and Non-Labored Respirations
GI: Non Distended
Neurology: Awake, Alert, Oriented and AO x 3
Skin: Warm
Labs/Micro/Reports
Lab Data
02/18/25 07:08
02/18/25 07:08
Microbiology
02/16/25 15:23 Sputum Respiratory Culture - Final
02/16/25 15:23 Sputum Gram Stain - Final
02/16/25 08:03 Nasal Swab Influenza Types A & B (MARKUS) - Final
Negative for Influenza A & B, NAAT
Negative results must be combined with clinical observations
and patient history.
Nucleic Acid Amplification test (NAAT)performed on the
[employer] platform.
--- NOTE | 2025-02-19 12:32 | W.DCSUMMARY ---
Discharge Summary
Discharge Data
Date of Admission: 02/16/25
Date of Discharge: 02/19/25
Total time spent discharging patient (in min): 47
-
Pending Results: No
Hospital Course
Ms. Cortes is a 64-year-old female with medical history of severe COPD (severe disease with FEV1 41%, 30+ pack year smoking history), chronic hypoxic respiratory failure (on 3L), paroxysmal afib (on Xarelto), prolonged QTc with Torsades/VT arrest
2012 (s/p defibrillator) who presented with shortness of breath. She was admitted for treatment of acute COPD exacerbation. She clinically improved with IV steroids and nebulizer treatments. She was able to be titrated back to her baseline
supplemental oxygen. She he is being discharged on an oral steroid taper. She is encouraged to quit smoking and a nicotine patch has been prescribed for her. She will need close follow-up with pulmonology in the outpatient setting.
Physical exam:
General: No acute distress, comfortable, conversant
HEENT: Normocephalic, Atraumatic and Moist Mucous Membranes
Respiratory: Bilateral wheezes; Negative Rales or Rhonchi
Cardiac: Regular Rhythm and S1/S2
GI: Soft, Nontender and Nondistended
Musculoskeletal: No Clubbing, No Cyanosis and No Edema
Neuro: Awake, Alert and Oriented, no neurological deficit
Psych: Calm and cooperative
Discharge Plan
-
Patient Disposition: Home (Routine Discharge)
Discharge Diagnosis/Procedures: COPD exacerbation
Activity Restrictions/Additional Instructions:
You were admitted for treatment of acute COPD exacerbation. Your breathing improved with IV steroids and nebulizer treatments. It is strongly encouraged that you stop smoking. You will be discharged home on a steroid taper. You will need to
follow-up closely with pulmonology in their office.
Referrals:
Eduardo Ceron MD [Active, Pulmonary Medicine]
Vira Quintana DO [Family Provider, [facility]]
Prescriptions:
New
nicotine 14 mg/24 hr Patch 24 Hour
14 mg transdermal DAILY Qty: 30 0RF
prednisone 10 mg tablet
See Taper PO DIRECTED Qty: 30 0RF
Taper: Prednisone DC Starting at 40 mg daily
40 mg Daily for 3 Days and 0 Hour
30 mg Daily for 3 Days and 0 Hour
20 mg Daily for 3 Days and 0 Hour
10 mg Daily for 3 Days and 0 Hour
Continued
escitalopram oxalate 20 MG tablet
20 mg PO DAILY
atorvastatin 10 MG tablet
10 mg PO DAILY
Xarelto 20 MG tablet
20 mg PO DAILY
folic acid 1 mg Tablet
1 mg PO DAILY
albuterol sulfate 90 mcg/actuation Hfa Aerosol Inhaler
2 puff INHALATION R Q4HPRN PRN (Reason: sob)
aripiprazole 5 mg Tablet
5 mg PO DAILY
Trelegy Ellipta 100-62.5-25 mcg Blister With Device
1 inh INHALATION R DAILY
clonazepam 1 MG tablet
1 mg PO QIDPRN PRN (Reason: anxiety) Qty: 0 0RF
metoprolol succinate [Toprol XL] 50 mg Tablet Extended Release 24 Hr
50 mg PO DAILY
ipratropium-albuterol 0.5 mg-3 mg(2.5 mg base)/3 mL solution for nebulization
3 ml inhalation R QID
pantoprazole 40 mg Tablet,Delayed Release (Dr/Ec)
40 mg PO DAILY Qty: 30 0RF
budesonide 0.5 mg/2 mL suspension for nebulization
0.5 mg inhalation R BID
Discharge Orders:
Discharge Patient (As Directed); Ordered 02/19/25
Ordered By: Stephen Amador
Discharge Date and Time
Print Language: UGANDAN
--- NOTE | 2025-02-19 12:55 | CM ---
Chart reviewed. Patient will d/c home today
[facility] accepted for services
Met w/ patient bedside, she will request a Lyft home
IMM verbally reviewed, copy on chart. Patient declined a copy
[facility]

Plan: Home w/ [facility]
== END 2025-02-19 14:56 | disposition home health service (06) | DRG 191 ==
LOC: 4 WEST ACU 08:04
PROVIDERS: Hospitalist; ADMITTING PHYSICIAN Student in an Organized Health Care Education/Training Program; ATTENDING PHYSICIAN Internal Medicine; CONSULT PHYSICIAN Internal Medicine Critical Care Medicine; EMERGENCY PHYSICIAN Student in an Organized Health Care Education/Training Program; FAMILY PHYSICIAN Family Medicine
DX: J44.1 Chronic obstructive pulmonary disease with (acute) exacerbation (principal); J96.11 Chronic respiratory failure with hypoxia; F41.9 Anxiety disorder, unspecified; F17.210 Nicotine dependence, cigarettes, uncomplicated; I48.0 Paroxysmal atrial fibrillation; I10 Essential (primary) hypertension; E78.5 Hyperlipidemia, unspecified; I77.819 Aortic ectasia, unspecified site; K21.9 Gastro-esophageal reflux disease without esophagitis; Z11.52 Encounter for screening for COVID-19; Z71.6 Tobacco abuse counseling; Z79.01 Long term (current) use of anticoagulants; Z79.51 Long term (current) use of inhaled steroids; Z79.899 Other long term (current) drug therapy; Z86.79 Personal history of other diseases of the circulatory system; Z95.810 Presence of automatic (implantable) cardiac defibrillator
CPT/HCPCS: 71046; 80048; 80053; 83880; 84145; 84484; 85014; 85018; 85025; 87070; 87205; 87502; 87811; 93005; 94640; 96374; 97162; 97167; 99285; 99406